=== PATIENT | male | born 1945 | race Caucasian/White ===

== ENCOUNTER 2021-08-26 19:20 | Emergency (ER) | payer SELFPAY ==
[2021-08-26 19:35] VITALS: BP 130/51; BP 142/68; PULSE 62; PULSE 80; RESP 18; O2SAT 98; BMI 22.6
--- NOTE | 2021-08-26 19:35 | ECG_ITS ---
Test Reason : AFIB Blood Pressure : / mmHG Vent. Rate : 123 BPM Atrial Rate : 123 BPM P-R Int : 094 ms QRS Dur : 124 ms QT Int : 382 ms P-R-T Axes : 082 -88 062 degrees QTc Int : 546 ms Sinus tachycardia with short CO with Fusion complexes Right bundle branch block Left anterior fascicular block Bifascicular block Cannot rule out Anterior infarct (cited on or before 02-JUL-2016) Abnormal ECG When compared with ECG of 02-JUL-2016 14:30, Fusion complexes are now Present Vent. rate has increased BY 48 BPM Right bundle branch block is now Present Questionable change in initial forces of Anterior leads Referred By: Chano Veronica Electronically Signed By:SUZANNE MERINO MD
[2021-08-26 20:07] VITALS: BP 124/51; PULSE 75; RESP 17; O2SAT 98
[2021-08-26 20:08] LABS: Basophils Absolute Auto 0.1 X10*3/uL (0.0-0.2); Basophils Percent Auto 0.3 % (0-2); Eosinophils Absolute Auto 0.3 X10*3/uL (0.0-0.4); Eosinophils Percent Auto 2.1 % (0-4); Hematocrit 34.3 % (42.0-52.0); Hemoglobin 11.6 g/dl (14.0-18.0); Imm Gran Abs Auto 0.48 X10*3/uL (0.00-0.03); Lymphocytes Absolute Auto 2.9 X10*3/uL (1.2-4.9); Lymphocytes Percent Auto 18.4 % (20-40); MANUAL DIFF FLAG SCAN; Mean Corpuscular HGB Conc 33.8 g/dl (31.0-36.0); Mean Corpuscular Hemoglobin 30.1 pg (27.0-33.0); Mean Corpuscular Volume 89.1 fL (80.0-98.0); Mean Platelet Volume 9.7 fL (9.4-12.4); Monocytes Percent Auto 12.6 % (2-11); Neutrophils Absolute Auto 10.1 x10*3/uL (2.0-8.3); Neutrophils Percent Auto 63.6 % (45-73); Platelet Count 461 X10*3/uL (160-400); Red Blood Count 3.85 X10*6/uL (4.60-5.80); Red Cell Distribution Width 12.6 % (11.0-16.0); SCAN SMEAR FLAG 1; White Blood Count 15.8 X10*3/uL (4.8-10.8)
--- NOTE | 2021-08-26 20:10 | PC.NURSE ---
pt a&o3, vss, cardiac applied - afib with long runs of PVCs, EKG completed, provider aware. 20G IV placed right forearm, labs drawn. epistaxis appears to have stopped.
[2021-08-26 20:15] LABS: INTERNATIONAL NORM RATIO 1.3 (0.9-1.1); Prothrombin Time 14.3 SEC (9.9-13.0)
[2021-08-26 20:25] LABS: SLIDE REVIEW VERIFIED
[2021-08-26] MEDS: Silver Nitrate Applicator STICK..EA. 1 APPL TOPICAL (20:25)
[2021-08-26 20:31] LABS: Alanine Aminotransferase 32 U/L (0-40); Albumin Level 3.7 g/dL (3.5-5.0); Alkaline Phosphatase 103 U/L (39-117); Anion Gap 16 (12-20); Aspartate Amino Transferase 25 U/L (5-37); Bilirubin Total 0.5 mg/dL (0.0-1.0); Blood Urea Nitrogen 34 mg/dL (9-16); Calcium 9.4 mg/dL (8.4-10.2); Carbon Dioxide 24 mmol/L (22-29); Chloride 101 mmol/L (96-108); Creatinine Clr Calc Pharmacy 64.4; Estimated Glomerular Filt Rate > 60; Glucose Random 195 mg/dL (60-115); Magnesium 2.1 mg/dL (1.6-2.6); Potassium 4.6 mmol/L (3.3-5.1); Sodium 136 mmol/L (135-145); Total Protein 6.3 g/dL (6.5-8.0)
--- NOTE | 2021-08-26 20:54 | ED.EPISTAXIS ---
History of Present Illness General Chief Complaint: Epistaxis Stated Complaint: nose bleed Time Seen by Provider: 08/26/21 19:29 Source: patient and RN notes reviewed Mode of arrival: EMS Limitations: no limitations History of Present Illness HPI Narrative: Patient came from long-term for bleeding from the right nostril since 07:00 off and on patient is on Plavix no history of epistaxis in the past no head injury no bleeding from any other place patient feels otherwise fine Related Data Allergies Allergy/AdvReac Type Severity Reaction Status Date / Time No Known Allergies Allergy Unverified 02/08/20 19:13 [No Known Allergies*] Review of Systems Review of Systems: Yes all other systems are reviewed and are negative [facility] Past Medical History Medical History CVA (cerebral vascular accident) Diabetes type 2, controlled Essential (primary) hypertension Hemiplegia and hemiparesis following cerebral infarction affecting right dominant side Hyperlipidemia Repeated falls Social History Social History Alcohol intake: never Patient Tobacco Use Status: Former Tobacco user Use of substances other than those prescribed or required for medical reasons: No Advance Directives: No Advance Directives Information Provided: No Physical Exam Vital Signs: Vital Signs: Last Vital Signs Pulse 75 08/26/21 20:07 Resp 17 08/26/21 20:07 BP 124/51 L 08/26/21 20:07 Pulse Ox 98 08/26/21 20:07 BMI result Body Mass Index 22.6 Appearance: Alert. Oriented X3. No acute distress. Eyes: No pallor/ icterus ENT: Pharynx normal. Oral Mucosa moist .active bleeding from right anterior septum Neck: Normal inspection. Neck supple. CVS: Sinus Tachycardia with PACs Pulses normal. Respiratory: No respiratory distress. Equal air entry bilateral, Abdomen: Soft and nontender. Bowel sounds are present, no mass palpable, Skin: Skin warm and dry. Normal skin color. Normal skin turgor. Extremities: No lower extremity edema. No calf tenderness Neuro: Oriented X 3. No motor deficit. MDM - Epistaxis MDM Narrative Medical decision making narrative: Bleeding stopped after cauterization right nostril vital stable patient had food in the ER, discharge patient back to long-term Lab Data Attestation: I reviewed the patient's lab results. Result diagrams: 08/26/21 20:03 08/26/21 20:03 Labs: Lab Results 08/26/21 08/26/21 08/26/21 Range/Units 20:03 20:03 20:03 WBC 15.8 H (4.8-10.8) X10*3/uL RBC 3.85 L (4.60-5.80) X10*6/uL Hgb 11.6 L (14.0-18.0) g/dl Hct 34.3 L (42.0-52.0) % MCV 89.1 (80.0-98.0) fL MCH 30.1 (27.0-33.0) pg MCHC 33.8 (31.0-36.0) g/dl RDW 12.6 (11.0-16.0) % Plt Count 461 H (160-400) X10*3/uL MPV 9.7 (9.4-12.4) fL Immature Gran % (Auto) 3.0 H (0.0-0.4) % Neut % (Auto) 63.6 (45-73) % Lymph % (Auto) 18.4 L (20-40) % [place] % (Auto) 12.6 H (2-11) % Eos % (Auto) 2.1 (0-4) % Baso % (Auto) 0.3 (0-2) % Lymph # (Auto) 2.9 (1.2-4.9) X10*3/uL [place] # (Auto) 2.0 H (0.1-1.2) X10*3/uL Eos # (Auto) 0.3 (0.0-0.4) X10*3/uL Baso # (Auto) 0.1 (0.0-0.2) X10*3/uL Abs Immat Gran (auto) 0.48 H (0.00-0.03) X10*3/uL Absolute Neuts (auto) 10.1 H (2.0-8.3) x10*3/uL Absolute Nucleated RBC 0.000 (0.0-0.012) X10*3/uL Nucleated RBC % (auto) 0.0 (0.0-0.2) /100WBC Smear Tech's Comments VERIFIED PT 14.3 H (9.9-13.0) SEC INR 1.3 H (0.9-1.1) Sodium 136 (135-145) mmol/L Potassium 4.6 (3.3-5.1) mmol/L Chloride 101 (96-108) mmol/L Carbon Dioxide 24 (22-29) mmol/L Anion Gap 16 (12-20) BUN 34 H (9-16) mg/dL Creatinine 1.11 (0.5-1.4) mg/dL Estim Creat Clear Calc 64.4 Estimated GFR > 60 Random Glucose 195 H (60-115) mg/dL Calcium 9.4 (8.4-10.2) mg/dL Magnesium 2.1 (1.6-2.6) mg/dL Total Bilirubin 0.5 (0.0-1.0) mg/dL AST 25 (5-37) U/L ALT 32 (0-40) U/L Alkaline Phosphatase 103 (39-117) U/L Total Protein 6.3 L (6.5-8.0) g/dL Albumin 3.7 (3.5-5.0) g/dL Procedures Epistaxis Control Time Out Performed: Yes Nostril: Yes right Direct inspection: Yes anterior source identified Direct inspection method: Yes otoscope Clots removed by: Yes blowing nose Epistaxis treatment: Yes silver nitrate cautery Results of treatment: Yes bleeding controlled Complications: Yes none Discharge Plan Discharge Clinical Impression: Epistaxis Patient Disposition: Xfer [facility] Instructions: Nosebleed (ED) Additional Instructions: Local care as advised Stop picking of the nose
--- NOTE | 2021-08-26 21:40 | PC.NURSE ---
rn-rn report called in to [facility], ambulance to pick pt up around 2300.
[2021-08-26 23:22] VITALS: BP 153/64; PULSE 76; RESP 18; O2SAT 95
== END 2021-08-26 23:28 | disposition skilled nursing facility (03) ==
PROVIDERS: Emergency Provider Internal Medicine
DX: R04.0 Epistaxis (principal); E11.9 Type 2 diabetes mellitus without complications; I10 Essential (primary) hypertension; E78.5 Hyperlipidemia, unspecified; Z86.73 Personal history of transient ischemic attack (TIA), and cerebral infarction without residual deficits; Z79.01 Long term (current) use of anticoagulants
CPT/HCPCS: 30901; 36415; 80053; 83735; 85025; 85610; 93005; 99283; 99285

== ENCOUNTER 2022-09-01 12:24 | Emergency (ER) | payer MEDICARE, SELFPAY ==
--- NOTE | 2022-09-01 12:30 | ED.FALL ---
HPI - Fall General Chief Complaint: Fall <LINO Fry - Last Filed: 09/05/22 12:52> Stated Complaint: Fall <LINO Fry - Last Filed: 09/05/22 12:52> Time Seen by Provider: 09/01/22 14:07 <LINO Fry - Last Filed: 09/05/22 12:52> Source: patient <Aditya Bourgeois MD - Last Filed: 09/01/22 16:19> Mode of arrival: ambulatory <Aditya Bourgeois MD - Last Filed: 09/01/22 16:19> Limitations: no limitations <Aditya Bourgeois MD - Last Filed: 09/01/22 16:19> History of Present Illness HPI Narrative: Patient fell at home and he is on eliquist for a prior stroke. Patient states he landed on his right side to me. Patients son say his foot drags from prior stroke and he lost his balance. <Aditya Bourgeois MD - Last Filed: 09/01/22 16:19> MD complaint: fall <Aditya Bourgeois MD - Last Filed: 09/01/22 16:19> Onset (ago): hour(s) <Aditya Bourgeois MD - Last Filed: 09/01/22 16:19> Fall from: standing <Aditya Bourgeois MD - Last Filed: 09/01/22 16:19> Fall witnessed: no <Aditya Bourgeois MD - Last Filed: 09/01/22 16:19> Place fall occurred: home <Aditya Bourgeois MD - Last Filed: 09/01/22 16:19> Loss of consciousness: none <Aditya Bourgeois MD - Last Filed: 09/01/22 16:19> Context: tripped/slipped <Aditya Bourgeois MD - Last Filed: 09/01/22 16:19> Related Data Allergies/Adverse Reactions: Allergies Allergy/AdvReac Type Severity Reaction Status Date / Time No Known Allergies Allergy Verified 09/01/22 12:37 [No Known Allergies*] <LINO Fry - Last Filed: 09/05/22 12:52> Review of Systems Review of Systems: Yes all other systems are reviewed and are negative <Aditya Bourgeois MD - Last Filed: 09/01/22 16:19> Neurologic: Denies Sensory deficit (Neuro) <Aditya Bourgeois MD - Last Filed: 09/01/22 16:19> [facility] Past Medical History Medical History: Medical History CVA (cerebral vascular accident) Diabetes type 2, controlled Essential (primary) hypertension Hemiplegia and hemiparesis following cerebral infarction affecting right dominant side Hyperlipidemia Repeated falls <LINO Fry - Last Filed: 09/05/22 12:52> Social History Social History: Social History Alcohol intake: never Patient Tobacco Use Status: Former Tobacco user Smoked in Last 30 Days: No Use of substances other than those prescribed or required for medical reasons: No Advance Directives: No Advance Directives Information Provided: Yes <LINO Fry - Last Filed: 09/05/22 12:52> Physical Exam Vital Signs: Vital Signs: Last Vital Signs Temp 97 F 09/01/22 12:31 Pulse 66 09/01/22 14:13 Resp 18 09/01/22 12:31 BP 161/65 H 09/01/22 14:13 Pulse Ox 99 09/01/22 14:13 BMI result Body Mass Index 20.0 <LINO Fry - Last Filed: 09/05/22 12:52> Vital Signs: Last Vital Signs Temp 97 F 09/01/22 12:31 Pulse 66 09/01/22 14:13 Resp 18 09/01/22 12:31 BP 161/65 H 09/01/22 14:13 Pulse Ox 99 09/01/22 14:13 BMI result Body Mass Index 20.0 <Aditya Bourgeois MD - Last Filed: 09/01/22 16:19> Const: Other: thin male, chronically ill <Aditya Bourgeois MD - Last Filed: 09/01/22 16:19> Orientation/consciousness: oriented to person and patient oriented x3 <Aditya Bourgeois MD - Last Filed: 09/01/22 16:19> Limitations: no limitations <Aditay Bourgeois MD - Last Filed: 09/01/22 16:19> HEENT: Head: Yes normal to inspection <Aditya Bourgeois MD - Last Filed: 09/01/22 16:19> Ears: external ears normal <Aditya Bourgeois MD - Last Filed: 09/01/22 16:19> General nose exam: Normal external nose present <Aditya Bourgeois MD - Last Filed: 09/01/22 16:19> Mouth: Normal oral and palatal mucosa present and oropharynx normal <Aditya Bourgeois MD - Last Filed: 09/01/22 16:19> Throat: Yes posterior oropharynx normal <Aditya Bourgeois MD - Last Filed: 09/01/22 16:19> Eyes: General: appearance normal, both eyes and all related structures <Aditya Bourgeois MD - Last Filed: 09/01/22 16:19> Neck: Other: supple <Aditya Bourgeois MD - Last Filed: 09/01/22 16:19> Neck: Yes normal visual inspection <Aditya Bourgeois MD - Last Filed: 09/01/22 16:19> Chest: Chest palpation & inspection: normal inspection of the chest <Aditya Bourgeois MD - Last Filed: 09/01/22 16:19> Resp: Auscultation: clear to auscultation bilaterally <Aditya Bourgeois MD - Last Filed: 09/01/22 16:19> Cardio: Jugular venous distension: no JVD <Aditya Bourgeois MD - Last Filed: 09/01/22 16:19> Rate: regular rate <Aditya Bourgeois MD - Last Filed: 09/01/22 16:19> Rhythm: regular rhythm <Aditya Bourgeois MD - Last Filed: 09/01/22 16:19> Heart sounds: S1 normal heart sound present and S2 normal heart sound present <Aditya Bourgeois MD - Last Filed: 09/01/22 16:19> GI: Inspection: Yes normal to inspection <Aditya Bourgeois MD - Last Filed: 09/01/22 16:19> Palpation (GI): Soft to palpation, nontender and No hepatosplenomegaly present <Aditya Bourgeois MD - Last Filed: 09/01/22 16:19> Auscultation: normal bowel sounds <Aditya Bourgeois MD - Last Filed: 09/01/22 16:19> : General: Yes no CVA tenderness <Aditya Bourgeois MD - Last Filed: 09/01/22 16:19> Back/Spine/Pelvis: Back: no CVA tenderness <Aditya Bourgeois MD - Last Filed: 09/01/22 16:19> Skin: General skin exam: no rashes or lesions noted <Aditya Bourgeois MD - Last Filed: 09/01/22 16:19> Neuro: Other: very mild right sided weakness from old cva <Aditya Bourgeois MD - Last Filed: 09/01/22 16:19> General: oriented to person and patient oriented x3 <Aditya Bourgeois MD - Last Filed: 09/01/22 16:19> Cranial nerves: Yes CN's II-XII intact bilaterally <Aditya Bourgeois MD - Last Filed: 09/01/22 16:19> Motor exam (neuro): 5/5 motor strength present throughout <Aditya Bourgeois MD - Last Filed: 09/01/22 16:19> Sensory Exam: No Sensory deficit (Neuro) <Aditya Bourgeois MD - Last Filed: 09/01/22 16:19> Extrem: General: Yes normal to inspection <Aditya Bourgeois MD - Last Filed: 09/01/22 16:19> Psych: Appearance: grossly normal <Aditya Bourgeois MD - Last Filed: 09/01/22 16:19> Course Course Course Narrative: RME--77-year-old male with past medical history of CVA, diabetes, hypertension, HLD, hemiplegia and hemiparesis, frequent falls, presenting to the ED c/o mechanical trip & fall onto left side this AM. Takes Eliquis. Patient denies complaints at present. Denies head trauma or LOC. Denies neck/back pain, CP, SOB, abd pain. Here with son requesting help at home. No evidence of trauma, no midline spinous tenderness, no focal deficits. Ambulating slow steady with cane. Diffuse palpation over patient's entire body without elicited pain Labs, UA, PT/CM ordered <LINO Fry - Last Filed: 09/05/22 12:52> Reevaluation(s) Reevaluation #1: no acute medical findings for admission, patient eloped with family <Aditya Bourgeois MD - Last Filed: 09/01/22 16:19> Time: 16:19 <Aditya Bourgeois MD - Last Filed: 09/01/22 16:19> Medical Decision Making Differential Diagnosis Differential Diagnoses: The differential diagnosis associated with the presentation includes (CVA, electrolyte abnormality, UTI, weakness, fall risk) <Aditya Bourgeois MD - Last Filed: 09/01/22 16:19> Admission/Observation Consideration of admission/observation: Escalation of care including admission/observation considered (in this 77 yo male with prior CVA and new weakness admission was considered) <Aditya Bourgeois MD - Last Filed: 09/01/22 16:19> Consult Healthcare Provider Management of the patient was discussed with: Therapy Director (Case management, physical therapy) <Aditya Bourgeois MD - Last Filed: 09/01/22 16:19> Lab Data MDM Lab Attestation statement: I reviewed the patient's lab results. <Aditya Bourgeois MD - Last Filed: 09/01/22 16:19> Result Diagrams: 09/01/22 12:44 09/01/22 12:44 <LINO Fry - Last Filed: 09/05/22 12:52> Labs: Lab Results 09/01/22 09/01/22 09/01/22 Range/Units 12:44 12:44 12:44 WBC 10.3 (4.8-10.8) X10*3/uL RBC 3.67 L (4.60-5.80) X10*6/uL Hgb 11.2 L (14.0-18.0) g/dl Hct 34.4 L (42.0-52.0) % MCV 93.7 (80.0-98.0) fL MCH 30.5 (27.0-33.0) pg MCHC 32.6 (31.0-36.0) g/dl RDW 14.4 (11.0-16.0) % Plt Count 382 (160-400) X10*3/uL MPV 10.6 (9.4-12.4) fL Immature Gran % (Auto) 1.7 H (0.0-0.4) % Neut % (Auto) 66.9 (45-73) % Lymph % (Auto) 18.0 L (20-40) % [place] % (Auto) 9.4 (2-11) % Eos % (Auto) 3.5 (0-4) % Baso % (Auto) 0.5 (0-2) % Lymph # (Auto) 1.9 (1.2-4.9) X10*3/uL [place] # (Auto) 1.0 (0.1-1.2) X10*3/uL Eos # (Auto) 0.4 (0.0-0.4) X10*3/uL Baso # (Auto) 0.1 (0.0-0.2) X10*3/uL Abs Immat Gran (auto) 0.18 H (0.00-0.03) X10*3/uL Absolute Neuts (auto) 6.9 (2.0-8.3) x10*3/uL Absolute Nucleated RBC 0.000 (0.0-0.012) X10*3/uL Nucleated RBC % (auto) 0.0 (0.0-0.2) /100WBC Sodium 141 (135-145) mmol/L Potassium 5.0 (3.3-5.1) mmol/L Chloride 106 (96-108) mmol/L Carbon Dioxide 25 (22-29) mmol/L Anion Gap 15 (12-20) BUN 20 H (9-16) mg/dL Creatinine 1.15 (0.5-1.4) mg/dL Estim Creat Clear Calc 54.1 Estimated GFR > 60 Random Glucose 201 H (60-115) mg/dL Calcium 9.6 (8.4-10.2) mg/dL Total Bilirubin 0.4 (0.0-1.0) mg/dL Direct Bilirubin 0.1 (0.0-0.5) mg/dL AST 15 (5-37) U/L ALT 16 (0-40) U/L Alkaline Phosphatase 99 (39-117) U/L Total Protein 6.4 L (6.5-8.0) g/dL Albumin 4.0 (3.5-5.0) g/dL COVID-19 ([facility]) Negative (Negative) COVID-19 Clin Com See Note <LINO Fry - Last Filed: 09/05/22 12:52> Lab Results 09/01/22 09/01/22 09/01/22 Range/Units 12:44 12:44 12:44 WBC 10.3 (4.8-10.8) X10*3/uL RBC 3.67 L (4.60-5.80) X10*6/uL Hgb 11.2 L (14.0-18.0) g/dl Hct 34.4 L (42.0-52.0) % MCV 93.7 (80.0-98.0) fL MCH 30.5 (27.0-33.0) pg MCHC 32.6 (31.0-36.0) g/dl RDW 14.4 (11.0-16.0) % Plt Count 382 (160-400) X10*3/uL MPV 10.6 (9.4-12.4) fL Immature Gran % (Auto) 1.7 H (0.0-0.4) % Neut % (Auto) 66.9 (45-73) % Lymph % (Auto) 18.0 L (20-40) % [place] % (Auto) 9.4 (2-11) % Eos % (Auto) 3.5 (0-4) % Baso % (Auto) 0.5 (0-2) % Lymph # (Auto) 1.9 (1.2-4.9) X10*3/uL [place] # (Auto) 1.0 (0.1-1.2) X10*3/uL Eos # (Auto) 0.4 (0.0-0.4) X10*3/uL Baso # (Auto) 0.1 (0.0-0.2) X10*3/uL Abs Immat Gran (auto) 0.18 H (0.00-0.03) X10*3/uL Absolute Neuts (auto) 6.9 (2.0-8.3) x10*3/uL Absolute Nucleated RBC 0.000 (0.0-0.012) X10*3/uL Nucleated RBC % (auto) 0.0 (0.0-0.2) /100WBC Sodium 141 (135-145) mmol/L Potassium 5.0 (3.3-5.1) mmol/L Chloride 106 (96-108) mmol/L Carbon Dioxide 25 (22-29) mmol/L Anion Gap 15 (12-20) BUN 20 H (9-16) mg/dL Creatinine 1.15 (0.5-1.4) mg/dL Estim Creat Clear Calc 54.1 Estimated GFR > 60 Random Glucose 201 H (60-115) mg/dL Calcium 9.6 (8.4-10.2) mg/dL Total Bilirubin 0.4 (0.0-1.0) mg/dL Direct Bilirubin 0.1 (0.0-0.5) mg/dL AST 15 (5-37) U/L ALT 16 (0-40) U/L Alkaline Phosphatase 99 (39-117) U/L Total Protein 6.4 L (6.5-8.0) g/dL Albumin 4.0 (3.5-5.0) g/dL COVID-19 ([facility]) Negative (Negative) COVID-19 Clin Com See Note <Aditya Bourgeois MD - Last Filed: 09/01/22 16:19> Tests considered The following testing was considered but not selected: Head Ct was considered but no new weakness <Aditya Bourgeois MD - Last Filed: 09/01/22 16:19> Discharge Plan Discharge Clinical Impression: Weakness <LINO Fry - Last Filed: 09/05/22 12:52> Patient Disposition: Elopement <LINO Fry - Last Filed: 09/05/22 12:52> Interventions: ED Discharge Assessment Last Done: 09/02/22 09:30 <LINO Fry - Last Filed: 09/05/22 12:52> Discharge Date/Time: 09/01/22 14:30 <LINO Fry - Last Filed: 09/05/22 12:52>
[2022-09-01 12:31] VITALS: BP 161/65; PULSE 66; RESP 18; TEMP 36.1; O2SAT 99
[2022-09-01 12:54] LABS: MANUAL DIFF FLAG NO
[2022-09-01 12:56] LABS: Basophils Absolute Auto 0.1 X10*3/uL (0.0-0.2); Basophils Percent Auto 0.5 % (0-2); Eosinophils Absolute Auto 0.4 X10*3/uL (0.0-0.4); Eosinophils Percent Auto 3.5 % (0-4); Hematocrit 34.4 % (42.0-52.0); Hemoglobin 11.2 g/dl (14.0-18.0); Imm Gran Abs Auto 0.18 X10*3/uL (0.00-0.03); Imm Gran Pct Auto 1.7 % (0.0-0.4); Lymphocytes Absolute Auto 1.9 X10*3/uL (1.2-4.9); Mean Corpuscular HGB Conc 32.6 g/dl (31.0-36.0); Mean Corpuscular Hemoglobin 30.5 pg (27.0-33.0); Mean Corpuscular Volume 93.7 fL (80.0-98.0); Mean Platelet Volume 10.6 fL (9.4-12.4); Monocytes Percent Auto 9.4 % (2-11); Neutrophils Absolute Auto 6.9 x10*3/uL (2.0-8.3); Neutrophils Percent Auto 66.9 % (45-73); Platelet Count 382 X10*3/uL (160-400); Red Blood Count 3.67 X10*6/uL (4.60-5.80); Red Cell Distribution Width 14.4 % (11.0-16.0); White Blood Count 10.3 X10*3/uL (4.8-10.8)
[2022-09-01 13:09] LABS: IDNOW Serial# BCCEAD1C
[2022-09-01 13:10] LABS: COVID-19 Test Negative (Negative)
[2022-09-01 13:17] LABS: Alanine Aminotransferase 16 U/L (0-40); Alkaline Phosphatase 99 U/L (39-117); Anion Gap 15 (12-20); Aspartate Amino Transferase 15 U/L (5-37); Bilirubin Direct 0.1 mg/dL (0.0-0.5); Bilirubin Total 0.4 mg/dL (0.0-1.0); Blood Urea Nitrogen 20 mg/dL (9-16); Calcium 9.6 mg/dL (8.4-10.2); Carbon Dioxide 25 mmol/L (22-29); Chloride 106 mmol/L (96-108); Creatinine Clr Calc Pharmacy 54.1; Estimated Glomerular Filt Rate > 60; Glucose Random 201 mg/dL (60-115); Sodium 141 mmol/L (135-145); Total Protein 6.4 g/dL (6.5-8.0)
[2022-09-01 14:13] VITALS: BP 161/65; PULSE 66; O2SAT 99
--- NOTE | 2022-09-01 14:55 | PC.NURSE ---
Patient noted to not be in room; spoke to provider who states that they have not discharged the patient yet. Called patient's son who was driving patient home at time of call. This nurse asked son to bring patient back to ED as the patient was not discharged.
--- NOTE | 2022-09-01 15:04 | MHC.CM.ED ---
Received case management consult from Stephanie HUYNH. Patient came to the ER due to a fall. Work up essentially negative. Physical therapy eval completed. Home therapy is recommended. Met with patient and son, Hussein in regards to discharge planning. Patient lives with his friend, Cherelle, ambulates with a cane and had no services prior to coming to the ER. Patient denies having a PCP. Patient states he has a HCP at home and will attempt to obtain a copy. Patient and Hussein made aware VNA will not be able to be arranged for home therapy because patient does not have a PCP. Both are upset but understand. Dr Bourgeois made aware. Dr Bourgeois feels patient must have a PCP because patient is on maintenance Eliquis. Patient's pharmacy is [facility] in [place]. T/W spoke with Jose Ramon Sargent. Patient hasn't picked up medication from them since 11/2021. T/W met with patient and son Hussein. Prescription was sent by a doctor in [facility]. Hussein picked up patient's RX on Wednesday. VNA will still not be able to be arranged. Khushboo, Hussein, and Dr Bourgeois. aware. Patient will be d/c'd home. Hussein will transport patient home.
== END 2022-09-01 14:30 | disposition left against medical advice (07) ==
PROVIDERS: Physician Assistant; Emergency Provider Emergency Medicine
DX: R53.1 Weakness (principal); R26.2 Difficulty in walking, not elsewhere classified; Z20.822 Contact with and (suspected) exposure to COVID-19; Z20.828 Contact with and (suspected) exposure to other viral communicable diseases; Z79.899 Other long term (current) drug therapy
CPT/HCPCS: 80048; 80076; 85025; 87635; 97162; 99284

== ENCOUNTER 2022-09-17 13:51 | Emergency (ER) | payer OTHER, MEDICARE, SELFPAY ==
--- NOTE | ~2022-09-17 | CT_ITS ---
EXAMINATION: CT HEAD WITHOUT CONTRAST CLINICAL INFORMATION: History of fall, right leg weakness. COMPARISON: Head CT from 07/02/2016 TECHNIQUE: Contiguous axial imaging was performed from the skull base to vertex without intravenous administration of contrast. This CT examination was performed using dose optimization techniques as appropriate, variously including the following: *Automated exposure control *Adjustment of mA and/or kV according to patient size (this includes techniques or standardized protocols for targeted exams where dose is matched to indication/reason for exam; i.e. extremities or head) *Use of iterative reconstruction technique DLP: 732 mGy-cm FINDINGS: No evidence of intracranial hemorrhage, acute extra-axial fluid collection, focal mass effect or midline shift. The forbes-white matter differentiation is maintained. No acute major vascular territory infarction. There is dense atherosclerotic calcification of cavernous carotid arteries. Also, there is atherosclerotic calcification of proximal intradural segments of vertebral arteries. Chronic patchy hypoattenuation is present in the supratentorial white matter. There are a few lacunar infarcts, including region of left corpus striatum, posterior limb of left internal capsule and right gangliocapsular region. There is chronic prominence of the cerebrospinal fluid space of the left middle cranial fossa consistent with arachnoid cyst, as noted on 07/02/2016. There is chronic mild prominence of the cisterna magna. No acute findings in the posterior fossa. Moderate parenchymal volume loss with commensurate prominence of ventricles and sulci; no hydrocephalus. No evidence of calvarial fracture. The mastoid air cells are well aerated. The orbits and temporomandibular joints are unremarkable. There are mucous retention cysts of maxillary sinuses. Calcium deposition (likely calcium pyrophosphate dihydrate crystal deposition) along the transverse ligament posterior to the dens. CT/CT head/brain wo IV con IMPRESSION: * No intracranial hemorrhage or other acute intracranial pathology. 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 * There is chronic prominence of the cerebrospinal fluid space of the left middle cranial fossa consistent with arachnoid cyst.
--- NOTE | 2022-09-17 13:53 | ED.GENADULT ---
HPI - General Adult General Chief complaint: Fall Stated complaint: falling? Related Data Home Medications ?Medication ?Instructions ?Recorded ?Confirmed apixaban 5 mg tablet (Eliquis) 5 mg PO BID 09/18/22 07/06/23 atorvastatin 80 mg tablet 80 mg PO BEDTIME 09/18/22 07/06/23 metformin 500 mg tablet 1,000 mg PO BID 09/18/22 07/06/23 tamsulosin 0.4 mg capsule 0.4 mg PO DAILY 09/18/22 07/06/23 acetaminophen 325 mg tablet 650 mg PO Q6H PRN Fever Or Pain 10/29/22 07/06/23 (Tylenol) bisacodyl 10 mg rectal suppository 10 mg CA DAILY PRN Constipation 10/29/22 07/06/23 magnesium hydroxide 400 mg/5 mL 30 ml PO DAILY PRN Constipation 10/29/22 07/06/23 oral suspension (Milk of Magnesia) sodium phosphates 19 gram-7 118 ml CA DAILY PRN Constipation 10/29/22 07/06/23 gram/118 mL enema (Fleet Enema) amlodipine 2.5 mg tablet 2.5 mg PO DAILY 12/21/22 07/06/23 ferrous sulfate 325 mg (65 mg 325 mg PO DAILY 07/06/23 07/06/23 iron) tablet insulin lispro 100 unit/mL 2 - 10 sliding scale dose subcut 07/06/23 07/06/23 subcutaneous solution (Humalog USEASDIRECTD U-100 Insulin) Previous Rx's ?Medication ?Instructions ?Recorded hydrochlorothiazide 25 mg tablet 25 mg PO DAILY #30 tabs 12/02/22 lisinopril 40 mg tablet 40 mg PO DAILY #30 tabs 12/02/22 Allergies Allergy/AdvReac Type Severity Reaction Status Date / Time No Known Allergies Allergy Verified 09/18/22 13:13 [No Known Allergies*] [facility] Past Medical History Medical History Paroxysmal atrial fibrillation Hemiplegia and hemiparesis following cerebral infarction affecting right dominant side Essential (primary) hypertension Hyperlipidemia Diabetes type 2, controlled Repeated falls CVA (cerebral vascular accident) Social History Social History Alcohol intake: never Patient Tobacco Use Status: Current everyday Tobacco user Tobacco use type: Cigarette Cigarette Packs Per Day: 0.3 Cigarettes Per Day: 6.0 Advance Directives Date on File: 09/18/22 service: Yes Current occupational status: retired Physical Exam ED Vital Signs: BMI result Body Mass Index 20.0 Course Course Course Narrative: This is an RME: Additional HPI, ROS, PE not included below will be deferred to primary provider. 77-year-old male history of diabetes, hypertension, hyperlipidemia, CVA on Eliquis, hemiplegia and hemiparesis following CVA presenting to the emergency department for frequent falls, falling mg 6 times a week, has not sustained any injuries. Here with son. Denies chest shortness of nausea, vomiting, headache, vision changes, dizziness and weakness. Physical exam global weakness, unsteady gait. Plan labs, imaging Medical Decision Making Lab Data 09/17/22 14:19 09/17/22 14:19 Labs: Lab Results 09/17/22 Range/Units 14:19 WBC 9.3 (4.8-10.8) X10*3/uL RBC 3.79 L (4.60-5.80) X10*6/uL Hgb 11.7 L (14.0-18.0) g/dl Hct 36.0 L (42.0-52.0) % MCV 95.0 (80.0-98.0) fL MCH 30.9 (27.0-33.0) pg MCHC 32.5 (31.0-36.0) g/dl RDW 14.3 (11.0-16.0) % Plt Count 385 (160-400) X10*3/uL MPV 10.8 (9.4-12.4) fL Immature Gran % (Auto) 1.6 H (0.0-0.4) % Neut % (Auto) 55.9 (45-73) % Lymph % (Auto) 28.3 (20-40) % [place] % (Auto) 10.4 (2-11) % Eos % (Auto) 3.2 (0-4) % Baso % (Auto) 0.6 (0-2) % Lymph # (Auto) 2.6 (1.2-4.9) X10*3/uL [place] # (Auto) 1.0 (0.1-1.2) X10*3/uL Eos # (Auto) 0.3 (0.0-0.4) X10*3/uL Baso # (Auto) 0.1 (0.0-0.2) X10*3/uL Abs Immat Gran (auto) 0.15 H (0.00-0.03) X10*3/uL Absolute Neuts (auto) 5.2 (2.0-8.3) x10*3/uL Absolute Nucleated RBC 0.000 (0.0-0.012) X10*3/uL Nucleated RBC % (auto) 0.0 (0.0-0.2) /100WBC Sodium 140 (135-145) mmol/L Potassium 5.3 H (3.3-5.1) mmol/L Chloride 109 H (96-108) mmol/L Carbon Dioxide 21 L (22-29) mmol/L Anion Gap 15 (12-20) BUN 26 H (9-16) mg/dL Creatinine 0.92 (0.5-1.4) mg/dL Estim Creat Clear Calc 67.6 Estimated GFR > 60 Random Glucose 119 H (60-115) mg/dL Calcium 9.6 (8.4-10.2) mg/dL Magnesium 2.1 (1.6-2.6) mg/dL Total Bilirubin 0.3 (0.0-1.0) mg/dL AST 15 (5-37) U/L ALT 14 (0-40) U/L Alkaline Phosphatase 100 (39-117) U/L Troponin I High Sens 12.1 (<3.5-35.0) ng/L Total Protein 6.7 (6.5-8.0) g/dL Albumin 4.1 (3.5-5.0) g/dL COVID-19 ([facility]) Negative (Negative) COVID-19 Clin Com See Note Discharge Plan Discharge Clinical Impression: Eloped from emergency department Patient Disposition: Elopement Prescriptions: No Action ferrous sulfate 325 mg (65 mg iron) Tablet 325 mg PO DAILY insulin lispro [Humalog U-100 Insulin] 100 unit/mL Solution 2 - 10 sliding scale dose SUBCUT USEASDIRECTD metformin 500 mg tablet 1,000 mg PO BID atorvastatin 80 mg tablet 80 mg PO BEDTIME tamsulosin 0.4 mg capsule 0.4 mg PO DAILY Eliquis 5 mg tablet 5 mg PO BID acetaminophen [Tylenol] 325 mg Tablet 650 mg PO Q6H PRN (Reason: Fever Or Pain) Rx Instructions: DO NOT EXCEED 3G / 24 HRS magnesium hydroxide [Milk of Magnesia] 400 mg/5 mL Suspension 30 ml PO DAILY PRN (Reason: Constipation) bisacodyl 10 mg Suppository 10 mg CA DAILY PRN (Reason: Constipation) Fleet Enema 19-7 gram/118 mL Enema 118 ml CA DAILY PRN (Reason: Constipation) lisinopril 40 mg Tablet 40 mg PO DAILY Qty: 30 0RF Protocol: Hold for SBP< HOLD for SBP < : 90 hydrochlorothiazide 25 mg Tablet 25 mg PO DAILY Qty: 30 0RF Protocol: Hold for SBP< HOLD for SBP < : 90 amlodipine 2.5 mg Tablet 2.5 mg PO DAILY Interventions: ED Discharge Assessment Last Done: 09/17/22 19:32 Discharge Date/Time: 09/17/22 19:33 Print Language: Azeri
--- NOTE | 2022-09-17 13:54 | ECG_ITS ---
Test Reason : weakness Blood Pressure : / mmHG Vent. Rate : 057 BPM Atrial Rate : 057 BPM P-R Int : 166 ms QRS Dur : 122 ms QT Int : 442 ms P-R-T Axes : 081 -83 051 degrees QTc Int : 430 ms Sinus bradycardia with sinus arrhythmia Right bundle branch block Left anterior fascicular block Bifascicular block Minimal voltage criteria for LVH, may be normal variant ( R in aVL ) Possible Anterior infarct (cited on or before 02-JUL-2016) Abnormal ECG When compared with ECG of 26-AUG-2021 19:36, No significant changes seen Referred By: Jannette Johnson Electronically Signed By:Rivas Nicolas
[2022-09-17 13:55] VITALS: BP 205/81; PULSE 55; RESP 19; TEMP 36.6; O2SAT 98
[2022-09-17 14:24] LABS: MANUAL DIFF FLAG NO
[2022-09-17 14:27] LABS: Basophils Absolute Auto 0.1 X10*3/uL (0.0-0.2); Basophils Percent Auto 0.6 % (0-2); Eosinophils Absolute Auto 0.3 X10*3/uL (0.0-0.4); Eosinophils Percent Auto 3.2 % (0-4); Hemoglobin 11.7 g/dl (14.0-18.0); Imm Gran Abs Auto 0.15 X10*3/uL (0.00-0.03); Imm Gran Pct Auto 1.6 % (0.0-0.4); Lymphocytes Absolute Auto 2.6 X10*3/uL (1.2-4.9); Lymphocytes Percent Auto 28.3 % (20-40); Mean Corpuscular HGB Conc 32.5 g/dl (31.0-36.0); Mean Corpuscular Hemoglobin 30.9 pg (27.0-33.0); Mean Platelet Volume 10.8 fL (9.4-12.4); Monocytes Percent Auto 10.4 % (2-11); Neutrophils Absolute Auto 5.2 x10*3/uL (2.0-8.3); Neutrophils Percent Auto 55.9 % (45-73); Platelet Count 385 X10*3/uL (160-400); Red Blood Count 3.79 X10*6/uL (4.60-5.80); Red Cell Distribution Width 14.3 % (11.0-16.0); White Blood Count 9.3 X10*3/uL (4.8-10.8)
[2022-09-17 14:39] LABS: COVID-19 Test Negative (Negative); IDNOW Serial# 9DB6401D
[2022-09-17 14:41] LABS: Alanine Aminotransferase 14 U/L (0-40); Albumin Level 4.1 g/dL (3.5-5.0); Alkaline Phosphatase 100 U/L (39-117); Anion Gap 15 (12-20); Aspartate Amino Transferase 15 U/L (5-37); Bilirubin Total 0.3 mg/dL (0.0-1.0); Blood Urea Nitrogen 26 mg/dL (9-16); Calcium 9.6 mg/dL (8.4-10.2); Carbon Dioxide 21 mmol/L (22-29); Chloride 109 mmol/L (96-108); Creatinine Clr Calc Pharmacy 67.6; Estimated Glomerular Filt Rate > 60; Glucose Random 119 mg/dL (60-115); Magnesium 2.1 mg/dL (1.6-2.6); Potassium 5.3 mmol/L (3.3-5.1); Sodium 140 mmol/L (135-145); Total Protein 6.7 g/dL (6.5-8.0)
[2022-09-17 14:48] LABS: Troponin-I High Sensitivity 12.1 ng/L (<3.5-35.0)
== END 2022-09-17 19:33 | disposition left against medical advice (07) ==
PROVIDERS: Physician Assistant; Emergency Provider Emergency Medicine
DX: R29.6 Repeated falls (principal); R26.89 Other abnormalities of gait and mobility; Z20.822 Contact with and (suspected) exposure to COVID-19; E11.9 Type 2 diabetes mellitus without complications; I10 Essential (primary) hypertension; E78.5 Hyperlipidemia, unspecified; I69.351 Hemiplegia and hemiparesis following cerebral infarction affecting right dominant side; Z87.891 Personal history of nicotine dependence; Z79.01 Long term (current) use of anticoagulants
CPT/HCPCS: 36415; 70450; 80053; 83735; 84484; 85025; 87635; 93005; 99283; 99284

== ENCOUNTER 2022-09-18 12:48 | Emergency (ER) | payer MEDICARE, SELFPAY ==
--- NOTE | ~2022-09-18 | XR_ITS ---
EXAMINATION: XR CHEST CLINICAL INFORMATION: Weakness. COMPARISON: Chest x-ray 07/02/2016 TECHNIQUE: Frontal view of the chest was obtained. FINDINGS: Both lungs are well-expanded and clear of acute pneumonic process. There is minimal atelectatic changes in the lingula. There are bilateral nipple shadows in the lower lungs. The heart size and pulmonary vascularity is normal. There is mild spondylosis dorsal spine no other bony abnormality seen. XR/XR chest 1V IMPRESSION: Minimal atelectatic changes in the lingula. Otherwise no acute process seen. Lingular atelectasis otherwise unremarkable chest chest x-ray.
[2022-09-18 13:08] VITALS: BP 151/52; PULSE 59; RESP 18; TEMP 36.3; O2SAT 99
--- NOTE | 2022-09-18 13:10 | ED_ITS ---
HPI - General Adult General Chief complaint: Weakness <LINO Fry - Last Filed: 09/18/22 13:14> Stated complaint: continuously falling, AMS <LINO Fry - Last Filed: 09/18/22 13:14> Time Seen by Provider: 09/18/22 17:06 <LINO Fry - Last Filed: 09/18/22 13:14> Source: patient, family (Patient's son, Rodney), RN notes reviewed and old records reviewed <Anastacio Larson - Last Filed: 09/18/22 22:17> Mode of arrival: ambulatory <Anastacio Larson - Last Filed: 09/18/22 22:17> Limitations: no limitations <Anastacio Larson - Last Filed: 09/18/22 22:17> History of Present Illness HPI narrative: 77-year-old male past medical history significant for CVA, diabetes, AFib, hypertension, hyperlipidemia, right-sided mirian plegia with frequent falls presents for evaluation of frequent falls. Patient lives at home with his son next he reports frequent falls over the last month which has actually been a chronic issue for him He denies any injuries from the falls PE Patient does take Eliquis for atrial fibrillation The patient presented to the ER yesterday but eloped before complete evaluation. The patient and the son are interested in short-term rehab/physical therapy. The patient states his last fall was yesterday. He had labs and a CT scan of the brain yesterday He did have a mild hyperkalemia of 5.3. The patient has no complaints currently He denies any headache, chest pain, shortness of breath, syncopal episodes <Anastacio Larson - Last Filed: 09/18/22 22:17> Related Data Home medications: Home Medications Medication Instructions Recorded Confirmed apixaban 5 mg tablet (Eliquis) 5 mg PO BID 09/18/22 09/18/22 atorvastatin 80 mg tablet 80 mg PO BEDTIME 09/18/22 09/18/22 lisinopril 2.5 mg tablet 2.5 mg PO DAILY 09/18/22 09/18/22 metformin 500 mg tablet 1,000 mg PO BID 09/18/22 09/18/22 metoprolol tartrate 50 mg tablet 25 mg PO QAM 09/18/22 09/18/22 tamsulosin 0.4 mg capsule 0.4 mg PO DAILY 09/18/22 09/18/22 <LINO Fry - Last Filed: 09/18/22 13:14> Allergies/adverse reactions: Allergies Allergy/AdvReac Type Severity Reaction Status Date / Time No Known Allergies Allergy Verified 09/18/22 13:13 [No Known Allergies*] <LINO Fry - Last Filed: 09/18/22 13:14> Review of Systems Constitutional: Constitutional: Reports as per HPI, Denies chills, Denies fatigue, Denies fever(s), Reports frequent falls, Denies headache(s) and Reports weakness <Anastacio Larson - Last Filed: 09/18/22 22:17> ENT: Denies headache(s) <Anastacio Larson - Last Filed: 09/18/22 22:17> Cardiovascular: Cardiovascular: Denies chest pain and Denies dyspnea <Anastacio Larson - Last Filed: 09/18/22 22:17> Respiratory: Respiratory: Denies cough and Denies dyspnea <Anastacio Larson - Last Filed: 09/18/22 22:17> Gastrointestinal: Gastrointestinal: Denies abdominal pain, Denies constipation and Denies vomiting <Anastacio Larson - Last Filed: 09/18/22 22:17> Genitourinary: Genitourinary: Denies difficulty urinating and Denies dysuria <Anastacio Larson - Last Filed: 09/18/22 22:17> Neurologic: Reports frequent falls, Denies headache(s) and Reports weakness <Anastacio Larson - Last Filed: 09/18/22 22:17> Endocrine: Endocrine: Denies fatigue <Anastacio Larson - Last Filed: 09/18/22 22:17> [facility] Past Medical History Medical History: Medical History CVA (cerebral vascular accident) Diabetes type 2, controlled Essential (primary) hypertension Hemiplegia and hemiparesis following cerebral infarction affecting right dominant side Hyperlipidemia Repeated falls <LINO Fry - Last Filed: 09/18/22 13:14> Social History Social History: Social History Alcohol intake: never Patient Tobacco Use Status: Former Tobacco user Smoked in Last 30 Days: Yes Use of substances other than those prescribed or required for medical reasons: No Advance Directives: Yes Advance Directives Information Provided: No Advance Directives on File: No <LINO Fry - Last Filed: 09/18/22 13:14> Physical Exam ED Vital Signs: Vital Signs - 24 hr 09/18/22 16:42 09/18/22 19:19 09/18/22 22:28 Temperature 97.7 F 98.4 F 98.1 F Pulse Rate 54 64 74 Respiratory Rate 20 16 16 Blood Pressure 172/63 H 196/76 H 178/67 H Pulse Oximetry 98 98 95 Oxygen Delivery Method Room Air Room Air Room Air 09/19/22 04:21 09/19/22 06:00 09/19/22 07:13 Temperature 98.0 F 98.3 F Pulse Rate 55 53 59 Respiratory Rate 18 16 12 Blood Pressure 194/102 H 179/69 H 175/67 H Pulse Oximetry 98 97 97 Oxygen Delivery Method Room Air Room Air Room Air 09/19/22 09:11 09/19/22 10:27 Temperature Pulse Rate 63 63 Respiratory Rate 14 Blood Pressure 165/77 H 165/77 H Pulse Oximetry 98 98 Oxygen Delivery Method BMI result Body Mass Index 20.0 <LINO Fry - Last Filed: 09/18/22 13:14> Vital Signs - 24 hr 09/18/22 16:42 09/18/22 19:19 09/18/22 22:28 Temperature 97.7 F 98.4 F 98.1 F Pulse Rate 54 64 74 Respiratory Rate 20 16 16 Blood Pressure 172/63 H 196/76 H 178/67 H Pulse Oximetry 98 98 95 Oxygen Delivery Method Room Air Room Air Room Air 09/19/22 04:21 09/19/22 06:00 09/19/22 07:13 Temperature 98.0 F 98.3 F Pulse Rate 55 53 59 Respiratory Rate 18 16 12 Blood Pressure 194/102 H 179/69 H 175/67 H Pulse Oximetry 98 97 97 Oxygen Delivery Method Room Air Room Air Room Air 09/19/22 09:11 09/19/22 10:27 Temperature Pulse Rate 63 63 Respiratory Rate 14 Blood Pressure 165/77 H 165/77 H Pulse Oximetry 98 98 Oxygen Delivery Method BMI result Body Mass Index 20.0 <Anastacio Larson - Last Filed: 09/18/22 22:17> Vital Signs - 24 hr 09/18/22 16:42 09/18/22 19:19 09/18/22 22:28 Temperature 97.7 F 98.4 F 98.1 F Pulse Rate 54 64 74 Respiratory Rate 20 16 16 Blood Pressure 172/63 H 196/76 H 178/67 H Pulse Oximetry 98 98 95 Oxygen Delivery Method Room Air Room Air Room Air 09/19/22 04:21 09/19/22 06:00 09/19/22 07:13 Temperature 98.0 F 98.3 F Pulse Rate 55 53 59 Respiratory Rate 18 16 12 Blood Pressure 194/102 H 179/69 H 175/67 H Pulse Oximetry 98 97 97 Oxygen Delivery Method Room Air Room Air Room Air 09/19/22 09:11 09/19/22 10:27 Temperature Pulse Rate 63 63 Respiratory Rate 14 Blood Pressure 165/77 H 165/77 H Pulse Oximetry 98 98 Oxygen Delivery Method BMI result Body Mass Index 20.0 <LINO Flannery - Last Filed: 09/19/22 14:12> Const General: healthy appearing, comfortable, no acute distress, alert and awake <Anastacio Larson - Last Filed: 09/18/22 22:17> Nutritional Appearance: well nourished <Anastacio Larson - Last Filed: 09/18/22 22:17> Orientation/consciousness: patient oriented x3 <Anastacio Larson - Last Filed: 09/18/22 22:17> HENMT Head: Yes normocephalic and Yes atraumatic <Anastacio Larson - Last Filed: 09/18/22 22:17> Throat: Yes posterior oropharynx normal <Anastacio Larson - Last Filed: 09/18/22 22:17> Eyes Eyelids: Yes eyelids normal <Anastacio Larson - Last Filed: 09/18/22 22:17> Conjunctivae: conjunctivae normal <Anastacio Larson - Last Filed: 09/18/22 22:17> Sclerae: sclerae normal <Anastacio O Last Filed: 09/18/22 22:17> Corneas: corneas normal <Anastacio Last Filed: 09/18/22 22:17> Pupils: Equal, round and reactive pupils present <Anastacio O Last Filed: 09/18/22 22:17> EOM: EOMs intact bilaterally <Anastacio O - Last Filed: 09/18/22 22:17> Neck Neck: Yes full ROM <Anastacio Last Filed: 09/18/22 22:17> Resp Effort & Inspection: normal respiratory effort, able to speak in complete sentences, no audible wheezes and not labored <Anastacio O Last Filed: 09/18/22 22:17> Auscultation: clear to auscultation bilaterally <Anastacio Last Filed: 09/18/22 22:17> Cardio Rate: regular rate <Anastacio O - Last Filed: 09/18/22 22:17> Rhythm: regular rhythm <Anastacio Last Filed: 09/18/22 22:17> GI Inspection: No distended <Anastacio O Last Filed: 09/18/22 22:17> Palpation (GI): Soft to palpation, not firm, nontender, no guarding and not rigid <Anastacio Last Filed: 09/18/22 22:17> Auscultation: normoactive bowel sounds <Anastacio O Last Filed: 09/18/22 22:17> Skin Other: Multiple contusions to the extremities without open wound or laceration <Anastacio O Last Filed: 09/18/22 22:17> General skin exam: no rashes or lesions noted and elasticity normal <Anastacio O Last Filed: 09/18/22 22:17> Neuro Other: Strength to major muscle groups of the right lower extremity 3/5 compared to 5/5 on left. <Anastacio O - Last Filed: 09/18/22 22:17> General: patient oriented x3 <Anastacio O - Last Filed: 09/18/22 22:17> Cranial nerves: Yes CN's II-XII intact bilaterally, Yes Equal, round and reactive pupils present and Yes Bilaterally intact EOM present <Anastacio Larson - Last Filed: 22:17> Cognition (Neuro): normal cognition <Anastacio Quiñonesy - Last Filed: 09/18/22 22:17> Motor exam (neuro): Abnormal motor strength present <Anastacioshawna Quiñonesy - Last Filed: 09/18/22 22:17> Extrem Other: Moving all extremities well without any obvious deformities <Anastacio Quiñonesy - Last Filed: 09/18/22 22:17> Course Course Course Narrative: RME: 77-year-old male with past medical history of CVA, diabetes, hypertension, HLD, hemiplegia and hemiparesis, frequent falls, presenting to the ED c/o frequent falls and increased R side weakness (more than baseline). takes Eliquis. No head trauma or LOC. patient has presented to the ED on 09/01 & yesterday for similar sx however eloped. Patient had labs and CT yesterday, notable for mild hyperkalemia to 5.3. Head CT without acute findings Repeat labs/UA, PT/ case management consult ordered Full HPI, ROS and PE to be performed by primary ED provider. <LINO Fry - Last Filed: 09/18/22 13:14> Reevaluation(s) Reevaluation #1: Patient seen by the care team and will begin a rehab bed search pending physical therapy evaluation. However, the patient had walked out of the ER earlier and was sitting on the curb and was unable to get himself up even with 1 person assist. Anticipate he will fail physical therapy evaluation and require inpatient rehab <Anastacio Larson - Last Filed: 09/18/22 22:17> Time: 22:16 <Anastacio Larson - Last Filed: 09/18/22 22:17> Reevaluation #2: 09/19/2022 0659 Patient awaiting case management and PT evaluation. Physician observation continues. <LINO Flannery - Last Filed: 09/19/22 14:12> Reevaluation #3: 09/19/2022 1412: Patient to be discharged to [facility]. <LINO Flannery - Last Filed: 09/19/22 14:12> Medications Administered Generic Name Dose Route Start Last Admin Trade Name Freq PRN Reason Stop Dose Admin Apixaban 5 mg 09/19/22 09:00 09/19/22 09:13 Apixaban 5 Mg Tablet PO 5 mg BID LEA Administration Lisinopril 2.5 mg 09/19/22 09:00 09/19/22 04:41 Lisinopril 2.5 Mg Tablet PO 2.5 mg DAILY LEA Administration Protocol Metformin HCl 1,000 mg 09/19/22 09:00 09/19/22 09:13 Metformin Hcl 1,000 Mg Tablet PO 1,000 mg BID LEA Administration Metoprolol Tartrate 25 mg 09/19/22 09:00 09/19/22 04:40 Metoprolol Tartrate 25 Mg Tablet PO 25 mg DAILY LEA Administration Protocol Tamsulosin HCl 0.4 mg 09/19/22 09:00 09/19/22 09:13 Tamsulosin Hcl 0.4 Mg Capsule PO 0.4 mg DAILY LEA Administration <LINO Fry - Last Filed: 09/18/22 13:14> Medications Administered Generic Name Dose Route Start Last Admin Trade Name Freq PRN Reason Stop Dose Admin Apixaban 5 mg 09/19/22 09:00 09/19/22 09:13 Apixaban 5 Mg Tablet PO 5 mg BID LEA Administration Lisinopril 2.5 mg 09/19/22 09:00 09/19/22 04:41 Lisinopril 2.5 Mg Tablet PO 2.5 mg DAILY LEA Administration Protocol Metformin HCl 1,000 mg 09/19/22 09:00 09/19/22 09:13 Metformin Hcl 1,000 Mg Tablet PO 1,000 mg BID LEA Administration Metoprolol Tartrate 25 mg 09/19/22 09:00 09/19/22 04:40 Metoprolol Tartrate 25 Mg Tablet PO 25 mg DAILY LEA Administration Protocol Tamsulosin HCl 0.4 mg 09/19/22 09:00 09/19/22 09:13 Tamsulosin Hcl 0.4 Mg Capsule PO 0.4 mg DAILY LEA Administration <Anastacio Larson - Last Filed: 09/18/22 22:17> Medications Administered Generic Name Dose Route Start Last Admin Trade Name Kaycee PRN Reason Stop Dose Admin Apixaban 5 mg 09/19/22 09:00 09/19/22 09:13 Apixaban 5 Mg Tablet PO 5 mg BID LEA Administration Lisinopril 2.5 mg 09/19/22 09:00 09/19/22 04:41 Lisinopril 2.5 Mg Tablet PO 2.5 mg DAILY LEA Administration Protocol Metformin HCl 1,000 mg 09/19/22 09:00 09/19/22 09:13 Metformin Hcl 1,000 Mg Tablet PO 1,000 mg BID LEA Administration Metoprolol Tartrate 25 mg 09/19/22 09:00 09/19/22 04:40 Metoprolol Tartrate 25 Mg Tablet PO 25 mg DAILY LEA Administration Protocol Tamsulosin HCl 0.4 mg 09/19/22 09:00 09/19/22 09:13 Tamsulosin Hcl 0.4 Mg Capsule PO 0.4 mg DAILY LEA Administration <LINO Flannery - Last Filed: 09/19/22 14:12> Medical Decision Making Medical Decision Making MDM Narrative: A 77-year-old male presents for evaluation of right-sided weakness and frequent falls. He has a history of previous CVA and right-sided hemiplegia. The patient is on Eliquis for AFib make him high risk for major injury if he continues to have subsequent falls. The patient and the son are interested in short-term rehab. I reviewed the patient's CT scan the brain from yesterday which did not show any acute traumatic injuries. His labs today are consistent with his labs from yesterday with a mild hyperkalemia of only 5.2 he does have a mild anemia that is consistent with his baseline. Electrolytes are within normal limits. The patient will be evaluated by Physical therapy and Field Test Engineer. The patient does have focal weakness on the right, but he has a history of this, no acute focal findings. No slurred speech to suggest acute CVA. <Anastacio Larson - Last Filed: 09/18/22 22:17> Differential Diagnosis Failure to thrive Frequent falls CVA Hemiplegia Contusion Intracranial hemorrhage Hyperkalemia <Anastacio Larson - Last Filed: 09/18/22 22:17> Lab Data Result Diagrams: 09/18/22 13:23 09/18/22 13:23 <LINO Fry - Last Filed: 09/18/22 13:14> Labs: Lab Results 09/18/22 09/18/22 09/18/22 Range/Units 13:23 13:23 13:23 WBC 10.0 (4.8-10.8) X10*3/uL RBC 3.87 L (4.60-5.80) X10*6/uL Hgb 11.6 L (14.0-18.0) g/dl Hct 36.6 L (42.0-52.0) % MCV 94.6 (80.0-98.0) fL MCH 30.0 (27.0-33.0) pg MCHC 31.7 (31.0-36.0) g/dl RDW 14.0 (11.0-16.0) % Plt Count 400 (160-400) X10*3/uL MPV 11.0 (9.4-12.4) fL Immature Gran % (Auto) 1.3 H (0.0-0.4) % Neut % (Auto) 57.3 (45-73) % Lymph % (Auto) 27.0 (20-40) % [place] % (Auto) 9.7 (2-11) % Eos % (Auto) 4.1 H (0-4) % Baso % (Auto) 0.6 (0-2) % Lymph # (Auto) 2.7 (1.2-4.9) X10*3/uL [place] # (Auto) 1.0 (0.1-1.2) X10*3/uL Eos # (Auto) 0.4 (0.0-0.4) X10*3/uL Baso # (Auto) 0.1 (0.0-0.2) X10*3/uL Abs Immat Gran (auto) 0.13 H (0.00-0.03) X10*3/uL Absolute Neuts (auto) 5.7 (2.0-8.3) x10*3/uL Absolute Nucleated RBC 0.000 (0.0-0.012) X10*3/uL Nucleated RBC % (auto) 0.0 (0.0-0.2) /100WBC PT 14.9 H (10.0-13.1) SEC INR 1.3 H (0.9-1.1) Sodium 140 (135-145) mmol/L Potassium 5.2 H (3.3-5.1) mmol/L Chloride 106 (96-108) mmol/L Carbon Dioxide 23 (22-29) mmol/L Anion Gap 16 (12-20) BUN 25 H (9-16) mg/dL Creatinine 1.01 (0.5-1.4) mg/dL Estim Creat Clear Calc 61.6 Estimated GFR > 60 Random Glucose 111 (60-115) mg/dL Calcium 9.7 (8.4-10.2) mg/dL Magnesium 1.9 (1.6-2.6) mg/dL Total Bilirubin 0.4 (0.0-1.0) mg/dL Direct Bilirubin 0.1 (0.0-0.5) mg/dL AST 17 (5-37) U/L ALT 14 (0-40) U/L Alkaline Phosphatase 88 (39-117) U/L Troponin I High Sens (<3.5-35.0) ng/L Total Protein 6.8 (6.5-8.0) g/dL Albumin 4.1 (3.5-5.0) g/dL Urine Color Urine Appearance Urine pH (5.0-9.0) Ur Specific [place] (1.005-1.025) Urine Protein (Neg-Trace) mg/dL Urine Glucose (UA) (Negative) mg/dL Urine Ketones (Negative) mg/dL Urine Blood (Negative) Urine Nitrite (Negative) Ur Leukocyte Esterase (Negative) Urine RBC (0-2) /HPF Urine WBC (0-5) /HPF Ur Squamous Epith Cells (0-2) /HPF Urine Bacteria (None Seen) Hyaline Casts (0-2) /LPF COVID-19 ([facility]) (Negative) COVID-19 Clin Com 09/18/22 09/18/22 09/19/22 Range/Units 13:23 13:23 07:51 WBC (4.8-10.8) X10*3/uL RBC (4.60-5.80) X10*6/uL Hgb (14.0-18.0) g/dl Hct (42.0-52.0) % MCV (80.0-98.0) fL MCH (27.0-33.0) pg MCHC (31.0-36.0) g/dl RDW (11.0-16.0) % Plt Count (160-400) X10*3/uL MPV (9.4-12.4) fL Immature Gran % (Auto) (0.0-0.4) % Neut % (Auto) (45-73) % Lymph % (Auto) (20-40) % [place] % (Auto) (2-11) % Eos % (Auto) (0-4) % Baso % (Auto) (0-2) % Lymph # (Auto) (1.2-4.9) X10*3/uL [place] # (Auto) (0.1-1.2) X10*3/uL Eos # (Auto) (0.0-0.4) X10*3/uL Baso # (Auto) (0.0-0.2) X10*3/uL Abs Immat Gran (auto) (0.00-0.03) X10*3/uL Absolute Neuts (auto) (2.0-8.3) x10*3/uL Absolute Nucleated RBC (0.0-0.012) X10*3/uL Nucleated RBC % (auto) (0.0-0.2) /100WBC PT (10.0-13.1) SEC INR (0.9-1.1) Sodium (135-145) mmol/L Potassium (3.3-5.1) mmol/L Chloride (96-108) mmol/L Carbon Dioxide (22-29) mmol/L Anion Gap (12-20) BUN (9-16) mg/dL Creatinine (0.5-1.4) mg/dL Estim Creat Clear Calc Estimated GFR Random Glucose (60-115) mg/dL Calcium (8.4-10.2) mg/dL Magnesium (1.6-2.6) mg/dL Total Bilirubin (0.0-1.0) mg/dL Direct Bilirubin (0.0-0.5) mg/dL AST (5-37) U/L ALT (0-40) U/L Alkaline Phosphatase (39-117) U/L Troponin I High Sens 18.8 D (<3.5-35.0) ng/L Total Protein (6.5-8.0) g/dL Albumin (3.5-5.0) g/dL Urine Color Yellow Urine Appearance Clear Urine pH 5.5 (5.0-9.0) Ur Specific [place] 1.015 (1.005-1.025) Urine Protein Trace (Neg-Trace) mg/dL Urine Glucose (UA) 100 H (Negative) mg/dL Urine Ketones Negative (Negative) mg/dL Urine Blood Small (1+) H (Negative) Urine Nitrite Negative (Negative) Ur Leukocyte Esterase Negative (Negative) Urine RBC 6-10 H (0-2) /HPF Urine WBC 0-5 (0-5) /HPF Ur Squamous Epith Cells 3-5 (0-2) /HPF Urine Bacteria None Seen (None Seen) Hyaline Casts 0-2 (0-2) /LPF COVID-19 ([facility]) Negative (Negative) COVID-19 Clin Com See Note <LINO Fry - Last Filed: 09/18/22 13:14> Lab Results 09/18/22 09/18/22 09/18/22 Range/Units 13:23 13:23 13:23 WBC 10.0 (4.8-10.8) X10*3/uL RBC 3.87 L (4.60-5.80) X10*6/uL Hgb 11.6 L (14.0-18.0) g/dl Hct 36.6 L (42.0-52.0) % MCV 94.6 (80.0-98.0) fL MCH 30.0 (27.0-33.0) pg MCHC 31.7 (31.0-36.0) g/dl RDW 14.0 (11.0-16.0) % Plt Count 400 (160-400) X10*3/uL MPV 11.0 (9.4-12.4) fL Immature Gran % (Auto) 1.3 H (0.0-0.4) % Neut % (Auto) 57.3 (45-73) % Lymph % (Auto) 27.0 (20-40) % [place] % (Auto) 9.7 (2-11) % Eos % (Auto) 4.1 H (0-4) % Baso % (Auto) 0.6 (0-2) % Lymph # (Auto) 2.7 (1.2-4.9) X10*3/uL [place] # (Auto) 1.0 (0.1-1.2) X10*3/uL Eos # (Auto) 0.4 (0.0-0.4) X10*3/uL Baso # (Auto) 0.1 (0.0-0.2) X10*3/uL Abs Immat Gran (auto) 0.13 H (0.00-0.03) X10*3/uL Absolute Neuts (auto) 5.7 (2.0-8.3) x10*3/uL Absolute Nucleated RBC 0.000 (0.0-0.012) X10*3/uL Nucleated RBC % (auto) 0.0 (0.0-0.2) /100WBC PT 14.9 H (10.0-13.1) SEC INR 1.3 H (0.9-1.1) Sodium 140 (135-145) mmol/L Potassium 5.2 H (3.3-5.1) mmol/L Chloride 106 (96-108) mmol/L Carbon Dioxide 23 (22-29) mmol/L Anion Gap 16 (12-20) BUN 25 H (9-16) mg/dL Creatinine 1.01 (0.5-1.4) mg/dL Estim Creat Clear Calc 61.6 Estimated GFR > 60 Random Glucose 111 (60-115) mg/dL Calcium 9.7 (8.4-10.2) mg/dL Magnesium 1.9 (1.6-2.6) mg/dL Total Bilirubin 0.4 (0.0-1.0) mg/dL Direct Bilirubin 0.1 (0.0-0.5) mg/dL AST 17 (5-37) U/L ALT 14 (0-40) U/L Alkaline Phosphatase 88 (39-117) U/L Troponin I High Sens (<3.5-35.0) ng/L Total Protein 6.8 (6.5-8.0) g/dL Albumin 4.1 (3.5-5.0) g/dL Urine Color Urine Appearance Urine pH (5.0-9.0) Ur Specific [place] (1.005-1.025) Urine Protein (Neg-Trace) mg/dL Urine Glucose (UA) (Negative) mg/dL Urine Ketones (Negative) mg/dL Urine Blood (Negative) Urine Nitrite (Negative) Ur Leukocyte Esterase (Negative) Urine RBC (0-2) /HPF Urine WBC (0-5) /HPF Ur Squamous Epith Cells (0-2) /HPF Urine Bacteria (None Seen) Hyaline Casts (0-2) /LPF COVID-19 ([facility]) (Negative) COVID-19 Clin Com 09/18/22 09/18/22 09/19/22 Range/Units 13:23 13:23 07:51 WBC (4.8-10.8) X10*3/uL RBC (4.60-5.80) X10*6/uL Hgb (14.0-18.0) g/dl Hct (42.0-52.0) % MCV (80.0-98.0) fL MCH (27.0-33.0) pg MCHC (31.0-36.0) g/dl RDW (11.0-16.0) % Plt Count (160-400) X10*3/uL MPV (9.4-12.4) fL Immature Gran % (Auto) (0.0-0.4) % Neut % (Auto) (45-73) % Lymph % (Auto) (20-40) % [place] % (Auto) (2-11) % Eos % (Auto) (0-4) % Baso % (Auto) (0-2) % Lymph # (Auto) (1.2-4.9) X10*3/uL [place] # (Auto) (0.1-1.2) X10*3/uL Eos # (Auto) (0.0-0.4) X10*3/uL Baso # (Auto) (0.0-0.2) X10*3/uL Abs Immat Gran (auto) (0.00-0.03) X10*3/uL Absolute Neuts (auto) (2.0-8.3) x10*3/uL Absolute Nucleated RBC (0.0-0.012) X10*3/uL Nucleated RBC % (auto) (0.0-0.2) /100WBC PT (10.0-13.1) SEC INR (0.9-1.1) Sodium (135-145) mmol/L Potassium (3.3-5.1) mmol/L Chloride (96-108) mmol/L Carbon Dioxide (22-29) mmol/L Anion Gap (12-20) BUN (9-16) mg/dL Creatinine (0.5-1.4) mg/dL Estim Creat Clear Calc Estimated GFR Random Glucose (60-115) mg/dL Calcium (8.4-10.2) mg/dL Magnesium (1.6-2.6) mg/dL Total Bilirubin (0.0-1.0) mg/dL Direct Bilirubin (0.0-0.5) mg/dL AST (5-37) U/L ALT (0-40) U/L Alkaline Phosphatase (39-117) U/L Troponin I High Sens 18.8 D (<3.5-35.0) ng/L Total Protein (6.5-8.0) g/dL Albumin (3.5-5.0) g/dL Urine Color Yellow Urine Appearance Clear Urine pH 5.5 (5.0-9.0) Ur Specific [place] 1.015 (1.005-1.025) Urine Protein Trace (Neg-Trace) mg/dL Urine Glucose (UA) 100 H (Negative) mg/dL Urine Ketones Negative (Negative) mg/dL Urine Blood Small (1+) H (Negative) Urine Nitrite Negative (Negative) Ur Leukocyte Esterase Negative (Negative) Urine RBC 6-10 H (0-2) /HPF Urine WBC 0-5 (0-5) /HPF Ur Squamous Epith Cells 3-5 (0-2) /HPF Urine Bacteria None Seen (None Seen) Hyaline Casts 0-2 (0-2) /LPF COVID-19 ([facility]) Negative (Negative) COVID-19 Clin Com See Note <Anastacio Larson - Last Filed: 09/18/22 22:17> Lab Results 09/18/22 09/18/22 09/18/22 Range/Units 13:23 13:23 13:23 WBC 10.0 (4.8-10.8) X10*3/uL RBC 3.87 L (4.60-5.80) X10*6/uL Hgb 11.6 L (14.0-18.0) g/dl Hct 36.6 L (42.0-52.0) % MCV 94.6 (80.0-98.0) fL MCH 30.0 (27.0-33.0) pg MCHC 31.7 (31.0-36.0) g/dl RDW 14.0 (11.0-16.0) % Plt Count 400 (160-400) X10*3/uL MPV 11.0 (9.4-12.4) fL Immature Gran % (Auto) 1.3 H (0.0-0.4) % Neut % (Auto) 57.3 (45-73) % Lymph % (Auto) 27.0 (20-40) % [place] % (Auto) 9.7 (2-11) % Eos % (Auto) 4.1 H (0-4) % Baso % (Auto) 0.6 (0-2) % Lymph # (Auto) 2.7 (1.2-4.9) X10*3/uL [place] # (Auto) 1.0 (0.1-1.2) X10*3/uL Eos # (Auto) 0.4 (0.0-0.4) X10*3/uL Baso # (Auto) 0.1 (0.0-0.2) X10*3/uL Abs Immat Gran (auto) 0.13 H (0.00-0.03) X10*3/uL Absolute Neuts (auto) 5.7 (2.0-8.3) x10*3/uL Absolute Nucleated RBC 0.000 (0.0-0.012) X10*3/uL Nucleated RBC % (auto) 0.0 (0.0-0.2) /100WBC PT 14.9 H (10.0-13.1) SEC INR 1.3 H (0.9-1.1) Sodium 140 (135-145) mmol/L Potassium 5.2 H (3.3-5.1) mmol/L Chloride 106 (96-108) mmol/L Carbon Dioxide 23 (22-29) mmol/L Anion Gap 16 (12-20) BUN 25 H (9-16) mg/dL Creatinine 1.01 (0.5-1.4) mg/dL Estim Creat Clear Calc 61.6 Estimated GFR > 60 Random Glucose 111 (60-115) mg/dL Calcium 9.7 (8.4-10.2) mg/dL Magnesium 1.9 (1.6-2.6) mg/dL Total Bilirubin 0.4 (0.0-1.0) mg/dL Direct Bilirubin 0.1 (0.0-0.5) mg/dL AST 17 (5-37) U/L ALT 14 (0-40) U/L Alkaline Phosphatase 88 (39-117) U/L Troponin I High Sens (<3.5-35.0) ng/L Total Protein 6.8 (6.5-8.0) g/dL Albumin 4.1 (3.5-5.0) g/dL Urine Color Urine Appearance Urine pH (5.0-9.0) Ur Specific [place] (1.005-1.025) Urine Protein (Neg-Trace) mg/dL Urine Glucose (UA) (Negative) mg/dL Urine Ketones (Negative) mg/dL Urine Blood (Negative) Urine Nitrite (Negative) Ur Leukocyte Esterase (Negative) Urine RBC (0-2) /HPF Urine WBC (0-5) /HPF Ur Squamous Epith Cells (0-2) /HPF Urine Bacteria (None Seen) Hyaline Casts (0-2) /LPF COVID-19 ([facility]) (Negative) COVID-19 Clin Com 09/18/22 09/18/22 09/19/22 Range/Units 13:23 13:23 07:51 WBC (4.8-10.8) X10*3/uL RBC (4.60-5.80) X10*6/uL Hgb (14.0-18.0) g/dl Hct (42.0-52.0) % MCV (80.0-98.0) fL MCH (27.0-33.0) pg MCHC (31.0-36.0) g/dl RDW (11.0-16.0) % Plt Count (160-400) X10*3/uL MPV (9.4-12.4) fL Immature Gran % (Auto) (0.0-0.4) % Neut % (Auto) (45-73) % Lymph % (Auto) (20-40) % [place] % (Auto) (2-11) % Eos % (Auto) (0-4) % Baso % (Auto) (0-2) % Lymph # (Auto) (1.2-4.9) X10*3/uL [place] # (Auto) (0.1-1.2) X10*3/uL Eos # (Auto) (0.0-0.4) X10*3/uL Baso # (Auto) (0.0-0.2) X10*3/uL Abs Immat Gran (auto) (0.00-0.03) X10*3/uL Absolute Neuts (auto) (2.0-8.3) x10*3/uL Absolute Nucleated RBC (0.0-0.012) X10*3/uL Nucleated RBC % (auto) (0.0-0.2) /100WBC PT (10.0-13.1) SEC INR (0.9-1.1) Sodium (135-145) mmol/L Potassium (3.3-5.1) mmol/L Chloride (96-108) mmol/L Carbon Dioxide (22-29) mmol/L Anion Gap (12-20) BUN (9-16) mg/dL Creatinine (0.5-1.4) mg/dL Estim Creat Clear Calc Estimated GFR Random Glucose (60-115) mg/dL Calcium (8.4-10.2) mg/dL Magnesium (1.6-2.6) mg/dL Total Bilirubin (0.0-1.0) mg/dL Direct Bilirubin (0.0-0.5) mg/dL AST (5-37) U/L ALT (0-40) U/L Alkaline Phosphatase (39-117) U/L Troponin I High Sens 18.8 D (<3.5-35.0) ng/L Total Protein (6.5-8.0) g/dL Albumin (3.5-5.0) g/dL Urine Color Yellow Urine Appearance Clear Urine pH 5.5 (5.0-9.0) Ur Specific Surrency 1.015 (1.005-1.025) Urine Protein Trace (Neg-Trace) mg/dL Urine Glucose (UA) 100 H (Negative) mg/dL Urine Ketones Negative (Negative) mg/dL Urine Blood Small (1+) H (Negative) Urine Nitrite Negative (Negative) Ur Leukocyte Esterase Negative (Negative) Urine RBC 6-10 H (0-2) /HPF Urine WBC 0-5 (0-5) /HPF Ur Squamous Epith Cells 3-5 (0-2) /HPF Urine Bacteria None Seen (None Seen) Hyaline Casts 0-2 (0-2) /LPF COVID-19 ([facility]) Negative (Negative) COVID-19 Clin Com See Note <LINO Flannery - Last Filed: 09/19/22 14:12> Discharge Plan Discharge Clinical Impression: Frequent falls <LINO Fry - Last Filed: 09/18/22 13:14> Patient Disposition: [facility] <LINO Fry - Last Filed: 09/18/22 13:14> [facility] <LINO Fry - Last Filed: 09/18/22 13:14> [facility] <Anastacio Larson - Last Filed: 09/18/22 22:17> [facility] <LINO Flannery - Last Filed: 09/19/22 14:12> Prescriptions: No Action metformin 500 mg tablet 1,000 mg PO BID atorvastatin 80 mg tablet 80 mg PO BEDTIME tamsulosin 0.4 mg capsule 0.4 mg PO DAILY metoprolol tartrate 50 mg tablet 25 mg PO QAM lisinopril 2.5 mg tablet 2.5 mg PO DAILY Eliquis 5 mg tablet 5 mg PO BID <LINO Fry - Last Filed: 09/18/22 13:14>
--- NOTE | 2022-09-18 13:13 | ECG_ITS ---
Test Reason : weakness Blood Pressure : / mmHG Vent. Rate : 062 BPM Atrial Rate : 062 BPM P-R Int : 168 ms QRS Dur : 126 ms QT Int : 442 ms P-R-T Axes : 079 -83 063 degrees QTc Int : 448 ms Sinus rhythm with marked sinus arrhythmia Right bundle branch block Left anterior fascicular block Bifascicular block Minimal voltage criteria for LVH, may be normal variant ( R in aVL ) Anterior infarct (cited on or before 02-JUL-2016) Abnormal ECG When compared with ECG of 17-SEP-2022 14:14, No significant change was found Referred By: Stephanie Timmons Electronically Signed By:Rivas Nicolas
[2022-09-18 13:32] LABS: MANUAL DIFF FLAG NO
[2022-09-18 13:36] LABS: Basophils Absolute Auto 0.1 X10*3/uL (0.0-0.2); Basophils Percent Auto 0.6 % (0-2); Eosinophils Absolute Auto 0.4 X10*3/uL (0.0-0.4); Eosinophils Percent Auto 4.1 % (0-4); Hematocrit 36.6 % (42.0-52.0); Hemoglobin 11.6 g/dl (14.0-18.0); Imm Gran Abs Auto 0.13 X10*3/uL (0.00-0.03); Imm Gran Pct Auto 1.3 % (0.0-0.4); Lymphocytes Absolute Auto 2.7 X10*3/uL (1.2-4.9); Mean Corpuscular HGB Conc 31.7 g/dl (31.0-36.0); Mean Corpuscular Volume 94.6 fL (80.0-98.0); Monocytes Percent Auto 9.7 % (2-11); Neutrophils Absolute Auto 5.7 x10*3/uL (2.0-8.3); Neutrophils Percent Auto 57.3 % (45-73); Platelet Count 400 X10*3/uL (160-400); Red Blood Count 3.87 X10*6/uL (4.60-5.80)
[2022-09-18 13:38] LABS: INTERNATIONAL NORM RATIO 1.3 (0.9-1.1); Prothrombin Time 14.9 SEC (10.0-13.1)
[2022-09-18 13:53] LABS: COVID-19 Test Negative (Negative); IDNOW Serial# BCCEAD1C
[2022-09-18 13:59] LABS: Alanine Aminotransferase 14 U/L (0-40); Albumin Level 4.1 g/dL (3.5-5.0); Alkaline Phosphatase 88 U/L (39-117); Anion Gap 16 (12-20); Aspartate Amino Transferase 17 U/L (5-37); Bilirubin Direct 0.1 mg/dL (0.0-0.5); Bilirubin Total 0.4 mg/dL (0.0-1.0); Blood Urea Nitrogen 25 mg/dL (9-16); Calcium 9.7 mg/dL (8.4-10.2); Carbon Dioxide 23 mmol/L (22-29); Chloride 106 mmol/L (96-108); Creatinine Clr Calc Pharmacy 61.6; Estimated Glomerular Filt Rate > 60; Glucose Random 111 mg/dL (60-115); Magnesium 1.9 mg/dL (1.6-2.6); Potassium 5.2 mmol/L (3.3-5.1); Sodium 140 mmol/L (135-145); Total Protein 6.8 g/dL (6.5-8.0)
[2022-09-18 14:06] LABS: Troponin-I High Sensitivity 18.8 ng/L (<3.5-35.0)
[2022-09-18 16:42] VITALS: BP 172/63; PULSE 54; RESP 20; TEMP 36.5; O2SAT 98
--- NOTE | 2022-09-18 16:45 | PC.NURSE ---
Pt son reporting increased weakness/new incontinence issues, family feels he is unsafe to stay at home alone at this time. Denies sob/cp/n/v/d, denies other neuro changes. Pt has had a past stroke 1year ago.
--- NOTE | 2022-09-18 18:15 | PC.NURSE ---
Pt and pt son walked out of the room, no discharge placed, no orders for him to leave. CM went into room to do a HCP and pt and son were gone. Provider aware, Charge nurse aware.
--- NOTE | 2022-09-18 18:26 | PC.NURSE ---
Pt brought back to room by security in street cloths, presumed pt went out to smoke a cigarette, even though 3 staff members had previously said no
--- NOTE | 2022-09-18 18:54 | MHC.CM.ED ---
CM met with patient and son at request of Yosvany HUYNH. Pt is A&Ox4. Uses cane. No services. Was living in [place] with other son, attended a wedding and had ?MO. Was hospitalized in [place] and lived there for 1 year. Recently moved back to [facility] in July. Has been staying with a friend and recently with his son, Hussein. Pt believes he had a HCP in [place]. Requests to complete one now. HCP reviewed, completed and signed. Copies given. Uploaded into [employer]. HCP #1/son Hussein Bennett ([phone]) and HCP#2/son Rancho Bennett ([phone]). Pt does not have a PCP. Given [facility] listing of providers and [facility] contact information. Stressed importance of pt getting PCP appointment. Pt is agreeable to [facility]. Local referrals placed. [facility] first choice. Pt has Affairs listed as insurance. Received correspondence from [employer]. Pt is not active with them. Pt son tells CM that patient does not currently have insurance through [facility]. Pt has active Medicare. CM will follow for discharge planning.
[2022-09-18 19:19] VITALS: BP 196/76; PULSE 64; RESP 16; TEMP 36.9; O2SAT 98
--- NOTE | 2022-09-18 20:58 | PC.NURSE ---
This commercial underwriter assumed care of this Pt at 1900. Pt A&O to self, and year. States he had fall at home that brought him in. Denies any pain. Pt ambulated to BR with steady gait. BP noted to be high, provider Shreyas Larson notified.
--- NOTE | 2022-09-18 21:22 | PHA.MEDREC ---
Pharmacy Consult ? Medication Reconciliation Pharmacy has completed the medication reconciliation.
[2022-09-18 22:28] VITALS: BP 178/67; PULSE 74; RESP 16; TEMP 36.7; O2SAT 95
[2022-09-19 04:21] VITALS: BP 194/102; PULSE 55; RESP 18; TEMP 36.7; O2SAT 98
[2022-09-19] MEDS: Metoprolol Tartrate 25 MG TABLET PO (04:40)
[2022-09-19] MEDS: lisinopriL 2.5 MG TABLET PO (04:41)
--- NOTE | 2022-09-19 04:42 | PC.NURSE ---
BP noted to be 194/102, provider Dr. Sorenson notified and verbalized to give scheduled AM med now. Will CTM.
[2022-09-19 06:00] VITALS: BP 179/69; PULSE 53; RESP 16; O2SAT 97
[2022-09-19 07:13] VITALS: BP 175/67; PULSE 59; RESP 12; TEMP 36.8; O2SAT 97
--- NOTE | 2022-09-19 07:46 | MHC.EDTECH ---
Patient assisted to the bathroom. Pt urinated into urinal for urine sample then had BM. Pt cleaned up and clean hospital pants put on due to them becoming soiled. Walked with Pt back to room, and set him up to eat breakfast. Reminded him to use call henderson before getting out of bed and Pt agreed.
--- NOTE | 2022-09-19 07:57 | PC.NURSE ---
pt received in bed, A/O x 3. States has hx of stroke, right side is weak, and he has been falling more often. To BR with assistance, urine sample obtained, results pending. Eating breakfast; linens changed, pt made comfortable. PT eval pending.
[2022-09-19 08:02] LABS: Appearance Urine Clear; Color Urine Yellow; Glucose Urine UA 100 mg/dL (Negative); Leukocyte Esterase Urine Negative (Negative); Nitrite Urine Negative (Negative); PH 5.5 (5.0-9.0); Specific Gravity - Urine 1.015 (1.005-1.025); UMIC TRIGGER UACC YES; Urine Blood Small (1+) (Negative); Urine Ketones Negative (Negative); Urine Protein Trace mg/dL (Neg-Trace)
[2022-09-19 08:07] LABS: Bacteria Urine None Seen (None Seen); Hyaline Casts Urine 0-2 /LPF (0-2); WBC Urine 0-5 /HPF (0-5)
[2022-09-19 09:11] VITALS: BP 165/77; PULSE 63; RESP 14; O2SAT 98
[2022-09-19] MEDS: metFORMIN HCl 1,000 MG TABLET 1000 MG PO (09:13)
[2022-09-19] MEDS: Tamsulosin HCL 0.4 MG CAPSULE PO (09:13)
[2022-09-19] MEDS: Apixaban 5 MG TABLET PO (09:13)
--- NOTE | 2022-09-19 10:08 | PC.NURSE ---
PT at bedside for evaluation
[2022-09-19 10:27] VITALS: BP 165/77; PULSE 63; O2SAT 98
--- NOTE | 2022-09-19 12:28 | PC.NURSE ---
Patient is resting comfortably, watching TV at this time. Camera remains in room. Pt is able to make needs known, and denies any needs at this time. Calm/cooperative. Voided urine in urinal, medium-dark yellow in color & without sediment.
--- NOTE | 2022-09-19 13:57 | PC.NURSE ---
Plan for transfer to [facility] at 2:30pm via ambulance. Ride booked for transfer. Pt sitting upright in chair, no acute distress noted.
--- NOTE | 2022-09-19 13:57 | MHC.CM.PN ---
Addendum entered by Jodie Burdick 09/19/22 14:01: PT'S SON BAYLEE RETURNED CALL AND IS ALSO IN AGREEMENT WITH PLAN. Original Note: DP: PT HAS BEEN ACCEPTED AT [facility] FOR [facility]. MESSAGE LEFT FOR SON BAYLEE AND PT IS IN AGREEMENT WITH THE PLAN. RN AWARE. BLS TRANSPORT SET UP FOR 2:30 PM [facility]IA [facility].
== END 2022-09-19 14:52 | disposition skilled nursing facility (03) ==
PROVIDERS: Physician Assistant; Emergency Provider Emergency Medicine
DX: R29.6 Repeated falls (principal); R53.1 Weakness; E87.5 Hyperkalemia; Z20.822 Contact with and (suspected) exposure to COVID-19; E11.9 Type 2 diabetes mellitus without complications; I48.91 Unspecified atrial fibrillation; I10 Essential (primary) hypertension; I69.351 Hemiplegia and hemiparesis following cerebral infarction affecting right dominant side; Z91.81 History of falling; Z87.891 Personal history of nicotine dependence; Z79.01 Long term (current) use of anticoagulants; Z79.02 Long term (current) use of antithrombotics/antiplatelets; Z79.899 Other long term (current) drug therapy
CPT/HCPCS: 71045; 80048; 80076; 81001; 81003; 83735; 84484; 85025; 85610; 87635; 93005; 97162; 99285

== ENCOUNTER 2022-10-29 12:59 | Inpatient (IN) | payer MEDICARE, SELFPAY ==
--- NOTE | ~2022-10-29 | XR_ITS ---
EXAMINATION: XR CHEST CLINICAL INFORMATION: Syncope COMPARISON: None available. TECHNIQUE: 2 views of the chest were obtained. FINDINGS: No failure is seen here. Some reticular nodular change in the right midlung zone adjacent to the nipple shadow. The mediastinal contour is within normal limits. Probable nipple markings on the frontal image. On the lateral image there is a suggestion of a nodular density in the midlung zone anterior. Measures approximately 1.1 cm. There is no effusion. The mediastinal regions do not appear to be pathologically enlarged. XR/XR chest 2V IMPRESSION: Some increased density reticular nodular in the region of the right mid to lower lung zone adjacent the patient's nipple shadow could represent an area of infiltrate. Attention to follow-up In addition a nodular lung lesion suggested on the lateral film. CT would be recommended to fully evaluate. This may be done on an outpatient basis
--- NOTE | ~2022-10-29 | CT_ITS ---
EXAMINATION: CT CHEST WITHOUT CONTRAST CLINICAL INFORMATION: Abnormal chest x-ray. Question lung nodule and pneumonia COMPARISON: Previous chest x-ray most recent October 2022 TECHNIQUE: Multidetector volumetric CT imaging of the chest was done. Axial MIP volume rendering provided. Sagittal and coronal reformatted images were obtained. This CT examination was performed using dose optimization techniques as appropriate, variously including the following: *Automated exposure control *Adjustment of mA and/or kV according to patient size (this includes techniques or standardized protocols for targeted exams where dose is matched to indication/reason for exam; i.e. extremities or head) *Use of iterative reconstruction technique DLP: 149 mGy-cm FINDINGS: LUNGS: There is evidence of emphysema. There is mild biapical pleural and parenchymal scarring. There is a 2 mm peripheral or subpleural nodule in the superior segment of the left lower lobe near the fissure axial image 245 series 5. There is a heterogeneous area in the anterior basal left lower lobe abutting the pleural fissure. Groundglass component measures 3 x 4 cm axial image 389 series 5. There is a solid peripheral or subpleural component abutting the pleural fissure that measures 6 x 8 mm. There is slight retraction of the fissure in this region. There is a 6 x 7 mm right lower lobe nodule axial image 421 series 5. There is a 3 x 6 mm peripheral or subpleural lingular nodule axial image 489 series 5. MEDIASTINUM: Small subcentimeter right thyroid nodule. Severe atherosclerotic disease. Normal heart size. Small pericardial effusion. Aortic valve calcification. Upper normal-size thoracic aorta. Small mediastinal lymph nodes. No enlarged hilar or mediastinal lymph nodes. CORONARY ARTERY CALCIFICATION: Severe PLEURA: There is no pleural effusion. No pleural mass or thickening. AXILLA: No lymphadenopathy. UPPER ABDOMEN: The common bile duct appears dilated. This measures 1.7 x 2 cm in the head of the pancreas. There is a 7 mm low-attenuation lesion in the posterior segment of the right lobe of the liver. Fullness of both adrenal glands. No discrete adrenal nodule. Small left renal stone. OSSEOUS STRUCTURES: Degenerative changes of the spine. CT/CT chest wo IV con IMPRESSION: Emphysema. 3 x 4 cm heterogeneous groundglass attenuation area in the left lower lobe with 6 x 8 mm solid component. Short-term follow-up chest CT in 2-3 months recommended to see if this is a persistent finding. Additional smaller pulmonary nodules. Severe atherosclerotic disease with coronary artery and aortic valve calcification. Dilated common bile duct. Follow-up dedicated abdominal imaging recommended. Fleischner guidelines were followed.
--- NOTE | ~2022-10-29 | CT_ITS ---
EXAMINATION: CT HEAD WITHOUT CONTRAST CLINICAL INFORMATION: Question seizure COMPARISON: 09/17/2022 TECHNIQUE: Contiguous axial imaging was performed from the skull base to vertex without intravenous administration of contrast. This CT examination was performed using dose optimization techniques as appropriate, variously including the following: *Automated exposure control *Adjustment of mA and/or kV according to patient size (this includes techniques or standardized protocols for targeted exams where dose is matched to indication/reason for exam; i.e. extremities or head) *Use of iterative reconstruction technique DLP: 741 mGy-cm FINDINGS: There is no midline shift. There is no mass effect. There is no hemorrhage. The basal cisterns appear patent. The posterior fossa is grossly within normal limits. There is no extra-axial collection. Once again atrophy and areas of decreased attenuation consistent with white matter ischemic changes in areas of focal infarct. Review of the bone windows demonstrates sinus disease in the maxillary sinuses. CT/CT head/brain wo IV con IMPRESSION: Negative acute noncontrast CT of the brain. Note is made of atrophy and scattered areas of infarct and white matter ischemic changes
--- NOTE | ~2022-10-29 | US_ITS ---
EXAMINATION: US ABDOMEN LIMITED CLINICAL INFORMATION: Common bile duct dilatation. COMPARISON: None available. TECHNIQUE: Real-time imaging of the right upper quadrant abdominal viscera. Exam is limited. FINDINGS: PANCREAS: Not seen due to bowel gas LIVER: Liver echotexture is normal. There is a small cyst in the left lobe of the liver measuring 4 x 5 mm. No other focal liver lesion. Normal caliber intrahepatic bile duct. GALLBLADDER: Thickened gallbladder wall with ring down artifact suggestive of adenomyomatosis of the gallbladder wall. No gallstones. The gallbladder is normal in size. No pericholecystic fluid. COMMON BILE DUCT: Variable size of the common bile duct. Common bile duct measures 1.2 cm proximally. The common bile duct tapers smoothly distally measuring 1.7 cm in the midportion and 0.4 cm in the head of the pancreas. RIGHT KIDNEY: Normal. No hydronephrosis. No renal calculi or focal parenchymal lesions. The kidney measures 10 cm in maximum dimension. FREE FLUID: None. US/US abdomen limited IMPRESSION: Variable size of the common bile duct. Common bile duct measures 1.2 cm proximally and tapers smoothly distally measuring 0.7 cm in the midportion and 0.4 cm distally the head of the pancreas. Thickened gallbladder wall with ring down artifact suggestive of adenomyomatosis of the gallbladder wall. No gallstone seen. Small liver cyst. Nonvisualization of the pancreas.
[2022-10-29 13:06] VITALS: PULSE 61; O2SAT 99
[2022-10-29 13:07] VITALS: BP 144/94; PULSE 61; RESP 12; TEMP 36.4; O2SAT 94; BMI 20.4
--- NOTE | 2022-10-29 13:56 | ECG_ITS ---
Test Reason : syncope Blood Pressure : / mmHG Vent. Rate : 068 BPM Atrial Rate : 068 BPM P-R Int : 192 ms QRS Dur : 132 ms QT Int : 444 ms P-R-T Axes : 079 -82 -45 degrees QTc Int : 472 ms Sinus rhythm with Premature atrial complexes Right bundle branch block Left anterior fascicular block Left ventricular hypertrophy with QRS widening ( R in aVL , Cy product , Romhilt-Dumont ) Cannot rule out Anteroseptal infarct (cited on or before 02-JUL-2016) Abnormal ECG When compared with ECG of 18-SEP-2022 13:16, Premature atrial complexes are now Present Referred By: Jean-Paul Odell Electronically Signed By:Rivas Nicolas
--- NOTE | 2022-10-29 13:58 | ED_ITS ---
HPI - Syncope General Chief Complaint: Syncope Stated Complaint: syncopal episode@, abn ekg snf per ems Time Seen by Provider: 10/29/22 13:55 Source: patient Mode of arrival: EMS Limitations: no limitations History of Present Illness HPI narrative: 77-year-old male history of right-sided weakness frequent falls due to CVA in the past with right-sided hemiplegia patient was last seen here in August patient is on Eliquis for AFib. [facility] when he had a witnessed syncopal episode. Patient arrives here without any complaints he was in AFib on the monitor his EKG showed a normal sinus rhythm. MD complaint: loss of consciousness Related Data Home Medications Medication Instructions Recorded Confirmed apixaban 5 mg tablet (Eliquis) 5 mg PO BID 09/18/22 10/29/22 atorvastatin 80 mg tablet 80 mg PO BEDTIME 09/18/22 10/29/22 lisinopril 2.5 mg tablet 2.5 mg PO DAILY 09/18/22 10/29/22 metformin 500 mg tablet 1,000 mg PO BID 09/18/22 10/29/22 metoprolol tartrate 50 mg tablet 25 mg PO DAILY 09/18/22 10/29/22 tamsulosin 0.4 mg capsule 0.4 mg PO DAILY 09/18/22 10/29/22 acetaminophen 325 mg tablet 650 mg PO Q6H PRN Fever Or Pain 10/29/22 10/29/22 (Tylenol) bisacodyl 10 mg rectal suppository 10 mg SD DAILY PRN Constipation 10/29/22 10/29/22 magnesium hydroxide 400 mg/5 mL 30 ml PO DAILY PRN Constipation 10/29/22 10/29/22 oral suspension (Milk of Magnesia) sodium phosphates 19 gram-7 118 ml SD DAILY PRN Constipation 10/29/22 10/29/22 gram/118 mL enema (Fleet Enema) Allergies Allergy/AdvReac Type Severity Reaction Status Date / Time No Known Allergies Allergy Verified 09/18/22 13:13 [No Known Allergies*] Review of Systems Review of Systems: Review of systems: General: Patient denies any fever chills recent illness or falls Musculoskeletal: Denies back pain or body aches or other injuries HEENT: denies headache, runny nose, ear pain Respiratory: denies shortness of breath, cough Cardiovascular: no chest pain or palpitations : denies dysuria, frequency Abdomen: no nausea vomiting denies abdominal pain Extremities: no swelling, no pain Skin: no diaphoresis Yes all other systems are reviewed and are negative PMFSH Past Medical History Medical History CVA (cerebral vascular accident) Diabetes type 2, controlled Essential (primary) hypertension Hemiplegia and hemiparesis following cerebral infarction affecting right dominant side Hyperlipidemia Repeated falls Social History Social History Alcohol intake: never Patient Tobacco Use Status: Former Tobacco user Advance Directives: Yes Advance Directives on File: Yes Advance Directives Date on File: 09/18/22 Physical Exam Vital Signs: Vital Signs: Last Vital Signs Temp 97.6 F 10/29/22 13:07 Pulse 69 10/29/22 15:58 Resp 16 10/29/22 15:58 BP 163/88 H 10/29/22 15:58 Pulse Ox 100 10/29/22 15:58 O2 Del Method Room Air 10/29/22 15:58 BMI result Body Mass Index 20.4 Neurological exam: CN II- XII tested. Patient is alert and oriented to person place and time. Patient has no dysphagia or dysarthia, denies good vision in all four vision crisostomo no nystagmus on exam, good strength to upper and lower extremities with normal reflexes to brachioradialis, wrist, patella and achilles. Negative romberg, good finger to nose and heel to rushing. General: Well-appearing well-nourished in no signs of distress HEENT: Normocephalic atraumatic Neck: No signs of JVD, no masses no tenderness or lymphadenopathy Cardiovascular: Regular rate and rhythm Respiratory: Clear to auscultation bilaterally Abdomen: Soft nontender no masses Extremities: Normal pedal pulses no signs of edema Skin: Dry warm no rashes Back: No tenderness full ROM Course Course Course Narrative: Patient looks well I will consult hospitalist about admission thinks patient benefits remission is he is 77 years old with a syncopal episode also pneumonia Medications Administered Discontinued Medications Generic Name Dose Route Start Last Admin Trade Name Freq PRN Reason Stop Dose Admin Sodium Chloride 1,000 mls @ 999 mls/hr 10/29/22 14:00 10/29/22 14:53 Ns IV 10/29/22 15:00 999 mls/hr .Q1H1M LEA Administration Medical Decision Making Medical Decision Making [facility] Narrative: 77-year-old witnessed syncopal episode I will check labs patient is here with atrial fibrillation no chest pain has no complaints at this time. Differential Diagnosis Concern for arrhythmia patient of trauma Admission/Observation Consideration of admission/observation: Escalation of care including admission/observation considered Patient will require admission as he has signs of pneumonia also syncope Consult Healthcare Provider Management of the patient was discussed with: Hospitalist Dr. Wen agrees with the admission. Lab Data [facility] Lab Attestation statement: I reviewed the patient's lab results. Abuts count is elevated compared to previous potassium is always been slightly elevated is borderline high this time. Patient to get some fluids. 10/29/22 14:48 10/29/22 14:48 Labs: Lab Results 10/29/22 10/29/22 10/29/22 Range/Units 14:48 14:48 14:48 WBC 16.9 H (4.8-10.8) X10*3/uL RBC 4.28 L (4.60-5.80) X10*6/uL Hgb 13.1 L (14.0-18.0) g/dl Hct 40.5 L (42.0-52.0) % MCV 94.6 (80.0-98.0) fL MCH 30.6 (27.0-33.0) pg MCHC 32.3 (31.0-36.0) g/dl RDW 13.9 (11.0-16.0) % Plt Count 394 (160-400) X10*3/uL MPV 11.0 (9.4-12.4) fL Immature Gran % (Auto) 1.8 H (0.0-0.4) % Neut % (Auto) 79.0 H (45-73) % Lymph % (Auto) 10.9 L (20-40) % Henderson % (Auto) 6.4 (2-11) % Eos % (Auto) 1.5 (0-4) % Baso % (Auto) 0.4 (0-2) % Lymph # (Auto) 1.8 (1.2-4.9) X10*3/uL Henderson # (Auto) 1.1 (0.1-1.2) X10*3/uL Eos # (Auto) 0.3 (0.0-0.4) X10*3/uL Baso # (Auto) 0.1 (0.0-0.2) X10*3/uL Abs Immat Gran (auto) 0.30 H (0.00-0.03) X10*3/uL Absolute Neuts (auto) 13.4 H (2.0-8.3) x10*3/uL Absolute Nucleated RBC 0.000 (0.0-0.012) X10*3/uL Nucleated RBC % (auto) 0.0 (0.0-0.2) /100WBC Sodium 143 (135-145) mmol/L Potassium 5.2 H (3.3-5.1) mmol/L Chloride 106 (96-108) mmol/L Carbon Dioxide 24 (22-29) mmol/L Anion Gap 18 (12-20) BUN 15 (9-16) mg/dL Creatinine 0.94 (0.5-1.4) mg/dL Estim Creat Clear Calc 67.3 Estimated GFR > 60 Random Glucose 117 H (60-115) mg/dL Calcium 10.0 (8.4-10.2) mg/dL Total Bilirubin 0.4 (0.0-1.0) mg/dL Direct Bilirubin 0.1 (0.0-0.5) mg/dL AST 17 (5-37) U/L ALT 15 (0-40) U/L Alkaline Phosphatase 100 (39-117) U/L Troponin I High Sens (<3.5-35.0) ng/L Total Protein 6.9 (6.5-8.0) g/dL Albumin 4.1 (3.5-5.0) g/dL Lipase 16 (8-78) U/L COVID-19 ([facility]) Negative (Negative) COVID-19 Clin Com See Note 10/29/22 Range/Units 14:48 WBC (4.8-10.8) X10*3/uL RBC (4.60-5.80) X10*6/uL Hgb (14.0-18.0) g/dl Hct (42.0-52.0) % MCV (80.0-98.0) fL MCH (27.0-33.0) pg MCHC (31.0-36.0) g/dl RDW (11.0-16.0) % Plt Count (160-400) X10*3/uL MPV (9.4-12.4) fL Immature Gran % (Auto) (0.0-0.4) % Neut % (Auto) (45-73) % Lymph % (Auto) (20-40) % Henderson % (Auto) (2-11) % Eos % (Auto) (0-4) % Baso % (Auto) (0-2) % Lymph # (Auto) (1.2-4.9) X10*3/uL Henderson # (Auto) (0.1-1.2) X10*3/uL Eos # (Auto) (0.0-0.4) X10*3/uL Baso # (Auto) (0.0-0.2) X10*3/uL Abs Immat Gran (auto) (0.00-0.03) X10*3/uL Absolute Neuts (auto) (2.0-8.3) x10*3/uL Absolute Nucleated RBC (0.0-0.012) X10*3/uL Nucleated RBC % (auto) (0.0-0.2) /100WBC Sodium (135-145) mmol/L Potassium (3.3-5.1) mmol/L Chloride (96-108) mmol/L Carbon Dioxide (22-29) mmol/L Anion Gap (12-20) BUN (9-16) mg/dL Creatinine (0.5-1.4) mg/dL Estim Creat Clear Calc Estimated GFR Random Glucose (60-115) mg/dL Calcium (8.4-10.2) mg/dL Total Bilirubin (0.0-1.0) mg/dL Direct Bilirubin (0.0-0.5) mg/dL AST (5-37) U/L ALT (0-40) U/L Alkaline Phosphatase (39-117) U/L Troponin I High Sens 20.3 (<3.5-35.0) ng/L Total Protein (6.5-8.0) g/dL Albumin (3.5-5.0) g/dL Lipase (8-78) U/L COVID-19 ([facility]) (Negative) COVID-19 Clin Com Independent Interpretation I performed an independent interpretation of an: EKG Interpretation: Rate 68 normal sinus rhythm normal intervals no signs of ischemia interpreted by me Radiology Impression Discussion of test interpretation with radiology: I have reviewed the radiologist's reading. External Record Review External record reviewed: Inpatient record and Office record Discharge Plan Discharge Clinical Impression: Dehydration, Syncope, Pneumonia Patient Disposition: Admitted As Inpatient
[2022-10-29 14:53] LABS: MANUAL DIFF FLAG NO
[2022-10-29] MEDS: 0.9 % Sodium Chloride 1,000 ML 999 ML IV ×2 (14:53→16:40)
[2022-10-29 14:58] LABS: Basophils Absolute Auto 0.1 X10*3/uL (0.0-0.2); Basophils Percent Auto 0.4 % (0-2); Eosinophils Absolute Auto 0.3 X10*3/uL (0.0-0.4); Eosinophils Percent Auto 1.5 % (0-4); Hematocrit 40.5 % (42.0-52.0); Hemoglobin 13.1 g/dl (14.0-18.0); Imm Gran Pct Auto 1.8 % (0.0-0.4); Lymphocytes Absolute Auto 1.8 X10*3/uL (1.2-4.9); Lymphocytes Percent Auto 10.9 % (20-40); Mean Corpuscular HGB Conc 32.3 g/dl (31.0-36.0); Mean Corpuscular Hemoglobin 30.6 pg (27.0-33.0); Mean Corpuscular Volume 94.6 fL (80.0-98.0); Monocytes Absolute Auto 1.1 X10*3/uL (0.1-1.2); Monocytes Percent Auto 6.4 % (2-11); Neutrophils Absolute Auto 13.4 x10*3/uL (2.0-8.3); Platelet Count 394 X10*3/uL (160-400); Red Blood Count 4.28 X10*6/uL (4.60-5.80); Red Cell Distribution Width 13.9 % (11.0-16.0); White Blood Count 16.9 X10*3/uL (4.8-10.8)
[2022-10-29 15:11] LABS: Alanine Aminotransferase 15 U/L (0-40); Albumin Level 4.1 g/dL (3.5-5.0); Alkaline Phosphatase 100 U/L (39-117); Anion Gap 18 (12-20); Aspartate Amino Transferase 17 U/L (5-37); Bilirubin Direct 0.1 mg/dL (0.0-0.5); Bilirubin Total 0.4 mg/dL (0.0-1.0); Blood Urea Nitrogen 15 mg/dL (9-16); Carbon Dioxide 24 mmol/L (22-29); Chloride 106 mmol/L (96-108); Creatinine Clr Calc Pharmacy 67.3; Estimated Glomerular Filt Rate > 60; Glucose Random 117 mg/dL (60-115); Lipase 16 U/L (8-78); Potassium 5.2 mmol/L (3.3-5.1); Sodium 143 mmol/L (135-145); Total Protein 6.9 g/dL (6.5-8.0)
[2022-10-29 15:14] LABS: COVID-19 Test Negative (Negative); IDNOW Serial# 9DB6401D
[2022-10-29 15:19] LABS: Troponin-I High Sensitivity 20.3 ng/L (<3.5-35.0)
--- NOTE | 2022-10-29 15:23 | PHA.MEDREC ---
Pharmacy Consult ? Medication Reconciliation Pharmacy has completed the medication reconciliation. Patient had a med list from [facility] with them.
[2022-10-29 15:58] VITALS: BP 163/88; PULSE 69; RESP 16; O2SAT 100
--- NOTE | 2022-10-29 16:23 | P.HPHOSP_ITS ---
History of Present Illness Date of Service: 10/29/22 Attending physician on admission: Yahir Coleman Chief Complaint: Syncopal episode Pt is a 77-year-old male with a PMH significant for?hx of CVA, lzh-ojwqhen-bndlmhxar diabetes, paroxysmal AFib on Eliquis, HTN, HLD, and hx of frequent falls who presents to the ED for evaluation after a witnessed syncopal episode. Pt resides at a rehab rehab facilty and is wheelchair bound at baseline. Pt was wheeling himself back into the facility after smoking his normal two cigarettes after lunch when other residents witnesses him becoming unresponsive for a few seconds . Pt denies fall. He himself was unaware of passing out and has no sense of any time lapse or memory loss. No prodromal symptoms: no lightheadedness, dizziness. Denies any postictal phase or focal deficits: No one-sided weakness, dysarthria, confusion, problems word-finding. Currently patient has no acute complaints. Denies chest pain/pressure, palpitations. No shortness of breath, cough. Denies fever, chills, nausea, vomiting, diarrhea. In the ED patient was afebrile but hypertensive at 163/88. Labs were significant for leukocytosis of 16.9, stable H&H of 13.1/40.5, potassium of 5.2, lactic acid 3.9. Renal function baseline. Hepatic function baseline. UA pending. CXR showed possible area infiltrate in the right mid to lower lung zone. CT?of head negative for acute findings. EKG demonstrated sinus rhythm with PACs. Pt was treated with IVF, ceftriaxone, and doxy. Pt will be admitted to the hospital under observation on telemetry for evaluation and further workup for syncopal episode. Review of Systems Review of Systems: Syncopal episode Patient denies lightheadedness or dizziness No chest pain/pressure, palpitations Denies shortness of breath, cough Yes all other systems are reviewed and are negative [facility] Medical History CVA (cerebral vascular accident) Diabetes type 2, controlled Essential (primary) hypertension Hemiplegia and hemiparesis following cerebral infarction affecting right dominant side Hyperlipidemia Repeated falls Social History Alcohol intake: never Patient Tobacco Use Status: Former Tobacco user Advance Directives: Yes Advance Directives on File: Yes Advance Directives Date on File: 09/18/22 Meds Allergies Allergy/AdvReac Type Severity Reaction Status Date / Time No Known Allergies Allergy Verified 09/18/22 13:13 [No Known Allergies*] Active Medications: Current Medications Sodium Chloride (Ns) 1,000 mls @ 999 mls/hr IV .Q1H1M LEA Stop: 10/29/22 16:45 Pharmacy Consult (Consult Rx Perform Med Rec) 1 each MISCELLANE ONCE PRN PRN Reason: Consult order Home Medications Medication Instructions Recorded Confirmed Last Taken Type apixaban 5 mg tablet (Eliquis) 5 mg PO BID 09/18/22 10/29/22 10/29/22 09:00 History atorvastatin 80 mg tablet 80 mg PO BEDTIME 09/18/22 10/29/22 10/28/22 History lisinopril 2.5 mg tablet 2.5 mg PO DAILY 09/18/22 10/29/22 10/29/22 09:00 History metformin 500 mg tablet 1,000 mg PO BID 09/18/22 10/29/22 10/29/22 09:00 History metoprolol tartrate 50 mg tablet 25 mg PO DAILY 09/18/22 10/29/22 10/29/22 09:00 History tamsulosin 0.4 mg capsule 0.4 mg PO DAILY 09/18/22 10/29/22 10/29/22 09:00 H istory acetaminophen 325 mg tablet 650 mg PO Q6H PRN Fever Or Pain 10/29/22 10/29/22 Unknown History (Tylenol) bisacodyl 10 mg rectal suppository 10 mg NH DAILY PRN Constipation 10/29/2201/13 Unknown History magnesium hydroxide 400 mg/5 mL 30 ml PO DAILY PRN Constipation 10/29/2201/13 Unknown History oral suspension (Milk of Magnesia) sodium phosphates 19 gram-7 118 ml NH DAILY PRN Constipation 10/29/22 10/29/22 Unknown History gram/118 mL enema (Fleet Enema) Physical Exam Vital Signs and Narrative: Vital Signs: Last Vital Signs Temp 97.6 F 10/29/22 13:07 Pulse 69 10/29/22 15:58 Resp 16 10/29/22 15:58 BP 163/88 H 10/29/22 15:58 Pulse Ox 100 10/29/22 15:58 O2 Del Method Room Air 10/29/22 15:58 BMI result Body Mass Index 20.4 Constitutional: Alert, in no acute distress. Mental Status: Oriented to person, place and time. Eyes: Pupils are equal, round, and reactive to light. Ear, Nose, and Throat: Oropharynx clear, mucous membranes moist. Ears and nose without deformities. Trachea midline. Respiratory: Clear to auscultation bilaterally. Diminished lung sounds throughout. No wheezing, rales, or rhonchi. Cardiovascular: S1, S2 regular. No murmurs, rubs, or gallops. Gastrointestinal: Abdomen soft, non-tender, non-distended. Normal bowel sounds. Neurologic: Cranial nerves II-XII are grossly intact bilaterally. No focal neurological deficits. Moves all extremities spontaneously. Sensation to light touch intact bilaterally to face, and upper and lower extremities Skin: No rashes or lesions noted. Musculoskeletal: No cyanosis or clubbing. Extremities: No edema. Psychiatric: Normal mood and affect. Results Labs 10/29/22 14:48 10/29/22 14:48 Labs: Laboratory Results - last 24 hr 10/29/22 10/29/22 10/29/22 14:48 14:48 14:48 MCV 94.6 MCH 30.6 MCHC 32.3 RDW 13.9 Plt Count 394 MPV 11.0 Immature Gran % (Auto) 1.8 H Neut % (Auto) 79.0 H Lymph % (Auto) 10.9 L [place] % (Auto) 6.4 Eos % (Auto) 1.5 Baso % (Auto) 0.4 Lymph # (Auto) 1.8 [place] # (Auto) 1.1 Eos # (Auto) 0.3 Baso # (Auto) 0.1 Abs Immat Gran (auto) 0.30 H Absolute Neuts (auto) 13.4 H Absolute Nucleated RBC 0.000 Nucleated RBC % (auto) 0.0 Anion Gap 18 Estim Creat Clear Calc 67.3 Estimated GFR > 60 Random Glucose 117 H Calcium 10.0 Total Bilirubin 0.4 Direct Bilirubin 0.1 AST 17 ALT 15 Alkaline Phosphatase 100 Troponin I High Sens Total Protein 6.9 Albumin 4.1 Lipase 16 COVID-19 ([facility]) Negative COVID-19 Clin Com See Note 10/29/22 14:48 MCV MCH MCHC RDW Plt Count MPV Immature Gran % (Auto) Neut % (Auto) Lymph % (Auto) [place] % (Auto) Eos % (Auto) Baso % (Auto) Lymph # (Auto) [place] # (Auto) Eos # (Auto) Baso # (Auto) Abs Immat Gran (auto) Absolute Neuts (auto) Absolute Nucleated RBC Nucleated RBC % (auto) Anion Gap Estim Creat Clear Calc Estimated GFR Random Glucose Calcium Total Bilirubin Direct Bilirubin AST ALT Alkaline Phosphatase Troponin I High Sens 20.3 Total Protein Albumin Lipase COVID-19 ([facility]) COVID-19 Clin Com Imaging Radiologist's Impressions: Impressions Chest X-Ray 10/29/22 14:40 IMPRESSION: Some increased density reticular nodular in the region of the right mid to lower lung zone adjacent the patient's nipple shadow could represent an area of infiltrate. Attention to follow-up In addition a nodular lung lesion suggested on the lateral film. CT would be recommended to fully evaluate. This may be done on an outpatient basis Assessment and Plan (1) Syncope: Status: Acute Plan Patient admitted to the hospital under observation on telemetry for evaluation and further workup for syncopal episode. Syncopal episode Patient was in wheelchair at the time, postprandial Pt denies postictal phase Most likely vasovagal, less likely orthostatic or seizure Pt's BP elevated at 163/88 Will monitor on telemetry Question of pneumonia CXR showed possible infiltrate of right mid to lower lung, elevated WBC Patient asymptomatic: Denies shortness of breath, cough, dyspnea, fatigue Patient received IV antibiotics in ED Procalcitonin negative at <0.02 Hold off on additional antibiotics for now Lactic acidosis Patient's lactic acid 3.39 at presentation Secondary to metformin use, not sepsis Paroxysmal AFib Continue Eliquis, metoprolol Abnormal CXR Chest x-ray found a nodular lung lesion suggested on the lateral film Follow-up outpatient with CT of chest Hx of CVA Continue statin BPH Continue tamsulosin Full Code Attending:?Dr. Coleman DVT Prophylaxis: On Eliquis Patient admitted to the hospital under observation on telemetry for evaluation and further workup for syncopal episode. Time Spent With Patient Time: Total time managing care of this patient today ____ minutes. Quality Stroke Does the patient have a stroke diagnosis?: No VTE Prior VTE?: No VTE Risk Level:: Medical - moderate - high VTE Device Contraindication: Treatment Not Indicated VTE Drug Contraindication: N/A - Med Ordered
[2022-10-29] MEDS: cefTRIAXone sodium 1 GM in 0.9 % Sodium Chloride 50 ML IV (16:24)
[2022-10-29] MEDS: Doxycycline Monohydrate 100 MG CAPSULE PO (16:24)
[2022-10-29 16:26] LABS: Lactic Acid 3.9 mmol/L (0.5-2.0)
[2022-10-29] MEDS: Metoprolol Tartrate 7.5 MG in 0.9 % Sodium Chloride 50 ML 230 MG IV (17:08)
[2022-10-29 17:54] LABS: Procalcitonin < 0.02 ng/mL
[2022-10-29 18:04] LABS: Reflex Lactate? Lactic Acid Added
[2022-10-29 18:08] VITALS: BP 169/60
[2022-10-29 19:36] VITALS: PULSE 82; RESP 18; TEMP 37; O2SAT 97
[2022-10-29] MEDS: 0.9 % Sodium Chloride Flush 3 ML SYRINGE IVFLUSH (20:28)
[2022-10-29] MEDS: Apixaban 5 MG TABLET PO (20:28)
[2022-10-29] MEDS: Atorvastatin Calcium 80 MG TABLET PO (20:28)
[2022-10-29 20:49] LABS: Glucose, Whole Blood 179 mg/dL (60-115)
[2022-10-29] MEDS: Insulin Lispro 100 UNIT/ML 3 ML VIAL SUBCUT (20:57)
[2022-10-29 23:04] VITALS: BP 220/84; PULSE 70; RESP 18; TEMP 36.6; O2SAT 98
--- NOTE | 2022-10-29 23:29 | PC.NURSE ---
Pt alert and oriented x 4 , VMT staff notified jingle writer that pt was vaping in his room. Pt gave jingle writer the vape, security call and took vape. Pt educated on hospital policy regarding vaping, verbalized understanding. Exotic Dancer and aware .
[2022-10-29] MEDS: hydrALAZINE HCl 20 MG/ML VIAL IVPUSH (23:49)
[2022-10-30] VITALS (7 sets, daily range): BP systolic 140–200; BP diastolic 62–88; PULSE 57–83; RESP 12–18; TEMP 36.2–37; O2SAT 96–99
[2022-10-30 06:56] LABS: Hematocrit 33.8 % (42.0-52.0); Hemoglobin 11.3 g/dl (14.0-18.0); Mean Corpuscular HGB Conc 33.4 g/dl (31.0-36.0); Mean Corpuscular Hemoglobin 30.6 pg (27.0-33.0); Mean Corpuscular Volume 91.6 fL (80.0-98.0); Platelet Count 339 X10*3/uL (160-400); Red Blood Count 3.69 X10*6/uL (4.60-5.80); White Blood Count 11.2 X10*3/uL (4.8-10.8)
--- NOTE | 2022-10-30 06:58 | PC.NURSE ---
Patient's BP @1999- 210/80, pt asymptomatic notified, no new order. BP @ 2300- 220/84, new order received to admin Hydralazine 20 mg. Pt potassium level 5.2 , notified.
[2022-10-30 07:16] LABS: Anion Gap 10 (12-20); Blood Urea Nitrogen 14 mg/dL (9-16); Calcium 9.3 mg/dL (8.4-10.2); Carbon Dioxide 27 mmol/L (22-29); Chloride 108 mmol/L (96-108); Creatinine Clr Calc Pharmacy 76.2; Estimated Glomerular Filt Rate > 60; Glucose Random 112 mg/dL (60-115); Potassium 4.3 mmol/L (3.3-5.1); Sodium 141 mmol/L (135-145)
[2022-10-30 07:18] LABS: Glucose, Whole Blood 111 mg/dL (60-115)
--- NOTE | 2022-10-30 08:29 | MHC.CM.PN ---
CM met with Patient at bedside and addressed LA with him, providing Patient with the original and placing a copy on the chart. Patient reports that he typically lives in a house with his Son/HCP, his Son's Girlfriend and his Son's 2 Sons, but he comes to [facility] from STR at [facility]. Patient's goal is to return to [facility] to complete STR, prior to returning home and CM has initiated and will follow for dc planning. Patient is w/c bound at baseline. CM has initiated and will follow for dc planning. Patient has received Covid vax x3 and he has no PCP.
[2022-10-30] MEDS: Tamsulosin HCL 0.4 MG CAPSULE PO (08:40)
[2022-10-30] MEDS: 0.9 % Sodium Chloride Flush 3 ML SYRINGE IVFLUSH ×3 (08:41→20:39)
[2022-10-30] MEDS: Apixaban 5 MG TABLET PO ×2 (08:41→20:37)
[2022-10-30] MEDS: lisinopriL 2.5 MG TABLET PO (08:41)
[2022-10-30] MEDS: Metoprolol Tartrate 25 MG TABLET PO (08:41)
--- NOTE | 2022-10-30 11:07 | MHC.CM.PN ---
Per Patt from [facility], [facility] is unable to accept Patient back.Apparently Patient has been at [facility] without a payer because Patient is w/c bound at baseline and did not have a skill. Even if Patient had a skill, Patt thought he had already used his Med A days. Patient also has no secondary payer and per Patt, Patient's Son has not cooperated with a [employer] [facility] kellen, a private pay arrangement nor a bed hold. BRADY spoke with , who is ordering a PT eval to determine if Patient can return home/self care (no PCP). BRADY has made CM Director aware of this situation. CM will meet with Patient so he is aware of this situation and make a referral to [facility] to assist with the [employer] [facility] kellen.
[2022-10-30 11:08] LABS: Glucose, Whole Blood 252 mg/dL (60-115)
--- NOTE | 2022-10-30 11:30 | MHC.CM.PN ---
CM met with Patient to discuss his inability to return to [facility]. Patient is willing to meet with [facility] to discuss a [employer] [facility] kellen and to be evaluated by PT to determine if he is safe to return home to his Son's (BAYLEE) home, self care (he would not qualify for VNA because Patient last saw his PCP from [place] over a year ago). BRADY has asked CM Associate Software Application Engineer to assist in locating a PCP for Patient. CM will follow.
[2022-10-30] MEDS: Insulin Lispro 100 UNIT/ML 3 ML VIAL SUBCUT ×2 (12:08→20:37)
--- NOTE | 2022-10-30 13:58 | MHC.CM.PN ---
PT is recommending STR. Financial has confirmed receipt of the referral to them for possible [facility] for Patient. CM will follow.
--- NOTE | 2022-10-30 14:00 | HO.PM.IMPN ---
Subjective Subjective Date of Service: 10/30/22 Interval History: No acute issues overnight Review of Systems Denies chest pain Denies shortness of breath Denies nausea vomiting diarrhea Denies fever chills Physical Exam Vital Signs: Vital Signs: Last Vital Signs Temp 97.3 F 10/30/22 11:31 Pulse 60 10/30/22 13:16 Resp 16 10/30/22 11:31 BP 140/62 H 10/30/22 13:16 Pulse Ox 98 10/30/22 13:16 O2 Del Method Room Air 10/30/22 11:31 BMI result Body Mass Index 20.4 Const: Other: Awake alert no acute distress Resp: Other: Clear to auscultation diminished at bases Cardio: Other: No S4; positive S1-S2; no S3 murmurs rubs or gallops GI: Other: Soft nontender nondistended normoactive bowel sounds Neuro: Other: Cranial nerves 2-12 grossly intact as tested. Motor is 5/5 all extremities. Sensation is intact. Extrem: Other: No edema bilaterally Objective Data Active Medications Acetaminophen (Acetaminophen 325 Mg Tablet) 650 mg PO Q6H PRN PRN Reason: Pain, Mild (Pain Scale 1-3) Apixaban (Apixaban 5 Mg Tablet) 5 mg PO BID FOR[facility]LY [facility], [facility] Last Admin: 10/30/22 08:41 Dose: 5 mg Documented By: ELIZABETH Atorvastatin Calcium (Atorvastatin Calcium 80 Mg Tablet) 80 mg PO BEDTIME FOR[facility]LY [facility], [facility] Last Admin: 10/29/22 20:28 Dose: 80 mg Documented By: MIKE Docusate Sodium (Docusate Sodium 100 Mg Capsule) 100 mg PO DAILY PRN PRN Reason: Constipation Glucose (Glucose Gel 15 Gm Gel..Gram.) 15 gm PO Q15M PRN; Protocol PRN Reason: per Hypoglycemia Standing Ord. Dextrose (D10) 250 mls @ 750 mls/hr IV Q15M PRN; Protocol PRN Reason: per Hypoglycemia Standing Ord. Insulin Human Lispro (Insulin Lispro 100 Unit/Ml 3 Ml Vial) 0 unit SUBCUT QIDACHS FOR[facility]LY [facility], [facility]–1983; Protocol Last Admin: 10/30/22 12:08 Dose: 6 unit Documented By: ELIZABETH Lisinopril (Lisinopril 2.5 Mg Tablet) 2.5 mg PO DAILY [facility]LY [facility], [facility]; Protocol Last Admin: 06/09/23 08:41 Dose: 2.5 mg Documented By: ELIZABETH Metoprolol Tartrate (Metoprolol Tartrate 25 Mg Tablet) 25 mg PO DAILY [facility], [facility]; Protocol Last Admin: 10/30/22 08:41 Dose: 25 mg Documented By: ELIZABETH Ondansetron HCl (Ondansetron Hcl 4 Mg/2 Ml Vial) 4 mg IVPUSH Q8H PRN PRN Reason: Nausea and Vomiting Pharmacy Consult (Consult Rx Perform Med Rec) 1 each MISCELLANE ONCE PRN PRN Reason: Consult order Sodium Chloride (0.9 % Sodium Chloride Flush 3 Ml Syringe) 3 ml IVFLUSH QSHIFT [facility] Last Admin: 10/30/22 08:41 Dose: 3 ml Documented By: ELIZABETH Tamsulosin HCl (Tamsulosin Hcl 0.4 Mg Capsule) 0.4 mg PO DAILY [facility]LY [facility], [facility] Last Admin: 10/30/22 08:40 Dose: 0.4 mg Documented By: ELIZABETH Labs 10/30/22 06:41 10/30/22 06:41 Labs: Laboratory Results - last 24 hr 10/29/22 10/29/22 10/29/22 14:48 14:48 14:48 MCV 94.6 MCH 30.6 MCHC 32.3 RDW 13.9 Plt Count 394 MPV 11.0 Immature Gran % (Auto) 1.8 H Neut % (Auto) 79.0 H Lymph % (Auto) 10.9 L [place] % (Auto) 6.4 Eos % (Auto) 1.5 Baso % (Auto) 0.4 Lymph # (Auto) 1.8 [place] # (Auto) 1.1 Eos # (Auto) 0.3 Baso # (Auto) 0.1 Abs Immat Gran (auto) 0.30 H Absolute Neuts (auto) 13.4 H Absolute Nucleated RBC 0.000 Nucleated RBC % (auto) 0.0 Anion Gap 18 Estim Creat Clear Calc 67.3 Estimated GFR > 60 POC Glucose Random Glucose 117 H Lactic Acid Calcium 10.0 Total Bilirubin 0.4 Direct Bilirubin 0.1 AST 17 ALT 15 Alkaline Phosphatase 100 Troponin I High Sens Total Protein 6.9 Albumin 4.1 Lipase 16 Procalcitonin < 0.02 COVID-19 ([facility]) Negative COVID-19 Clin Com See Note 10/29/22 10/29/22 10/29/22 14:48 15:56 20:44 MCV MCH MCHC RDW Plt Count MPV Immature Gran % (Auto) Neut % (Auto) Lymph % (Auto) [place] % (Auto) Eos % (Auto) Baso % (Auto) Lymph # (Auto) [place] # (Auto) Eos # (Auto) Baso # (Auto) Abs Immat Gran (auto) Absolute Neuts (auto) Absolute Nucleated RBC Nucleated RBC % (auto) Anion Gap Estim Creat Clear Calc Estimated GFR POC Glucose 179 H Random Glucose Lactic Acid 3.9 H* Calcium Total Bilirubin Direct Bilirubin AST ALT Alkaline Phosphatase Troponin I High Sens 20.3 Total Protein Albumin Lipase Procalcitonin COVID-19 ([facility]) COVID-19 Clin Com 10/30/22 10/30/22 10/30/22 06:41 06:41 07:14 MCV 91.6 MCH 30.6 MCHC 33.4 RDW 14.0 Plt Count 339 MPV 11.0 Immature Gran % (Auto) Neut % (Auto) Lymph % (Auto) [place] % (Auto) Eos % (Auto) Baso % (Auto) Lymph # (Auto) [place] # (Auto) Eos # (Auto) Baso # (Auto) Abs Immat Gran (auto) Absolute Neuts (auto) Absolute Nucleated RBC 0.000 Nucleated RBC % (auto) 0.0 Anion Gap 10 L Estim Creat Clear Calc 76.2 Estimated GFR > 60 POC Glucose 111 Random Glucose 112 Lactic Acid Calcium 9.3 D Total Bilirubin Direct Bilirubin AST ALT Alkaline Phosphatase Troponin I High Sens Total Protein Albumin Lipase Procalcitonin COVID-19 ([facility]) COVID-19 Clin Com 10/30/22 11:04 MCV MCH MCHC RDW Plt Count MPV Immature Gran % (Auto) Neut % (Auto) Lymph % (Auto) [place] % (Auto) Eos % (Auto) Baso % (Auto) Lymph # (Auto) [place] # (Auto) Eos # (Auto) Baso # (Auto) Abs Immat Gran (auto) Absolute Neuts (auto) Absolute Nucleated RBC Nucleated RBC % (auto) Anion Gap Estim Creat Clear Calc Estimated GFR POC Glucose 252 H Random Glucose Lactic Acid Calcium Total Bilirubin Direct Bilirubin AST ALT Alkaline Phosphatase Troponin I High Sens Total Protein Albumin Lipase Procalcitonin COVID-19 ([facility]) COVID-19 Clin Com Assessment and Plan (1) Syncope: Status: Acute (2) Dehydration: Status: Acute Plan Patient admitted to the hospital under observation on telemetry for evaluation and further workup for syncopal episode. No further syncope since admission 1.Syncopal episode (query vasovagal) -workup essentially unremarkable -follow-up clinically 2.Lactic acidosis -resolved 3.Paroxysmal AFib -acceptable rate control -adjust therapies as indicated -Eliquis, metoprolol Full Code Kaileequis Patient requires ongoing hospitalization pending safe placement Time Spent With Patient Time: Total time managing care of this patient today ____ minutes. Quality Stroke Does the patient have a stroke diagnosis?: No VTE Prior VTE?: No VTE Risk Level:: Medical - moderate - high VTE Device Contraindication: Treatment Not Indicated VTE Drug Contraindication: N/A - Med Ordered
[2022-10-30 16:08] LABS: Glucose, Whole Blood 103 mg/dL (60-115)
[2022-10-30 20:23] LABS: Glucose, Whole Blood 153 mg/dL (60-115)
[2022-10-30] MEDS: Atorvastatin Calcium 80 MG TABLET PO (20:37)
[2022-10-31] VITALS: BP 170/80
[2022-10-31 04:00] VITALS: BP 184/87; PULSE 60; RESP 20; TEMP 36.7; O2SAT 95
[2022-10-31 07:16] VITALS: BP 180/70; PULSE 69; RESP 20; TEMP 36.7; O2SAT 96
[2022-10-31 07:53] LABS: Glucose, Whole Blood 123 mg/dL (60-115)
[2022-10-31] MEDS: 0.9 % Sodium Chloride Flush 3 ML SYRINGE IVFLUSH ×2 (09:23→16:48)
[2022-10-31] MEDS: lisinopriL 2.5 MG TABLET PO (09:23)
[2022-10-31] MEDS: Tamsulosin HCL 0.4 MG CAPSULE PO (09:23)
[2022-10-31] MEDS: Apixaban 5 MG TABLET PO ×2 (09:23→19:58)
[2022-10-31] MEDS: Metoprolol Tartrate 25 MG TABLET PO (09:23)
[2022-10-31 11:06] VITALS: BP 162/66; PULSE 75; RESP 20; TEMP 36.4; O2SAT 97
[2022-10-31 11:46] LABS: Glucose, Whole Blood 178 mg/dL (60-115)
--- NOTE | 2022-10-31 12:16 | P.PNIM_ITS ---
Subjective Subjective Date of Service: 10/31/22 Interval History: No acute issues overnight. Appears back to baseline Review of Systems Denies chest pain Denies shortness of breath Denies nausea vomiting diarrhea Denies fever chills Physical Exam Vital Signs: Vital Signs: Last Vital Signs Temp 97.6 F 10/31/22 11:06 Pulse 75 10/31/22 11:06 Resp 20 10/31/22 11:06 BP 162/66 H 10/31/22 11:06 Pulse Ox 97 10/31/22 11:06 O2 Del Method Room Air 10/31/22 11:06 BMI result Body Mass Index 20.4 Const: Other: Awake alert no acute distress Resp: Other: Clear to auscultation diminished at bases Cardio: Other: No S4; positive S1-S2; no S3 murmurs rubs or gallops GI: Other: Soft nontender nondistended normoactive bowel sounds Neuro: Other: Cranial nerves 2-12 grossly intact as tested. Motor is 5/5 all extremities. Sensation is intact. Extrem: Other: No edema bilaterally Objective Data Active Medications Acetaminophen (Acetaminophen 325 Mg Tablet) 650 mg PO Q6H PRN PRN Reason: Pain, Mild (Pain Scale 1-3) Apixaban (Apixaban 5 Mg Tablet) 5 mg PO BID [facility] Last Admin: 10/31/22 09:23 Dose: 5 mg Documented By: KEREN Atorvastatin Calcium (Atorvastatin Calcium 80 Mg Tablet) 80 mg PO BEDTIME [facility] Last Admin: 10/30/22 20:37 Dose: 80 mg Documented By: SUZI Docusate Sodium (Docusate Sodium 100 Mg Capsule) 100 mg PO DAILY PRN PRN Reason: Constipation Glucose (Glucose Gel 15 Gm Gel..Gram.) 15 gm PO Q15M PRN; Protocol PRN Reason: per Hypoglycemia Standing Ord. Dextrose (D10) 250 mls @ 750 mls/hr IV Q15M PRN; Protocol PRN Reason: per Hypoglycemia Standing Ord. Insulin Human Lispro (Insulin Lispro 100 Unit/Ml 3 Ml Vial) 0 unit SUBCUT QIDACHS [facility]; Protocol Last Admin: 10/31/22 08:01 Dose: Not Given Documented By: KEREN Non-Admin Reason: No Insulin Coverage Lisinopril (Lisinopril 2.5 Mg Tablet) 2.5 mg PO DAILY [facility]; Protocol Last Admin: 10/31/22 09:23 Dose: 2.5 mg Documented By: KEREN Metoprolol Tartrate (Metoprolol Tartrate 25 Mg Tablet) 25 mg PO DAILY [facility]; Protocol Last Admin: 10/31/22 09:23 Dose: 25 mg Documented By: KEREN Ondansetron HCl (Ondansetron Hcl 4 Mg/2 Ml Vial) 4 mg IVPUSH Q8H PRN PRN Reason: Nausea and Vomiting Pharmacy Consult (Consult Rx Perform Med Rec) 1 each MISCELLANE ONCE PRN PRN Reason: Consult order Sodium Chloride (0.9 % Sodium Chloride Flush 3 Ml Syringe) 3 ml IVFLUSH QSHIFT [facility] Last Admin: 10/31/22 09:23 Dose: 3 ml Documented By: KEREN Tamsulosin HCl (Tamsulosin Hcl 0.4 Mg Capsule) 0.4 mg PO DAILY [facility] Last Admin: 10/31/22 09:23 Dose: 0.4 mg Documented By: KEREN Labs 10/30/22 06:41 10/30/22 06:41 Labs: Laboratory Results - last 24 hr 10/30/22 10/30/22 10/31/22 16:02 20:17 07:48 POC Glucose 103 153 H 123 H 10/31/22 11:41 POC Glucose 178 H Microbiology Microbiology Results: Microbiology 10/29/22 15:56 Blood Culture - Preliminary Blood - Venous No growth after 24 hours. 10/29/22 15:56 Blood Culture - Preliminary Blood - Venous No growth after 24 hours. Assessment and Plan (1) Syncope: Status: Acute Plan Patient admitted to the hospital under observation on telemetry for evaluation and further workup for syncopal episode. No further syncope since admission 1.Syncopal episode (query vasovagal) -workup essentially unremarkable -follow-up clinically -PT states short-term rehab awaiting placement 2.Lactic acidosis -resolved 3.Paroxysmal AFib -acceptable rate control -adjust therapies as indicated -Eliquis, metoprolol Full Code Eliquis Patient requires ongoing hospitalization pending safe placement Time Spent With Patient Time: Total time managing care of this patient today ____ minutes. Quality Stroke Does the patient have a stroke diagnosis?: No VTE Prior VTE?: No VTE Risk Level:: Medical - moderate - high VTE Device Contraindication: Treatment Not Indicated VTE Drug Contraindication: N/A - Med Ordered
[2022-10-31] MEDS: Insulin Lispro 100 UNIT/ML 3 ML VIAL SUBCUT ×3 (13:01→19:57)
[2022-10-31 16:00] VITALS: BP 185/88; PULSE 86; RESP 18; TEMP 36.5; O2SAT 99
[2022-10-31 16:29] LABS: Glucose, Whole Blood 175 mg/dL (60-115)
[2022-10-31 19:25] LABS: Glucose, Whole Blood 186 mg/dL (60-115)
[2022-10-31 19:31] VITALS: BP 171/51; PULSE 61; RESP 17; TEMP 36.6; O2SAT 100
[2022-10-31] MEDS: Atorvastatin Calcium 80 MG TABLET PO (19:57)
[2022-11-01] VITALS (7 sets, daily range): BP systolic 134–176; BP diastolic 60–82; PULSE 57–71; RESP 16–20; TEMP 36.2–37.2; O2SAT 96–98
[2022-11-01] MEDS: 0.9 % Sodium Chloride Flush 3 ML SYRINGE IVFLUSH ×3 (00:10→20:37)
--- NOTE | 2022-11-01 01:31 | ECG_ITS ---
Test Reason : rhythm change Blood Pressure : / mmHG Vent. Rate : 074 BPM Atrial Rate : 000 BPM P-R Int : 000 ms QRS Dur : 126 ms QT Int : 422 ms P-R-T Axes : 000 -84 080 degrees QTc Int : 468 ms Normal sinus rhythm with PACs Right bundle branch block Left anterior fascicular block Bifascicular block Cannot rule out Anterior infarct (cited on or before 02-JUL-2016) Abnormal ECG When compared with ECG of 29-OCT-2022 13:41, nonspecific T wave changes in inferior leads have improved. Referred By: Baron Nunn Electronically Signed By:Rivas Nicolas
--- NOTE | 2022-11-01 01:38 | PC.NURSE ---
Addendum entered by Rosa M Mitchell RN 11/01/22 01:38: asymptomatic Original Note: Patient with periods of ST elevation, MD notified, EKG as ordered.
[2022-11-01 08:09] LABS: Glucose, Whole Blood 146 mg/dL (60-115)
[2022-11-01] MEDS: Metoprolol Tartrate 25 MG TABLET PO (09:36)
[2022-11-01] MEDS: Tamsulosin HCL 0.4 MG CAPSULE PO (09:36)
[2022-11-01] MEDS: lisinopriL 2.5 MG TABLET PO (09:36)
[2022-11-01] MEDS: Apixaban 5 MG TABLET PO ×2 (09:36→20:37)
[2022-11-01] MEDS: Insulin Lispro 100 UNIT/ML 3 ML VIAL SUBCUT ×2 (11:13→16:42)
[2022-11-01 11:32] LABS: Glucose, Whole Blood 186 mg/dL (60-115)
--- NOTE | 2022-11-01 13:03 | P.PNIM_ITS ---
Subjective Subjective Date of Service: 11/01/22 Interval History: No acute issues overnight. Remains comfortable Review of Systems Denies chest pain Denies shortness of breath Denies nausea vomiting diarrhea Denies fever chills Physical Exam Vital Signs: Vital Signs: Last Vital Signs Temp 97.2 F 11/01/22 11:01 Pulse 69 11/01/22 11:01 Resp 20 11/01/22 11:01 BP 140/78 H 11/01/22 11:01 Pulse Ox 96 11/01/22 11:01 O2 Del Method Room Air 11/01/22 11:01 BMI result Body Mass Index 20.4 Const: Other: Awake alert no acute distress Resp: Other: Clear to auscultation diminished at bases Cardio: Other: No S4; positive S1-S2; no S3 murmurs rubs or gallops GI: Other: Soft nontender nondistended normoactive bowel sounds Neuro: Other: Cranial nerves 2-12 grossly intact as tested. Motor is 5/5 all extremities. Sensation is intact. Extrem: Other: No edema bilaterally Objective Data Active Medications Acetaminophen (Acetaminophen 325 Mg Tablet) 650 mg PO Q6H PRN PRN Reason: Pain, Mild (Pain Scale 1-3) Apixaban (Apixaban 5 Mg Tablet) 5 mg PO BID [facility] Last Admin: 11/01/22 09:36 Dose: 5 mg Documented By: KEREN Atorvastatin Calcium (Atorvastatin Calcium 80 Mg Tablet) 80 mg PO BEDTIME [facility] Last Admin: 10/31/22 19:57 Dose: 80 mg Documented By: SOLANGE Docusate Sodium (Docusate Sodium 100 Mg Capsule) 100 mg PO DAILY PRN PRN Reason: Constipation Glucose (Glucose Gel 15 Gm Gel..Gram.) 15 gm PO Q15M PRN; Protocol PRN Reason: per Hypoglycemia Standing Ord. Dextrose (D10) 250 mls @ 750 mls/hr IV Q15M PRN; Protocol PRN Reason: per Hypoglycemia Standing Ord. Insulin Human Lispro (Insulin Lispro 100 Unit/Ml 3 Ml Vial) 0 unit SUBCUT QIDACHS [facility]; Protocol Last Admin: 11/01/22 11:13 Dose: 2 unit Documented By: KEREN Lisinopril (Lisinopril 2.5 Mg Tablet) 2.5 mg PO DAILY [facility]; Protocol Last Admin: 11/01/22 09:36 Dose: 2.5 mg Documented By: KEREN Metoprolol Tartrate (Metoprolol Tartrate 25 Mg Tablet) 25 mg PO DAILY [facility]; Protocol Last Admin: 11/01/22 09:36 Dose: 25 mg Documented By: KEREN Ondansetron HCl (Ondansetron Hcl 4 Mg/2 Ml Vial) 4 mg IVPUSH Q8H PRN PRN Reason: Nausea and Vomiting Pharmacy Consult (Consult Rx Perform Med Rec) 1 each MISCELLANE ONCE PRN PRN Reason: Consult order Sodium Chloride (0.9 % Sodium Chloride Flush 3 Ml Syringe) 3 ml IVFLUSH QSHIFT [facility] Last Admin: 11/01/22 09:37 Dose: 3 ml Documented By: KEREN Tamsulosin HCl (Tamsulosin Hcl 0.4 Mg Capsule) 0.4 mg PO DAILY [facility] Last Admin: 11/01/22 09:36 Dose: 0.4 mg Documented By: KEREN Labs 10/30/22 06:41 10/30/22 06:41 Labs: Laboratory Results - last 24 hr 10/31/22 10/31/22 11/01/22 16:26 19:05 08:05 POC Glucose 175 H 186 H 146 H 11/01/22 11:09 POC Glucose 186 H Microbiology Microbiology Results: Microbiology 10/29/22 15:56 Blood Culture - Preliminary Blood - Venous No growth after 48 hours. 10/29/22 15:56 Blood Culture - Preliminary Blood - Venous No growth after 48 hours. Assessment and Plan (1) Syncope: Status: Acute (2) Diabetes type 2, controlled: Status: Acute Plan Patient admitted to the hospital under observation on telemetry for evaluation and further workup for syncopal episode. No further syncope since admission. PT recommends STR 1.Syncopal episode (query vasovagal) -workup essentially unremarkable -follow-up clinically -PT states short-term rehab awaiting placement 2.Lactic acidosis -resolved 3.Paroxysmal AFib -acceptable rate control -adjust therapies as indicated -Eliquis, metoprolol Full Code Eliquis Patient requires ongoing hospitalization pending safe placement Time Spent With Patient Time: Total time managing care of this patient today ____ minutes. Quality Stroke Does the patient have a stroke diagnosis?: No VTE Prior VTE?: No VTE Risk Level:: Medical - moderate - high VTE Device Contraindication: Treatment Not Indicated VTE Drug Contraindication: N/A - Med Ordered
[2022-11-01 15:43] LABS: Glucose, Whole Blood 280 mg/dL (60-115)
[2022-11-01 20:34] LABS: Glucose, Whole Blood 95 mg/dL (60-115)
[2022-11-01] MEDS: Atorvastatin Calcium 80 MG TABLET PO (20:37)
[2022-11-02] VITALS (7 sets, daily range): BP systolic 129–210; BP diastolic 64–90; PULSE 58–76; RESP 18–20; TEMP 36.1–37.1; O2SAT 96–99
[2022-11-02 07:33] LABS: Glucose, Whole Blood 131 mg/dL (60-115)
[2022-11-02] MEDS: 0.9 % Sodium Chloride Flush 3 ML SYRINGE IVFLUSH ×2 (08:26→16:43)
[2022-11-02] MEDS: lisinopriL 5 MG TABLET PO (08:27)
[2022-11-02] MEDS: Metoprolol Tartrate 25 MG TABLET PO ×2 (08:27→19:55)
[2022-11-02] MEDS: Tamsulosin HCL 0.4 MG CAPSULE PO (08:27)
[2022-11-02] MEDS: Apixaban 5 MG TABLET PO ×2 (08:27→19:55)
[2022-11-02 08:33] LABS: Hematocrit 38.7 % (42.0-52.0); Hemoglobin 12.7 g/dl (14.0-18.0); Mean Corpuscular HGB Conc 32.8 g/dl (31.0-36.0); Mean Corpuscular Hemoglobin 30.6 pg (27.0-33.0); Mean Corpuscular Volume 93.3 fL (80.0-98.0); Mean Platelet Volume 10.8 fL (9.4-12.4); Platelet Count 359 X10*3/uL (160-400); Red Blood Count 4.15 X10*6/uL (4.60-5.80); White Blood Count 10.8 X10*3/uL (4.8-10.8)
[2022-11-02 08:56] LABS: Anion Gap 18 (12-20); Blood Urea Nitrogen 17 mg/dL (9-16); Calcium 9.6 mg/dL (8.4-10.2); Carbon Dioxide 22 mmol/L (22-29); Chloride 106 mmol/L (96-108); Estimated Glomerular Filt Rate > 60; Glucose Random 154 mg/dL (60-115); Potassium 4.5 mmol/L (3.3-5.1); Sodium 141 mmol/L (135-145)
--- NOTE | 2022-11-02 08:58 | MHC.CM.PN ---
BRADY RECEIVED A CALL FROM PTS SON, BAYLEE, WEDNESDAY AFTERNOON. HE REPORTS THE PT WAS AT [facility] BUT THEY TRIED TO EXTORT MONEY FROM HIM. AFTER FURTHER DISCUSSION, IT APPEARS [facility] WAS UNABLE TO SKILL THE PT INTO STR THEREFORE WANTED PT TO PRIVATE PAY CM INFORMED BAYLEE THE PT WOULD NEED TO SPEND DOWN HIS MONEY ANYWAY SO THAT [place] WOULD COME ONBOARD HE REPORTS HE KNOWS THAT AND PLANS TO USE HIS FATHERS MONEY TO REDO HIS [BAYLEE'] HOME BRADY INFORMED HIM [place] WOULD BE DOING A 5 YEAR LOOK BACK AND ALL OF THE PTS MONEY WILL NEED TO BE ACCOUNTED FOR, AND HIS HOME [employer] WOULD LIKELY NOT BE AN APPROVED EXPENSE. BAYLEE EXPLAINS HE IS RE-DOING THE HOME SO THAT HIS FATHER CAN STAY WITH HIM. BRADY INFORMED HIM HIS FATHER MAY NOT QUALIFY FOR [place] FOR A SHORT TERM SNF STAY WHILE HE COMPLETES [employer]ATIONS BAYLEE SAYS HE NEEDS TO HAVE WORK DONE SO THAT HIS FATHER CAN FIT HIS W/C. HE LATER TELLS BRADY, HIS FATHER USES A WALKER, HE IS UNSURE WHY PREVIOUS NOTES STATE HE IS W/C BOUND. HE SAYS THE PT USES A W/C WHEN HE GOES OUT, BUT HE IS ABLE TO AMBULATE WITH A WALKER. BRADY INFORMED HIM THE PTS INSURANCE WOULD NEED TO BE RUN BY A SNF TO DETERMINE IF HE HAS ANY MEDICARE DAYS LEFT. IF HE DOES NOT, HE WILL EITHER NEED TO PRIVATE PAY, OR DC HOME. PT CANNOT RETURN TO [facility], ALTERNATE REFERRALS WERE MADE. THERE ARE NO BED OFFERS AT THIS POINT AND ONE SNF HAS INDICATED HE HAS INSUFFICIENT FUNDING, SO LIKELY HAS NO MEDICARE DAYS LEFT.
[2022-11-02 09:12] LABS: Procalcitonin 0.02 ng/mL
[2022-11-02 11:30] LABS: Glucose, Whole Blood 286 mg/dL (60-115)
[2022-11-02] MEDS: Insulin Lispro 100 UNIT/ML 3 ML VIAL SUBCUT ×3 (11:49→19:55)
--- NOTE | 2022-11-02 14:12 | HO.PM.IMPN ---
Subjective Subjective Date of Service: 11/02/22 Interval History: coughing BP very high this AM, to 210/90 no headache no chest pain Review of Systems Review of Systems: Yes all other systems are reviewed and are negative Physical Exam Vital Signs: Vital Signs: Last Vital Signs Temp 97.0 F 11/02/22 11:45 Pulse 70 11/02/22 11:45 Resp 20 11/02/22 11:45 BP 166/83 H 11/02/22 11:45 Pulse Ox 99 11/02/22 11:45 O2 Del Method Room Air 11/02/22 11:45 BMI result Body Mass Index 20.4 Gen: in no acute distress HEENT: sclera anicteric, moist mucus membranes Neck: supple Lungs: clear to auscultation bilaterally Heart: regular rate and rhythm, no murmurs Abd: soft, non-tender, non-distended Ext: no edema Skin: warm/well-perfused Neuro: alert and oriented x3, no focal findings Psych: appropriate affect Objective Data Active Medications Acetaminophen (Acetaminophen 325 Mg Tablet) 650 mg PO Q6H PRN PRN Reason: Pain, Mild (Pain Scale 1-3) Apixaban (Apixaban 5 Mg Tablet) 5 mg PO BID [facility] Last Admin: 11/02/22 08:27 Dose: 5 mg Documented By: MARTHA Atorvastatin Calcium (Atorvastatin Calcium 80 Mg Tablet) 80 mg PO BEDTIME [facility] Last Admin: 11/01/22 20:37 Dose: 80 mg Documented By: JANEE Docusate Sodium (Docusate Sodium 100 Mg Capsule) 100 mg PO DAILY PRN PRN Reason: Constipation Glucose (Glucose Gel 15 Gm Gel..Gram.) 15 gm PO Q15M PRN; Protocol PRN Reason: per Hypoglycemia Standing Ord. Dextrose (D10) 250 mls @ 750 mls/hr IV Q15M PRN; Protocol PRN Reason: per Hypoglycemia Standing Ord. Insulin Human Lispro (Insulin Lispro 100 Unit/Ml 3 Ml Vial) 0 unit SUBCUT QIDACHS [facility]; Protocol Last Admin: 11/02/22 11:49 Dose: 6 unit Documented By: MARTHA Lisinopril (Lisinopril 5 Mg Tablet) 5 mg PO DAILY [facility]; Protocol Last Admin: 11/02/22 08:27 Dose: 5 mg Documented By: MARTHA Metoprolol Tartrate (Metoprolol Tartrate 25 Mg Tablet) 25 mg PO BID [facility]; Protocol Last Admin: 11/02/22 08:27 Dose: 25 mg Documented By: MARTHA Ondansetron HCl (Ondansetron Hcl 4 Mg/2 Ml Vial) 4 mg IVPUSH Q8H PRN PRN Reason: Nausea and Vomiting Pharmacy Consult (Consult Rx Perform Med Rec) 1 each MISCELLANE ONCE PRN PRN Reason: Consult order Sodium Chloride (0.9 % Sodium Chloride Flush 3 Ml Syringe) 3 ml IVFLUSH QSHIFT [facility] Last Admin: 11/02/22 08:26 Dose: 3 ml Documented By: MARTHA Tamsulosin HCl (Tamsulosin Hcl 0.4 Mg Capsule) 0.4 mg PO DAILY [facility] Last Admin: 11/02/22 08:27 Dose: 0.4 mg Documented By: MARTHA Labs 11/02/22 08:24 11/02/22 08:24 Labs: Laboratory Results - last 24 hr 11/01/22 11/01/22 11/02/22 15:33 20:30 07:27 MCV MCH MCHC RDW Plt Count MPV Absolute Nucleated RBC Nucleated RBC % (auto) Anion Gap Estim Creat Clear Calc Estimated GFR POC Glucose 280 H 95 131 H Random Glucose Calcium Procalcitonin 11/02/22 11/02/22 11/02/22 08:24 08:24 11:21 MCV 93.3 MCH 30.6 MCHC 32.8 RDW 14.0 Plt Count 359 MPV 10.8 Absolute Nucleated RBC 0.000 Nucleated RBC % (auto) 0.0 Anion Gap 18 Estim Creat Clear Calc 68.0 Estimated GFR > 60 POC Glucose 286 H Random Glucose 154 H Calcium 9.6 Procalcitonin 0.02 Assessment and Plan (1) Syncope: Status: Acute (2) Diabetes type 2, controlled: Status: Acute Plan d#5 77yo M with hx CVA, DM2, paroxysmal AF on apixaban, HTN, HLD, frequent falls admitted after witnessed syncope at [facility], where he was residing for [facility] but did not have a payor source # HTN urgency - increase metoprolol to 25 mg BID, lisinopril to 5 mg daily # syncope - has not recurred- vasovagal? no other cause identified # question of pneumonia - got 1 dose ABX in ED. still coughing but not septic. will obtain PCT and check CT chest. BCx negative. # lactic acidosis - resolved after IV fluids # paroxysmal AF - continue metoprolol for rate control, apixaban for anticoagulation # hx CVA - statin, antihypertensives. not on ASA but on apixaban # HLD - statin # DM2 - correction-dose lispro, DM diet # VTE ppx: apixaban # dispo: no payor source for SNF; cannot return to [facility]. no PCP for VNA services. CM working on this. In my clinical judgment, the patient requires continued inpatient hospitalization for the following reasons: syncope + pneumonia workup, placementa Time Spent With Patient Time: Total time managing care of this patient today __35__ minutes. Quality Stroke Does the patient have a stroke diagnosis?: No VTE Prior VTE?: No VTE Risk Level:: Medical - moderate - high VTE Device Contraindication: Treatment Not Indicated VTE Drug Contraindication: N/A - Med Ordered
--- NOTE | 2022-11-02 15:51 | MHC.CM.PN ---
IMM given 11/02/22. Pt working with finance to get MH. Discussion took place with pts son Hussein today in regard to PT rec for STR, son reiterated that the decision is his fathers to make. This CM met with pt and he understands that at this time he does not have a payor for STR and is agreeable to pay privately with the hopes of spending down and eventually qualifying for MH. Pts son Hussein did think that his dad had 1-2 months of funds to private pay for STR. SNF referral updated. Pt does have a new PCP appointment on January 12 with [facility].
[2022-11-02 16:36] LABS: Glucose, Whole Blood 278 mg/dL (60-115)
[2022-11-02 19:52] LABS: Glucose, Whole Blood 183 mg/dL (60-115)
[2022-11-02] MEDS: Atorvastatin Calcium 80 MG TABLET PO (19:55)
[2022-11-03] VITALS (7 sets, daily range): BP systolic 136–190; BP diastolic 39–92; PULSE 50–76; RESP 17–20; TEMP 36.3–37; O2SAT 96–98
[2022-11-03] MEDS: 0.9 % Sodium Chloride Flush 3 ML SYRINGE IVFLUSH ×3 (00:39→21:19)
[2022-11-03 07:25] LABS: Glucose, Whole Blood 134 mg/dL (60-115)
[2022-11-03] MEDS: lisinopriL 5 MG TABLET PO (08:34)
[2022-11-03] MEDS: Apixaban 5 MG TABLET PO ×2 (08:34→21:18)
[2022-11-03] MEDS: Tamsulosin HCL 0.4 MG CAPSULE PO (08:34)
[2022-11-03] MEDS: Metoprolol Tartrate 25 MG TABLET PO ×2 (08:34→21:18)
--- NOTE | 2022-11-03 10:52 | MHC.CM.PN ---
STR bed search expanded in [facility] today, pt will need STR with transition to LTC.
--- NOTE | 2022-11-03 11:25 | P.PNIM_ITS ---
Subjective Subjective Date of Service: 11/03/22 Interval History: no further cough no abd pain/N/V eager to go to [facility] Review of Systems Review of Systems: Yes all other systems are reviewed and are negative Physical Exam Vital Signs: Vital Signs: Last Vital Signs Temp 97.3 F 11/03/22 11:14 Pulse 65 11/03/22 11:14 Resp 20 11/03/22 11:14 BP 136/62 11/03/22 11:14 Pulse Ox 97 11/03/22 11:14 O2 Del Method Room Air 11/03/22 11:14 BMI result Body Mass Index 20.4 Gen: in no acute distress HEENT: sclera anicteric, moist mucus membranes Neck: supple Lungs: clear to auscultation bilaterally Heart: regular rate and rhythm, no murmurs Abd: soft, non-tender, non-distended Ext: no edema Skin: warm/well-perfused Neuro: alert and oriented x3, no focal findings Psych: appropriate affect Objective Data Active Medications Acetaminophen (Acetaminophen 325 Mg Tablet) 650 mg PO Q6H PRN PRN Reason: Pain, Mild (Pain Scale 1-3) Apixaban (Apixaban 5 Mg Tablet) 5 mg PO BID [facility] Last Admin: 11/03/22 08:34 Dose: 5 mg Documented By: MARTHA Atorvastatin Calcium (Atorvastatin Calcium 80 Mg Tablet) 80 mg PO BEDTIME [facility] Last Admin: 11/02/22 19:55 Dose: 80 mg Documented By: TODD Docusate Sodium (Docusate Sodium 100 Mg Capsule) 100 mg PO DAILY PRN PRN Reason: Constipation Glucose (Glucose Gel 15 Gm Gel..Gram.) 15 gm PO Q15M PRN; Protocol PRN Reason: per Hypoglycemia Standing Ord. Dextrose (D10) 250 mls @ 750 mls/hr IV Q15M PRN; Protocol PRN Reason: per Hypoglycemia Standing Ord. Insulin Human Lispro (Insulin Lispro 100 Unit/Ml 3 Ml Vial) 0 unit SUBCUT QIDACHS [facility]; Protocol Last Admin: 11/03/22 08:04 Dose: Not Given Documented By: MARTHA Non-Admin Reason: No Insulin Coverage Lisinopril (Lisinopril 5 Mg Tablet) 5 mg PO DAILY [facility]; Protocol Last Admin: 11/03/22 08:34 Dose: 5 mg Documented By: MARTHA Metoprolol Tartrate (Metoprolol Tartrate 25 Mg Tablet) 25 mg PO BID [facility]; Protocol Last Admin: 11/03/22 08:34 Dose: 25 mg Documented By: MARTHA Ondansetron HCl (Ondansetron Hcl 4 Mg/2 Ml Vial) 4 mg IVPUSH Q8H PRN PRN Reason: Nausea and Vomiting Pharmacy Consult (Consult Rx Perform Med Rec) 1 each MISCELLANE ONCE PRN PRN Reason: Consult order Sodium Chloride (0.9 % Sodium Chloride Flush 3 Ml Syringe) 3 ml IVFLUSH QSHIFT [facility] Last Admin: 11/03/22 08:34 Dose: 3 ml Documented By: MARTHA Tamsulosin HCl (Tamsulosin Hcl 0.4 Mg Capsule) 0.4 mg PO DAILY [facility] Last Admin: 11/03/22 08:34 Dose: 0.4 mg Documented By: MARTHA Labs 11/02/22 08:24 11/02/22 08:24 Labs: Laboratory Results - last 24 hr 11/02/22 11/02/22 11/02/22 11:21 15:34 19:49 POC Glucose 286 H 278 H 183 H 11/03/22 07:04 POC Glucose 134 H Assessment and Plan (1) Syncope: Status: Acute (2) Diabetes type 2, controlled: Status: Acute Plan d#6 77yo M with hx CVA, DM2, paroxysmal AF on apixaban, HTN, HLD, frequent falls admitted after witnessed syncope at [facility], where he was residing for [facility] but did not have a payor source # incidental CBD dilation - no symptoms. check abd US + LFTs # pulmonary nodule - on CT: Emphysema. 3 x 4 cm heterogeneous groundglass attenuation area in the left lower lobe with 6 x 8 mm solid component. Short-term follow-up chest CT in 2-3 months recommended to see if this is a persistent finding # question of pneumonia - got 1 dose ABX in ED. PCT low x2. Cough resolved. # HTN urgency - increased metoprolol to 25 mg BID, lisinopril to 5 mg daily # syncope - has not recurred- vasovagal? no other cause identified # lactic acidosis - resolved after IV fluids # paroxysmal AF - continue metoprolol for rate control, apixaban for anticoagulation # hx CVA - statin, antihypertensives. not on ASA but on apixaban # HLD - statin # DM2 - correction-dose lispro, DM diet # VTE ppx: apixaban # dispo: plan SNF for STR, private pay/spend-down; cannot return to [facility], though; CM working on placement In my clinical judgment, the patient requires continued inpatient hospitalization for the following reasons: placement, CBD dilation workup Time Spent With Patient Time: Total time managing care of this patient today ___35_ minutes. Quality Stroke Does the patient have a stroke diagnosis?: No VTE Prior VTE?: No VTE Risk Level:: Medical - moderate - high VTE Device Contraindication: Treatment Not Indicated VTE Drug Contraindication: N/A - Med Ordered
[2022-11-03 11:33] LABS: Glucose, Whole Blood 223 mg/dL (60-115)
[2022-11-03 12:27] LABS: Alanine Aminotransferase 16 U/L (0-40); Albumin Level 3.4 g/dL (3.5-5.0); Alkaline Phosphatase 88 U/L (39-117); Aspartate Amino Transferase 16 U/L (5-37); Bilirubin Direct 0.1 mg/dL (0.0-0.5); Bilirubin Total 0.3 mg/dL (0.0-1.0); Total Protein 6.2 g/dL (6.5-8.0)
--- NOTE | 2022-11-03 14:13 | MHC.CM.PN ---
CM CONTACTED PT'S PRIMARY CONTACT/ALTERNATE HCP MEJIA [phone] CM WAS PREVIOUSLY TOLD PT'S BROTHER MEJIA WAS THE POA, MEJIA REPORT PT'S SISTER HEIDI IS CURRENTLY THE POA HOWEVER THEY WERE DISCUSSING CHANGING IT TO PT'S BROTHER GONZALO WHO LIVES IN [facility]. CM DID ATTEMPT TO CONTACT POA MEGHAN PARTIDA [phone] ([place]) HOWEVER NO ANSWER, MESSAGE LEFT W/CM CONTACT NUMBER AND REQUEST FOR A CALL BACK. MEJIA DID REPORT THAT HE DOES NOT FEEL HIS BROTHER HAD THE ABILITY TO MEET PT'S NEEDS AND WHEN ASKED IF PT COULD RETURN TO [place] TO LIVE W/HIM MEJIA REPORTED HE MAY FLY TO [place] TO ASSIST IN DISPO. MEJIA ALSO WAS ABLE TO PROVIDE A LOT OF FINANCIAL INFO PT WAS LIVING WITH HIM IN [place]. 1) PT HAS ACTIVE ACCOUNT AT [employer] IN [place] 2) PT RECIEVES SOCIAL SECURITY AND HAS A SMALL PENSION 3) PT IS ALSO ON HIS SON KRYSTA 'S (WHO HAS [employer]) [employer] ACCOUNTS MEJIA ALSO REPORTED THAT PT WAS GRANTED VA BENEFITS FROM THE PACT ACT PT IS A [place], MEJIA BELIEVES HE SHOULD HAVE VA BENEFIT AND ONLY NEED TO PAY 80% OF STR, MEJIA REPORTS ALL OF THE CORRESPONDENCE FROM VA AND PT BELONGINGS WERE SENT TO PT'S BROTHER BAYLEE ADDRESS WHO PT HAD BEEN STAYING W/PRIOR TO BEING AT [facility]. CM DID ATTEMPT TO CLARIFY THIS W/ROLAND AT THE [facility] AND [facility] REPORTS UNLESS THOSE BENFITS ARE STILL PROCESSING PT IS ONLY ELIGIBLE FOR HOME/OUTPT SERVICES AND WILL NEED A VA PCP, CURRENTLY PT DOES NOT HAVE A PCP AND HAS A NEW PT APPT W/SHERLY SHAH 01/12/23. CM WILL REATTEMPT TO CONTACT PT'S POA MEGHAN PARTIDA IN AM AND CONT TO FOLLOW D/C NEEDS.
[2022-11-03 15:34] LABS: Glucose, Whole Blood 213 mg/dL (60-115)
[2022-11-03 19:24] LABS: Glucose, Whole Blood 152 mg/dL (60-115)
[2022-11-03] MEDS: Insulin Lispro 100 UNIT/ML 3 ML VIAL SUBCUT (21:18)
[2022-11-03] MEDS: Atorvastatin Calcium 80 MG TABLET PO (21:18)
[2022-11-04] VITALS (7 sets, daily range): BP systolic 127–170; BP diastolic 59–92; PULSE 58–74; RESP 14–20; TEMP 35.9–36.8; O2SAT 94–100
[2022-11-04 07:37] LABS: Glucose, Whole Blood 123 mg/dL (60-115)
[2022-11-04] MEDS: Metoprolol Tartrate 25 MG TABLET PO ×2 (08:03→20:08)
[2022-11-04] MEDS: lisinopriL 5 MG TABLET PO (08:03)
[2022-11-04] MEDS: Apixaban 5 MG TABLET PO ×2 (08:03→20:08)
[2022-11-04] MEDS: Tamsulosin HCL 0.4 MG CAPSULE PO (08:03)
[2022-11-04] MEDS: 0.9 % Sodium Chloride Flush 3 ML SYRINGE IVFLUSH ×2 (08:03→16:02)
--- NOTE | 2022-11-04 09:31 | MHC.CM.PN ---
Patient's Sister/POA/Brandyn # are [phone], [phone].
--- NOTE | 2022-11-04 10:28 | MHC.CM.PN ---
Per [facility] [employer](after speaking with Patient's Sister/POA/Brandyn), Patient appears to be over assets for [facility] for STR and would need to spend down approximately $30,000(Patient apparently owes [employer] $9,000). CM will continue to follow.
[2022-11-04 10:56] LABS: Glucose, Whole Blood 263 mg/dL (60-115)
[2022-11-04] MEDS: Insulin Lispro 100 UNIT/ML 3 ML VIAL SUBCUT ×3 (11:40→20:09)
--- NOTE | 2022-11-04 13:31 | HO.PM.IMPN ---
Subjective Subjective Date of Service: 11/04/22 Interval History: being followed for syncopal episode and dilated common bile duct, patient is sitting comfortably offers no acute complaints of abdominal pain, no nausea, no vomiting tolerating diet, no shortness of breath, no fevers, no chills no other acute issues overnight. Review of Systems All other system reviewed and negative Physical Exam Vital Signs: Vital Signs: Last Vital Signs Temp 98.1 F 11/04/22 10:56 Pulse 62 11/04/22 10:56 Resp 20 11/04/22 10:56 BP 127/59 L 11/04/22 10:56 Pulse Ox 100 11/04/22 10:56 O2 Del Method Room Air 11/04/22 10:56 BMI result Body Mass Index 20.4 Const: Other: Gen: awake alert,in no acute distress HEENT: sclera anicteric, moist mucus membranes Neck: supple Lungs: clear to auscultation bilaterally Heart: regular rate and rhythm, no murmurs Abd: soft, non-tender, non-distended, bowel sounds audible Ext: no edema Skin: warm/well-perfused Neuro: alert and oriented x3, no focal findings Psych: appropriate affect Objective Data Active Medications Acetaminophen (Acetaminophen 325 Mg Tablet) 650 mg PO Q6H PRN PRN Reason: Pain, Mild (Pain Scale 1-3) Apixaban (Apixaban 5 Mg Tablet) 5 mg PO BID COUNTS INCLUDE 234 BEDS AT THE [facility] Last Admin: 11/04/22 08:03 Dose: 5 mg Documented By: ROHINI Atorvastatin Calcium (Atorvastatin Calcium 80 Mg Tablet) 80 mg PO BEDTIME COUNTS INCLUDE 234 BEDS AT THE [facility] Last Admin: 11/03/22 21:18 Dose: 80 mg Documented By: BALTAZAR Docusate Sodium (Docusate Sodium 100 Mg Capsule) 100 mg PO DAILY PRN PRN Reason: Constipation Glucose (Glucose Gel 15 Gm Gel..Gram.) 15 gm PO Q15M PRN; Protocol PRN Reason: per Hypoglycemia Standing Ord. Dextrose (D10) 250 mls @ 750 mls/hr IV Q15M PRN; Protocol PRN Reason: per Hypoglycemia Standing Ord. Insulin Human Lispro (Insulin Lispro 100 Unit/Ml 3 Ml Vial) 0 unit SUBCUT QIDACHS COUNTS INCLUDE 234 BEDS AT THE [facility]; Protocol Last Admin: 11/04/22 11:40 Dose: 6 unit Documented By: ROHINI Lisinopril (Lisinopril 5 Mg Tablet) 5 mg PO DAILY COUNTS INCLUDE 234 BEDS AT THE [facility]; Protocol Last Admin: 11/04/22 08:03 Dose: 5 mg Documented By: ROHINI Metoprolol Tartrate (Metoprolol Tartrate 25 Mg Tablet) 25 mg PO BID COUNTS INCLUDE 234 BEDS AT THE [facility]; Protocol Last Admin: 11/04/22 08:03 Dose: 25 mg Documented By: ROHINI Ondansetron HCl (Ondansetron Hcl 4 Mg/2 Ml Vial) 4 mg IVPUSH Q8H PRN PRN Reason: Nausea and Vomiting Pharmacy Consult (Consult Rx Perform Med Rec) 1 each MISCELLANE ONCE PRN PRN Reason: Consult order Sodium Chloride (0.9 % Sodium Chloride Flush 3 Ml Syringe) 3 ml IVFLUSH QSHIFT COUNTS INCLUDE 234 BEDS AT THE [facility] Last Admin: 11/04/22 08:03 Dose: 3 ml Documented By: ROHINI Tamsulosin HCl (Tamsulosin Hcl 0.4 Mg Capsule) 0.4 mg PO DAILY COUNTS INCLUDE 234 BEDS AT THE [facility] Last Admin: 11/04/22 08:03 Dose: 0.4 mg Documented By: ROHINI Labs 11/02/22 08:24 11/02/22 08:24 Labs: Laboratory Results - last 24 hr 11/03/22 11/03/22 11/04/22 15:31 19:21 07:31 POC Glucose 213 H 152 H 123 H 11/04/22 10:50 POC Glucose 263 H Microbiology Microbiology Results: Microbiology 10/29/22 15:56 Blood Culture - Final Blood - Venous No growth after 5 days. 10/29/22 15:56 Blood Culture - Final Blood - Venous No growth after 5 days. Assessment and Plan (1) Syncope: Status: Acute (2) Diabetes type 2, controlled: Status: Acute Plan 77yo M with hx CVA, DM2, paroxysmal AF on apixaban, HTN, HLD, frequent falls admitted after witnessed syncope at [facility], where he was residing for [facility] but did not have a payor source # incidental CBD dilation - patient denies abdominal pain tolerating diet no nausea no vomiting, normal LFTs, abdominal ultrasound showed Variable size of the common bile duct, no gallstones, . # pulmonary nodule - on CT: Emphysema. 3 x 4 cm heterogeneous groundglass attenuation area in the left lower lobe with 6 x 8 mm solid component. Short-term follow-up chest CT in 2-3 months recommended to see if this is a persistent finding # question of pneumonia - PCT low x2. Cough resolved common no antibiotics required. # HTN urgency - blood pressure improved with increased dose of metoprolol to 25 mg BID, lisinopril to 5 mg daily # syncope - has not recurred- vasovagal? no other cause identified. # lactic acidosis - resolved after IV fluids # paroxysmal AF - continue metoprolol for rate control, apixaban for anticoagulation # hx CVA - statin, antihypertensives, not on ASA but on apixaban # HLD continue statin # DM2 - correction-dose lispro, DM diet # VTE ppx: apixaban # dispo: plan SNF for [facility], private pay, cannot return to [facility], [facility]; BRADY working on placement In my clinical judgment, the patient requires continued inpatient hospitalization for the following reasons: placement Time Spent With Patient Time: Total time managing care of this patient today ____ minutes. Quality Stroke Does the patient have a stroke diagnosis?: No VTE Prior VTE?: No VTE Risk Level:: Medical - moderate - high VTE Device Contraindication: Treatment Not Indicated VTE Drug Contraindication: N/A - Med Ordered
[2022-11-04 15:52] LABS: Glucose, Whole Blood 233 mg/dL (60-115)
[2022-11-04 19:32] LABS: Glucose, Whole Blood 151 mg/dL (60-115)
[2022-11-04] MEDS: Atorvastatin Calcium 80 MG TABLET PO (20:08)
[2022-11-05] VITALS (8 sets, daily range): BP systolic 140–202; BP diastolic 74–86; PULSE 51–66; RESP 14–20; TEMP 36.1–36.8; O2SAT 97–99
[2022-11-05] MEDS: 0.9 % Sodium Chloride Flush 3 ML SYRINGE IVFLUSH ×4 (00:08→20:36)
[2022-11-05] MEDS: hydrALAZINE HCl 20 MG/ML VIAL 5 MG IVPUSH (06:34)
[2022-11-05 07:22] LABS: Glucose, Whole Blood 141 mg/dL (60-115)
--- NOTE | 2022-11-05 08:51 | P.CDIM_ITS ---
PROVIDER RESPONSE TEXT: To clarify, the appropriate diagnosis supported by the clinical indicators: No complications of DM QUERY TEXT: PHYSICIAN'S DOCUMENTATION REQUEST Date of Query: 11/05/2022 07:09 AM EDT Patient Name: Everardo Bennett Admit Date: 11/02/2022 Dear Dayana Sanderson, A review of the medical record indicates additional documentation may be needed. Please review below and update the documentation accordingly. Clinical Indicators: Blood sugar: 11/03/22: 213 11/04/22: 263 Per Hospitalist Progress Note 11/04/22: DM2 - correction-dose Lispro, DM diet Please clarify the following regarding the Complications of Diabetes Mellitus (DM): Please describe any known complications (Such as [facility], Coma, CKD including stage, Retinopathy, Neuropathy, Peripheral angiopathy, Arthropath y, Foot ulcer, Hypoglycemia, Hyperglycemia, Gastroparesis, and/or Cellulitis) No complications of DM Other (explain)Clinically unable to determine (explain)Thank you, Zulma Cuba RN Use of terms such as suspected, likely, concern for, or probable (associated with a specific diagnosi s that is being evaluated, monitored, or treated as if it exists) are acceptable and can be coded in the inpatient se tting, when documented at the time of discharge. Please use your independent medical judgment in providing your response. THIS QUERY IS PART OF THE PERMANENT MEDICAL RECORD
[2022-11-05] MEDS: lisinopriL 5 MG TABLET PO ×2 (09:08→11:07)
[2022-11-05] MEDS: Tamsulosin HCL 0.4 MG CAPSULE PO (09:08)
[2022-11-05] MEDS: Apixaban 5 MG TABLET PO ×2 (09:08→20:36)
[2022-11-05] MEDS: Metoprolol Tartrate 25 MG TABLET PO ×2 (11:06→20:36)
[2022-11-05 11:50] LABS: Glucose, Whole Blood 188 mg/dL (60-115)
[2022-11-05] MEDS: Insulin Lispro 100 UNIT/ML 3 ML VIAL SUBCUT ×3 (12:02→20:51)
--- NOTE | 2022-11-05 12:30 | MHC.CM.PN ---
CM spoke with Son/Rancho at listed #. Rancho indicated that he does not have a trip planned to [place] and that Patient is VA eligible but Patient has not yet done what is necessary to become enrolled. CM will follow.
--- NOTE | 2022-11-05 14:13 | MHC.CM.PN ---
CM awaits a SNF bed offer.Per [facility] SNF,they only billed for 20 days and Patient has now been INPATIENT since 11/02/2022.Patient does appear to have the financial means to pay privately for STR @ SNF(the 20% from Medicare day 21through up to day 100). CM will continue to follow.
--- NOTE | 2022-11-05 14:58 | P.PNIM_ITS ---
Subjective Subjective Date of Service: 11/05/22 Interval History: offers no acute complaints noted to have low heart rate in 40s at nighttime patient remains asymptomatic on metoprolol for paroxysmal atrial fibrillation for rate control, denies chest pain, no lightheadedness, no dizziness. Review of Systems all other system reviewed and negative. Physical Exam Vital Signs: Vital Signs: Last Vital Signs Temp 97.2 F 11/05/22 11:51 Pulse 63 11/05/22 11:51 Resp 18 11/05/22 11:51 BP 140/83 H 11/05/22 11:51 Pulse Ox 99 11/05/22 11:51 O2 Del Method Room Air 11/05/22 11:51 BMI result Body Mass Index 20.4 Const: Other: Gen:? awake alert,in no acute distress HEENT: sclera anicteric, moist mucus membranes Neck: supple Lungs: clear to auscultation bilaterally Heart: regular rate and rhythm, no murmurs Abd: soft, non-tender, non-distended, bowel sounds audible Ext: no edema Skin: warm/well-perfused Neuro: alert and oriented x3, no focal findings Psych: appropriate affect Objective Data Active Medications Acetaminophen (Acetaminophen 325 Mg Tablet) 650 mg PO Q6H PRN PRN Reason: Pain, Mild (Pain Scale 1-3) Apixaban (Apixaban 5 Mg Tablet) 5 mg PO BID [facility] Last Admin: 11/05/22 09:08 Dose: 5 mg Documented By: MARTHA Atorvastatin Calcium (Atorvastatin Calcium 80 Mg Tablet) 80 mg PO BEDTIME [facility] Last Admin: 11/04/22 20:08 Dose: 80 mg Documented By: AYSHA Docusate Sodium (Docusate Sodium 100 Mg Capsule) 100 mg PO DAILY PRN PRN Reason: Constipation Glucose (Glucose Gel 15 Gm Gel..Gram.) 15 gm PO Q15M PRN; Protocol PRN Reason: per Hypoglycemia Standing Ord. Dextrose (D10) 250 mls @ 750 mls/hr IV Q15M PRN; Protocol PRN Reason: per Hypoglycemia Standing Ord. Insulin Human Lispro (Insulin Lispro 100 Unit/Ml 3 Ml Vial) 0 unit SUBCUT QIDACHS [facility]; Protocol Last Admin: 11/05/22 12:02 Dose: 2 unit Documented By: MARTHA Lisinopril (Lisinopril 10 Mg Tablet) 10 mg PO DAILY [facility]; Protocol Metoprolol Tartrate (Metoprolol Tartrate 25 Mg Tablet) 25 mg PO BID [facility]; Protocol Last Admin: 11/05/22 11:06 Dose: 25 mg Documented By: MARTHA Ondansetron HCl (Ondansetron Hcl 4 Mg/2 Ml Vial) 4 mg IVPUSH Q8H PRN PRN Reason: Nausea and Vomiting Pharmacy Consult (Consult Rx Perform Med Rec) 1 each MISCELLANE ONCE PRN PRN Reason: Consult order Sodium Chloride (0.9 % Sodium Chloride Flush 3 Ml Syringe) 3 ml IVFLUSH QSHIFT [facility] Last Admin: 11/05/22 09:08 Dose: 3 ml Documented By: MARTHA Tamsulosin HCl (Tamsulosin Hcl 0.4 Mg Capsule) 0.4 mg PO DAILY [facility] Last Admin: 11/05/22 09:08 Dose: 0.4 mg Documented By: MARTHA Labs 11/02/22 08:24 11/02/22 08:24 Labs: Laboratory Results - last 24 hr 11/04/22 11/04/22 11/05/22 15:45 19:24 07:15 POC Glucose 233 H 151 H 141 H 11/05/22 11:36 POC Glucose 188 H Assessment and Plan (1) Syncope: Status: Acute (2) Diabetes type 2, controlled: Status: Acute Plan 77yo M with hx CVA, DM2, paroxysmal AF on apixaban, HTN, HLD, frequent falls admitted after witnessed syncope at [facility], where he was residing for [facility] but did not have a payor source # incidental CBD dilation - patient denies abdominal pain tolerating diet ,no nausea no vomiting, normal LFTs, abdominal ultrasound showed Variable size of the common bile duct, no gallstones, no further workup warranted. . # pulmonary nodule - on CT: Emphysema. 3 x 4 cm heterogeneous groundglass attenuation area in the left lower lobe with 6 x 8 mm solid component. Short-term follow-up chest CT in 2-3 months recommended to see if this is a persistent finding # question of pneumonia - PCT low x2. Cough resolved common no antibiotics required. # HTN urgency - Noted to have few high blood pressure readings will continue metoprolol 25 mg b.i.d. and increase dose of lisinopril to 10 mg daily and follow BP closely # syncope - has not recurred- vasovagal? no other cause identified. bradycardia at night otherwise stable ventricular rate during daytime patient asymptomatic. # lactic acidosis - resolved after IV fluids # paroxysmal AF - continue metoprolol for rate control, apixaban for anticoagulation # hx CVA - statin, antihypertensives, not on ASA but on apixaban # HLD continue statin # DM2 - correction-dose lispro, DM diet # VTE ppx: apixaban # dispo: CM working on Safe discharge. In my clinical judgment, the patient requires continued inpatient hospitalization for the following reasons: placement Time Spent With Patient Time: Total time managing care of this patient today ____ minutes. Quality Stroke Does the patient have a stroke diagnosis?: No VTE Prior VTE?: No VTE Risk Level:: Medical - moderate - high VTE Device Contraindication: Treatment Not Indicated VTE Drug Contraindication: N/A - Med Ordered
--- NOTE | 2022-11-05 14:59 | MHC.CM.PN ---
This CM spoke with Joanna Ramos from [facility], she states they are interested in accepting him to their facility. Joanna states she spoke with pts son Hussein to request a copy of the MH application which he stated was submitted a few weeks ago. Joanna will continue to review pts file and follow pt pending MH kellen. Joanna is also going to call pts sister/POA shortly.
[2022-11-05 15:07] LABS: Glucose, Whole Blood 177 mg/dL (60-115)
[2022-11-05] MEDS: ondansetron HCL 4 MG/2 ML VIAL IVPUSH (19:26)
[2022-11-05] MEDS: Atorvastatin Calcium 80 MG TABLET PO (20:36)
[2022-11-05 20:50] LABS: Glucose, Whole Blood 163 mg/dL (60-115)
[2022-11-06] VITALS (7 sets, daily range): BP systolic 122–173; BP diastolic 50–74; PULSE 53–60; RESP 16–19; TEMP 35.7–37; O2SAT 95–98
[2022-11-06 07:45] LABS: Glucose, Whole Blood 163 mg/dL (60-115)
[2022-11-06] MEDS: Insulin Lispro 100 UNIT/ML 3 ML VIAL SUBCUT ×3 (08:19→21:19)
[2022-11-06] MEDS: Apixaban 5 MG TABLET PO ×2 (08:20→21:19)
[2022-11-06] MEDS: lisinopriL 10 MG TABLET PO (08:21)
[2022-11-06] MEDS: Metoprolol Tartrate 25 MG TABLET PO (08:21)
[2022-11-06] MEDS: Tamsulosin HCL 0.4 MG CAPSULE PO (08:21)
[2022-11-06] MEDS: 0.9 % Sodium Chloride Flush 3 ML SYRINGE IVFLUSH ×2 (08:22→21:20)
[2022-11-06 11:21] LABS: Glucose, Whole Blood 252 mg/dL (60-115)
--- NOTE | 2022-11-06 14:00 | MHC.CM.PN ---
CM RECIEVED MESSAGE FROM [facility] REPORTING THEY WILL WORK W/POA HEIDI TODAY TO RESOLVE FINANCIALS AND ANTIC THEY WILL BE ABLE TO ADMIT OVER W/E VS EARLY NEXT WEEK, PT AND HCP BAYLEE AWARE AND CM WILL CONT TO FOLLOW D/C NEEDS.
--- NOTE | 2022-11-06 15:04 | P.PNIM_ITS ---
Subjective Subjective Date of Service: 11/06/22 Interval History: patient being followed for syncopal episode, noted to have no recurrent episodes of syncope, heart rate dropped to 34 while eating breakfast but rebounded back to 60s patient remained asymptomatic is on metoprolol 25 mg b. i.d. denies lightheadedness dizziness, no chest pain, no palpitation, patient is waiting for safe discharge plan. Review of Systems all other symptoms reviewed and negative. Physical Exam Vital Signs: Vital Signs: Last Vital Signs Temp 96.3 F L 11/06/22 11:54 Pulse 57 11/06/22 11:54 Resp 18 11/06/22 11:54 BP 152/66 H 11/06/22 11:54 Pulse Ox 98 11/06/22 11:54 O2 Del Method Room Air 11/06/22 11:54 BMI result Body Mass Index 20.4 Const: Other: Gen:? awake alert,in no acute distress HEENT: sclera anicteric, moist mucus membranes Neck: supple Lungs: clear to auscultation bilaterally Heart: regular rate and rhythm, no murmurs Abd: soft, non-tender, non-distended, bowel sounds audible Ext: no edema Skin: warm/well-perfused Neuro: alert and oriented x3, no focal findings Psych: appropriate affect S Objective Data Active Medications Acetaminophen (Acetaminophen 325 Mg Tablet) 650 mg PO Q6H PRN PRN Reason: Pain, Mild (Pain Scale 1-3) Apixaban (Apixaban 5 Mg Tablet) 5 mg PO BID [facility] Last Admin: 11/06/22 08:20 Dose: 5 mg Documented By: ROSE MARIE Atorvastatin Calcium (Atorvastatin Calcium 80 Mg Tablet) 80 mg PO BEDTIME [facility] Last Admin: 11/05/22 20:36 Dose: 80 mg Documented By: ANTOIC Docusate Sodium (Docusate Sodium 100 Mg Capsule) 100 mg PO DAILY PRN PRN Reason: Constipation Glucose (Glucose Gel 15 Gm Gel..Gram.) 15 gm PO Q15M PRN; Protocol PRN Reason: per Hypoglycemia Standing Ord. Dextrose (D10) 250 mls @ 750 mls/hr IV Q15M PRN; Protocol PRN Reason: per Hypoglycemia Standing Ord. Insulin Human Lispro (Insulin Lispro 100 Unit/Ml 3 Ml Vial) 0 unit SUBCUT QIDACHS [facility]; Protocol Last Admin: 11/06/22 12:27 Dose: 6 unit Documented By: ROSE MARIE Lisinopril (Lisinopril 10 Mg Tablet) 10 mg PO DAILY [facility]; Protocol Last Admin: 11/06/22 08:21 Dose: 10 mg Documented By: ROSE MARIE Metoprolol Tartrate (Metoprolol Tartrate 25 Mg Tablet) 25 mg PO BID [facility]; Protocol Last Admin: 11/06/22 08:21 Dose: 25 mg Documented By: ROSE MARIE Ondansetron HCl (Ondansetron Hcl 4 Mg/2 Ml Vial) 4 mg IVPUSH Q8H PRN PRN Reason: Nausea and Vomiting Last Admin: 11/05/22 19:26 Dose: 4 mg Documented By: Smith Pharmacy Consult (Consult Rx Perform Med Rec) 1 each MISCELLANE ONCE PRN PRN Reason: Consult order Sodium Chloride (0.9 % Sodium Chloride Flush 3 Ml Syringe) 3 ml IVFLUSH QSHIFT [facility] Last Admin: 11/06/22 08:22 Dose: 3 ml Documented By: ROSE MARIE Tamsulosin HCl (Tamsulosin Hcl 0.4 Mg Capsule) 0.4 mg PO DAILY [facility] Last Admin: 11/06/22 08:21 Dose: 0.4 mg Documented By: ROSE MARIE Labs 11/02/22 08:24 11/02/22 08:24 Labs: Laboratory Results - last 24 hr 11/05/22 11/05/22 11/06/22 15:01 20:47 07:30 POC Glucose 177 H 163 H 163 H 11/06/22 11:11 POC Glucose 252 H Assessment and Plan (1) Syncope: Status: Acute (2) Diabetes type 2, controlled: Status: Acute Plan 77yo M with hx CVA, DM2, paroxysmal AF on apixaban, HTN, HLD, frequent falls admitted after witnessed syncope at [facility], where he was residing for [facility] but did not have a payor source # incidental CBD dilation - patient denies abdominal pain tolerating diet ,no nausea no vomiting, normal LFTs, abdominal ultrasound showed Variable size of the common bile duct, no gallstones, no further workup warranted. . # pulmonary nodule - on CT: Emphysema. 3 x 4 cm heterogeneous groundglass attenuation area in the left lower lobe with 6 x 8 mm solid component. Short-term follow-up chest CT in 2-3 months recommended to see if this is a persistent finding # question of pneumonia - PCT low x2. Cough resolved common no antibiotics required. # HTN urgency - Noted to have few high blood pressure readings will continue metoprolol 25 mg b.i.d. and increased dose of lisinopril to 10 mg daily , BP better controlled today, continue to follow BP closely # syncope - has not recurred- vasovagal? no other cause identified. bradycardia at night otherwise stable ventricular rate during daytime patient asymptomatic. # lactic acidosis - resolved after IV fluids # paroxysmal AF - continue metoprolol for rate control, apixaban for anticoagulation, noted to have low heart rates in 30s patient remained asymptomatic on metoprolol 25 mg b.i.d. # hx CVA - statin, antihypertensives, on apixaban # HLD continue statin # DM2 - elevated blood sugars will resume home dose of metformin 1000 mg b.i.d. and continue correction-dose lispro, DM diet # VTE ppx: apixaban # dispo: CM working on Safe discharge. In my clinical judgment, the patient requires continued inpatient hospitalization for the following reasons: placement Time Spent With Patient Time: Total time managing care of this patient today ____ minutes. Quality Stroke Does the patient have a stroke diagnosis?: No VTE Prior VTE?: No VTE Risk Level:: Medical - moderate - high VTE Device Contraindication: Treatment Not Indicated VTE Drug Contraindication: N/A - Med Ordered
[2022-11-06 16:05] LABS: Glucose, Whole Blood 84 mg/dL (60-115)
[2022-11-06 20:04] LABS: Glucose, Whole Blood 217 mg/dL (60-115)
[2022-11-06] MEDS: Atorvastatin Calcium 80 MG TABLET PO (21:19)
[2022-11-06] MEDS: metFORMIN HCl 1,000 MG TABLET 1000 MG PO (21:19)
[2022-11-07 03:52] VITALS: BP 143/65; PULSE 59; RESP 18; TEMP 36.9; O2SAT 95
[2022-11-07 07:22] VITALS: BP 159/77; PULSE 65; RESP 20; TEMP 37.2; O2SAT 95
[2022-11-07 07:41] LABS: Glucose, Whole Blood 121 mg/dL (60-115)
[2022-11-07] MEDS: Tamsulosin HCL 0.4 MG CAPSULE PO (09:59)
[2022-11-07] MEDS: Apixaban 5 MG TABLET PO ×2 (09:59→20:28)
[2022-11-07] MEDS: lisinopriL 10 MG TABLET PO ×2 (09:59→20:29)
[2022-11-07] MEDS: metFORMIN HCl 1,000 MG TABLET 1000 MG PO ×2 (09:59→20:29)
[2022-11-07] MEDS: 0.9 % Sodium Chloride Flush 3 ML SYRINGE IVFLUSH ×2 (09:59→16:21)
[2022-11-07 11:17] LABS: Glucose, Whole Blood 177 mg/dL (60-115)
[2022-11-07 11:21] VITALS: BP 156/66; PULSE 67; RESP 18; TEMP 36.1; O2SAT 97
--- NOTE | 2022-11-07 13:18 | HO.PM.IMPN ---
Subjective Subjective Date of Service: 11/07/22 Interval History: sitting comfortably offers no acute complaints tolerating diet, no nausea, no vomiting, no abdominal pain, no urinary symptom, no chest pain, no palpitations, no lightheadedness, no dizziness, continue to have low heart rate, dropping to mid 30s with junctional rhythm, no episodes of atrial fibrillation . Review of Systems all other system reviewed and negative. Physical Exam Vital Signs: Vital Signs: Last Vital Signs Temp 97.0 F 11/07/22 11:21 Pulse 67 11/07/22 11:21 Resp 18 11/07/22 11:21 BP 156/66 H 11/07/22 11:21 Pulse Ox 97 11/07/22 11:21 O2 Del Method Room Air 11/07/22 11:21 BMI result Body Mass Index 20.4 Const: Other: Gen:? awake alert, in no acute distre ss HEENT: sclera a nicteric, moist mu cus membranes Neck : supple Lungs: cl ear to auscultatio n bilaterally Hear t: regular rate an d rhythm, no murmu rs Abd: soft, non- tender, non-disten ded, bowel sounds audible Ext: no ed roxanna Skin: warm/wel l-perfused Neuro: alert and oriented x3, no focal find ings Psych: approp riate affect Objective Data Active Medications Acetaminophen (Acetaminophen 325 Mg Tablet) 650 mg PO Q6H PRN PRN Reason: Pain, Mild (Pain Scale 1-3) Apixaban (Apixaban 5 Mg Tablet) 5 mg PO BID [facility] Last Admin: 11/07/22 09:59 Dose: 5 mg Documented By: HOLDEN Atorvastatin Calcium (Atorvastatin Calcium 80 Mg Tablet) 80 mg PO BEDTIME [facility] Last Admin: 11/06/22 21:19 Dose: 80 mg Documented By: MARIANA Docusate Sodium (Docusate Sodium 100 Mg Capsule) 100 mg PO DAILY PRN PRN Reason: Constipation Glucose (Glucose Gel 15 Gm Gel..Gram.) 15 gm PO Q15M PRN; Protocol PRN Reason: per Hypoglycemia Standing Ord. Dextrose (D10) 250 mls @ 750 mls/hr IV Q15M PRN; Protocol PRN Reason: per Hypoglycemia Standing Ord. Insulin Human Lispro (Insulin Lispro 100 Unit/Ml 3 Ml Vial) 0 unit SUBCUT QIDACHS [facility]; Protocol Last Admin: 11/07/22 09:59 Dose: Not Given Documented By: HOLDEN Non-Admin Reason: No Insulin Coverage Lisinopril (Lisinopril 10 Mg Tablet) 10 mg PO BID [facility]; Protocol Last Admin: 11/07/22 09:59 Dose: 10 mg Documented By: HOLDEN Metformin HCl (Metformin Hcl 1,000 Mg Tablet) 1,000 mg PO BID [facility] Last Admin: 11/07/22 09:59 Dose: 1,000 mg Documented By: HOLDEN Metoprolol Tartrate (Metoprolol Tartrate 12.5 Mg Halftab) 12.5 mg PO BID [facility]; Protocol Last Admin: 11/07/22 10:00 Dose: Not Given Documented By: HOLDEN Non-Admin Reason: Physician Approved Ondansetron HCl (Ondansetron Hcl 4 Mg/2 Ml Vial) 4 mg IVPUSH Q8H PRN PRN Reason: Nausea and Vomiting Last Admin: 11/05/22 19:26 Dose: 4 mg Documented By: MARTHA Pharmacy Consult (Consult Rx Perform Med Rec) 1 each MISCELLANE ONCE PRN PRN Reason: Consult order Sodium Chloride (0.9 % Sodium Chloride Flush 3 Ml Syringe) 3 ml IVFLUSH QSHIFT [facility] Last Admin: 11/07/22 09:59 Dose: 3 ml Documented By: HOLDEN Tamsulosin HCl (Tamsulosin Hcl 0.4 Mg Capsule) 0.4 mg PO DAILY [facility] Last Admin: 11/07/22 09:59 Dose: 0.4 mg Documented By: HOLDEN Labs 11/02/22 08:24 11/02/22 08:24 Labs: Laboratory Results - last 24 hr 11/06/22 11/06/22 11/07/22 15:53 19:56 07:33 POC Glucose 84 217 H 121 H 11/07/22 11:12 POC Glucose 177 H Assessment and Plan (1) Syncope: Status: Acute (2) Diabetes type 2, controlled: Status: Acute Plan 77yo M with hx CVA, DM2, paroxysmal AF on apixaban, HTN, HLD, frequent falls admitted after witnessed syncope at [facility], where he was residing for [facility] but did not have a payor source # incidental CBD dilation. - patient denies abdominal pain tolerating diet ,no nausea, no vomiting, normal LFTs, abdominal ultrasound showed Variable size of the common bile duct, no gallstones, no further workup warranted. . # pulmonary nodule - on CT: Emphysema. 3 x 4 cm heterogeneous groundglass attenuation area in the left lower lobe with 6 x 8 mm solid component. Short-term follow-up chest CT in 2-3 months recommended to see if this is a persistent finding # question of pneumonia - PCT low x2. Cough resolved common no antibiotics required. # HTN urgency - Noted to have few high blood pressure readings will increase dose of lisinopril to 10 mg bid , dose of metoprolol or to 12.5 mg b.i.d. due to bradycardia # syncope - has not recurred- vasovagal? no other cause identified noted to have intermittent bradycardia patient asymptomatic will consult Cardiology. # lactic acidosis - resolved after IV fluids # paroxysmal AF - on metoprolol for rate control, apixaban for anticoagulation, noted to have low heart rates in 30s patient remained asymptomatic will lower dose of metoprolol to 12.5 mg b.i.d. # hx CVA - statin, antihypertensives, on apixaban # HLD continue statin # DM2 - elevated blood sugars will resume home dose of metformin 1000 mg b.i.d. and continue correction-dose lispro, DM diet # VTE ppx: apixaban # dispo: CM working on Safe discharge. In my clinical judgment, the patient requires continued inpatient hospitalization for the following reasons: placement Time Spent With Patient Time: Total time managing care of this patient today ____ minutes. Quality Stroke Does the patient have a stroke diagnosis?: No VTE Prior VTE?: No VTE Risk Level:: Medical - moderate - high VTE Device Contraindication: Treatment Not Indicated VTE Drug Contraindication: N/A - Med Ordered
[2022-11-07 14:20] LABS: Anion Gap 17 (12-20); Blood Urea Nitrogen 29 mg/dL (9-16); Calcium 9.9 mg/dL (8.4-10.2); Carbon Dioxide 21 mmol/L (22-29); Chloride 104 mmol/L (96-108); Creatinine Clr Calc Pharmacy 60.2; Estimated Glomerular Filt Rate > 60; Glucose Random 161 mg/dL (60-115); Magnesium 2.2 mg/dL (1.6-2.6); Sodium 137 mmol/L (135-145)
[2022-11-07] MEDS: Insulin Lispro 100 UNIT/ML 3 ML VIAL SUBCUT ×3 (14:25→20:34)
[2022-11-07 14:41] LABS: Thyroid Stimulating Hormone 1.06 uIU/mL (0.32-4.0)
[2022-11-07 15:18] VITALS: BP 150/75; PULSE 82; RESP 18; TEMP 37; O2SAT 93
[2022-11-07 16:09] LABS: Glucose, Whole Blood 151 mg/dL (60-115)
[2022-11-07 19:56] VITALS: BP 130/60; PULSE 89; RESP 18; TEMP 36.6; O2SAT 98
[2022-11-07] MEDS: Metoprolol Tartrate 12.5 MG HALFTAB PO (20:28)
[2022-11-07] MEDS: Atorvastatin Calcium 80 MG TABLET PO (20:29)
[2022-11-07 20:32] LABS: Glucose, Whole Blood 245 mg/dL (60-115)
[2022-11-07 23:19] VITALS: BP 130/68; PULSE 72; RESP 18; TEMP 36.1; O2SAT 99
[2022-11-08] VITALS (7 sets, daily range): BP systolic 121–192; BP diastolic 58–86; PULSE 63–89; RESP 18–20; TEMP 35.9–37.1; O2SAT 96–99
[2022-11-08] MEDS: 0.9 % Sodium Chloride Flush 3 ML SYRINGE IVFLUSH ×2 (03:21→23:10)
[2022-11-08 07:29] LABS: Glucose, Whole Blood 128 mg/dL (60-115)
[2022-11-08] MEDS: lisinopriL 10 MG TABLET PO ×2 (08:49→23:06)
[2022-11-08] MEDS: Metoprolol Tartrate 12.5 MG HALFTAB PO ×2 (08:49→23:06)
[2022-11-08] MEDS: Tamsulosin HCL 0.4 MG CAPSULE PO (08:49)
[2022-11-08] MEDS: Apixaban 5 MG TABLET PO ×2 (08:49→23:07)
[2022-11-08] MEDS: metFORMIN HCl 1,000 MG TABLET 1000 MG PO ×2 (08:50→23:07)
--- NOTE | 2022-11-08 09:36 | P.PNIM_ITS ---
Subjective Subjective Date of Service: 11/08/22 Interval History: being followed for junctional rhythm/bradycardia, denies chest pain, no lightheadedness no dizziness no palpitations, no nausea no vomiting, tolerating diet, no diarrhea waiting for safe discharge, no acute overnight events tele monitor showed stable heart rate no further episodes of junctional bradycardia. Review of Systems All other system reviewed and negative. Physical Exam Vital Signs: Vital Signs: Last Vital Signs Temp 96.7 F L 11/08/22 03:18 Pulse 65 11/08/22 07:24 Resp 20 11/08/22 07:24 BP 186/70 H 11/08/22 07:24 Pulse Ox 98 11/08/22 07:24 O2 Del Method Room Air 11/08/22 07:24 BMI result Body Mass Index 20.4 Const: Other: Gen:? awake alert,in no acute distress HEENT: sclera anicteric, moist mucus membranes Neck: supple Lungs: clear to auscultation bilaterally Heart: regular rate and rhythm, no murmurs Abd: soft, non-tender, non-distended, bowel sounds audible Ext: no edema Skin: warm/well-perfused Neuro: alert and oriented x3, no focal findings Psych: appropriate affect S Objective Data Active Medications Acetaminophen (Acetaminophen 325 Mg Tablet) 650 mg PO Q6H PRN PRN Reason: Pain, Mild (Pain Scale 1-3) Apixaban (Apixaban 5 Mg Tablet) 5 mg PO BID [facility] Last Admin: 11/08/22 08:49 Dose: 5 mg Documented By: JYOTI Atorvastatin Calcium (Atorvastatin Calcium 80 Mg Tablet) 80 mg PO BEDTIME [facility] Last Admin: 11/07/22 20:29 Dose: 80 mg Documented By: AYSHA Docusate Sodium (Docusate Sodium 100 Mg Capsule) 100 mg PO DAILY PRN PRN Reason: Constipation Glucose (Glucose Gel 15 Gm Gel..Gram.) 15 gm PO Q15M PRN; Protocol PRN Reason: per Hypoglycemia Standing Ord. Dextrose (D10) 250 mls @ 750 mls/hr IV Q15M PRN; Protocol PRN Reason: per Hypoglycemia Standing Ord. Insulin Human Lispro (Insulin Lispro 100 Unit/Ml 3 Ml Vial) 0 unit SUBCUT QIDACHS [facility]; Protocol Last Admin: 11/08/22 07:34 Dose: Not Given Documented By: JYOTI Non-Admin Reason: See Note Lisinopril (Lisinopril 10 Mg Tablet) 10 mg PO BID [facility]; Protocol Last Admin: 11/08/22 08:49 Dose: 10 mg Documented By: JYOTI Metformin HCl (Metformin Hcl 1,000 Mg Tablet) 1,000 mg PO BID [facility] Last Admin: 11/08/22 08:50 Dose: 1,000 mg Documented By: JYOTI Metoprolol Tartrate (Metoprolol Tartrate 12.5 Mg Halftab) 12.5 mg PO BID [facility]; Protocol Last Admin: 11/08/22 08:49 Dose: 12.5 mg Documented By: JYOTI Ondansetron HCl (Ondansetron Hcl 4 Mg/2 Ml Vial) 4 mg IVPUSH Q8H PRN PRN Reason: Nausea and Vomiting Last Admin: 11/05/22 19:26 Dose: 4 mg Documented By: MARTHA Pharmacy Consult (Consult Rx Perform Med Rec) 1 each MISCELLANE ONCE PRN PRN Reason: Consult order Sodium Chloride (0.9 % Sodium Chloride Flush 3 Ml Syringe) 3 ml IVFLUSH QSHIFT [facility] Last Admin: 11/08/22 07:27 Dose: Not Given Documented By: JYOTI Non-Admin Reason: See Note Tamsulosin HCl (Tamsulosin Hcl 0.4 Mg Capsule) 0.4 mg PO DAILY [facility] Last Admin: 11/08/22 08:49 Dose: 0.4 mg Documented By: JYOTI Labs 11/02/22 08:24 11/07/22 13:50 Labs: Laboratory Results - last 24 hr 11/07/22 11/07/22 11/07/22 11:12 13:50 16:00 Anion Gap 17 Estim Creat Clear Calc 60.2 Estimated GFR > 60 POC Glucose 177 H 151 H Random Glucose 161 H Calcium 9.9 Magnesium 2.2 TSH 1.06 11/07/22 11/08/22 20:21 07:23 Anion Gap Estim Creat Clear Calc Estimated GFR POC Glucose 245 H 128 H Random Glucose Calcium Magnesium TSH Assessment and Plan (1) Syncope: Status: Acute (2) Diabetes type 2, controlled: Status: Acute Plan 77yo M with hx CVA, DM2, paroxysmal AF on apixaban, HTN, HLD, frequent falls admitted after witnessed syncope at [facility], where he was residing for [facility] but did not have a payor source # incidental CBD dilation. - patient denies abdominal pain tolerating diet ,no nausea, no vomiting, normal LFTs, abdominal ultrasound showed Variable size of the common bile duct, no gallstones, no further workup warranted. . # pulmonary nodule - on CT: Emphysema. 3 x 4 cm heterogeneous groundglass attenuation area in the left lower lobe with 6 x 8 mm solid component. Short-term follow-up chest CT in 2-3 months recommended to see if this is a persistent finding # question of pneumonia - PCT low x2. Cough resolved common no antibiotics required. # HTN urgency - Noted to have few high blood pressure readings dose of lisinopril uptitrated to 10 mg bid , on metoprolol 12.5 mg b.i.d. blood pressure improving continue to follow BP # syncope - has not recurred- vasovagal? no other cause identified noted to have intermittent bradycardia,dose of bb lowered ,no bradycardia overnight , patient asymptomatic await Cardiology input. # lactic acidosis - resolved after IV fluids # paroxysmal AF - on metoprolol for rate control, apixaban for anticoagulation, heart rates improved on low-dose metoprolol to 12.5 mg b.i.d. # hx CVA - statin, antihypertensives, on apixaban # HLD continue statin # DM2 - elevated blood sugars will resume home dose of metformin 1000 mg b.i.d. and continue correction-dose lispro, DM diet # VTE ppx: apixaban # dispo: CM working on Safe discharge. In my clinical judgment, the patient requires continued inpatient hospitalization for the following reasons: heart rate monitoring and placement Time Spent With Patient Time: Total time managing care of this patient today ____ minutes. Quality Stroke Does the patient have a stroke diagnosis?: No VTE Prior VTE?: No VTE Risk Level:: Medical - moderate - high VTE Device Contraindication: Treatment Not Indicated VTE Drug Contraindication: N/A - Med Ordered
[2022-11-08 11:01] LABS: Glucose, Whole Blood 184 mg/dL (60-115)
[2022-11-08] MEDS: Insulin Lispro 100 UNIT/ML 3 ML VIAL SUBCUT ×2 (11:21→23:09)
--- NOTE | 2022-11-08 12:59 | PM.CNCAR ---
History of Present Illness History of Present Illness Date of Service: 11/08/22 Requesting physician: Dayana Sanderson Consult reason: other (Syncope) Chief complaint: syncopal episode Narrative: I was consulted to see Everardo in cardiology consultation today as he was noted on cardiac telemetry to have junctional escape beats and bradycardia. Patient was admitted from the day age with episode of syncope. Patient provides history said during this episode he was sitting down and then was passed out. He said he regained consciousness and was about for a month and then he was brought into the hospital. He said he drove himself to the hospital. This is unclear. While in hospital was noted to be dehydrated with lactic acidosis which resolved after IV fluids. He was also noted to have hypertensive urgency which has improved with medications. He has prior history of CVA and paroxysmal atrial fibrillation. On metoprolol and apixaban. In the hospital was noted to gradually have slow heart rate and his metoprolol was tapered. Currently on 12.5 mg b.i.d. of metoprolol and overnight has had no significant other pauses. Cardiology consult was sought for further management plan of this bradycardia. Review of Systems Constitutional: Constitutional: Reports no additional constitutional complaints ENT: Reports system reviewed and no additional complaints, except as documented Cardiovascular: Cardiovascular: Denies chest pain, Reports Loss of Consciousness, Denies palpitations and Denies dyspnea Respiratory: Respiratory: Denies dyspnea Gastrointestinal: Gastrointestinal: Reports no additional gastrointestinal complaints Genitourinary: Genitourinary: Reports no additional male genitourinary complaints Musculoskeletal: Musculoskeletal: Reports no additional musculoskeletal complaints Neurologic: Reports system reviewed and no additional complaints, except as documented Endocrine: Endocrine: Denies palpitations [facility] Past Medical History Medical History CVA (cerebral vascular accident) Diabetes type 2, controlled Essential (primary) hypertension Hemiplegia and hemiparesis following cerebral infarction affecting right dominant side Hyperlipidemia Repeated falls Social History Social History Alcohol intake: never Patient Tobacco Use Status: Current everyday Tobacco user Tobacco use type: Cigarette Cigarette Packs Per Day: 0.3 Cigarettes Per Day: 6.0 Smoked in Last 30 Days: Yes Patient Interested in Nicotine Replacement: No Patient Given Instructions on How to Stop Smoking: No Currently Displaying Signs/Symptoms of Drug Intoxication Withdrawal: No Advance Directives: Yes Advance Directives on File: Yes Advance Directives Date on File: 09/18/22 service: Yes Current occupational status: retired Meds Allergies Allergy/AdvReac Type Severity Reaction Status Date / Time No Known Allergies Allergy Verified 09/18/22 13:13 [No Known Allergies*] Active Medications: Current Medications Acetaminophen (Acetaminophen 325 Mg Tablet) 650 mg PO Q6H PRN PRN Reason: Pain, Mild (Pain Scale 1-3) Apixaban (Apixaban 5 Mg Tablet) 5 mg PO BID [facility] Last Admin: 11/08/22 08:49 Dose: 5 mg Atorvastatin Calcium (Atorvastatin Calcium 80 Mg Tablet) 80 mg PO BEDTIME [facility] Last Admin: 11/07/22 20:29 Dose: 80 mg Docusate Sodium (Docusate Sodium 100 Mg Capsule) 100 mg PO DAILY PRN PRN Reason: Constipation Glucose (Glucose Gel 15 Gm Gel..Gram.) 15 gm PO Q15M PRN; Protocol PRN Reason: per Hypoglycemia Standing Ord. Dextrose (D10) 250 mls @ 750 mls/hr IV Q15M PRN; Protocol PRN Reason: per Hypoglycemia Standing Ord. Insulin Human Lispro (Insulin Lispro 100 Unit/Ml 3 Ml Vial) 0 unit SUBCUT QIDACHS [facility]; Protocol Last Admin: 11/08/22 11:21 Dose: 2 unit Lisinopril (Lisinopril 10 Mg Tablet) 10 mg PO BID [facility]; Protocol Last Admin: 11/08/22 08:49 Dose: 10 mg Metformin HCl (Metformin Hcl 1,000 Mg Tablet) 1,000 mg PO BID [facility] Last Admin: 11/08/22 08:50 Dose: 1,000 mg Metoprolol Tartrate (Metoprolol Tartrate 12.5 Mg Halftab) 12.5 mg PO BID [facility]; Protocol Last Admin: 11/08/22 08:49 Dose: 12.5 mg Ondansetron HCl (Ondansetron Hcl 4 Mg/2 Ml Vial) 4 mg IVPUSH Q8H PRN PRN Reason: Nausea and Vomiting Last Admin: 11/05/22 19:26 Dose: 4 mg Pharmacy Consult (Consult Rx Perform Med Rec) 1 each MISCELLANE ONCE PRN PRN Reason: Consult order Sodium Chloride (0.9 % Sodium Chloride Flush 3 Ml Syringe) 3 ml IVFLUSH QSHIFT [facility] Last Admin: 11/08/22 07:27 Dose: Not Given Tamsulosin HCl (Tamsulosin Hcl 0.4 Mg Capsule) 0.4 mg PO DAILY [facility] Last Admin: 11/08/22 08:49 Dose: 0.4 mg Home Medications Medication Instructions Recorded Confirmed Last Taken Type apixaban 5 mg tablet (Eliquis) 5 mg PO BID 09/18/22 10/29/22 10/29/22 09:00 History atorvastatin 80 mg tablet 80 mg PO BEDTIME 09/18/22 10/29/22 10/28/22 History lisinopril 2.5 mg tablet 2.5 mg PO DAILY 09/18/22 10/29/22 10/29/22 09:00 History metformin 500 mg tablet 1,000 mg PO BID 09/18/22 10/29/22 10/29/22 09:00 History metoprolol tartrate 50 mg tablet 25 mg PO DAILY 09/18/22 10/29/22 10/29/22 09:00 History tamsulosin 0.4 mg capsule 0.4 mg PO DAILY 09/18/22 10/29/22 10/29/22 09:00 History acetaminophen 325 mg tablet 650 mg PO Q6H PRN Fever Or Pain 10/29/22 10/29/22 Unknown History (Tylenol) bisacodyl 10 mg rectal suppository 10 mg [place] DAILY PRN Constipation 10/29/22 10/29/22 Unknown History magnesium hydroxide 400 mg/5 mL 30 ml PO DAILY PRN Constipation 10/29/22 10/29/22 Unknown History oral suspension (Milk of Magnesia) sodium phosphates 19 gram-7 118 ml VA DAILY PRN Constipation 10/29/22 10/29/22 Unknown History gram/118 mL enema (Fleet Enema) Physical Exam Vital Signs: Vital Signs: Last Vital Signs Temp 97.6 F 11/08/22 11:20 Pulse 63 11/08/22 11:20 Resp 20 11/08/22 11:20 BP 121/59 L 11/08/22 11:20 Pulse Ox 99 11/08/22 11:20 O2 Del Method Room Air 11/08/22 11:20 BMI result Body Mass Index 20.4 Const: General: cooperative, comfortable, no acute distress, alert and awake Nutritional Appearance: underweight Orientation/consciousness: patient oriented x3 Limitations: no limitations HEENT: Head: Yes normocephalic and Yes atraumatic Neck: Neck: Yes trachea midline, Yes supple and Yes no JVD Resp: Effort & Inspection: normal respiratory effort Auscultation: clear to auscultation bilaterally Cardio: Jugular venous distension: no JVD Palpation: normal PMI Rate: regular rate Rhythm: regular rhythm Heart sounds: S1 normal heart sound present, S2 normal heart sound present, no click, no gallops, no murmurs and no rubs GI: Auscultation: normal bowel sounds Neuro: General: patient oriented x3 and no focal motor deficits Extrem: General: Yes no clubbing, cyanosis or edema Objective Labs and Meds 11/02/22 08:24 11/07/22 13:50 Lab results: Laboratory Results - last 24 hr 11/07/22 11/07/22 11/07/22 13:50 16:00 20:21 Sodium 137 Potassium 5.0 Chloride 104 Carbon Dioxide 21 L Anion Gap 17 BUN 29 H Creatinine 1.05 Estim Creat Clear Calc 60.2 Estimated GFR > 60 POC Glucose 151 H 245 H Random Glucose 161 H Calcium 9.9 Magnesium 2.2 TSH 1.06 11/08/22 11/08/22 07:23 10:53 Sodium Potassium Chloride Carbon Dioxide Anion Gap BUN Creatinine Estim Creat Clear Calc Estimated GFR POC Glucose 128 H 184 H Random Glucose Calcium Magnesium TSH Assessment and Plan (1) Syncope: Status: Acute Patient present with episode of syncope which appears to be related to intravascular volume depletion and orthostatic hypertension. However he is noted to have sinus bradycardia and junctional beats. There is possibility of sick sinus syndrome with tachy-ash syndrome. This is not entirely ruled out. At this point time I would discontinue metoprolol therapy and watching for additional day. Obtain echocardiogram to evaluate LV systolic and diastolic function. Will require a 30 day monitor as outpatient on discharge. If he remains persistently bradycardic with either sinus pauses or junctional escape and/or develops tachycardia that required as metoprolol therapy may need pacing therapy. This was discussed with him. He understands. (2) Sinus bradycardia: Status: Acute Sinus bradycardia, noted as above. Discontinue metoprolol therapy. Full disclosure cardiac monitoring. Outpatient event monitor. Avoid rate lowering medications in the future (3) Paroxysmal atrial fibrillation: Status: Acute Prior history of paroxysmal atrial fibrillation. Has remained suppressed. Short runs of PACs. Will need to monitor him and with event monitor P developed significant tachycardia and symptomatic cough metoprolol therapy may require pacing therapy with resumption of metoprolol therapy. This was discussed with him. Given his prior stroke would continue oral anticoagulation therapy with Eliquis. Will continue to follow with you Time Spent With Patient Time: Total time managing care of this patient today ____ minutes. Procedures Date of Service Date of Service: 11/08/22
[2022-11-08 16:20] LABS: Glucose, Whole Blood 74 mg/dL (60-115)
[2022-11-08 21:19] LABS: Glucose, Whole Blood 212 mg/dL (60-115)
[2022-11-08] MEDS: Atorvastatin Calcium 80 MG TABLET PO (23:06)
[2022-11-09] VITALS (7 sets, daily range): BP systolic 123–196; BP diastolic 60–85; PULSE 52–75; RESP 17–20; TEMP 36.1–36.6; O2SAT 96–99
--- NOTE | 2022-11-09 07:00 | CA_ITS ---
Transthoracic Echocardiogram Patient (Last, First, Middle): Everardo Bennett, Gender: Male Date of : 1945 Age: 77 Procedure Date: 11/09/2022 Procedure Type: Transthoracic Echocardiogram [place] [facility] [place] Height: 185.42 cm Weight: 69.85 kg BSA: 1.93 m2 Heart Rate: 68 bpm BP: 174 / 64 mmHg Coppersmith Helper: Referring MD: Mark Crawley MD Symptoms: Syncope Study Quality: Adequate ECG Rhythm: Sinus Conclusions: - The left ventricular systolic function is normal. The calculated ejection fraction is 63% by biplane method. - There is severely increased left ventricular wall thickness. - There is evidence of regional wall motion abnormalities. - There is moderate calcification of the aortic valve. - There is moderate posterior mitral annular calcification. Findings Left Ventricle Normal left ventricular cavity size. There is severely increased left ventricular wall thickness. The left ventricular systolic function is normal. The calculated ejection fraction is 63% by biplane method. There is evidence of regional wall motion abnormalities. E/E prime ratio is between 8 and 15 consistent with indeterminate filling pressures. Evidence suggests grade I (mild) diastolic dysfunction. Wall Motion Rest Echo Findings The basal inferolateral segment is hypokinetic. The basal inferior segment is akinetic. Right Ventricle Normal right ventricular cavity size and systolic function. Atria Both atria are normal in size. Aortic Valve There is moderate calcification of the aortic valve. There is no aortic valve regurgitation. No significant aortic stenosis. Mitral Valve There is moderate posterior mitral annular calcification. There is mild mitral valve regurgitation. There is no mitral valve stenosis. Pulmonic Valve The pulmonic valve is likely normal. Tricuspid Valve Normal tricuspid valve structure. There is mild tricuspid valve regurgitation. There is no evidence of pulmonary hypertension. Great Vessels The asc aorta is normal in size. Venous The inferior vena cava is normal in size and collapses greater than 50% with inspiration. Pericardium/Pleural There is no evidence of pericardial effusion. Prior Study Comparison No prior study available for comparison. Measurements 2D Linear Measurements IVSd: 1.69 0.6-0.9/0.6-1.0 cm LVIDd: 4.31 3.9-5.3/4.2-5.9 cm LVIDd Index: 2.23 2.4-3.2/2.2-3.1 cm/m2 LVIDs: 3.17 2.0-3.6 cm LVPWd: 1.54 0.7-1.1 cm LA Diam: 4.20 2.7-3.8/3.0-4.0 cm LAIDs Index: 2.18 1.5-2.3 cm/m2 LV Mass: 362.54 67-162/88-224 g LV Mass Index: 187.85 43-95/49-115 g/m2 LVOT Diam: 2.10 3.0+(-)1.3 cm 2D Systolic Function EF 4C: 60.90 >55% EF 2C: 69.10 >55% EF BiP: 63.40 >55% Mitral Valve MV Pk E: 0.45 MV PK A: 0.99 MV Decel Time: 159.00 E/A: 0.50 E'Lateral: 4.03 E'Medial: 3.37 E/E' Med: 13.40 E/E' Lat: 11.20 PHT: 47.00 MVA PHT: 4.68 Decel [place]: 2.82 Aortic Valve AoV Pk Malick: 1.67 AoV Mn Malick: 1.04 AoV VTI: 0.37 AoV Pk Grad: 11.00 Aov Mn Grad: 6.00 DORINDA Cont.VTI: 1.98 LVOT LVOT Pk Malick: 0.95 LVOT Mn Malick: 0.59 LVOT VTI: 0.21 LVOT Pk Grad: 4.00 LVOT Mn Grad: 2.00 LVOT Diam: 2.10 LVOT Area: 3.46 Diastolic Function MV Pk E: 0.45 MV Pk A: 0.99 E/A: 0.50 E'Medial: 3.37 E/E' Med: 13.40 E' Laterial: 4.03 E/E' Lat: 11.20 Right Ventricle TAPSE (mm): 24.00 Tricuspid Valve TR Pk Malick: 2.13 TR Pk Grad: 18.00 RA Press: 3.00 RVSP: 21.00 Great Vessels Aorta Sinus of Valsalva: 3.80 2.0-3.5 cm Ao Asc: 3.50 2.1-3.4 cm Pulmonary Valve PV Pk Malick: 1.13 Peak PV Grad: 5.00 Updated in Other Vendor System with Status of Final Darell Bazan MD electronically signed on 11/09/2022 3:20:49 PM with status of Final
[2022-11-09] MEDS: metFORMIN HCl 1,000 MG TABLET 1000 MG PO ×2 (07:47→21:13)
[2022-11-09] MEDS: Tamsulosin HCL 0.4 MG CAPSULE PO (07:47)
[2022-11-09] MEDS: lisinopriL 10 MG TABLET PO (07:47)
[2022-11-09] MEDS: Apixaban 5 MG TABLET PO ×2 (07:47→21:13)
[2022-11-09] MEDS: 0.9 % Sodium Chloride Flush 3 ML SYRINGE IVFLUSH ×3 (07:48→21:13)
[2022-11-09 07:49] LABS: Glucose, Whole Blood 98 mg/dL (60-115)
--- NOTE | 2022-11-09 08:31 | MHC.CM.PN ---
EMR REVIEWED, CM AWAITING [facility] TO RESOLVE FINANCIALS W/POA HEIDI, PT TO TRANSFER ONCE PAYMENT IS MADE, CM WILL CONT TO FOLLOW.
--- NOTE | 2022-11-09 10:44 | HO.PM.IMPN ---
Subjective Subjective Date of Service: 11/09/22 Interval History: being followed for bradycardia/junctional rhythm, patient sitting comfortably eating breakfast offers no complaints of nausea, no vomiting, no abdominal pain, no chest pain, no palpitations, no lightheadedness, no dizziness, No headache, no near-syncope tele monitor showed stable ventricular rate noted to have intermittent high blood pressure with systolic up to 190s. Review of Systems all other systems are reviewed and negative. Physical Exam Vital Signs: Vital Signs: Last Vital Signs Temp 97.4 F 11/09/22 07:16 Pulse 67 11/09/22 07:16 Resp 20 11/09/22 07:16 BP 190/70 H 11/09/22 07:16 Pulse Ox 96 11/09/22 07:16 O2 Del Method Room Air 11/09/22 07:16 BMI result Body Mass Index 20.4 Const: Other: Gen:? awake alert,in no acute distress HEENT: sclera anicteric, moist mucus membranes Neck: supple Lungs: clear to auscultation bilaterally Heart: regular rate and rhythm, no murmurs Abd: soft, non-tender, non-distended, bowel sounds audible. Ext: no edema Skin: warm/well-perfused Neuro: alert and oriented x3, no focal findings Psych: appropriate affect Objective Data Active Medications Acetaminophen (Acetaminophen 325 Mg Tablet) 650 mg PO Q6H PRN PRN Reason: Pain, Mild (Pain Scale 1-3) Apixaban (Apixaban 5 Mg Tablet) 5 mg PO BID [facility] Last Admin: 11/09/22 07:47 Dose: 5 mg Documented By: FRANK Atorvastatin Calcium (Atorvastatin Calcium 80 Mg Tablet) 80 mg PO BEDTIME [facility] Last Admin: 11/08/22 23:06 Dose: 80 mg Documented By: BRANDIE Docusate Sodium (Docusate Sodium 100 Mg Capsule) 100 mg PO DAILY PRN PRN Reason: Constipation Glucose (Glucose Gel 15 Gm Gel..Gram.) 15 gm PO Q15M PRN; Protocol PRN Reason: per Hypoglycemia Standing Ord. Dextrose (D10) 250 mls @ 750 mls/hr IV Q15M PRN; Protocol PRN Reason: per Hypoglycemia Standing Ord. Insulin Human Lispro (Insulin Lispro 100 Unit/Ml 3 Ml Vial) 0 unit SUBCUT QIDACHS [facility]; Protocol Last Admin: 11/09/22 07:48 Dose: Not Given Documented By: FRANK Non-Admin Reason: No Insulin Coverage Lisinopril (Lisinopril 10 Mg Tablet) 30 mg PO DAILY [facility]; Protocol Metformin HCl (Metformin Hcl 1,000 Mg Tablet) 1,000 mg PO BID [facility] Last Admin: 11/09/22 07:47 Dose: 1,000 mg Documented By: FRANK Ondansetron HCl (Ondansetron Hcl 4 Mg/2 Ml Vial) 4 mg IVPUSH Q8H PRN PRN Reason: Nausea and Vomiting Last Admin: 11/05/22 19:26 Dose: 4 mg Documented By: MARTHA Pharmacy Consult (Consult Rx Perform Med Rec) 1 each MISCELLANE ONCE PRN PRN Reason: Consult order Sodium Chloride (0.9 % Sodium Chloride Flush 3 Ml Syringe) 3 ml IVFLUSH QSHIFT [facility] Last Admin: 11/09/22 07:48 Dose: 3 ml Documented By: FRANK Tamsulosin HCl (Tamsulosin Hcl 0.4 Mg Capsule) 0.4 mg PO DAILY [facility] Last Admin: 11/09/22 07:47 Dose: 0.4 mg Documented By: FRANK Labs 11/02/22 08:24 11/07/22 13:50 Labs: Laboratory Results - last 24 hr 11/08/22 11/08/22 11/08/22 10:53 16:07 20:46 POC Glucose 184 H 74 212 H 11/09/22 07:38 POC Glucose 98 Assessment and Plan (1) Syncope: Status: Acute (2) Diabetes type 2, controlled: Status: Acute Plan 77yo M with hx CVA, DM2, paroxysmal AF on apixaban, HTN, HLD, frequent falls admitted after witnessed syncope at [facility], where he was residing for [facility] but did not have a payor source # paroxysmal AF noted to have bradycardia and junctional rhythm therefore metoprolol discontinued heart rate improved and remained stable, seen by Cardiology they will arrange for 30 day event monitor, at present patient is in sinus rhythm with no episodes of tachycardia, normal magnesium potassium and TSH Cardio recommend tele monitor to rule out tachycardia and in that case patient will need beta-blockers and pacing therapy follow echo, continue apixaban # incidental CBD dilation. - patient denies abdominal pain tolerating diet ,no nausea, no vomiting, normal LFTs, abdominal ultrasound showed Variable size of the common bile duct, no gallstones, no further workup warranted. . # pulmonary nodule - on CT: Emphysema. 3 x 4 cm heterogeneous groundglass attenuation area in the left lower lobe with 6 x 8 mm solid component. Short-term follow-up chest CT in 2-3 months recommended to see if this is a persistent finding # question of pneumonia - PCT low x2. Cough resolved common no antibiotics required. # HTN urgency - Noted to have few high blood pressure readings dose of lisinopril uptitrated to 30 mg by mouth daily follow BP closely # syncope - has not recurred- vasovagal? no other cause identified noted to have intermittent bradycardia, metoprolol discontinued, ventricular rate improved and stable. # lactic acidosis - resolved after IV fluids # hx CVA - statin, antihypertensives, on apixaban # HLD continue statin # DM2 - elevated blood sugars will resume home dose of metformin 1000 mg b.i.d. and continue correction-dose lispro, DM diet # VTE ppx: apixaban # dispo: CM working on Safe discharge. In my clinical judgment, the patient requires continued inpatient hospitalization for the following reasons: heart rate monitoring and placement. Time Spent With Patient Time: Total time managing care of this patient today ____ minutes. Quality Stroke Does the patient have a stroke diagnosis?: No VTE Prior VTE?: No VTE Risk Level:: Medical - moderate - high VTE Device Contraindication: Treatment Not Indicated VTE Drug Contraindication: N/A - Med Ordered
--- NOTE | 2022-11-09 11:21 | P.PNCA_ITS ---
Subjective Subjective Date of Service: 11/09/22 Interval history: He states that he is feeling okay. No new complaints. Review of Systems Review of Systems Yes all other systems are reviewed and are negative Constitutional: Reports as per HPI and Reports no additional constitutional complaints Eyes: Reports as per HPI and Denies no additional eye complaints Denies system reviewed and no additional complaints, except as documented and Reports as per HPI Cardiovascular: Reports as per HPI, Reports no additional cardiovascular complaints, Denies acrocyanosis, Denies cool extremities, Denies chest pain, Denies leg edema, Denies lightheadedness, Denies palpitations and Denies dyspnea Respiratory: Reports as per HPI, Denies no additional respiratory complaints and Denies dyspnea Gastrointestinal: Reports as per HPI and Denies no additional gastrointestinal complaints Genitourinary: Reports no additional male genitourinary complaints and Reports as per HPI Musculoskeletal: Reports no additional musculoskeletal complaints and Reports as per HPI Skin/Breast: Reports system reviewed and no additional complaints, except as doc u Reports system reviewed and no additional complaints, except as documented and Reports as per HPI Psychiatric: Reports no additional psychiatric complaints and Reports as per HPI Endocrine: Reports no additional endocrine complaints, Reports as per HPI and Denies palpitations Hematologic/Lymphatic: Reports no additional hematologic/lymphatic complaints and Reports as per HPI Allergic/Immunologic: Reports no additional allergic/immunologic complaints and Reports as per HPI Physical Exam Vital Signs: Last Vital Signs Temp 97.4 F 11/09/22 07:16 Pulse 67 11/09/22 07:16 Resp 20 11/09/22 07:16 BP 190/70 H 11/09/22 07:16 Pulse Ox 96 11/09/22 07:16 O2 Del Method Room Air 11/09/22 07:16 BMI result Body Mass Index 20.4 Const General: comfortable and no acute distress Orientation/consciousness: patient oriented x3 HEENT Other: Unremarkable Head: Yes normal to inspection Neck Neck: Yes normal visual inspection Chest Chest palpation & inspection: normal inspection of the chest Resp Auscultation: clear to auscultation bilaterally Cardio Palpation: normal PMI Heart sounds: S1 normal heart sound present, S2 normal heart sound present, no gallops, no murmurs and no rubs GI Palpation (GI): Soft to palpation Back/Spine/Pelvis Other: unremarkable Skin General skin exam: no rashes or lesions noted Neuro General: patient oriented x3 Extrem General: Yes normal to inspection Psych Mental Status: mental status grossly normal Objective Labs and Meds 11/02/22 08:24 11/07/22 13:50 Lab results: Laboratory Results - last 24 hr 11/08/22 11/08/22 11/09/22 16:07 20:46 07:38 POC Glucose 74 212 H 98 Progress Note: A&P Assessment and plan (1) Syncope: Status: Acute (2) Sinus bradycardia: Status: Acute (3) Paroxysmal atrial fibrillation: Status: Acute (4) Essential (primary) hypertension: Status: Acute Plan On review of telemetry, no episodes of significant bradycardia or heart blocks. He does have some PACs. Per sign-out, off beta-blockers. Echocardiogram is being completed today and will be reviewed. Otherwise, blood pressure medications can be optimized as the blood pressure is going up. Can increase lisinopril and this was discussed with hospitalist. Possibly discharge after cardiac data reviewed. Will arrange outpatient monitoring. Time Spent With Patient Time: Total time managing care of this patient today 45 minutes. This includes time spent in review of chart, laboratory data, imaging studies, review of telemetry, counseling patient, discussion with hospitalist, RN, documentation, coordination of care. Progress Note: Quality Stroke Does the patient have a stroke diagnosis?: No Procedures Date of Service Date of Service: 11/09/22
[2022-11-09 11:44] LABS: Glucose, Whole Blood 112 mg/dL (60-115)
[2022-11-09] MEDS: lisinopriL 20 MG TABLET PO (11:51)
[2022-11-09 16:23] LABS: Glucose, Whole Blood 157 mg/dL (60-115)
[2022-11-09] MEDS: Insulin Lispro 100 UNIT/ML 3 ML VIAL SUBCUT (16:47)
[2022-11-09 20:16] LABS: Glucose, Whole Blood 132 mg/dL (60-115)
[2022-11-09] MEDS: Atorvastatin Calcium 80 MG TABLET PO (21:13)
[2022-11-10] VITALS (8 sets, daily range): BP systolic 121–178; BP diastolic 61–90; PULSE 67–78; RESP 14–18; TEMP 36.2–37.1; O2SAT 96–98
[2022-11-10 07:52] LABS: Glucose, Whole Blood 107 mg/dL (60-115)
[2022-11-10] MEDS: Tamsulosin HCL 0.4 MG CAPSULE PO (07:58)
[2022-11-10] MEDS: Apixaban 5 MG TABLET PO ×2 (07:58→20:04)
[2022-11-10] MEDS: metFORMIN HCl 1,000 MG TABLET 1000 MG PO ×2 (07:59→20:04)
[2022-11-10] MEDS: lisinopriL 10 MG TABLET 30 MG PO (07:59)
[2022-11-10] MEDS: 0.9 % Sodium Chloride Flush 3 ML SYRINGE IVFLUSH ×2 (08:00→20:05)
[2022-11-10 11:39] LABS: Glucose, Whole Blood 138 mg/dL (60-115)
--- NOTE | 2022-11-10 12:58 | HO.PM.IMPN ---
Subjective Subjective Date of Service: 11/10/22 Interval History: No acute issues overnight. Bradycardia down to the 30s without symptoms Review of Systems Denies chest pain Denies shortness of breath Denies nausea vomiting diarrhea Denies fever chills Physical Exam Vital Signs: Vital Signs: Last Vital Signs Temp 97.2 F 11/10/22 11:30 Pulse 73 11/10/22 11:30 Resp 17 11/10/22 11:30 BP 123/61 11/10/22 11:30 Pulse Ox 98 11/10/22 11:30 O2 Del Method Room Air 11/10/22 11:30 BMI result Body Mass Index 20.4 Const: Other: Awake alert no acute distress Resp: Other: Clear to auscultation diminished at bases Cardio: Other: No S4; positive S1-S2; no S3 murmurs rubs or gallops GI: Other: Soft nontender nondistended normoactive bowel sounds Neuro: Other: Cranial nerves 2-12 grossly intact as tested. Motor is 5/5 all extremities. Sensation is intact. Extrem: Other: No edema bilaterally Objective Data Active Medications Acetaminophen (Acetaminophen 325 Mg Tablet) 650 mg PO Q6H PRN PRN Reason: Pain, Mild (Pain Scale 1-3) Apixaban (Apixaban 5 Mg Tablet) 5 mg PO BID [facility] Last Admin: 11/10/22 07:58 Dose: 5 mg Documented By: ROSE MARIE Atorvastatin Calcium (Atorvastatin Calcium 80 Mg Tablet) 80 mg PO BEDTIME [facility] Last Admin: 11/09/22 21:13 Dose: 80 mg Documented By: DELANO Docusate Sodium (Docusate Sodium 100 Mg Capsule) 100 mg PO DAILY PRN PRN Reason: Constipation Glucose (Glucose Gel 15 Gm Gel..Gram.) 15 gm PO Q15M PRN; Protocol PRN Reason: per Hypoglycemia Standing Ord. Dextrose (D10) 250 mls @ 750 mls/hr IV Q15M PRN; Protocol PRN Reason: per Hypoglycemia Standing Ord. Insulin Human Lispro (Insulin Lispro 100 Unit/Ml 3 Ml Vial) 0 unit SUBCUT QIDACHS [facility]; Protocol Last Admin: 11/10/22 11:43 Dose: Not Given Documented By: ROSE MARIE Non-Admin Reason: No Insulin Coverage Lisinopril (Lisinopril 10 Mg Tablet) 30 mg PO DAILY [facility]; Protocol Last Admin: 11/10/22 07:59 Dose: 30 mg Documented By: ROSE MARIE Metformin HCl (Metformin Hcl 1,000 Mg Tablet) 1,000 mg PO BID [facility] Last Admin: 11/10/22 07:59 Dose: 1,000 mg Documented By: ROSE MARIE Ondansetron HCl (Ondansetron Hcl 4 Mg/2 Ml Vial) 4 mg IVPUSH Q8H PRN PRN Reason: Nausea and Vomiting Last Admin: 11/05/22 19:26 Dose: 4 mg Documented By: MARTHA Pharmacy Consult (Consult Rx Perform Med Rec) 1 each MISCELLANE ONCE PRN PRN Reason: Consult order Sodium Chloride (0.9 % Sodium Chloride Flush 3 Ml Syringe) 3 ml IVFLUSH QSHIFT [facility] Last Admin: 11/10/22 08:00 Dose: 3 ml Documented By: ROSE MARIE Tamsulosin HCl (Tamsulosin Hcl 0.4 Mg Capsule) 0.4 mg PO DAILY [facility] Last Admin: 11/10/22 07:58 Dose: 0.4 mg Documented By: ROSE MARIE Labs 11/02/22 08:24 11/07/22 13:50 Labs: Laboratory Results - last 24 hr 11/09/22 11/09/22 11/10/22 16:21 20:12 07:43 POC Glucose 157 H 132 H 107 11/10/22 11:32 POC Glucose 138 H Assessment and Plan (1) Paroxysmal atrial fibrillation: Status: Acute (2) Essential (primary) hypertension: Status: Acute (3) Diabetes type 2, controlled: Status: Acute Plan Patient admitted to the hospital under observation on telemetry for evaluation and further workup for syncopal episode. No further syncope since admission. PT recommends STR 1.Paroxysmal AFib -bradycardic with junctional rhythm interpose. -continue to hold beta blockade -cardiology following 2.HTN -acceptable control on current therapies -adjust as indicated 3.DMII -acceptable control on current therapies -lispro correctional scale -adjust as indicated Full Code Kaileelashawndigna Patient requires ongoing hospitalization pending safe placement Time Spent With Patient Time: Total time managing care of this patient today ____ minutes. Quality Stroke Does the patient have a stroke diagnosis?: No VTE Prior VTE?: No VTE Risk Level:: Medical - moderate - high VTE Device Contraindication: Treatment Not Indicated VTE Drug Contraindication: N/A - Med Ordered
[2022-11-10 15:55] LABS: Glucose, Whole Blood 156 mg/dL (60-115)
[2022-11-10] MEDS: Insulin Lispro 100 UNIT/ML 3 ML VIAL SUBCUT (16:41)
--- NOTE | 2022-11-10 17:46 | PC.NURSE ---
Approximately 1345 after returning to chair from bathroom patients son notified staff of patient vomiting. Patient vomited small amount. Vitals stable. Assessment unchanged from previous pt uncertain of what caused event. Dr Coleman notified no new orders. Son left room said goodbye to patient and then returned told patient I am taking your card we talked about it earlier Patient agreed to allow son to take wallet at which time he removed his wallet from the bag on the bedside table and he asked this RN Do you know where the venecia is in here?. After the son left the room case management was notified of this and spoke with the patient. Will continue to monitor and report changes
[2022-11-10 19:57] LABS: Glucose, Whole Blood 145 mg/dL (60-115)
[2022-11-10] MEDS: Atorvastatin Calcium 80 MG TABLET PO (20:04)
[2022-11-11] VITALS (7 sets, daily range): BP systolic 162–210; BP diastolic 60–90; PULSE 53–69; RESP 18–20; TEMP 36.1–36.9; O2SAT 97–100
[2022-11-11 07:40] LABS: Glucose, Whole Blood 90 mg/dL (60-115)
[2022-11-11] MEDS: lisinopriL 10 MG TABLET 30 MG PO (08:03)
[2022-11-11] MEDS: Tamsulosin HCL 0.4 MG CAPSULE PO (08:04)
[2022-11-11] MEDS: Apixaban 5 MG TABLET PO ×2 (08:04→20:37)
[2022-11-11] MEDS: metFORMIN HCl 1,000 MG TABLET 1000 MG PO ×2 (08:04→20:37)
[2022-11-11] MEDS: 0.9 % Sodium Chloride Flush 3 ML SYRINGE IVFLUSH ×2 (08:08→20:40)
[2022-11-11 11:16] LABS: Glucose, Whole Blood 115 mg/dL (60-115)
--- NOTE | 2022-11-11 13:59 | HO.PM.IMPN ---
Subjective Subjective Date of Service: 11/11/22 Interval History: No acute issues overnight. Review of Systems Denies chest pain Denies shortness of breath Denies nausea vomiting diarrhea Denies fever chills Physical Exam Vital Signs: Vital Signs: Last Vital Signs Temp 97.2 F 11/11/22 10:58 Pulse 69 11/11/22 10:58 Resp 20 11/11/22 10:58 BP 186/85 H 11/11/22 10:58 Pulse Ox 100 11/11/22 10:58 O2 Del Method Room Air 11/11/22 10:58 BMI result Body Mass Index 20.4 Const: Other: Awake alert no acute distress Resp: Other: Clear to auscultation diminished at bases Cardio: Other: No S4; positive S1-S2; no S3 murmurs rubs or gallops GI: Other: Soft nontender nondistended normoactive bowel sounds Neuro: Other: Cranial nerves 2-12 grossly intact as tested. Motor is 5/5 all extremities. Sensation is intact. Extrem: Other: No edema bilaterally Objective Data Active Medications Acetaminophen (Acetaminophen 325 Mg Tablet) 650 mg PO Q6H PRN PRN Reason: Pain, Mild (Pain Scale 1-3) Apixaban (Apixaban 5 Mg Tablet) 5 mg PO BID [facility] Last Admin: 11/11/22 08:04 Dose: 5 mg Documented By: ROSE MARIE Atorvastatin Calcium (Atorvastatin Calcium 80 Mg Tablet) 80 mg PO BEDTIME [facility] Last Admin: 11/10/22 20:04 Dose: 80 mg Documented By: JANEE Docusate Sodium (Docusate Sodium 100 Mg Capsule) 100 mg PO DAILY PRN PRN Reason: Constipation Glucose (Glucose Gel 15 Gm Gel..Gram.) 15 gm PO Q15M PRN; Protocol PRN Reason: per Hypoglycemia Standing Ord. Dextrose (D10) 250 mls @ 750 mls/hr IV Q15M PRN; Protocol PRN Reason: per Hypoglycemia Standing Ord. Insulin Human Lispro (Insulin Lispro 100 Unit/Ml 3 Ml Vial) 0 unit SUBCUT QIDACHS [facility]; Protocol Last Admin: 11/11/22 12:43 Dose: Not Given Documented By: ROSE MARIE Non-Admin Reason: No Insulin Coverage Lisinopril (Lisinopril 10 Mg Tablet) 30 mg PO DAILY [facility]; Protocol Last Admin: 11/11/22 08:03 Dose: 30 mg Documented By: ROSE MARIE Metformin HCl (Metformin Hcl 1,000 Mg Tablet) 1,000 mg PO BID [facility] Last Admin: 11/11/22 08:04 Dose: 1,000 mg Documented By: ROSE MARIE Ondansetron HCl (Ondansetron Hcl 4 Mg/2 Ml Vial) 4 mg IVPUSH Q8H PRN PRN Reason: Nausea and Vomiting Last Admin: 11/05/22 19:26 Dose: 4 mg Documented By: MARTHA Pharmacy Consult (Consult Rx Perform Med Rec) 1 each MISCELLANE ONCE PRN PRN Reason: Consult order Sodium Chloride (0.9 % Sodium Chloride Flush 3 Ml Syringe) 3 ml IVFLUSH QSHIFT [facility] Last Admin: 11/11/22 08:08 Dose: 3 ml Documented By: ROSE MARIE Tamsulosin HCl (Tamsulosin Hcl 0.4 Mg Capsule) 0.4 mg PO DAILY [facility] Last Admin: 11/11/22 08:04 Dose: 0.4 mg Documented By: ROSE MARIE Labs 11/02/22 08:24 11/07/22 13:50 Labs: Laboratory Results - last 24 hr 11/10/22 11/10/22 11/11/22 15:51 19:50 07:07 POC Glucose 156 H 145 H 90 11/11/22 10:57 POC Glucose 115 Assessment and Plan (1) Paroxysmal atrial fibrillation: Status: Acute (2) Essential (primary) hypertension: Status: Acute (3) Diabetes type 2, controlled: Status: Acute Plan Patient admitted to the hospital under observation on telemetry for evaluation and further workup for syncopal episode. No further syncope since admission. PT recommends STR 1.Paroxysmal AFib -bradycardic with junctional rhythm interpose. -continue to hold beta blockade -cardiology following 2.HTN -acceptable control on current therapies -adjust as indicated 3.DMII -acceptable control on current therapies -lispro correctional scale -adjust as indicated Full Code Eliquis Patient requires ongoing hospitalization pending safe placement; will ask psych for competency exam for patient to facilitate is own choices for discharge Time Spent With Patient Time: Total time managing care of this patient today ____ minutes. Quality Stroke Does the patient have a stroke diagnosis?: No VTE Prior VTE?: No VTE Risk Level:: Medical - moderate - high VTE Device Contraindication: Treatment Not Indicated VTE Drug Contraindication: N/A - Med Ordered
--- NOTE | 2022-11-11 15:48 | MHC.CM.PN ---
EMR REVIEWED AND PT WILL HAVE COMPETENCY EVAL. DONE. [facility] STILL AWAITING [facility] NEEDED TO ADMIT. CM WILL CONTINUE TO FOLLOW FOR PLAN/ DC NEEDS.
[2022-11-11 16:29] LABS: Glucose, Whole Blood 111 mg/dL (60-115)
[2022-11-11 20:18] LABS: Glucose, Whole Blood 172 mg/dL (60-115)
[2022-11-11] MEDS: Atorvastatin Calcium 80 MG TABLET PO (20:37)
[2022-11-11] MEDS: Insulin Lispro 100 UNIT/ML 3 ML VIAL SUBCUT (20:38)
[2022-11-12] VITALS (7 sets, daily range): BP systolic 125–192; BP diastolic 54–84; PULSE 57–94; RESP 16–18; TEMP 36.1–37.1; O2SAT 94–99
[2022-11-12 07:26] LABS: Glucose, Whole Blood 86 mg/dL (60-115)
[2022-11-12] MEDS: metFORMIN HCl 1,000 MG TABLET 1000 MG PO ×2 (08:19→20:03)
[2022-11-12] MEDS: Apixaban 5 MG TABLET PO ×2 (08:19→20:03)
[2022-11-12] MEDS: Tamsulosin HCL 0.4 MG CAPSULE PO (08:19)
[2022-11-12] MEDS: lisinopriL 10 MG TABLET 30 MG PO (08:19)
[2022-11-12] MEDS: 0.9 % Sodium Chloride Flush 3 ML SYRINGE IVFLUSH ×3 (08:20→20:04)
[2022-11-12 11:08] LABS: Glucose, Whole Blood 222 mg/dL (60-115)
[2022-11-12] MEDS: Insulin Lispro 100 UNIT/ML 3 ML VIAL SUBCUT (11:30)
--- NOTE | 2022-11-12 15:12 | P.PNIM_ITS ---
Subjective Subjective Date of Service: 11/12/22 Interval History: No acute issues overnight Review of Systems Denies chest pain Denies shortness of breath Denies nausea vomiting diarrhea Denies fever chills Physical Exam Vital Signs: Vital Signs: Last Vital Signs Temp 96.9 F 11/12/22 11:23 Pulse 94 11/12/22 11:23 Resp 16 11/12/22 11:23 BP 147/67 H 11/12/22 11:23 Pulse Ox 99 11/12/22 11:23 O2 Del Method Room Air 11/12/22 11:23 BMI result Body Mass Index 20.4 Const: Other: Awake alert no acute distress Resp: Other: Clear to auscultation diminished at bases Cardio: Other: No S4; positive S1-S2; no S3 murmurs rubs or gallops GI: Other: Soft nontender nondistended normoactive bowel sounds Neuro: Other: Cranial nerves 2-12 grossly intact as tested. Motor is 5/5 all extremities. Sensation is intact. Extrem: Other: No edema bilaterally Objective Data Active Medications Acetaminophen (Acetaminophen 325 Mg Tablet) 650 mg PO Q6H PRN PRN Reason: Pain, Mild (Pain Scale 1-3) Apixaban (Apixaban 5 Mg Tablet) 5 mg PO BID [facility] Last Admin: 11/12/22 08:19 Dose: 5 mg Documented By: EDSON Atorvastatin Calcium (Atorvastatin Calcium 80 Mg Tablet) 80 mg PO BEDTIME [facility] Last Admin: 11/11/22 20:37 Dose: 80 mg Documented By: MIKE Docusate Sodium (Docusate Sodium 100 Mg Capsule) 100 mg PO DAILY PRN PRN Reason: Constipation Glucose (Glucose Gel 15 Gm Gel..Gram.) 15 gm PO Q15M PRN; Protocol PRN Reason: per Hypoglycemia Standing Ord. Dextrose (D10) 250 mls @ 750 mls/hr IV Q15M PRN; Protocol PRN Reason: per Hypoglycemia Standing Ord. Insulin Human Lispro (Insulin Lispro 100 Unit/Ml 3 Ml Vial) 0 unit SUBCUT QIDA [facility]; Protocol Last Admin: 11/12/22 11:30 Dose: 4 unit Documented By: EDSON Lisinopril (Lisinopril 10 Mg Tablet) 30 mg PO DAILY [facility]; Protocol Last Admin: 11/12/22 08:19 Dose: 30 mg Documented By: EDSON Metformin HCl (Metformin Hcl 1,000 Mg Tablet) 1,000 mg PO BID [facility] Last Admin: 11/12/22 08:19 Dose: 1,000 mg Documented By: EDSON Ondansetron HCl (Ondansetron Hcl 4 Mg/2 Ml Vial) 4 mg IVPUSH Q8H PRN PRN Reason: Nausea and Vomiting Last Admin: 11/05/22 19:26 Dose: 4 mg Documented By: MARTHA Pharmacy Consult (Consult Rx Perform Med Rec) 1 each MISCELLANE ONCE PRN PRN Reason: Consult order Sodium Chloride (0.9 % Sodium Chloride Flush 3 Ml Syringe) 3 ml IVFLUSH QSHIFT [facility] Last Admin: 11/12/22 08:20 Dose: 3 ml Documented By: EDSON Tamsulosin HCl (Tamsulosin Hcl 0.4 Mg Capsule) 0.4 mg PO DAILY [facility] Last Admin: 11/12/22 08:19 Dose: 0.4 mg Documented By: EDSON Labs 11/02/22 08:24 11/07/22 13:50 Labs: Laboratory Results - last 24 hr 11/11/22 11/11/22 11/12/22 16:18 20:10 07:23 POC Glucose 111 172 H 86 11/12/22 11:04 POC Glucose 222 H Assessment and Plan (1) Paroxysmal atrial fibrillation: Status: Acute (2) Essential (primary) hypertension: Status: Acute (3) Diabetes type 2, controlled: Status: Acute Plan Patient admitted to the hospital under observation on telemetry for evaluation and further workup for syncopal episode. No further syncope since admission. PT recommends STR 1.Paroxysmal AFib -no further bradycardia.... Continue to observe on telemetry -continue to hold beta blockade -cardiology following 2.HTN -acceptable control on current therapies -adjust as indicated 3.DMII -acceptable control on current therapies -lispro correctional scale -adjust as indicated Full Code Kaileequis Patient requires ongoing hospitalization pending safe placement; will ask psych for competency exam for patient to facilitate is own choices for discharge Time Spent With Patient Time: Total time managing care of this patient today ____ minutes. Quality Stroke Does the patient have a stroke diagnosis?: No VTE Prior VTE?: No VTE Risk Level:: Medical - moderate - high VTE Device Contraindication: Treatment Not Indicated VTE Drug Contraindication: N/A - Med Ordered
[2022-11-12 16:19] LABS: Glucose, Whole Blood 87 mg/dL (60-115)
[2022-11-12] MEDS: Atorvastatin Calcium 80 MG TABLET PO (20:03)
[2022-11-12 20:11] LABS: Glucose, Whole Blood 124 mg/dL (60-115)
--- NOTE | 2022-11-12 20:22 | PC.NURSE ---
Vape found on pt, pt education provided , verbalized understanding. Banking Teacher took vape from pt, vape given to security.
--- NOTE | 2022-11-12 20:28 | PC.NURSE ---
Patient's son Hussein reported that he brought the vape in to his dad, son educated that vaping isn't allowed in the hospital, son verbalized understanding. Steam Press Tender notified.
[2022-11-13] VITALS (7 sets, daily range): BP systolic 145–164; BP diastolic 61–81; PULSE 53–80; RESP 17–20; TEMP 36.4–37.1; O2SAT 95–99
[2022-11-13 07:40] LABS: Glucose, Whole Blood 111 mg/dL (60-115)
[2022-11-13] MEDS: Tamsulosin HCL 0.4 MG CAPSULE PO (08:40)
[2022-11-13] MEDS: lisinopriL 10 MG TABLET 30 MG PO (08:40)
[2022-11-13] MEDS: Apixaban 5 MG TABLET PO ×2 (08:40→20:08)
[2022-11-13] MEDS: metFORMIN HCl 1,000 MG TABLET 1000 MG PO ×2 (08:40→20:08)
[2022-11-13 11:59] LABS: Glucose, Whole Blood 105 mg/dL (60-115)
--- NOTE | 2022-11-13 15:24 | MHC.CM.PN ---
EMR reviewed and per MD rounds, pt is medically cleared for D/C however has barriers to his discharge due to placement issues/finances, which the team continues to work on resolving. CM will continue to follow.
--- NOTE | 2022-11-13 15:29 | HO.PM.IMPN ---
Subjective Subjective Date of Service: 11/13/22 Interval History: No acute issues overnight. Review of Systems Denies chest pain Denies shortness of breath Denies nausea vomiting diarrhea Denies fever chills Physical Exam Vital Signs: Vital Signs: Last Vital Signs Temp 98.6 F 11/13/22 15:21 Pulse 60 11/13/22 15:21 Resp 17 11/13/22 15:21 BP 146/63 H 11/13/22 15:21 Pulse Ox 99 11/13/22 15:21 O2 Del Method Room Air 11/13/22 15:21 BMI result Body Mass Index 20.4 Const: Other: Awake alert no acute distress Resp: Other: Clear to auscultation diminished at bases Cardio: Other: No S4; positive S1-S2; no S3 murmurs rubs or gallops GI: Other: Soft nontender nondistended normoactive bowel sounds Neuro: Other: Cranial nerves 2-12 grossly intact as tested. Motor is 5/5 all extremities. Sensation is intact. Extrem: Other: No edema bilaterally Objective Data Active Medications Acetaminophen (Acetaminophen 325 Mg Tablet) 650 mg PO Q6H PRN PRN Reason: Pain, Mild (Pain Scale 1-3) Apixaban (Apixaban 5 Mg Tablet) 5 mg PO BID [facility] Last Admin: 11/13/22 08:40 Dose: 5 mg Documented By: JYOTI Atorvastatin Calcium (Atorvastatin Calcium 80 Mg Tablet) 80 mg PO BEDTIME [facility] Last Admin: 11/12/22 20:03 Dose: 80 mg Documented By: MIKE Docusate Sodium (Docusate Sodium 100 Mg Capsule) 100 mg PO DAILY PRN PRN Reason: Constipation Glucose (Glucose Gel 15 Gm Gel..Gram.) 15 gm PO Q15M PRN; Protocol PRN Reason: per Hypoglycemia Standing Ord. Dextrose (D10) 250 mls @ 750 mls/hr IV Q15M PRN; Protocol PRN Reason: per Hypoglycemia Standing Ord. Insulin Human Lispro (Insulin Lispro 100 Unit/Ml 3 Ml Vial) 0 unit SUBCUT QIDACHS [facility]; Protocol Last Admin: 11/13/22 12:00 Dose: Not Given Documented By: GLENN Non-Admin Reason: No Insulin Coverage Lisinopril (Lisinopril 10 Mg Tablet) 30 mg PO DAILY [facility]; Protocol Last Admin: 11/13/22 08:40 Dose: 30 mg Documented By: JYOTI Metformin HCl (Metformin Hcl 1,000 Mg Tablet) 1,000 mg PO BID [facility] Last Admin: 11/13/22 08:40 Dose: 1,000 mg Documented By: JYOTI Ondansetron HCl (Ondansetron Hcl 4 Mg/2 Ml Vial) 4 mg IVPUSH Q8H PRN PRN Reason: Nausea and Vomiting Last Admin: 11/05/22 19:26 Dose: 4 mg Documented By: Smith Pharmacy Consult (Consult Rx Perform Med Rec) 1 each MISCELLANE ONCE PRN PRN Reason: Consult order Sodium Chloride (0.9 % Sodium Chloride Flush 3 Ml Syringe) 3 ml IVFLUSH QSHIFT [facility] Last Admin: 11/13/22 07:33 Dose: Not Given Documented By: JYOTI Non-Admin Reason: See Note Tamsulosin HCl (Tamsulosin Hcl 0.4 Mg Capsule) 0.4 mg PO DAILY [facility] Last Admin: 11/13/22 08:40 Dose: 0.4 mg Documented By: JYOTI Labs 11/02/22 08:24 11/07/22 13:50 Labs: Laboratory Results - last 24 hr 11/12/22 11/12/22 11/13/22 16:06 20:02 07:32 POC Glucose 87 124 H 111 11/13/22 11:56 POC Glucose 105 Assessment and Plan (1) Paroxysmal atrial fibrillation: Status: Acute (2) Essential (primary) hypertension: Status: Acute Plan Patient admitted to the hospital under observation on telemetry for evaluation and further workup for syncopal episode. No further syncope since admission. PT recommends STR 1.Paroxysmal AFib -no further bradycardia.... Continue to observe on telemetry -continue to hold beta blockade -cardiology following 2.HTN -acceptable control on current therapies -adjust as indicated 3.DMII -acceptable control on current therapies -lispro correctional scale -adjust as indicated Full Code Gayathri Patient requires ongoing hospitalization pending safe placement; Time Spent With Patient Time: Total time managing care of this patient today ____ minutes. Quality Stroke Does the patient have a stroke diagnosis?: No VTE Prior VTE?: No VTE Risk Level:: Medical - moderate - high VTE Device Contraindication: Treatment Not Indicated VTE Drug Contraindication: N/A - Med Ordered
--- NOTE | 2022-11-13 15:33 | PM.PSYCN ---
History of Present Illness Date of Service: 11/12/2022 <Chrissy Duran NP - Last Filed: 11/13/22 15:58> Chief Complaint: syncopal episode <Chrissy Duran NP - Last Filed: 11/13/22 15:58> Reason for Consult: Competency exam for patient to facilitate his own choices for discharge. <Chrissy Duran NP - Last Filed: 11/13/22 15:58> Requesting physician: Yahir Coleman <Chrissy Duran NP - Last Filed: 11/13/22 15:58> Discussed with referring provider: Yes <Chrissy Duran NP - Last Filed: 11/13/22 15:58> Sources of Information: patient interviewed and chart reviewed <Chrissy Duran NP - Last Filed: 11/13/22 15:58> HPI Narrative: Pt is a 77-year-old male with a PMH significant for hx of CVA, yel-jbjbugg-ocizysogn diabetes, paroxysmal AFib on Eliquis, HTN, HLD, and hx of frequent falls who presents to the ED for evaluation after a witnessed syncopal episode. <Chrissy Duran NP - Last Filed: 11/13/22 15:58> Pt is a 77-year-old male with a PMH significant for hx of CVA, oag-hvxdumo-zwzvgbkbs diabetes, paroxysmal AFib on Eliquis, HTN, HLD, and hx of frequent falls who presents to the ED for evaluation after a witnessed syncopal episode. We were asked by Dr. Coleman and by case management to see if there were any concerns regarding patient being able to manage his own affairs. The patient had been living with his son in [place] and moved in and was living with a woman friend that he knows not his partner. He is aware he had a syncopal episode he was in a rehab setting prior to admission and apparently there are some financial concerns and he is not able to go back to that setting. He does have a child to has ptmih-vd-aspbfitl and has a healthcare proxy non activated <Mazin Romero MD - Last Filed: 11/15/22 16:21> Past Psychiatric History: none <Mazin Romero MD - Last Filed: 11/15/22 16:21> Personal & Social History: The patient is retired has 3 sons was in the has a pension and also social security . He was living with a son in [place] and is hoping eventually to live with a no other son living in this area. He intentionally moved back to [facility] <Mazin Romero MD - Last Filed: 11/15/22 16:21> Review of Systems Constitutional: Reports as per HPI <Chrissy Khabir, FORECL[employer]URE PARALEGAL - Last Filed: 11/13/22 15:58> Eyes: Reports as per HPI <Chrissy Khabir, [employer] - Last Filed: 11/13/22 15:58> Reports as per HPI <Chrissy Khabir, [employer]ECL[employer]ALEGAL - Last Filed: 11/13/22 15:58> Cardiovascular: Reports as per HPI <Chrissy Khabir, [employer]ECL[employer]GAL - Last Filed: 11/13/22 15:58> Respiratory: Reports as per HPI <Chrissy Khabir, [employer]GAL - Last Filed: 11/13/22 15:58> Gastrointestinal: Reports as per HPI <Chrissy Khabir, [employer]GAL - Last Filed: 11/13/22 15:58> Genitourinary: Reports as per HPI <Chrissy Khabir, [employer]URE [employer]GAL - Last Filed: 11/13/22 15:58> Musculoskeletal: Reports as per HPI <Chrissy Khabir, [employer] - Last Filed: 11/13/22 15:58> Skin/Breast: Reports as per HPI <Chrissy Khabir, [employer] - Last Filed: 11/13/22 15:58> Reports as per HPI <Chrissy Khabir, [employer]ECL[employer]URE [employer]ALEGAL - Last Filed: 11/13/22 15:58> Psychiatric: Reports as per HPI <Chrissy Khabir, FORECL[employer]URE [employer]ALEGAL - Last Filed: 11/13/22 15:58> Endocrine: Reports as per HPI <Chrissy Khabir, [employer]ECL[employer]URE [employer]GAL - Last Filed: 11/13/22 15:58> Hematologic/Lymphatic: Reports as per HPI <Chrissy Khabir, [employer]GAL - Last Filed: 11/13/22 15:58> Allergic/Immunologic: Reports as per HPI <Chrissy Khabir, FORECL[employer]URE [employer]ALEGAL - Last Filed: 11/13/22 15:58> [facility] Medical History: Medical History (Updated 11/15/22 @ 16:18 by Mazin Romero MD) CVA (cerebral vascular accident) Diabetes type 2, controlled Essential (primary) hypertension Hemiplegia and hemiparesis following cerebral infarction affecting right dominant side Hyperlipidemia Repeated falls <Chrissy Duran NP - Last Filed: 11/13/22 15:58> Substance History: unknown <Chrissy Duran NP - Last Filed: 11/13/22 15:58> Trauma History: unknown <Chrissy Duran NP - Last Filed: 11/13/22 15:58> Diagnostics Vital Signs (24Hr): Vital Signs - 24 hr 11/12/22 15:44 11/12/22 20:00 11/12/22 23:22 Temperature 98.0 F 98.0 F 98.7 F Pulse Rate 73 76 76 Respiratory Rate 18 17 18 Blood Pressure 125/60 165/60 H 157/54 H Pulse Oximetry 94 98 96 Oxygen Delivery Method Room Air Room Air Room Air 11/13/22 04:00 11/13/22 07:22 11/13/22 09:44 Temperature 98.4 F 97.5 F Pulse Rate 53 73 73 Respiratory Rate 20 20 Blood Pressure 153/61 H 156/68 H 156/68 H Pulse Oximetry 95 96 96 Oxygen Delivery Method Room Air Room Air 11/13/22 11:02 11/13/22 15:21 Temperature 97.9 F 98.6 F Pulse Rate 77 60 Respiratory Rate 18 17 Blood Pressure 158/65 H 146/63 H Pulse Oximetry 99 99 Oxygen Delivery Method Room Air Room Air BMI result Body Mass Index 20.4 <Chrissy Duran NP - Last Filed: 11/13/22 15:58> Labs Results: 11/02/22 08:24 11/07/22 13:50 <Chrissy Duran NP - Last Filed: 11/13/22 15:58> Labs: Laboratory Results - last 48 hr 11/11/22 11/11/22 11/12/22 16:18 20:10 07:23 POC Glucose 111 172 H 86 11/12/22 11/12/22 11/12/22 11:04 16:06 20:02 POC Glucose 222 H 87 124 H 11/13/22 11/13/22 07:32 11:56 POC Glucose 111 105 <Chrissy Duran NP - Last Filed: 11/13/22 15:58> Imaging Radiology Impressions: ITS Impressions Chest X-Ray 10/29/22 14:40 IMPRESSION: Some increased density reticular nodular in the region of the right mid to lower lung zone adjacent the patient's nipple shadow could represent an area of infiltrate. Attention to follow-up In addition a nodular lung lesion suggested on the lateral film. CT would be recommended to fully evaluate. This may be done on an outpatient basis Head CT 10/29/22 18:01 IMPRESSION: Negative acute noncontrast CT of the brain. Note is made of atrophy and scattered areas of infarct and white matter ischemic changes Chest CT 11/02/22 14:10 IMPRESSION: Emphysema. 3 x 4 cm heterogeneous groundglass attenuation area in the left lower lobe with 6 x 8 mm solid component. Short-term follow-up chest CT in 2-3 months recommended to see if this is a persistent finding. Additional smaller pulmonary nodules. Severe atherosclerotic disease with coronary artery and aortic valve calcification. Dilated common bile duct. Follow-up dedicated abdominal imaging recommended. Fleischner guidelines were followed. Abdomen Ultrasound 11/03/22 19:40 IMPRESSION: Variable size of the common bile duct. Common bile duct measures 1.2 cm proximally and tapers smoothly distally measuring 0.7 cm in the midportion and 0.4 cm distally the head of the pancreas. Thickened gallbladder wall with ring down artifact suggestive of adenomyomatosis of the gallbladder wall. No gallstone seen. Small liver cyst. Nonvisualization of the pancreas. <Chrissy Duran NP - Last Filed: 11/13/22 15:58> Mental Status Exam Mental Status Exam Narrative: Pt is alert and oriented; behavior is cooperative, friendly and calm; patient is not in distress; dressed in hospital attire; mood is described as okay ; eye contact appropriate; Speech is delayed,with normal volume and prosody and not pressured; no psychomotor agitation/retardation present; thought process is organized; Thought content is on tx; otherwise pertinent to relevant topics and without any delusional content, paranoid ideations or grandiosity; denies any SI/HI. There is no evidence of perceptual disturbance. Patients insight and judgment are fair. <Chrissy Duran NP - Last Filed: 11/13/22 15:58> Pt is alert and oriented; behavior is cooperative, friendly and calm; patient is not in di generally intact P stress; dressed in hospital attire; mood is described as okay ; eye contact appropriate; Speech is delayed,with normal volume and prosody and not pressured; no psychomotor agitation/retardation present; thought process is organized; Thought content is on tx; otherwise pertinent to relevant topics and without any delusional content, paranoid ideations or grandiosity; denies any SI/HI. There is no evidence of perceptual disturbance. Patients insight and judgment are generally intact. Patient knew he was at [facility] was able to state to he wanted as healthcare proxy who had power of associate attorney and where he wanted to live. He knew he needed home-based services. Patient knew the season president place reason for admission. He understood that he had had a CVA last year The patient understood that he could not live on his own he understood that he needed help managing his medications and although he agreed to placement in a rehab setting he did not want to be placed in a long-term care facility and was hoping to live with a son who lives in [facility]. He was quite clear about not wanting to be in a long-term care facility ? usp He did know the exact amounts of his cell security and pension monthly <Mazin Romero MD - Last Filed: 11/15/22 16:21> Medications Medications Current Medications Acetaminophen (Acetaminophen 325 Mg Tablet) 650 mg PO Q6H PRN PRN Reason: Pain, Mild (Pain Scale 1-3) Apixaban (Apixaban 5 Mg Tablet) 5 mg PO BID [facility] Last Admin: 11/13/22 08:40 Dose: 5 mg Atorvastatin Calcium (Atorvastatin Calcium 80 Mg Tablet) 80 mg PO BEDTIME [facility] Last Admin: 11/12/22 20:03 Dose: 80 mg Docusate Sodium (Docusate Sodium 100 Mg Capsule) 100 mg PO DAILY PRN PRN Reason: Constipation Glucose (Glucose Gel 15 Gm Gel..Gram.) 15 gm PO Q15M PRN; Protocol PRN Reason: per Hypoglycemia Standing Ord. Dextrose (D10) 250 mls @ 750 mls/hr IV Q15M PRN; Protocol PRN Reason: per Hypoglycemia Standing Ord. Insulin Human Lispro (Insulin Lispro 100 Unit/Ml 3 Ml Vial) 0 unit SUBCUT QIDACHS [facility]; Protocol Last Admin: 11/13/22 12:00 Dose: Not Given Lisinopril (Lisinopril 10 Mg Tablet) 30 mg PO DAILY [facility]; Protocol Last Admin: 11/13/22 08:40 Dose: 30 mg Metformin HCl (Metformin Hcl 1,000 Mg Tablet) 1,000 mg PO BID [facility] Last Admin: 11/13/22 08:40 Dose: 1,000 mg Ondansetron HCl (Ondansetron Hcl 4 Mg/2 Ml Vial) 4 mg IVPUSH Q8H PRN PRN Reason: Nausea and Vomiting Last Admin: 11/05/22 19:26 Dose: 4 mg Pharmacy Consult (Consult Rx Perform Med Rec) 1 each MISCELLANE ONCE PRN PRN Reason: Consult order Sodium Chloride (0.9 % Sodium Chloride Flush 3 Ml Syringe) 3 ml IVFLUSH QSHIFT [facility] Last Admin: 11/13/22 07:33 Dose: Not Given Tamsulosin HCl (Tamsulosin Hcl 0.4 Mg Capsule) 0.4 mg PO DAILY [facility] Last Admin: 11/13/22 08:40 Dose: 0.4 mg <Chrissy Duran NP - Last Filed: 11/13/22 15:58> Allergies Allergies Allergy/AdvReac Type Severity Reaction Status Date / Time No Known Allergies Allergy Verified 09/18/22 13:13 [No Known Allergies*] <Chrisys Duran NP - Last Filed: 11/13/22 15:58> Assessment & Plan Assessment & Plan (1) Paroxysmal atrial fibrillation: Status: Acute <Chrissy Duran NP - Last Filed: 11/13/22 15:58> Code(s): I48.0 - Paroxysmal atrial fibrillation <Chrissy Duran NP - Last Filed: 11/13/22 15:58> (2) Diabetes type 2, controlled: Status: Acute <Chrissy Duran NP - Last Filed: 11/13/22 15:58> Code(s): E11.9 - Type 2 diabetes mellitus without complications <Chrissy Duran NP - Last Filed: 11/13/22 15:58> Assessment and Plan: Prior to evaluation I explained to patient prior to meeting with him that there had been some questions regarding his decision capacity. The patient was quite clear regarding his wishes he was generally alert oriented understood why he had been in the hospital and understood why he had need to go to a rehab setting. He was also able to relate about his past CVA last year and difficulty since then. Patient was aware that there was a power of associate attorney whom he trusted and had a local healthcare proxy 1 of his sons that he stated absolutely wanted him to be decision maker. He had no concerns regarding his son's FX and ability to do this. Healthcare proxy has not been invoked and this time patient appears to be his own decision maker. If there are any concerns regarding exploitation of any kind that should be reported to the appropriate agency. Would check B12 folate TSH patient might benefit from [facility] services if available patient was seen with the nurse practitioner Suma Duran NP Case was reviewed extensively with case management and with hospitalist Dr. Coleman <Mazin Romero MD - Last Filed: 11/15/22 16:21> Total time managing care of this patient today ____ minutes. <Chrissy Duran NP - Last Filed: 11/13/22 15:58> Total time managing care of this patient today _55___ minutes. <Mazin Romero MD - Last Filed: 11/15/22 16:21> Patient educated on: therapeutic strategies and medical condition <Mazin Romero MD - Last Filed: 11/15/22 16:21> Informed Consent: understands <Mazin Romero MD - Last Filed: 11/15/22 16:21>
[2022-11-13 16:21] LABS: Glucose, Whole Blood 124 mg/dL (60-115)
[2022-11-13] MEDS: 0.9 % Sodium Chloride Flush 3 ML SYRINGE IVFLUSH ×2 (17:10→20:08)
[2022-11-13] MEDS: Atorvastatin Calcium 80 MG TABLET PO (20:08)
[2022-11-13 20:27] LABS: Glucose, Whole Blood 182 mg/dL (60-115)
[2022-11-13] MEDS: Insulin Lispro 100 UNIT/ML 3 ML VIAL SUBCUT (20:50)
--- NOTE | 2022-11-14 02:00 | PC.NURSE ---
pt had elevated t waves page Lubin notified.
[2022-11-14 03:04] VITALS: PULSE 57; RESP 18; TEMP 37.1; O2SAT 97
[2022-11-14 03:06] VITALS: BP 167/80; PULSE 59; RESP 18; TEMP 37; O2SAT 97
[2022-11-14 07:42] VITALS: BP 152/66; PULSE 60; RESP 16; TEMP 36.5; O2SAT 96
[2022-11-14 07:50] LABS: Glucose, Whole Blood 96 mg/dL (60-115)
[2022-11-14] MEDS: 0.9 % Sodium Chloride Flush 3 ML SYRINGE IVFLUSH ×2 (07:59→20:36)
[2022-11-14] MEDS: Apixaban 5 MG TABLET PO ×2 (08:03→20:35)
[2022-11-14] MEDS: lisinopriL 10 MG TABLET 30 MG PO (08:03)
[2022-11-14] MEDS: metFORMIN HCl 1,000 MG TABLET 1000 MG PO ×2 (08:03→20:35)
[2022-11-14] MEDS: Tamsulosin HCL 0.4 MG CAPSULE PO (08:03)
--- NOTE | 2022-11-14 11:03 | HO.PM.IMPN ---
Subjective Subjective Date of Service: 11/14/22 Interval History: No acute issues overnight Review of Systems Denies chest pain Denies shortness of breath Denies nausea vomiting diarrhea Denies fever chills Physical Exam Vital Signs: Vital Signs: Last Vital Signs Temp 97.7 F 11/14/22 07:42 Pulse 60 11/14/22 07:42 Resp 16 11/14/22 07:42 BP 152/66 H 11/14/22 07:42 Pulse Ox 96 11/14/22 07:42 O2 Del Method Room Air 11/14/22 07:42 BMI result Body Mass Index 20.4 Const: Other: Awake alert no acute distress Resp: Other: Clear to auscultation diminished at bases Cardio: Other: No S4; positive S1-S2; no S3 murmurs rubs or gallops GI: Other: Soft nontender nondistended normoactive bowel sounds Neuro: Other: Cranial nerves 2-12 grossly intact as tested. Motor is 5/5 all extremities. Sensation is intact. Extrem: Other: No edema bilaterally Objective Data Active Medications Acetaminophen (Acetaminophen 325 Mg Tablet) 650 mg PO Q6H PRN PRN Reason: Pain, Mild (Pain Scale 1-3) Apixaban (Apixaban 5 Mg Tablet) 5 mg PO BID [facility] Last Admin: 11/14/22 08:03 Dose: 5 mg Documented By: ROSE MARIE Atorvastatin Calcium (Atorvastatin Calcium 80 Mg Tablet) 80 mg PO BEDTIME [facility] Last Admin: 11/13/22 20:08 Dose: 80 mg Documented By: SUNSHINE Docusate Sodium (Docusate Sodium 100 Mg Capsule) 100 mg PO DAILY PRN PRN Reason: Constipation Glucose (Glucose Gel 15 Gm Gel..Gram.) 15 gm PO Q15M PRN; Protocol PRN Reason: per Hypoglycemia Standing Ord. Dextrose (D10) 250 mls @ 750 mls/hr IV Q15M PRN; Protocol PRN Reason: per Hypoglycemia Standing Ord. Insulin Human Lispro (Insulin Lispro 100 Unit/Ml 3 Ml Vial) 0 unit SUBCUT QIDACHS [facility]; Protocol Last Admin: 11/14/22 07:56 Dose: Not Given Documented By: ROSE MARIE Non-Admin Reason: No Insulin Coverage Lisinopril (Lisinopril 10 Mg Tablet) 30 mg PO DAILY [facility]; Protocol Last Admin: 11/14/22 08:03 Dose: 30 mg Documented By: ROSE MARIE Metformin HCl (Metformin Hcl 1,000 Mg Tablet) 1,000 mg PO BID [facility] Last Admin: 11/14/22 08:03 Dose: 1,000 mg Documented By: ROSE MARIE Ondansetron HCl (Ondansetron Hcl 4 Mg/2 Ml Vial) 4 mg IVPUSH Q8H PRN PRN Reason: Nausea and Vomiting Last Admin: 11/05/22 19:26 Dose: 4 mg Documented By: Smith Pharmacy Consult (Consult Rx Perform Med Rec) 1 each MISCELLANE ONCE PRN PRN Reason: Consult order Sodium Chloride (0.9 % Sodium Chloride Flush 3 Ml Syringe) 3 ml IVFLUSH QSHIFT [facility] Last Admin: 11/14/22 07:59 Dose: 3 ml Documented By: ROSE MARIE Tamsulosin HCl (Tamsulosin Hcl 0.4 Mg Capsule) 0.4 mg PO DAILY [facility] Last Admin: 11/14/22 08:03 Dose: 0.4 mg Documented By: ROSE MARIE Labs 11/02/22 08:24 11/07/22 13:50 Labs: Laboratory Results - last 24 hr 11/13/22 11/13/22 11/13/22 11:56 16:06 20:18 POC Glucose 105 124 H 182 H 11/14/22 07:44 POC Glucose 96 Assessment and Plan (1) Paroxysmal atrial fibrillation: Status: Acute (2) Essential (primary) hypertension: Status: Acute (3) Diabetes type 2, controlled: Status: Acute Plan Patient admitted to the hospital under observation on telemetry for evaluation and further workup for syncopal episode. No further syncope since admission. PT recommends STR 1.Paroxysmal AFib -no further bradycardia.... Continue to observe on telemetry -continue to hold beta blockade -cardiology following 2.HTN -acceptable control on current therapies -adjust as indicated 3.DMII -acceptable control on current therapies -lispro correctional scale -adjust as indicated Full Code Gayathri Patient requires ongoing hospitalization pending safe placement; Time Spent With Patient Time: Total time managing care of this patient today ____ minutes. Quality Stroke Does the patient have a stroke diagnosis?: No VTE Prior VTE?: No VTE Risk Level:: Medical - moderate - high VTE Device Contraindication: Treatment Not Indicated VTE Drug Contraindication: N/A - Med Ordered
[2022-11-14 11:18] LABS: Glucose, Whole Blood 102 mg/dL (60-115)
[2022-11-14 13:10] VITALS: BP 148/66; PULSE 85; RESP 20; TEMP 36.3; O2SAT 99
[2022-11-14 16:00] LABS: Glucose, Whole Blood 124 mg/dL (60-115)
[2022-11-14 16:38] VITALS: BP 125/50; PULSE 86; RESP 20; TEMP 36.6; O2SAT 99
[2022-11-14 20:26] LABS: Glucose, Whole Blood 155 mg/dL (60-115)
[2022-11-14] MEDS: Atorvastatin Calcium 80 MG TABLET PO (20:35)
[2022-11-14] MEDS: Insulin Lispro 100 UNIT/ML 3 ML VIAL SUBCUT (20:36)
[2022-11-14 23:31] VITALS: BP 166/77; PULSE 63; RESP 17; TEMP 35.9; O2SAT 98
[2022-11-15 03:39] VITALS: BP 138/68; PULSE 65; RESP 18; TEMP 35.6; O2SAT 98
[2022-11-15 07:31] VITALS: BP 173/73; PULSE 50; RESP 18; TEMP 36.2; O2SAT 98
[2022-11-15 08:01] LABS: Glucose, Whole Blood 85 mg/dL (60-115)
[2022-11-15] MEDS: lisinopriL 10 MG TABLET 30 MG PO (08:32)
[2022-11-15] MEDS: Apixaban 5 MG TABLET PO ×2 (08:35→20:42)
[2022-11-15] MEDS: Tamsulosin HCL 0.4 MG CAPSULE PO (08:35)
[2022-11-15] MEDS: 0.9 % Sodium Chloride Flush 3 ML SYRINGE IVFLUSH ×2 (08:36→20:43)
[2022-11-15] MEDS: metFORMIN HCl 1,000 MG TABLET 1000 MG PO ×2 (08:36→20:42)
[2022-11-15 08:53] LABS: Creatinine Clr Calc Pharmacy 80.1; Estimated Glomerular Filt Rate > 60
[2022-11-15 11:18] VITALS: BP 183/73; PULSE 53; RESP 19; TEMP 36.3; O2SAT 99
--- NOTE | 2022-11-15 11:34 | HO.PM.IMPN ---
Subjective Subjective Date of Service: 11/15/22 Interval History: No acute issues overall Review of Systems Denies chest pain Denies shortness of breath Denies nausea vomiting diarrhea Denies fever chills Physical Exam Vital Signs: Vital Signs: Last Vital Signs Temp 97.4 F 11/15/22 11:18 Pulse 53 11/15/22 11:18 Resp 19 11/15/22 11:18 BP 183/73 H 11/15/22 11:18 Pulse Ox 99 11/15/22 11:18 O2 Del Method Room Air 11/15/22 11:18 BMI result Body Mass Index 20.4 Const: Other: Awake alert no acute distress Resp: Other: Clear to auscultation diminished at bases Cardio: Other: No S4; positive S1-S2; no S3 murmurs rubs or gallops GI: Other: Soft nontender nondistended normoactive bowel sounds Neuro: Other: Cranial nerves 2-12 grossly intact as tested. Motor is 5/5 all extremities. Sensation is intact. Extrem: Other: No edema bilaterally Objective Data Active Medications Acetaminophen (Acetaminophen 325 Mg Tablet) 650 mg PO Q6H PRN PRN Reason: Pain, Mild (Pain Scale 1-3) Apixaban (Apixaban 5 Mg Tablet) 5 mg PO BID [facility] Last Admin: 11/15/22 08:35 Dose: 5 mg Documented By: ROSE MARIE Atorvastatin Calcium (Atorvastatin Calcium 80 Mg Tablet) 80 mg PO BEDTIME [facility] Last Admin: 11/14/22 20:35 Dose: 80 mg Documented By: JESSICA Docusate Sodium (Docusate Sodium 100 Mg Capsule) 100 mg PO DAILY PRN PRN Reason: Constipation Glucose (Glucose Gel 15 Gm Gel..Gram.) 15 gm PO Q15M PRN; Protocol PRN Reason: per Hypoglycemia Standing Ord. Dextrose (D10) 250 mls @ 750 mls/hr IV Q15M PRN; Protocol PRN Reason: per Hypoglycemia Standing Ord. Insulin Human Lispro (Insulin Lispro 100 Unit/Ml 3 Ml Vial) 0 unit SUBCUT QIDACHS [facility]; Protocol Last Admin: 11/15/22 08:35 Dose: Not Given Documented By: ROSE MARIE Non-Admin Reason: No Insulin Coverage Lisinopril (Lisinopril 10 Mg Tablet) 30 mg PO DAILY [facility]; Protocol Last Admin: 11/15/22 08:32 Dose: 30 mg Documented By: ROSE MARIE Metformin HCl (Metformin Hcl 1,000 Mg Tablet) 1,000 mg PO BID [facility] Last Admin: 11/15/22 08:36 Dose: 1,000 mg Documented By: ROSE MARIE Ondansetron HCl (Ondansetron Hcl 4 Mg/2 Ml Vial) 4 mg IVPUSH Q8H PRN PRN Reason: Nausea and Vomiting Last Admin: 11/05/22 19:26 Dose: 4 mg Documented By: MARTHA Pharmacy Consult (Consult Rx Perform Med Rec) 1 each MISCELLANE ONCE PRN PRN Reason: Consult order Sodium Chloride (0.9 % Sodium Chloride Flush 3 Ml Syringe) 3 ml IVFLUSH QSHIFT [facility] Last Admin: 11/15/22 08:36 Dose: 3 ml Documented By: ROSE MARIE Tamsulosin HCl (Tamsulosin Hcl 0.4 Mg Capsule) 0.4 mg PO DAILY [facility] Last Admin: 11/15/22 08:35 Dose: 0.4 mg Documented By: ROSE MARIE Labs 11/02/22 08:24 11/15/22 07:55 Labs: Laboratory Results - last 24 hr 11/14/22 11/14/22 11/15/22 15:49 20:24 07:34 Estim Creat Clear Calc Estimated GFR POC Glucose 124 H 155 H 85 11/15/22 07:55 Estim Creat Clear Calc 80.1 Estimated GFR > 60 POC Glucose Assessment and Plan (1) Paroxysmal atrial fibrillation: Status: Acute (2) Essential (primary) hypertension: Status: Acute Plan Patient admitted to the hospital under observation on telemetry for evaluation and further workup for syncopal episode. No further syncope since admission. PT recommends STR 1.Paroxysmal AFib -no further bradycardia.... Continue to observe on telemetry -continue to hold beta blockade -DC telemetry 2.HTN -acceptable control on current therapies -adjust as indicated 3.DMII -acceptable control on current therapies -lispro correctional scale -adjust as indicated Full Code Gayathri Patient requires ongoing hospitalization pending safe placement; Time Spent With Patient Time: Total time managing care of this patient today ____ minutes. Quality Stroke Does the patient have a stroke diagnosis?: No VTE Prior VTE?: No VTE Risk Level:: Medical - moderate - high VTE Device Contraindication: Treatment Not Indicated VTE Drug Contraindication: N/A - Med Ordered
[2022-11-15 11:48] LABS: Glucose, Whole Blood 173 mg/dL (60-115)
[2022-11-15] MEDS: Insulin Lispro 100 UNIT/ML 3 ML VIAL SUBCUT ×2 (12:09→20:41)
[2022-11-15 15:31] LABS: Glucose, Whole Blood 141 mg/dL (60-115)
[2022-11-15 15:35] VITALS: BP 140/60; PULSE 68; RESP 18; TEMP 36.6
[2022-11-15] MEDS: amLODIPine Besylate 5 MG TABLET PO (15:37)
--- NOTE | 2022-11-15 19:00 | PC.NURSE ---
Pt hypertensive in afternoon into 180's Dr Coleman notified added oral meds given per order SBP at 1530 140/60 prior to giving new med Dr Coleman notified via [facility]. Will continue to monitor and report changes
[2022-11-15 19:17] VITALS: BP 133/66; PULSE 75; RESP 18; TEMP 37.1; O2SAT 98
[2022-11-15 20:09] LABS: Glucose, Whole Blood 218 mg/dL (60-115)
[2022-11-15] MEDS: Atorvastatin Calcium 80 MG TABLET PO (20:42)
[2022-11-15 23:07] VITALS: BP 154/68; PULSE 70; RESP 18; TEMP 37.1; O2SAT 98
[2022-11-16] VITALS (7 sets, daily range): BP systolic 143–210; BP diastolic 64–84; PULSE 51–76; RESP 18–21; TEMP 36.1–36.9; O2SAT 90–99
--- NOTE | 2022-11-16 04:08 | PC.NURSE ---
Paged to advise manual BP 210/84 and lisinopril was increased 11/15 and added amlodipine.
[2022-11-16 08:09] LABS: Glucose, Whole Blood 94 mg/dL (60-115)
[2022-11-16] MEDS: Apixaban 5 MG TABLET PO ×2 (09:08→19:56)
[2022-11-16] MEDS: metFORMIN HCl 1,000 MG TABLET 1000 MG PO ×2 (09:08→19:56)
[2022-11-16] MEDS: Tamsulosin HCL 0.4 MG CAPSULE PO (09:08)
[2022-11-16] MEDS: amLODIPine Besylate 10 MG TABLET PO (09:10)
[2022-11-16] MEDS: lisinopriL 40 MG TABLET PO (09:13)
--- NOTE | 2022-11-16 10:33 | MHC.CM.PN ---
CM has reached out to [facility], requesting a status update regarding this facility's readiness to admit Patient. CM will follow.
[2022-11-16] MEDS: Nicotine 7 MG PATCH.TD24 TRANSDERMA (10:57)
--- NOTE | 2022-11-16 11:14 | HO.PM.IMPN ---
Subjective Subjective Date of Service: 11/16/22 Interval History: BP high no chest pain endorses nicotine craving Review of Systems Review of Systems: Yes all other systems are reviewed and are negative Physical Exam Vital Signs: Vital Signs: Last Vital Signs Temp 97.0 F 11/16/22 07:24 Pulse 51 11/16/22 07:24 Resp 20 11/16/22 07:24 BP 194/82 H 11/16/22 07:24 Pulse Ox 97 11/16/22 07:24 O2 Del Method Room Air 11/16/22 07:24 BMI result Body Mass Index 20.4 Gen: in no acute distress HEENT: sclera anicteric, moist mucus membranes Neck: supple Lungs: clear to auscultation bilaterally Heart: regular rate and rhythm, no murmurs Abd: soft, non-tender, non-distended Ext: no edema Skin: warm/well-perfused Neuro: alert and oriented x3, no focal findings Psych: appropriate affect Objective Data Active Medications Acetaminophen (Acetaminophen 325 Mg Tablet) 650 mg PO Q6H PRN PRN Reason: Pain, Mild (Pain Scale 1-3) Amlodipine Besylate (Amlodipine Besylate 10 Mg Tablet) 10 mg PO DAILY [facility]; Protocol Last Admin: 11/16/22 09:10 Dose: 10 mg Documented By: MARTHA Apixaban (Apixaban 5 Mg Tablet) 5 mg PO BID [facility] Last Admin: 11/16/22 09:08 Dose: 5 mg Documented By: MARTHA Atorvastatin Calcium (Atorvastatin Calcium 80 Mg Tablet) 80 mg PO BEDTIME [facility] Last Admin: 11/15/22 20:42 Dose: 80 mg Documented By: SCOT Docusate Sodium (Docusate Sodium 100 Mg Capsule) 100 mg PO DAILY PRN PRN Reason: Constipation Glucose (Glucose Gel 15 Gm Gel..Gram.) 15 gm PO Q15M PRN; Protocol PRN Reason: per Hypoglycemia Standing Ord. Dextrose (D10) 250 mls @ 750 mls/hr IV Q15M PRN; Protocol PRN Reason: per Hypoglycemia Standing Ord. Insulin Human Lispro (Insulin Lispro 100 Unit/Ml 3 Ml Vial) 0 unit SUBCUT QIDACHS [facility]; Protocol Last Admin: 11/16/22 09:07 Dose: Not Given Documented By: MARTHA Non-Admin Reason: No Insulin Coverage Lisinopril (Lisinopril 40 Mg Tablet) 40 mg PO DAILY [facility]; Protocol Last Admin: 11/16/22 09:13 Dose: 40 mg Documented By: MARTHA Metformin HCl (Metformin Hcl 1,000 Mg Tablet) 1,000 mg PO BID [facility] Last Admin: 11/16/22 09:08 Dose: 1,000 mg Documented By: MARTHA Nicotine (Nicotine 7 Mg Patch.Td24) 7 mg TRANSDERMA DAILY [facility] Last Admin: 11/16/22 10:57 Dose: 7 mg Documented By: MARTHA Nicotine Polacrilex (Nicotine Polacrilex 2 Mg Gum) 2 mg BUCCAL Q2H PRN PRN Reason: tobcrav Ondansetron HCl (Ondansetron Hcl 4 Mg/2 Ml Vial) 4 mg IVPUSH Q8H PRN PRN Reason: Nausea and Vomiting Last Admin: 11/05/22 19:26 Dose: 4 mg Documented By: MARTHA Pharmacy Consult (Consult Rx Perform Med Rec) 1 each MISCELLANE ONCE PRN PRN Reason: Consult order Sodium Chloride (0.9 % Sodium Chloride Flush 3 Ml Syringe) 3 ml IVFLUSH QSHIFT [facility] Last Admin: 11/16/22 09:07 Dose: Not Given Documented By: MARTHA Non-Admin Reason: No Access Tamsulosin HCl (Tamsulosin Hcl 0.4 Mg Capsule) 0.4 mg PO DAILY [facility] Last Admin: 11/16/22 09:08 Dose: 0.4 mg Documented By: MARTHA Labs 11/02/22 08:24 11/15/22 07:55 Labs: Laboratory Results - last 24 hr 11/15/22 11/15/22 11/15/22 11:20 15:16 20:02 POC Glucose 173 H 141 H 218 H 11/16/22 07:31 POC Glucose 94 Assessment and Plan (1) Paroxysmal atrial fibrillation: Status: Acute (2) Essential (primary) hypertension: Status: Acute Plan d#15 77yo M with hx CVA, DM2, paroxysmal AF on apixaban, HTN, HLD, frequent falls admitted after witnessed syncope at [facility], where he was residing for [facility] but did not have a payor source # HTN urgency - Increase amlodipine + lisinopril + monitor BP - Recheck BMP week of 7/3 # paroxysmal AF - Noted to have bradycardia and junctional rhythm, therefore?metoprolol discontinued. Heart rate improved and remained stable. Seen by Cardiology and they will arrange for 30 day event monitor along with outpatient f/u. - TTE 11/09/22: - The left ventricular systolic function is normal.? The ? calculated ejection fraction is 63% by biplane method. ? - There is severely increased left ventricular wall thickness. ? - There is evidence of regional wall motion abnormalities. ? ? ? - There is moderate calcification of the aortic valve. ? - There is moderate posterior mitral annular calcification. - Continue apixaban # incidental CBD dilation -? Patient denies abdominal pain; tolerating diet without N/V; LFTs normal; US showed variable size of CBD with no gallstones. No further w/u indicated # pulmonary nodule - On CT: Emphysema.? 3 x 4 cm heterogeneous groundglass attenuation area in the left lower lobe with 6 x 8 mm solid component. Short-term follow-up chest CT in 2-3 months recommended to see if this is a persistent finding # syncope - Perhaps related to intermittent bradycardia for which metoprolol discontinued. Ventricular rate? improved and syncope has not recurred. ? # lactic acidosis - Resolved after IV fluids # hx CVA - Continue statin + antihypertensives + apixaban # DM2 - Continue metformin, maira-dose lispro # VTE ppx: apixaban # dispo: CM working financial barriers to SNF placement Time Spent With Patient Time: Total time managing care of this patient today ___35_ minutes. Quality Stroke Does the patient have a stroke diagnosis?: No VTE Prior VTE?: No VTE Risk Level:: Medical - moderate - high VTE Device Contraindication: Treatment Not Indicated VTE Drug Contraindication: N/A - Med Ordered
[2022-11-16 11:50] LABS: Glucose, Whole Blood 169 mg/dL (60-115)
[2022-11-16] MEDS: Insulin Lispro 100 UNIT/ML 3 ML VIAL SUBCUT (12:16)
--- NOTE | 2022-11-16 14:34 | P.CDIM_ITS ---
PROVIDER RESPONSE TEXT: To clarify, the appropriate diagnosis supported by the clinical indicators: Acute QUERY TEXT: PHYSICIAN'S DOCUMENTATION REQUEST Date of Query: 11/03/2022 12:40 PM EDT Patient Name: Everardo Bennett Admit Date: 11/02/2022 Dear Kapil Becerra, A review of the medical record indicates additional documentation may be needed. Please review below and update the documentation accordingly. Clinical Indicators: Lactic acid on 10/29/22: 3.9 Per Hospitalist Progress Note 11/03/22: lactic acidosis - resolved after IV fluids Clarify which of the following accurately represents the acuity of the Lactic acidosis. Possible options might include: Acute Acute on chronic Compensated Chronic stable condition Other (explain)Clinically unable to determine (explain)Thank you, Zulma Cuba RN Use of terms such as suspected, likely, concern for, or probable (associated with a specific diagnosi s that is being evaluated, monitored, or treated as if it exists) are acceptable and can be coded in the inpatient se tting, when documented at the time of discharge. Please use your independent medical judgment in providing your response. THIS QUERY IS PART OF THE PERMANENT MEDICAL RECORD
[2022-11-16 15:40] LABS: Glucose, Whole Blood 100 mg/dL (60-115)
[2022-11-16 19:50] LABS: Glucose, Whole Blood 136 mg/dL (60-115)
[2022-11-16] MEDS: Atorvastatin Calcium 80 MG TABLET PO (19:56)
[2022-11-17] VITALS (8 sets, daily range): BP systolic 136–184; BP diastolic 60–80; PULSE 69–96; RESP 14–20; TEMP 36.1–36.8; O2SAT 95–100
[2022-11-17] MEDS: hydrALAZINE HCl 20 MG/ML VIAL 5 MG IVPUSH (01:14)
[2022-11-17 07:27] LABS: Glucose, Whole Blood 111 mg/dL (60-115)
[2022-11-17] MEDS: metFORMIN HCl 1,000 MG TABLET 1000 MG PO ×2 (08:21→20:00)
[2022-11-17] MEDS: Nicotine 7 MG PATCH.TD24 TRANSDERMA (08:21)
[2022-11-17] MEDS: lisinopriL 40 MG TABLET PO (08:21)
[2022-11-17] MEDS: 0.9 % Sodium Chloride Flush 3 ML SYRINGE IVFLUSH ×2 (08:21→23:25)
[2022-11-17] MEDS: Apixaban 5 MG TABLET PO ×2 (08:21→20:00)
[2022-11-17] MEDS: amLODIPine Besylate 10 MG TABLET PO (08:22)
[2022-11-17] MEDS: Tamsulosin HCL 0.4 MG CAPSULE PO (08:22)
--- NOTE | 2022-11-17 10:13 | P.PNIM_ITS ---
Subjective Subjective Date of Service: 11/17/22 Interval History: BP better this AM no chest pain Review of Systems Review of Systems: Yes all other systems are reviewed and are negative Physical Exam Vital Signs: Vital Signs: Last Vital Signs Temp 98.1 F 11/17/22 07:03 Pulse 96 11/17/22 09:55 Resp 18 11/17/22 07:03 BP 141/60 H 11/17/22 09:55 Pulse Ox 97 11/17/22 09:55 O2 Del Method Room Air 11/17/22 07:03 BMI result Body Mass Index 20.4 Gen: in no acute distress HEENT: sclera anicteric, moist mucus membranes Neck: supple Lungs: clear to auscultation bilaterally Heart: regular rate and rhythm, no murmurs Abd: soft, non-tender, non-distended Ext: no edema Skin: warm/well-perfused Neuro: alert and oriented x3, no focal findings Psych: appropriate affect Objective Data Active Medications Acetaminophen (Acetaminophen 325 Mg Tablet) 650 mg PO Q6H PRN PRN Reason: Pain, Mild (Pain Scale 1-3) Amlodipine Besylate (Amlodipine Besylate 10 Mg Tablet) 10 mg PO DAILY [facility]; Protocol Last Admin: 11/17/22 08:22 Dose: 10 mg Documented By: MARTHA Apixaban (Apixaban 5 Mg Tablet) 5 mg PO BID [facility] Last Admin: 11/17/22 08:21 Dose: 5 mg Documented By: MARTHA Atorvastatin Calcium (Atorvastatin Calcium 80 Mg Tablet) 80 mg PO BEDTIME [facility] Last Admin: 11/16/22 19:56 Dose: 80 mg Documented By: MARTHA Docusate Sodium (Docusate Sodium 100 Mg Capsule) 100 mg PO DAILY PRN PRN Reason: Constipation Glucose (Glucose Gel 15 Gm Gel..Gram.) 15 gm PO Q15M PRN; Protocol PRN Reason: per Hypoglycemia Standing Ord. Dextrose (D10) 250 mls @ 750 mls/hr IV Q15M PRN; Protocol PRN Reason: per Hypoglycemia Standing Ord. Insulin Human Lispro (Insulin Lispro 100 Unit/Ml 3 Ml Vial) 0 unit SUBCUT Q IDACHS [facility]; Protocol Last Admin: 11/17/22 07:29 Dose: Not Given Documented By: MARTHA Non-Admin Reason: No Insulin Coverage Lisinopril (Lisinopril 40 Mg Tablet) 40 mg PO DAILY [facility]; Protocol Last Admin: 11/17/22 08:21 Dose: 40 mg Documented By: MARTHA Metformin HCl (Metformin Hcl 1,000 Mg Tablet) 1,000 mg PO BID [facility] Last Admin: 11/17/22 08:21 Dose: 1,000 mg Documented By: MARTHA Nicotine (Nicotine 7 Mg Patch.Td24) 7 mg TRANSDERMA DAILY [facility] Last Admin: 11/17/22 08:21 Dose: 7 mg Documented By: MARTHA Nicotine Polacrilex (Nicotine Polacrilex 2 Mg Gum) 2 mg BUCCAL Q2H PRN PRN Reason: tobcrav Ondansetron HCl (Ondansetron Hcl 4 Mg/2 Ml Vial) 4 mg IVPUSH Q8H PRN PRN Reason: Nausea and Vomiting Last Admin: 11/05/22 19:26 Dose: 4 mg Documented By: MARTHA Pharmacy Consult (Consult Rx Perform Med Rec) 1 each MISCELLANE ONCE PRN PRN Reason: Consult order Sodium Chloride (0.9 % Sodium Chloride Flush 3 Ml Syringe) 3 ml IVFLUSH QSHIFT [facility] Last Admin: 11/17/22 08:21 Dose: 3 ml Documented By: MARTHA Tamsulosin HCl (Tamsulosin Hcl 0.4 Mg Capsule) 0.4 mg PO DAILY [facility] Last Admin: 11/17/22 08:22 Dose: 0.4 mg Documented By: MARTHA Labs 11/02/22 08:24 11/15/22 07:55 Labs: Laboratory Results - last 24 hr 11/16/22 11/16/22 11/16/22 11:41 15:36 19:42 POC Glucose 169 H 100 136 H 11/17/22 07:07 POC Glucose 111 Assessment and Plan (1) Paroxysmal atrial fibrillation: Status: Acute (2) Essential (primary) hypertension: Status: Acute Plan d#16 77yo M with hx CVA, DM2, paroxysmal AF on apixaban, HTN, HLD, frequent falls admitted after witnessed syncope at [facility], where he was residing for [facility] but did not have a payor source # HTN urgency - Increased amlodipine + lisinopril 11/16/22, continue to monitor BP - Recheck BMP week of 11/23 # paroxysmal AF - Noted to have bradycardia and junctional rhythm, therefore?metoprolol discontinued. Heart rate improved and remained stable. Seen by Cardiology and they will arrange for 30 day event monitor along with outpatient f/u. - TTE 11/09/22: - The left ventricular systolic function is normal.? The ? calculated ejection fraction is 63% by biplane method. ? - There is severely increased left ventricular wall thickness. ? - There is evidence of regional wall motion abnormalities. ? ? ? - There is moderate calcification of the aortic valve. ? - There is moderate posterior mitral annular calcification. - Continue apixaban # incidental CBD dilation -? Patient denies abdominal pain; tolerating diet without N/V; LFTs normal; US showed variable size of CBD with no gallstones. No further w/u indicated # pulmonary nodule - On CT: Emphysema.? 3 x 4 cm heterogeneous groundglass attenuation area in the left lower lobe with 6 x 8 mm solid component. Short-term follow-up chest CT in 2-3 months recommended to see if this is a persistent finding # syncope - Perhaps related to intermittent bradycardia for which metoprolol discontinued. Ventricular rate? improved and syncope has not recurred. ? # lactic acidosis - Resolved after IV fluids # hx CVA - Continue statin + antihypertensives + apixaban # DM2 - Continue metformin, maira-dose lispro # VTE ppx: apixaban # dispo: CM working financial barriers to SNF placement Time Spent With Patient Time: Total time managing care of this patient today _25__ minutes. Quality Stroke Does the patient have a stroke diagnosis?: No VTE Prior VTE?: No VTE Risk Level:: Medical - moderate - high VTE Device Contraindication: Treatment Not Indicated VTE Drug Contraindication: N/A - Med Ordered
[2022-11-17 11:41] LABS: Glucose, Whole Blood 139 mg/dL (60-115)
[2022-11-17 16:18] LABS: Glucose, Whole Blood 180 mg/dL (60-115)
[2022-11-17] MEDS: Insulin Lispro 100 UNIT/ML 3 ML VIAL SUBCUT ×2 (16:52→20:03)
[2022-11-17] MEDS: Atorvastatin Calcium 80 MG TABLET PO (20:00)
[2022-11-17 20:04] LABS: Glucose, Whole Blood 155 mg/dL (60-115)
[2022-11-18] VITALS (7 sets, daily range): BP systolic 134–170; BP diastolic 62–71; PULSE 71–82; RESP 16–20; TEMP 36.3–37.1; O2SAT 95–99
[2022-11-18] MEDS: Nicotine Polacrilex 2 MG GUM BUCCAL (08:48)
[2022-11-18] MEDS: Tamsulosin HCL 0.4 MG CAPSULE PO (08:48)
[2022-11-18] MEDS: Apixaban 5 MG TABLET PO ×2 (08:48→20:39)
[2022-11-18] MEDS: lisinopriL 40 MG TABLET PO (08:48)
[2022-11-18] MEDS: metFORMIN HCl 1,000 MG TABLET 1000 MG PO ×2 (08:48→20:39)
[2022-11-18] MEDS: amLODIPine Besylate 10 MG TABLET PO (08:48)
[2022-11-18] MEDS: Nicotine 7 MG PATCH.TD24 TRANSDERMA (08:48)
[2022-11-18] MEDS: 0.9 % Sodium Chloride Flush 3 ML SYRINGE IVFLUSH ×3 (08:50→20:39)
--- NOTE | 2022-11-18 10:31 | MHC.CM.PN ---
PT is recommending STR and PV SNF continues to address financial concerns/issues. CM will follow.
--- NOTE | 2022-11-18 11:06 | P.PNIM_ITS ---
Subjective Subjective Date of Service: 11/18/22 Interval History: no new complaints Review of Systems Review of Systems: Yes all other systems are reviewed and are negative Physical Exam Vital Signs: Vital Signs: Last Vital Signs Temp 98.0 F 11/18/22 07:04 Pulse 74 11/18/22 07:04 Resp 18 11/18/22 07:04 BP 170/71 H 11/18/22 07:04 Pulse Ox 98 11/18/22 07:04 O2 Del Method Room Air 11/18/22 07:04 BMI result Body Mass Index 20.4 Gen: in no acute distress HEENT: sclera anicteric, moist mucus membranes Neck: supple Lungs: clear to auscultation bilaterally Heart: regular rate and rhythm, no murmurs Abd: soft, non-tender, non-distended Ext: no edema Skin: warm/well-perfused Neuro: alert and oriented x3, no focal findings Psych: appropriate affect Objective Data Active Medications Acetaminophen (Acetaminophen 325 Mg Tablet) 650 mg PO Q6H PRN PRN Reason: Pain, Mild (Pain Scale 1-3) Amlodipine Besylate (Amlodipine Besylate 10 Mg Tablet) 10 mg PO DAILY [facility]; Protocol Last Admin: 11/18/22 08:48 Dose: 10 mg Documented By: BINH Apixaban (Apixaban 5 Mg Tablet) 5 mg PO BID [facility] Last Admin: 11/18/22 08:48 Dose: 5 mg Documented By: BINH Atorvastatin Calcium (Atorvastatin Calcium 80 Mg Tablet) 80 mg PO BEDTIME [facility] Last Admin: 11/17/22 20:00 Dose: 80 mg Documented By: AYSHA Docusate Sodium (Docusate Sodium 100 Mg Capsule) 100 mg PO DAILY PRN PRN Reason: Constipation Glucose (Glucose Gel 15 Gm Gel..Gram.) 15 gm PO Q15M PRN; Protocol PRN Reason: per Hypoglycemia Standing Ord. Dextrose (D10) 250 mls @ 750 mls/hr IV Q15M PRN; Protocol PRN Reason: per Hypoglycemia Standing Ord. Insulin Human Lispro (Insulin Lispro 100 Unit/Ml 3 Ml Vial) 0 unit SUBCUT QIDACHS [facility]; Protocol Last Admin: 11/18/22 07:19 Dose: Not Given Documented By: BINH Non-Admin Reason: No Insulin Coverage Comments: [id number] Lisinopril (Lisinopril 40 Mg Tablet) 40 mg PO DAILY [facility]; Protocol Last Admin: 11/18/22 08:48 Dose: 40 mg Documented By: BINH Metformin HCl (Metformin Hcl 1,000 Mg Tablet) 1,000 mg PO BID [facility] Last Admin: 11/18/22 08:48 Dose: 1,000 mg Documented By: BINH Nicotine (Nicotine 7 Mg Patch.Td24) 7 mg TRANSDERMA DAILY [facility] Last Admin: 11/18/22 08:48 Dose: 7 mg Documented By: BINH Nicotine Polacrilex (Nicotine Polacrilex 2 Mg Gum) 2 mg BUCCAL Q2H PRN PRN Reason: tobcrav Last Admin: 11/18/22 08:48 Dose: 2 mg Documented By: BINH Ondansetron HCl (Ondansetron Hcl 4 Mg/2 Ml Vial) 4 mg IVPUSH Q8H PRN PRN Reason: Nausea and Vomiting Last Admin: 11/05/22 19:26 Dose: 4 mg Documented By: MARTHA Pharmacy Consult (Consult Rx Perform Med Rec) 1 each MISCELLANE ONCE PRN PRN Reason: Consult order Sodium Chloride (0.9 % Sodium Chloride Flush 3 Ml Syringe) 3 ml IVFLUSH QSHIFT [facility] Last Admin: 11/18/22 08:50 Dose: 3 ml Documented By: BINH Tamsulosin HCl (Tamsulosin Hcl 0.4 Mg Capsule) 0.4 mg PO DAILY [facility] Last Admin: 11/18/22 08:48 Dose: 0.4 mg Documented By: BINH Labs 11/02/22 08:24 11/15/22 07:55 Labs: Laboratory Results - last 24 hr 11/17/22 11/17/22 11/17/22 11:18 16:13 20:00 POC Glucose 139 H 180 H 155 H Assessment and Plan (1) Paroxysmal atrial fibrillation: Status: Acute (2) Essential (primary) hypertension: Status: Acute Plan d#17 77yo M with hx CVA, DM2, paroxysmal AF on apixaban, HTN, HLD, frequent falls admitted after witnessed syncope at [facility], where he was residing for [facility] but did not have a payor source # HTN urgency - Increased amlodipine + lisinopril 11/16/22, continue to monitor BP - Recheck BMP week of 11/23 # paroxysmal AF - Noted to have bradycardia and junctional rhythm, therefore?metoprolol discontinued. Heart rate improved and remained stable. Seen by Cardiology and they will arrange for 30 day event monitor along with outpatient f/u. - TTE 11/09/22: - The left ventricular systolic function is normal.? The ? calculated ejection fraction is 63% by biplane method. ? - There is severely increased left ventricular wall thickness. ? - There is evidence of regional wall motion abnormalities. ? ? ? - There is moderate calcification of the aortic valve. ? - There is moderate posterior mitral annular calcification. - Continue apixaban # incidental CBD dilation -? Patient denies abdominal pain; tolerating diet without N/V; LFTs normal; US showed variable size of CBD with no gallstones. No further w/u indicated # pulmonary nodule - On CT: Emphysema.? 3 x 4 cm heterogeneous groundglass attenuation area in the left lower lobe with 6 x 8 mm solid component. Short-term follow-up chest CT in 2-3 months recommended to see if this is a persistent finding # syncope - Perhaps related to intermittent bradycardia for which metoprolol discontinued. Ventricular rate? improved and syncope has not recurred. ? # lactic acidosis - Resolved after IV fluids # hx CVA - Continue statin + antihypertensives + apixaban # DM2 - Continue metformin, maira-dose lispro # VTE ppx: apixaban # dispo: CM working financial barriers to SNF placement Time Spent With Patient Time: Total time managing care of this patient today __25__ minutes. Quality Stroke Does the patient have a stroke diagnosis?: No VTE Prior VTE?: No VTE Risk Level:: Medical - moderate - high VTE Device Contraindication: Treatment Not Indicated VTE Drug Contraindication: N/A - Med Ordered
[2022-11-18 11:19] LABS: Glucose, Whole Blood 185 mg/dL (60-115)
[2022-11-18] MEDS: Insulin Lispro 100 UNIT/ML 3 ML VIAL SUBCUT ×2 (11:26→20:38)
[2022-11-18 16:43] LABS: Glucose, Whole Blood 142 mg/dL (60-115)
[2022-11-18 20:23] LABS: Glucose, Whole Blood 169 mg/dL (60-115)
[2022-11-18] MEDS: Atorvastatin Calcium 80 MG TABLET PO (20:39)
[2022-11-19] VITALS (7 sets, daily range): BP systolic 135–180; BP diastolic 62–80; PULSE 64–80; RESP 16–20; TEMP 36.1–36.9; O2SAT 96–98
[2022-11-19 07:50] LABS: Glucose, Whole Blood 96 mg/dL (60-115)
[2022-11-19] MEDS: Apixaban 5 MG TABLET PO ×2 (08:04→21:43)
[2022-11-19] MEDS: Tamsulosin HCL 0.4 MG CAPSULE PO (08:04)
[2022-11-19] MEDS: 0.9 % Sodium Chloride Flush 3 ML SYRINGE IVFLUSH (08:04)
[2022-11-19] MEDS: amLODIPine Besylate 10 MG TABLET PO (08:04)
[2022-11-19] MEDS: metFORMIN HCl 1,000 MG TABLET 1000 MG PO ×2 (08:04→21:44)
[2022-11-19] MEDS: Nicotine 7 MG PATCH.TD24 TRANSDERMA (08:05)
[2022-11-19] MEDS: lisinopriL 40 MG TABLET PO (08:05)
--- NOTE | 2022-11-19 09:41 | MHC.CM.PN ---
CM has requested an update from [facility] on readiness to accept Patient. CM will follow.
--- NOTE | 2022-11-19 10:51 | HO.PM.IMPN ---
Subjective Subjective Date of Service: 11/19/22 Interval History: no complaints excepts wants to smoke Review of Systems Review of Systems: Yes all other systems are reviewed and are negative Physical Exam Vital Signs: Vital Signs: Last Vital Signs Temp 97.4 F 11/19/22 07:53 Pulse 64 11/19/22 07:53 Resp 20 11/19/22 07:53 BP 180/75 H 11/19/22 07:53 Pulse Ox 96 11/19/22 07:53 O2 Del Method Room Air 11/19/22 07:53 BMI result Body Mass Index 20.4 Gen: in no acute distress HEENT: sclera anicteric, moist mucus membranes Neck: supple Lungs: clear to auscultation bilaterally Heart: regular rate and rhythm, no murmurs Abd: soft, non-tender, non-distended Ext: no edema Skin: warm/well-perfused Neuro: alert and oriented x3, no focal findings Psych: appropriate affect Objective Data Active Medications Acetaminophen (Acetaminophen 325 Mg Tablet) 650 mg PO Q6H PRN PRN Reason: Pain, Mild (Pain Scale 1-3) Amlodipine Besylate (Amlodipine Besylate 10 Mg Tablet) 10 mg PO DAILY [facility]; Protocol Last Admin: 11/19/22 08:04 Dose: 10 mg Documented By: ROSE MARIE Apixaban (Apixaban 5 Mg Tablet) 5 mg PO BID [facility] Last Admin: 11/19/22 08:04 Dose: 5 mg Documented By: ROSE MARIE Atorvastatin Calcium (Atorvastatin Calcium 80 Mg Tablet) 80 mg PO BEDTIME [facility] Last Admin: 11/18/22 20:39 Dose: 80 mg Documented By: CINDY Docusate Sodium (Docusate Sodium 100 Mg Capsule) 100 mg PO DAILY PRN PRN Reason: Constipation Glucose (Glucose Gel 15 Gm Gel..Gram.) 15 gm PO Q15M PRN; Protocol PRN Reason: per Hypoglycemia Standing Ord. Dextrose (D10) 250 mls @ 750 mls/hr IV Q15M PRN; Protocol PRN Reason: per Hypoglycemia Standing Ord. Insulin Human Lispro (Insulin Lispro 100 Unit/Ml 3 Ml Vial) 0 unit SUBCUT QIDACHS [facility]; Protocol Last Admin: 11/19/22 08:03 Dose: Not Given Documented By: ROSE MARIE Non-Admin Reason: No Insulin Coverage Lisinopril (Lisinopril 40 Mg Tablet) 40 mg PO DAILY [facility]; Protocol Last Admin: 11/19/22 08:05 Dose: 40 mg Documented By: ROSE MARIE Metformin HCl (Metformin Hcl 1,000 Mg Tablet) 1,000 mg PO BID [facility] Last Admin: 11/19/22 08:04 Dose: 1,000 mg Documented By: ROSE MARIE Nicotine (Nicotine 7 Mg Patch.Td24) 7 mg TRANSDERMA DAILY [facility] Last Admin: 11/19/22 08:05 Dose: 7 mg Documented By: ROSE MARIE Nicotine Polacrilex (Nicotine Polacrilex 2 Mg Gum) 2 mg BUCCAL Q2H PRN PRN Reason: tobcrav Last Admin: 11/18/22 08:48 Dose: 2 mg Documented By: HEENA-BARBARA Ondansetron HCl (Ondansetron Hcl 4 Mg/2 Ml Vial) 4 mg IVPUSH Q8H PRN PRN Reason: Nausea and Vomiting Last Admin: 11/05/22 19:26 Dose: 4 mg Documented By: MARTHA Pharmacy Consult (Consult Rx Perform Med Rec) 1 each MISCELLANE ONCE PRN PRN Reason: Consult order Sodium Chloride (0.9 % Sodium Chloride Flush 3 Ml Syringe) 3 ml IVFLUSH QSHIFT [facility] Last Admin: 11/19/22 08:04 Dose: 3 ml Documented By: ROSE MARIE Tamsulosin HCl (Tamsulosin Hcl 0.4 Mg Capsule) 0.4 mg PO DAILY [facility] Last Admin: 11/19/22 08:04 Dose: 0.4 mg Documented By: ROSE MARIE Labs 11/02/22 08:24 11/15/22 07:55 Labs: Laboratory Results - last 24 hr 11/18/22 11/18/22 11/18/22 11:13 16:39 20:19 POC Glucose 185 H 142 H 169 H 11/19/22 07:42 POC Glucose 96 Assessment and Plan (1) Paroxysmal atrial fibrillation: Status: Acute (2) Essential (primary) hypertension: Status: Acute Plan d#18 77yo M with hx CVA, DM2, paroxysmal AF on apixaban, HTN, HLD, frequent falls admitted after witnessed syncope at [facility], where he was residing for [facility] but did not have a payor source # HTN urgency - Increased amlodipine + lisinopril 11/16/22, continue to monitor BP - Recheck BMP week of 11/23 # paroxysmal AF - Noted to have bradycardia and junctional rhythm, therefore?metoprolol discontinued. Heart rate improved and remained stable. Seen by Cardiology and they will arrange for 30 day event monitor along with outpatient f/u. - TTE 11/09/22: - The left ventricular systolic function is normal.? The ? calculated ejection fraction is 63% by biplane method. ? - There is severely increased left ventricular wall thickness. ? - There is evidence of regional wall motion abnormalities. ? ? ? - There is moderate calcification of the aortic valve. ? - There is moderate posterior mitral annular calcification. - Continue apixaban # incidental CBD dilation -? Patient denies abdominal pain; tolerating diet without N/V; LFTs normal; US showed variable size of CBD with no gallstones. No further w/u indicated # pulmonary nodule - On CT: Emphysema.? 3 x 4 cm heterogeneous groundglass attenuation area in the left lower lobe with 6 x 8 mm solid component. Short-term follow-up chest CT in 2-3 months recommended to see if this is a persistent finding # syncope - Perhaps related to intermittent bradycardia for which metoprolol discontinued. Ventricular rate? improved and syncope has not recurred. ? # lactic acidosis - Resolved after IV fluids # hx CVA - Continue statin + antihypertensives + apixaban # DM2 - Continue metformin, maira-dose lispro # VTE ppx: apixaban # dispo: CM working financial barriers to SNF placement- pt owes a balance and has to pay it Time Spent With Patient Time: Total time managing care of this patient today __25__ minutes. Quality Stroke Does the patient have a stroke diagnosis?: No VTE Prior VTE?: No VTE Risk Level:: Medical - moderate - high VTE Device Contraindication: Treatment Not Indicated VTE Drug Contraindication: N/A - Med Ordered
[2022-11-19 11:07] LABS: Glucose, Whole Blood 122 mg/dL (60-115)
[2022-11-19 14:22] LABS: Glucose, Whole Blood 109 mg/dL (60-115)
[2022-11-19 15:59] LABS: Glucose, Whole Blood 135 mg/dL (60-115)
[2022-11-19 20:40] LABS: Glucose, Whole Blood 146 mg/dL (60-115)
[2022-11-19] MEDS: Atorvastatin Calcium 80 MG TABLET PO (21:43)
[2022-11-20 03:43] VITALS: BP 136/65; PULSE 80; RESP 18; TEMP 36.3; O2SAT 97
[2022-11-20 07:35] VITALS: BP 157/71; PULSE 73; RESP 20; TEMP 36.3; O2SAT 95
[2022-11-20 07:57] LABS: Glucose, Whole Blood 89 mg/dL (60-115)
[2022-11-20] MEDS: Apixaban 5 MG TABLET PO ×2 (08:06→20:04)
[2022-11-20] MEDS: metFORMIN HCl 1,000 MG TABLET 1000 MG PO ×2 (08:06→20:04)
[2022-11-20] MEDS: Tamsulosin HCL 0.4 MG CAPSULE PO (08:06)
[2022-11-20] MEDS: amLODIPine Besylate 10 MG TABLET PO (08:06)
[2022-11-20] MEDS: lisinopriL 40 MG TABLET PO (08:06)
[2022-11-20] MEDS: 0.9 % Sodium Chloride Flush 3 ML SYRINGE IVFLUSH ×2 (08:07→20:04)
--- NOTE | 2022-11-20 09:08 | MHC.CM.PN ---
EMR REVIEWED, CM CONTACTED [facility] WHO REPORTS PT STILL DOES NOT HAVE STR/LTC BENEFIT, PT DOES QUALIFY FOR PRIMARY CARE AND HOME SERVICES HOWEVER PT DOES NOT HAVE A VA PCP AT THIS TIME AND WILL NEED TO HAVE FIRST APPT BEFORE RECEIVING ANY HOME CARE SERVICES. CM WILL CONTACT PT'S [facility] LIAISON IN [place] TO DETERMINE IF PT'S SON BAYLEE DID IN FACT COMPLETE PT'S VA INTAKE FOR PROGRAM AT NOON AND REATTEMPT TO CONTACT PT'S [facility]
--- NOTE | 2022-11-20 09:54 | MHC.CM.PN ---
CM CONTACTED PT'S SON BAYLEE AT 8:45AM AT NUMBER ON FILE TO DISCUSS PLAN, BAYLEE REPORTS HE HAS NOT YET FINISHED VA INTAKE FOR PT HOWEVER HE WILL COME IN AND DO IT WITH PT TODAY, BAYLEE WAS PROVIDED W/VA #[phone] THAT WAS PROVIDED BY [facility]. BAYLEE REPORTS HE [facility] AND SHE WAS SUPPOSED TO CALL HIM BACK WITH THE AMOUNT THAT HE WOULD NEED TO PAY UPFRONT AND HE IS STILL WAITING FOR CALL BACK, BAYLEE ALSO REPORTS HE WAS NOT TOLD HE NEEDED TO PAY THE BALANCE OWED TO [employer]. BAYLEE REPORTS HE WILL COME IN TODAY TO CALL [facility] W[facility]PT AND [facility]. IF [employer] IS PAID OFF AND PAYMENT ARRANGEMENT MADE W/[facility] PT COULD D/C EARLY NEXT WEEK. CM WILL CONT TO FOLLOW.
[2022-11-20] MEDS: Nicotine 7 MG PATCH.TD24 TRANSDERMA (10:21)
[2022-11-20] MEDS: hydroCHLOROthiazide 12.5 MG TABLET PO (10:21)
--- NOTE | 2022-11-20 11:12 | HO.PM.IMPN ---
Subjective Subjective Date of Service: 11/20/22 Interval History: Seen and evaluated this morning Feels well overall no more syncopy no other overnight events Review of Systems Review of Systems: Yes all other systems are reviewed and are negative Physical Exam Vital Signs: Vital Signs: Last Vital Signs Temp 97.3 F 11/20/22 07:35 Pulse 73 11/20/22 07:35 Resp 20 11/20/22 07:35 BP 157/71 H 11/20/22 07:35 Pulse Ox 95 11/20/22 07:35 O2 Del Method Room Air 11/20/22 07:35 BMI result Body Mass Index 20.4 Const: Other: Constitutional : Awake, interactive, not in distress Neck : Normal inspection, Supple Cardiovascular : RRR, no JVP, no lower extremity edema Respiratory : good bilateral air entry, no crackles, wheezes or rhonchi Gastrointestinal: soft, lax, Normal bowel sounds, Non tender Skin : Warm, Dry Neurological : Alert & oriented x3, right sided weakness Objective Data Active Medications Acetaminophen (Acetaminophen 325 Mg Tablet) 650 mg PO Q6H PRN PRN Reason: Pain, Mild (Pain Scale 1-3) Amlodipine Besylate (Amlodipine Besylate 10 Mg Tablet) 10 mg PO DAILY [facility]; Protocol Last Admin: 11/20/22 08:06 Dose: 10 mg Documented By: ROSE MARIE Apixaban (Apixaban 5 Mg Tablet) 5 mg PO BID [facility] Last Admin: 11/20/22 08:06 Dose: 5 mg Documented By: ROSE MARIE Atorvastatin Calcium (Atorvastatin Calcium 80 Mg Tablet) 80 mg PO BEDTIME [facility] Last Admin: 11/19/22 21:43 Dose: 80 mg Documented By: CINDY Docusate Sodium (Docusate Sodium 100 Mg Capsule) 100 mg PO DAILY PRN PRN Reason: Constipation Glucose (Glucose Gel 15 Gm Gel..Gram.) 15 gm PO Q15M PRN; Protocol PRN Reason: per Hypoglycemia Standing Ord. Hydrochlorothiazide (Hydrochlorothiazide 12.5 Mg Tablet) 12.5 mg PO DAILY [facility]; Protocol Last Admin: 11/20/22 10:21 Dose: 12.5 mg Documented By: ROSE MARIE Dextrose (D10) 250 mls @ 750 mls/hr IV Q15M PRN; Protocol PRN Reason: per Hypoglycemia Standing Ord. Insulin Human Lispro (Insulin Lispro 100 Unit/Ml 3 Ml Vial) 0 unit SUBCUT QIDACHS [facility]; Protocol Last Admin: 11/20/22 08:08 Dose: Not Given Documented By: ROSE MARIE Non-Admin Reason: No Insulin Coverage Lisinopril (Lisinopril 40 Mg Tablet) 40 mg PO DAILY [facility]; Protocol Last Admin: 11/20/22 08:06 Dose: 40 mg Documented By: ROSE MARIE Metformin HCl (Metformin Hcl 1,000 Mg Tablet) 1,000 mg PO BID [facility] Last Admin: 11/20/22 08:06 Dose: 1,000 mg Documented By: ROSE MARIE Nicotine (Nicotine 7 Mg Patch.Td24) 7 mg TRANSDERMA DAILY [facility] Last Admin: 11/20/22 10:21 Dose: 7 mg Documented By: ROSE MARIE Nicotine Polacrilex (Nicotine Polacrilex 2 Mg Gum) 2 mg BUCCAL Q2H PRN PRN Reason: tobcrav Last Admin: 11/18/22 08:48 Dose: 2 mg Documented By: BINH Ondansetron HCl (Ondansetron Hcl 4 Mg/2 Ml Vial) 4 mg IVPUSH Q8H PRN PRN Reason: Nausea and Vomiting Last Admin: 11/05/22 19:26 Dose: 4 mg Documented By: Smith Pharmacy Consult (Consult Rx Perform Med Rec) 1 each MISCELLANE ONCE PRN PRN Reason: Consult order Sodium Chloride (0.9 % Sodium Chloride Flush 3 Ml Syringe) 3 ml IVFLUSH QSHIFT [facility] Last Admin: 11/20/22 08:07 Dose: 3 ml Documented By: ROSE MARIE Tamsulosin HCl (Tamsulosin Hcl 0.4 Mg Capsule) 0.4 mg PO DAILY [facility] Last Admin: 11/20/22 08:06 Dose: 0.4 mg Documented By: ROSE MARIE Labs 11/02/22 08:24 11/15/22 07:55 Labs: Laboratory Results - last 24 hr 11/18/22 11/19/22 11/19/22 07:18 15:47 20:20 POC Glucose 109 135 H 146 H 11/20/22 07:34 POC Glucose 89 Assessment and Plan (1) Hemiplegia and hemiparesis following cerebral infarction affecting right dominant side: Status: Acute (2) Diabetes type 2, controlled: Status: Acute (3) Hypertensive urgency: Status: Acute Plan d#18 77yo M with hx CVA, DM2, paroxysmal AF on apixaban, HTN, HLD, frequent falls admitted after witnessed syncope at [facility], where he was residing for [facility] but did not have a payor source # HTN urgency Increased amlodipine + lisinopril 11/16/22, start low dose HCT continue to monitor BP Recheck BMP week of 11/23 # paroxysmal AF Noted to have bradycardia and junctional rhythm, therefore?metoprolol discontinued. Heart rate improved and remained stable. Seen by Cardiology and they will arrange for 30 day event monitor along with outpatient f/u. TTE 11/09/22: calculated ejection fraction is 63% w severely increased left ventricular wall thickness and regional wall motion abnormalities w moderate calcification of the aortic valve. ? ? Continue apixaban # incidental CBD dilation Patient denies abdominal pain; tolerating diet without N/V; LFTs normal; US showed variable size of CBD with no gallstones. No further w/u indicated # pulmonary nodule On CT: Emphysema.? 3 x 4 cm heterogeneous groundglass attenuation area in the left lower lobe with 6 x 8 mm solid component. Short-term follow-up chest CT in 2-3 months recommended to see if this is a persistent finding # syncope Perhaps related to intermittent bradycardia for which metoprolol discontinued. Ventricular rate? improved and syncope has not recurred. ? # lactic acidosis Resolved after IV fluids # hx CVA Continue statin + antihypertensives + apixaban # DM2 Continue metformin, maira-dose lispro # VTE ppx: apixaban # dispo: CM working financial barriers to SNF placement- pt owes a balance and has to pay it Time Spent With Patient Time: Total time managing care of this patient today ____ minutes. Quality Stroke Does the patient have a stroke diagnosis?: No VTE Prior VTE?: No VTE Risk Level:: Medical - moderate - high VTE Device Contraindication: Treatment Not Indicated VTE Drug Contraindication: N/A - Med Ordered
[2022-11-20 11:20] VITALS: BP 125/62; PULSE 70; RESP 20; TEMP 36.4; O2SAT 99
[2022-11-20 11:44] LABS: Glucose, Whole Blood 84 mg/dL (60-115)
[2022-11-20 15:11] VITALS: BP 124/59; PULSE 80; RESP 20; TEMP 36.4; O2SAT 98
[2022-11-20 16:01] LABS: Glucose, Whole Blood 129 mg/dL (60-115)
[2022-11-20 19:03] VITALS: BP 169/75; PULSE 81; RESP 20; TEMP 36.2; O2SAT 98
[2022-11-20 19:45] LABS: Glucose, Whole Blood 168 mg/dL (60-115)
[2022-11-20] MEDS: Insulin Lispro 100 UNIT/ML 3 ML VIAL SUBCUT (20:03)
[2022-11-20] MEDS: Atorvastatin Calcium 80 MG TABLET PO (20:04)
[2022-11-20 23:11] VITALS: BP 160/70; PULSE 73; RESP 18; TEMP 36; O2SAT 98
[2022-11-21] VITALS (7 sets, daily range): BP systolic 115–174; BP diastolic 62–80; PULSE 68–80; RESP 16–20; TEMP 36–37.1; O2SAT 95–99
[2022-11-21 08:06] LABS: Anion Gap 13 (12-20); Blood Urea Nitrogen 32 mg/dL (9-16); Calcium 9.6 mg/dL (8.4-10.2); Carbon Dioxide 26 mmol/L (22-29); Chloride 104 mmol/L (96-108); Creatinine Clr Calc Pharmacy 60.8; Estimated Glomerular Filt Rate > 60; Glucose Random 75 mg/dL (60-115); Potassium 4.6 mmol/L (3.3-5.1); Sodium 138 mmol/L (135-145)
[2022-11-21] MEDS: Nicotine 7 MG PATCH.TD24 TRANSDERMA (08:34)
[2022-11-21] MEDS: amLODIPine Besylate 10 MG TABLET PO (08:34)
[2022-11-21] MEDS: Apixaban 5 MG TABLET PO ×2 (08:34→21:10)
[2022-11-21] MEDS: metFORMIN HCl 1,000 MG TABLET 1000 MG PO ×2 (08:34→21:10)
[2022-11-21] MEDS: lisinopriL 40 MG TABLET PO (08:34)
[2022-11-21] MEDS: Tamsulosin HCL 0.4 MG CAPSULE PO (08:35)
[2022-11-21] MEDS: hydroCHLOROthiazide 12.5 MG TABLET PO (08:35)
[2022-11-21] MEDS: 0.9 % Sodium Chloride Flush 3 ML SYRINGE IVFLUSH (08:37)
--- NOTE | 2022-11-21 11:51 | HO.PM.IMPN ---
Subjective Subjective Date of Service: 11/21/22 Interval History: Seen and evaluated this morning Feels well overall no more syncopy, BP good - elevated no other overnight events Review of Systems Review of Systems: Yes all other systems are reviewed and are negative Physical Exam Vital Signs: Vital Signs: Last Vital Signs Temp 97.6 F 11/21/22 11:12 Pulse 80 11/21/22 11:12 Resp 18 11/21/22 11:12 BP 133/62 11/21/22 11:12 Pulse Ox 99 11/21/22 11:12 O2 Del Method Room Air 11/21/22 11:12 BMI result Body Mass Index 20.4 Const: Other: Constitutional : Awake, interactive, not in distress Neck : Normal inspection, Supple Cardiovascular : RRR, no JVP, no lower extremity edema Respiratory : good bilateral air entry, no crackles, wheezes or rhonchi Gastrointestinal: soft, lax, Normal bowel sounds, Non tender Skin : Warm, Dry Neurological : Alert & oriented x3, right sided weakness Objective Data Active Medications Acetaminophen (Acetaminophen 325 Mg Tablet) 650 mg PO Q6H PRN PRN Reason: Pain, Mild (Pain Scale 1-3) Amlodipine Besylate (Amlodipine Besylate 10 Mg Tablet) 10 mg PO DAILY [facility]; Protocol Last Admin: 11/21/22 08:34 Dose: 10 mg Documented By: ELIZABETH Apixaban (Apixaban 5 Mg Tablet) 5 mg PO BID [facility] Last Admin: 11/21/22 08:34 Dose: 5 mg Documented By: ELIZABETH Atorvastatin Calcium (Atorvastatin Calcium 80 Mg Tablet) 80 mg PO BEDTIME [facility] Last Admin: 11/20/22 20:04 Dose: 80 mg Documented By: SCOT Docusate Sodium (Docusate Sodium 100 Mg Capsule) 100 mg PO DAILY PRN PRN Reason: Constipation Glucose (Glucose Gel 15 Gm Gel..Gram.) 15 gm PO Q15M PRN; Protocol PRN Reason: per Hypoglycemia Standing Ord. Hydrochlorothiazide (Hydrochlorothiazide 12.5 Mg Tablet) 12.5 mg PO DAILY [facility]; Protocol Last Admin: 11/21/22 08:35 Dose: 12.5 mg Documented By: ELIZABETH Dextrose (D10) 250 mls @ 750 mls/hr IV Q15M PRN; Protocol PRN Reason: per Hypoglycemia Standing Ord. Insulin Human Lispro (Insulin Lispro 100 Unit/Ml 3 Ml Vial) 0 unit SUBCUT QIDACHS [facility]; Protocol Last Admin: 11/21/22 11:04 Dose: Not Given Documented By: ELIZABETH Non-Admin Reason: No Insulin Coverage Lisinopril (Lisinopril 40 Mg Tablet) 40 mg PO DAILY [facility]; Protocol Last Admin: 11/21/22 08:34 Dose: 40 mg Documented By: ELIZABETH Metformin HCl (Metformin Hcl 1,000 Mg Tablet) 1,000 mg PO BID [facility] Last Admin: 11/21/22 08:34 Dose: 1,000 mg Documented By: ELIZABETH Nicotine (Nicotine 7 Mg Patch.Td24) 7 mg TRANSDERMA DAILY [facility] Last Admin: 11/21/22 08:34 Dose: 7 mg Documented By: ELIZABETH Nicotine Polacrilex (Nicotine Polacrilex 2 Mg Gum) 2 mg BUCCAL Q2H PRN PRN Reason: tobcrav Last Admin: 11/18/22 08:48 Dose: 2 mg Documented By: BINH Ondansetron HCl (Ondansetron Hcl 4 Mg/2 Ml Vial) 4 mg IVPUSH Q8H PRN PRN Reason: Nausea and Vomiting Last Admin: 11/05/22 19:26 Dose: 4 mg Documented By: MARTHA Pharmacy Consult (Consult Rx Perform Med Rec) 1 each MISCELLANE ONCE PRN PRN Reason: Consult order Sodium Chloride (0.9 % Sodium Chloride Flush 3 Ml Syringe) 3 ml IVFLUSH QSHIFT [facility] Last Admin: 11/21/22 08:37 Dose: 3 ml Documented By: ELIZABETH Tamsulosin HCl (Tamsulosin Hcl 0.4 Mg Capsule) 0.4 mg PO DAILY [facility] Last Admin: 11/21/22 08:35 Dose: 0.4 mg Documented By: ELIZABETH Labs 11/02/22 08:24 11/21/22 06:10 Labs: Laboratory Results - last 24 hr 11/20/22 11/20/22 11/21/22 15:56 19:37 06:10 Anion Gap 13 Estim Creat Clear Calc 60.8 Estimated GFR > 60 POC Glucose 129 H 168 H Random Glucose 75 Calcium 9.6 11/21/22 11/21/22 07:30 11:03 Anion Gap Estim Creat Clear Calc Estimated GFR POC Glucose 80 138 H Random Glucose Calcium Assessment and Plan (1) Hypertensive urgency: Status: Acute (2) Syncope: Status: Acute Plan d#18 77yo M with hx CVA, DM2, paroxysmal AF on apixaban, HTN, HLD, frequent falls admitted after witnessed syncope at [facility], where he was residing for [facility] but did not have a payor source # HTN urgency Increased amlodipine + lisinopril 11/16/22, Continue low dose HCT continue to monitor BP Recheck BMP week of 11/23 # paroxysmal AF Noted to have bradycardia and junctional rhythm, therefore?metoprolol discontinued. Heart rate improved and remained stable. Seen by Cardiology and they will arrange for 30 day event monitor along with outpatient f/u. TTE 11/09/22: calculated ejection fraction is 63% w severely increased left ventricular wall thickness and regional wall motion abnormalities w moderate calcification of the aortic valve. ? ? Continue apixaban # incidental CBD dilation Patient denies abdominal pain; tolerating diet without N/V; LFTs normal; US showed variable size of CBD with no gallstones. No further w/u indicated # pulmonary nodule On CT: Emphysema.? 3 x 4 cm heterogeneous groundglass attenuation area in the left lower lobe with 6 x 8 mm solid component. Short-term follow-up chest CT in 2-3 months recommended to see if this is a persistent finding # syncope Perhaps related to intermittent bradycardia for which metoprolol discontinued. Ventricular rate? improved and syncope has not recurred. ? # lactic acidosis Resolved after IV fluids # hx CVA Continue statin + antihypertensives + apixaban # DM2 Continue metformin, maira-dose lispro # VTE ppx: apixaban # dispo: CM working financial barriers to SNF placement- pt owes a balance and has to pay it Time Spent With Patient Time: Total time managing care of this patient today ____ minutes. Quality Stroke Does the patient have a stroke diagnosis?: No VTE Prior VTE?: No VTE Risk Level:: Medical - moderate - high VTE Device Contraindication: Treatment Not Indicated VTE Drug Contraindication: N/A - Med Ordered
[2022-11-21] MEDS: Atorvastatin Calcium 80 MG TABLET PO (21:10)
[2022-11-22] MEDS: 0.9 % Sodium Chloride Flush 3 ML SYRINGE IVFLUSH ×4 (00:40→23:48)
[2022-11-22 04:00] VITALS: BP 144/68; PULSE 65; RESP 16; TEMP 37; O2SAT 96
[2022-11-22 07:42] VITALS: BP 158/82; PULSE 62; RESP 16; TEMP 36; O2SAT 98
[2022-11-22] MEDS: metFORMIN HCl 1,000 MG TABLET 1000 MG PO ×2 (09:11→21:06)
[2022-11-22] MEDS: Nicotine 7 MG PATCH.TD24 TRANSDERMA (09:11)
[2022-11-22] MEDS: Apixaban 5 MG TABLET PO ×2 (09:11→21:06)
[2022-11-22] MEDS: hydroCHLOROthiazide 12.5 MG TABLET PO (09:11)
[2022-11-22] MEDS: amLODIPine Besylate 10 MG TABLET PO (09:11)
[2022-11-22] MEDS: Tamsulosin HCL 0.4 MG CAPSULE PO (09:11)
[2022-11-22] MEDS: lisinopriL 40 MG TABLET PO (09:12)
--- NOTE | 2022-11-22 09:55 | HO.PM.IMPN ---
Subjective Subjective Date of Service: 11/22/22 Interval History: Seen and evaluated this morning Feels well overall no more syncope, BP better controlled no other overnight events Review of Systems Review of Systems: Yes all other systems are reviewed and are negative Physical Exam Vital Signs: Vital Signs: Last Vital Signs Temp 96.8 F 11/22/22 07:42 Pulse 62 11/22/22 07:42 Resp 16 11/22/22 07:42 BP 158/82 H 11/22/22 07:42 Pulse Ox 98 11/22/22 07:42 O2 Del Method Room Air 11/22/22 07:42 BMI result Body Mass Index 20.4 Const: Other: Constitutional : Awake, interactive, not in distress Neck : Normal inspection, Supple Cardiovascular : RRR, no JVP, no lower extremity edema Respiratory : good bilateral air entry, no crackles, wheezes or rhonchi Gastrointestinal: soft, lax, Normal bowel sounds, Non tender Skin : Warm, Dry Neurological : Alert & oriented x3, right sided weakness Objective Data Active Medications Acetaminophen (Acetaminophen 325 Mg Tablet) 650 mg PO Q6H PRN PRN Reason: Pain, Mild (Pain Scale 1-3) Amlodipine Besylate (Amlodipine Besylate 10 Mg Tablet) 10 mg PO DAILY [facility]; Protocol Last Admin: 11/22/22 09:11 Dose: 10 mg Documented By: KAY Apixaban (Apixaban 5 Mg Tablet) 5 mg PO BID [facility] Last Admin: 11/22/22 09:11 Dose: 5 mg Documented By: KAY Atorvastatin Calcium (Atorvastatin Calcium 80 Mg Tablet) 80 mg PO BEDTIME [facility] Last Admin: 11/21/22 21:10 Dose: 80 mg Documented By: MANOHAR Docusate Sodium (Docusate Sodium 100 Mg Capsule) 100 mg PO DAILY PRN PRN Reason: Constipation Glucose (Glucose Gel 15 Gm Gel..Gram.) 15 gm PO Q15M PRN; Protocol PRN Reason: per Hypoglycemia Standing Ord. Hydrochlorothiazide (Hydrochlorothiazide 12.5 Mg Tablet) 12.5 mg PO DAILY [facility]; Protocol Last Admin: 11/22/22 09:11 Dose: 12.5 mg Documented By: KAY Dextrose (D10) 250 mls @ 750 mls/hr IV Q15M PRN; Protocol PRN Reason: per Hypoglycemia Standing Ord. Insulin Human Lispro (Insulin Lispro 100 Unit/Ml 3 Ml Vial) 0 unit SUBCUT QIDACHS [facility]; Protocol Last Admin: 11/22/22 08:02 Dose: Not Given Documented By: KAY Non-Admin Reason: No Insulin Coverage Lisinopril (Lisinopril 40 Mg Tablet) 40 mg PO DAILY [facility]; Protocol Last Admin: 11/22/22 09:12 Dose: 40 mg Documented By: KAY Comments: barcode torn Metformin HCl (Metformin Hcl 1,000 Mg Tablet) 1,000 mg PO BID [facility] Last Admin: 11/22/22 09:11 Dose: 1,000 mg Documented By: KAY Nicotine (Nicotine 7 Mg Patch.Td24) 7 mg TRANSDERMA DAILY [facility] Last Admin: 11/22/22 09:11 Dose: 7 mg Documented By: KAY Nicotine Polacrilex (Nicotine Polacrilex 2 Mg Gum) 2 mg BUCCAL Q2H PRN PRN Reason: tobcrav Last Admin: 11/18/22 08:48 Dose: 2 mg Documented By: BINH Ondansetron HCl (Ondansetron Hcl 4 Mg/2 Ml Vial) 4 mg IVPUSH Q8H PRN PRN Reason: Nausea and Vomiting Last Admin: 11/05/22 19:26 Dose: 4 mg Documented By: MARTHA Pharmacy Consult (Consult Rx Perform Med Rec) 1 each MISCELLANE ONCE PRN PRN Reason: Consult order Sodium Chloride (0.9 % Sodium Chloride Flush 3 Ml Syringe) 3 ml IVFLUSH QSHIFT [facility] Last Admin: 11/22/22 09:12 Dose: 3 ml Documented By: KAY Tamsulosin HCl (Tamsulosin Hcl 0.4 Mg Capsule) 0.4 mg PO DAILY [facility] Last Admin: 11/22/22 09:11 Dose: 0.4 mg Documented By: KAY Labs 11/02/22 08:24 11/21/22 06:10 Labs: Laboratory Results - last 24 hr 11/21/22 11/21/22 11/21/22 11:03 16:10 20:36 POC Glucose 138 H 103 119 H 11/22/22 07:32 POC Glucose 85 Assessment and Plan (1) Hypertensive urgency: Status: Acute (2) Paroxysmal atrial fibrillation: Status: Acute (3) Essential (primary) hypertension: Status: Acute Plan 77yo M with hx CVA, DM2, paroxysmal AF on apixaban, HTN, HLD, frequent falls admitted after witnessed syncope at [facility], where he was residing for [facility] but did not have a payor source # HTN urgency Increased amlodipine + lisinopril 11/16/22, Continue low dose HCT continue to monitor BP Recheck BMP # paroxysmal AF Noted to have bradycardia and junctional rhythm, therefore?metoprolol discontinued. Heart rate improved and remained stable. Seen by Cardiology and they will arrange for 30 day event monitor along with outpatient f/u. TTE 11/09/22: calculated ejection fraction is 63% w severely increased left ventricular wall thickness and regional wall motion abnormalities w moderate calcification of the aortic valve. ? ? Continue apixaban # incidental CBD dilation Patient denies abdominal pain; tolerating diet without N/V; LFTs normal; US showed variable size of CBD with no gallstones. No further w/u indicated # pulmonary nodule On CT: Emphysema.? 3 x 4 cm heterogeneous groundglass attenuation area in the left lower lobe with 6 x 8 mm solid component. Short-term follow-up chest CT in 2-3 months recommended to see if this is a persistent finding # syncope Perhaps related to intermittent bradycardia for which metoprolol discontinued. Ventricular rate? improved and syncope has not recurred. ? # lactic acidosis Resolved after IV fluids # hx CVA Continue statin + antihypertensives + apixaban # DM2 Continue metformin, maira-dose lispro # VTE ppx: apixaban # dispo: CM working financial barriers to SNF placement- pt owes a balance and has to pay it Time Spent With Patient Time: Total time managing care of this patient today ____ minutes. Quality Stroke Does the patient have a stroke diagnosis?: No VTE Prior VTE?: No VTE Risk Level:: Medical - moderate - high VTE Device Contraindication: Treatment Not Indicated VTE Drug Contraindication: N/A - Med Ordered
[2022-11-22 11:16] VITALS: BP 144/71; PULSE 69; RESP 18; TEMP 36.4; O2SAT 96
[2022-11-22 15:32] VITALS: BP 175/73; PULSE 98; RESP 18; TEMP 36.1; O2SAT 98
[2022-11-22 20:00] VITALS: BP 124/62; PULSE 77; RESP 18; TEMP 36.6; O2SAT 99
[2022-11-22] MEDS: Insulin Lispro 100 UNIT/ML 3 ML VIAL SUBCUT (21:05)
[2022-11-22] MEDS: Atorvastatin Calcium 80 MG TABLET PO (21:06)
[2022-11-23] VITALS (7 sets, daily range): BP systolic 111–148; BP diastolic 56–77; PULSE 71–77; RESP 16–20; TEMP 36.1–36.6; O2SAT 96–99
--- NOTE | 2022-11-23 06:20 | PM.EVENT ---
Event Note Date of Service: 11/23/22 Event Note: Patient heart rate dropping to 30-40s while sleeping. Asymptomatic Time Spent With Patient Time: Total time managing care of this patient today ____ minutes.
[2022-11-23] MEDS: Nicotine 7 MG PATCH.TD24 TRANSDERMA (08:28)
[2022-11-23] MEDS: amLODIPine Besylate 10 MG TABLET PO (08:29)
[2022-11-23] MEDS: Tamsulosin HCL 0.4 MG CAPSULE PO (08:29)
[2022-11-23] MEDS: Apixaban 5 MG TABLET PO ×2 (08:29→20:54)
[2022-11-23] MEDS: hydroCHLOROthiazide 12.5 MG TABLET PO (08:29)
[2022-11-23] MEDS: lisinopriL 40 MG TABLET PO (08:29)
[2022-11-23] MEDS: metFORMIN HCl 1,000 MG TABLET 1000 MG PO ×2 (08:29→20:54)
[2022-11-23] MEDS: 0.9 % Sodium Chloride Flush 3 ML SYRINGE IVFLUSH ×3 (08:29→20:54)
--- NOTE | 2022-11-23 12:14 | HO.PM.IMPN ---
Subjective Subjective Date of Service: 11/23/22 Interval History: Seen and evaluated this morning Feels well overall no more syncope, BP better controlled no other overnight events Review of Systems Review of Systems: Yes all other systems are reviewed and are negative Physical Exam Vital Signs: Vital Signs: Last Vital Signs Temp 97.1 F 11/23/22 07:38 Pulse 71 11/23/22 07:38 Resp 20 11/23/22 07:38 BP 148/72 H 11/23/22 07:38 Pulse Ox 96 11/23/22 07:38 O2 Del Method Room Air 11/23/22 07:38 BMI result Body Mass Index 20.4 Const: Other: Constitutional : Awake, interactive, not in distress Neck : Normal inspection, Supple Cardiovascular : RRR, no JVP, no lower extremity edema Respiratory : good bilateral air entry, no crackles, wheezes or rhonchi Gastrointestinal: soft, lax, Normal bowel sounds, Non tender Skin : Warm, Dry Neurological : Alert & oriented x3, right sided weakness Objective Data Active Medications Acetaminophen (Acetaminophen 325 Mg Tablet) 650 mg PO Q6H PRN PRN Reason: Pain, Mild (Pain Scale 1-3) Amlodipine Besylate (Amlodipine Besylate 10 Mg Tablet) 10 mg PO DAILY [facility]; Protocol Last Admin: 11/23/22 08:29 Dose: 10 mg Documented By: TAMMY Apixaban (Apixaban 5 Mg Tablet) 5 mg PO BID [facility] Last Admin: 11/23/22 08:29 Dose: 5 mg Documented By: TAMMY Atorvastatin Calcium (Atorvastatin Calcium 80 Mg Tablet) 80 mg PO BEDTIME [facility] Last Admin: 11/22/22 21:06 Dose: 80 mg Documented By: AYSHA Docusate Sodium (Docusate Sodium 100 Mg Capsule) 100 mg PO DAILY PRN PRN Reason: Constipation Glucose (Glucose Gel 15 Gm Gel..Gram.) 15 gm PO Q15M PRN; Protocol PRN Reason: per Hypoglycemia Standing Ord. Hydrochlorothiazide (Hydrochlorothiazide 12.5 Mg Tablet) 12.5 mg PO DAILY [facility]; Protocol Last Admin: 11/23/22 08:29 Dose: 12.5 mg Documented By: TAMMY Dextrose (D10) 250 mls @ 750 mls/hr IV Q15M PRN; Protocol PRN Reason: per Hypoglycemia Standing Ord. Insulin Human Lispro (Insulin Lispro 100 Unit/Ml 3 Ml Vial) 0 unit SUBCUT QIDACHS [facility]; Protocol Last Admin: 11/23/22 11:16 Dose: Not Given Documented By: TAMMY Non-Admin Reason: No Insulin Coverage Lisinopril (Lisinopril 40 Mg Tablet) 40 mg PO DAILY [facility]; Protocol Last Admin: 11/23/22 08:29 Dose: 40 mg Documented By: TAMMY Metformin HCl (Metformin Hcl 1,000 Mg Tablet) 1,000 mg PO BID [facility] Last Admin: 11/23/22 08:29 Dose: 1,000 mg Documented By: TAMMY Nicotine (Nicotine 7 Mg Patch.Td24) 7 mg TRANSDERMA DAILY [facility] Last Admin: 11/23/22 08:28 Dose: 7 mg Documented By: TAMMY Nicotine Polacrilex (Nicotine Polacrilex 2 Mg Gum) 2 mg BUCCAL Q2H PRN PRN Reason: tobcrav Last Admin: 11/18/22 08:48 Dose: 2 mg Documented By: BINH Ondansetron HCl (Ondansetron Hcl 4 Mg/2 Ml Vial) 4 mg IVPUSH Q8H PRN PRN Reason: Nausea and Vomiting Last Admin: 11/05/22 19:26 Dose: 4 mg Documented By: MARTHA Pharmacy Consult (Consult Rx Perform Med Rec) 1 each MISCELLANE ONCE PRN PRN Reason: Consult order Sodium Chloride (0.9 % Sodium Chloride Flush 3 Ml Syringe) 3 ml IVFLUSH QSHIFT [facility] Last Admin: 11/23/22 08:29 Dose: 3 ml Documented By: TAMMY Tamsulosin HCl (Tamsulosin Hcl 0.4 Mg Capsule) 0.4 mg PO DAILY [facility] Last Admin: 11/23/22 08:29 Dose: 0.4 mg Documented By: TAMMY Labs 11/02/22 08:24 11/21/22 06:10 Labs: Laboratory Results - last 24 hr 11/22/22 11/22/22 11/23/22 16:09 20:32 07:44 POC Glucose 90 198 H 96 11/23/22 11:03 POC Glucose 106 Assessment and Plan (1) Essential (primary) hypertension: Status: Acute Plan 77yo M with hx CVA, DM2, paroxysmal AF on apixaban, HTN, HLD, frequent falls admitted after witnessed syncope at [facility], where he was residing for [facility] but did not have a payor source # HTN urgency Increased amlodipine + lisinopril 11/16/22, Continue low dose HCT continue to monitor BP Recheck BMP # paroxysmal AF Noted to have bradycardia and junctional rhythm, therefore?metoprolol discontinued. Heart rate improved and remained stable. Seen by Cardiology and they will arrange for 30 day event monitor along with outpatient f/u. TTE 11/09/22: calculated ejection fraction is 63% w severely increased left ventricular wall thickness and regional wall motion abnormalities w moderate calcification of the aortic valve. ? ? Continue apixaban # incidental CBD dilation Patient denies abdominal pain; tolerating diet without N/V; LFTs normal; US showed variable size of CBD with no gallstones. No further w/u indicated # pulmonary nodule On CT: Emphysema.? 3 x 4 cm heterogeneous groundglass attenuation area in the left lower lobe with 6 x 8 mm solid component. Short-term follow-up chest CT in 2-3 months recommended to see if this is a persistent finding # syncope Perhaps related to intermittent bradycardia for which metoprolol discontinued. Ventricular rate? improved and syncope has not recurred. ? # lactic acidosis Resolved after IV fluids # hx CVA Continue statin + antihypertensives + apixaban # DM2 Continue metformin, maira-dose lispro # VTE ppx: apixaban # dispo: CM working financial barriers to SNF placement- pt owes a balance and has to pay it Time Spent With Patient Time: Total time managing care of this patient today ____ minutes. Quality Stroke Does the patient have a stroke diagnosis?: No VTE Prior VTE?: No VTE Risk Level:: Medical - moderate - high VTE Device Contraindication: Treatment Not Indicated VTE Drug Contraindication: N/A - Med Ordered
[2022-11-23] MEDS: Insulin Lispro 100 UNIT/ML 3 ML VIAL SUBCUT (20:54)
[2022-11-23] MEDS: Atorvastatin Calcium 80 MG TABLET PO (20:54)
[2022-11-24 03:45] VITALS: BP 150/70; PULSE 71; RESP 18; TEMP 36.1; O2SAT 99
[2022-11-24 07:29] VITALS: BP 175/70; PULSE 89; RESP 16; TEMP 36.1; O2SAT 98
[2022-11-24] MEDS: lisinopriL 40 MG TABLET PO (08:22)
[2022-11-24] MEDS: metFORMIN HCl 1,000 MG TABLET 1000 MG PO ×2 (08:23→20:27)
[2022-11-24] MEDS: Nicotine 7 MG PATCH.TD24 TRANSDERMA (08:23)
[2022-11-24] MEDS: Apixaban 5 MG TABLET PO ×2 (08:23→20:27)
[2022-11-24] MEDS: amLODIPine Besylate 10 MG TABLET PO (08:23)
[2022-11-24] MEDS: Tamsulosin HCL 0.4 MG CAPSULE PO (08:23)
[2022-11-24] MEDS: hydroCHLOROthiazide 25 MG TABLET PO (08:23)
[2022-11-24] MEDS: 0.9 % Sodium Chloride Flush 3 ML SYRINGE IVFLUSH ×3 (08:25→20:27)
[2022-11-24 12:00] VITALS: BP 115/56; PULSE 73; RESP 16; TEMP 36.4; O2SAT 98
--- NOTE | 2022-11-24 12:03 | HO.PM.IMPN ---
Subjective Subjective Date of Service: 11/24/22 Interval History: No new complaints Review of Systems Review of Systems: Yes all other systems are reviewed and are negative Physical Exam Vital Signs: Vital Signs: Last Vital Signs Temp 96.9 F 11/24/22 07:29 Pulse 89 11/24/22 07:29 Resp 16 11/24/22 07:29 BP 175/70 H 11/24/22 07:29 Pulse Ox 98 11/24/22 07:29 O2 Del Method Room Air 11/24/22 07:29 BMI result Body Mass Index 20.4 Gen: in no acute distress HEENT: sclera anicteric, moist mucus membranes Neck: supple Lungs: clear to auscultation bilaterally Heart: regular rate and rhythm, no murmurs Abd: soft, non-tender, non-distended Ext: no edema Skin: warm/well-perfused Neuro: alert and oriented x3, no focal findings Psych: appropriate affect Objective Data Active Medications Acetaminophen (Acetaminophen 325 Mg Tablet) 650 mg PO Q6H PRN PRN Reason: Pain, Mild (Pain Scale 1-3) Amlodipine Besylate (Amlodipine Besylate 10 Mg Tablet) 10 mg PO DAILY [facility]; Protocol Last Admin: 11/24/22 08:23 Dose: 10 mg Documented By: BRANDON Apixaban (Apixaban 5 Mg Tablet) 5 mg PO BID [facility] Last Admin: 11/24/22 08:23 Dose: 5 mg Documented By: BRANDON Atorvastatin Calcium (Atorvastatin Calcium 80 Mg Tablet) 80 mg PO BEDTIME [facility] Last Admin: 11/23/22 20:54 Dose: 80 mg Documented By: SHANTA Docusate Sodium (Docusate Sodium 100 Mg Capsule) 100 mg PO DAILY PRN PRN Reason: Constipation Glucose (Glucose Gel 15 Gm Gel..Gram.) 15 gm PO Q15M PRN; Protocol PRN Reason: per Hypoglycemia Standing Ord. Hydrochlorothiazide (Hydrochlorothiazide 25 Mg Tablet) 25 mg PO DAILY [facility]; Protocol Last Admin: 11/24/22 08:23 Dose: 25 mg Documented By: BRANDON Dextrose (D10) 250 mls @ 750 mls/hr IV Q15M PRN; Protocol PRN Reason: per Hypoglycemia Standing Ord. Insulin Human Lispro (Insulin Lispro 100 Unit/Ml 3 Ml Vial) 0 unit SUBCUT QIDACHS [facility]; Protocol Last Admin: 11/24/22 11:37 Dose: Not Given Documented By: BRANDON Non-Admin Reason: No Insulin Coverage Lisinopril (Lisinopril 40 Mg Tablet) 40 mg PO DAILY [facility]; Protocol Last Admin: 11/24/22 08:22 Dose: 40 mg Documented By: BRANDON Metformin HCl (Metformin Hcl 1,000 Mg Tablet) 1,000 mg PO BID [facility] Last Admin: 11/24/22 08:23 Dose: 1,000 mg Documented By: BRANDON Nicotine (Nicotine 7 Mg Patch.Td24) 7 mg TRANSDERMA DAILY [facility] Last Admin: 11/24/22 08:23 Dose: 7 mg Documented By: BRANDON Nicotine Polacrilex (Nicotine Polacrilex 2 Mg Gum) 2 mg BUCCAL Q2H PRN PRN Reason: tobcrav Last Admin: 11/18/22 08:48 Dose: 2 mg Documented By: HEENA-RIVCYNTHIA Ondansetron HCl (Ondansetron Hcl 4 Mg/2 Ml Vial) 4 mg IVPUSH Q8H PRN PRN Reason: Nausea and Vomiting Last Admin: 11/05/22 19:26 Dose: 4 mg Documented By: MARTHA Pharmacy Consult (Consult Rx Perform Med Rec) 1 each MISCELLANE ONCE PRN PRN Reason: Consult order Sodium Chloride (0.9 % Sodium Chloride Flush 3 Ml Syringe) 3 ml IVFLUSH QSHIFT [facility] Last Admin: 11/24/22 08:25 Dose: 3 ml Documented By: BRANDON Tamsulosin HCl (Tamsulosin Hcl 0.4 Mg Capsule) 0.4 mg PO DAILY [facility] Last Admin: 11/24/22 08:23 Dose: 0.4 mg Documented By: BRANDON Labs 11/02/22 08:24 11/21/22 06:10 Labs: Laboratory Results - last 24 hr 11/23/22 11/23/22 11/24/22 16:22 20:18 07:32 POC Glucose 125 H 175 H 86 11/24/22 11:09 POC Glucose 109 Assessment and Plan (1) Essential (primary) hypertension: Status: Acute Plan d#23 77yo M with hx CVA, DM2, paroxysmal AF on apixaban, HTN, HLD, frequent falls admitted after witnessed syncope at [facility], where he was residing for [facility] but did not have a payor source # HTN urgency - increased amlodipine + lisinopril - increase HCTZ today - continue to monitor BP # paroxysmal AF - Noted to have bradycardia and junctional rhythm, therefore?metoprolol discontinued. Heart rate improved and remained stable. Seen by Cardiology and they will arrange for 30 day event monitor along with outpatient f/u. - TTE 11/09/22: calculated ejection fraction is 63% w severely increased left ventricular wall thickness and regional wall motion abnormalities w moderate calcification of the aortic valve. ? ? - Continue apixaban # incidental CBD dilation - Patient denies abdominal pain; tolerating diet without N/V; LFTs normal; US showed variable size of CBD with no gallstones. - No further w/u indicated # pulmonary nodule - On CT: Emphysema.? 3 x 4 cm heterogeneous groundglass attenuation area in the left lower lobe with 6 x 8 mm solid component. - Short-term follow-up chest CT in 2-3 months recommended to see if this is a persistent finding # syncope - Perhaps related to intermittent bradycardia for which metoprolol discontinued. Ventricular rate? improved and syncope has not recurred. ? # lactic acidosis - Resolved after IV fluids # hx CVA - Continue statin + antihypertensives + apixaban # DM2 - Continue metformin, maira-dose lispro # VTE ppx: apixaban # dispo: CM working financial barriers to SNF placement- pt owes a balance and has to pay it Time Spent With Patient Time: Total time managing care of this patient today _30 ___ minutes. Quality Stroke Does the patient have a stroke diagnosis?: No VTE Prior VTE?: No VTE Risk Level:: Medical - moderate - high VTE Device Contraindication: Treatment Not Indicated VTE Drug Contraindication: N/A - Med Ordered
[2022-11-24 15:19] VITALS: BP 154/66; PULSE 79; RESP 18; TEMP 36.9; O2SAT 99
[2022-11-24 19:47] VITALS: BP 148/75; PULSE 76; RESP 20; TEMP 36.1; O2SAT 97
[2022-11-24] MEDS: Insulin Lispro 100 UNIT/ML 3 ML VIAL SUBCUT (20:27)
[2022-11-24] MEDS: Atorvastatin Calcium 80 MG TABLET PO (20:27)
[2022-11-25 03:57] VITALS: BP 152/70; PULSE 70; RESP 18; TEMP 36.3; O2SAT 98
[2022-11-25 07:10] VITALS: BP 152/83; PULSE 46; RESP 18; TEMP 36.6; O2SAT 96
[2022-11-25] MEDS: Apixaban 5 MG TABLET PO ×2 (08:04→20:31)
[2022-11-25] MEDS: Tamsulosin HCL 0.4 MG CAPSULE PO (08:04)
[2022-11-25] MEDS: metFORMIN HCl 1,000 MG TABLET 1000 MG PO ×2 (08:04→20:31)
[2022-11-25] MEDS: lisinopriL 40 MG TABLET PO (08:04)
[2022-11-25] MEDS: amLODIPine Besylate 10 MG TABLET PO (08:04)
[2022-11-25] MEDS: Nicotine 7 MG PATCH.TD24 TRANSDERMA (08:04)
[2022-11-25] MEDS: hydroCHLOROthiazide 25 MG TABLET PO (08:04)
[2022-11-25] MEDS: 0.9 % Sodium Chloride Flush 3 ML SYRINGE IVFLUSH (08:05)
--- NOTE | 2022-11-25 09:47 | HO.PM.IMPN ---
Subjective Subjective Date of Service: 11/25/22 Interval History: no chest pain no dyspnea Review of Systems Review of Systems: Yes all other systems are reviewed and are negative Physical Exam Vital Signs: Vital Signs: Last Vital Signs Temp 97.8 F 11/25/22 07:10 Pulse 46 L 11/25/22 07:10 Resp 18 11/25/22 07:10 BP 152/83 H 11/25/22 07:10 Pulse Ox 96 11/25/22 07:10 O2 Del Method Room Air 11/25/22 07:10 BMI result Body Mass Index 20.4 Gen: in no acute distress HEENT: sclera anicteric, moist mucus membranes Neck: supple Lungs: clear to auscultation bilaterally Heart: regular rate and rhythm, no murmurs Abd: soft, non-tender, non-distended Ext: no edema Skin: warm/well-perfused Neuro: alert and oriented x3, no focal findings Psych: appropriate affect Objective Data Active Medications Acetaminophen (Acetaminophen 325 Mg Tablet) 650 mg PO Q6H PRN PRN Reason: Pain, Mild (Pain Scale 1-3) Amlodipine Besylate (Amlodipine Besylate 10 Mg Tablet) 10 mg PO DAILY [facility]; Protocol Last Admin: 11/25/22 08:04 Dose: 10 mg Documented By: BRANDON Apixaban (Apixaban 5 Mg Tablet) 5 mg PO BID [facility] Last Admin: 11/25/22 08:04 Dose: 5 mg Documented By: BRANDON Atorvastatin Calcium (Atorvastatin Calcium 80 Mg Tablet) 80 mg PO BEDTIME [facility] Last Admin: 11/24/22 20:27 Dose: 80 mg Documented By: EVELIO Docusate Sodium (Docusate Sodium 100 Mg Capsule) 100 mg PO DAILY PRN PRN Reason: Constipation Glucose (Glucose Gel 15 Gm Gel..Gram.) 15 gm PO Q15M PRN; Protocol PRN Reason: per Hypoglycemia Standing Ord. Hydrochlorothiazide (Hydrochlorothiazide 25 Mg Tablet) 25 mg PO DAILY [facility]; Protocol Last Admin: 11/25/22 08:04 Dose: 25 mg Documented By: BRANDON Dextrose (D10) 250 mls @ 750 mls/hr IV Q15M PRN; Protocol PRN Reason: per Hypoglycemia Standing Ord. Insulin Human Lispro (Insulin Lispro 100 Unit/Ml 3 Ml Vial) 0 unit SUBCUT QIDACHS [facility]; Protocol Last Admin: 11/25/22 07:16 Dose: Not Given Documented By: BRANDON Non-Admin Reason: No Insulin Coverage Lisinopril (Lisinopril 40 Mg Tablet) 40 mg PO DAILY [facility]; Protocol Last Admin: 11/25/22 08:04 Dose: 40 mg Documented By: BRANDON Metformin HCl (Metformin Hcl 1,000 Mg Tablet) 1,000 mg PO BID [facility] Last Admin: 11/25/22 08:04 Dose: 1,000 mg Documented By: BRANDON Nicotine (Nicotine 7 Mg Patch.Td24) 7 mg TRANSDERMA DAILY [facility] Last Admin: 11/25/22 08:04 Dose: 7 mg Documented By: BRANDON Nicotine Polacrilex (Nicotine Polacrilex 2 Mg Gum) 2 mg BUCCAL Q2H PRN PRN Reason: tobcrav Last Admin: 11/18/22 08:48 Dose: 2 mg Documented By: HEENA-RIVCYNTHIA Ondansetron HCl (Ondansetron Hcl 4 Mg/2 Ml Vial) 4 mg IVPUSH Q8H PRN PRN Reason: Nausea and Vomiting Last Admin: 11/05/22 19:26 Dose: 4 mg Documented By: Smith Pharmacy Consult (Consult Rx Perform Med Rec) 1 each MISCELLANE ONCE PRN PRN Reason: Consult order Sodium Chloride (0.9 % Sodium Chloride Flush 3 Ml Syringe) 3 ml IVFLUSH QSHIFT [facility] Last Admin: 11/25/22 08:05 Dose: 3 ml Documented By: BRANDON Tamsulosin HCl (Tamsulosin Hcl 0.4 Mg Capsule) 0.4 mg PO DAILY [facility] Last Admin: 11/25/22 08:04 Dose: 0.4 mg Documented By: BRANDON Labs 11/02/22 08:24 11/21/22 06:10 Labs: Laboratory Results - last 24 hr 11/24/22 11/24/22 11/24/22 11:09 15:50 20:17 POC Glucose 109 141 H 157 H 11/25/22 07:12 POC Glucose 88 Assessment and Plan (1) Essential (primary) hypertension: Status: Acute Plan d#24 77yo M with hx CVA, DM2, paroxysmal AF on apixaban, HTN, HLD, frequent falls admitted after witnessed syncope at [facility], where he was residing for [facility] but did not have a payor source # HTN urgency - increased amlodipine + lisinopril + HCTZ - continue to monitor BP # paroxysmal AF - Noted to have bradycardia and junctional rhythm, therefore?metoprolol discontinued. Heart rate improved and remained stable. Seen by Cardiology and they will arrange for 30 day event monitor along with outpatient f/u. - TTE 11/09/22: calculated ejection fraction is 63% w severely increased left ventricular wall thickness and regional wall motion abnormalities w moderate calcification of the aortic valve. ? ? - Continue apixaban # incidental CBD dilation - Patient denies abdominal pain; tolerating diet without N/V; LFTs normal; US showed variable size of CBD with no gallstones. - No further w/u indicated # pulmonary nodule - On CT: Emphysema.? 3 x 4 cm heterogeneous groundglass attenuation area in the left lower lobe with 6 x 8 mm solid component. - Short-term follow-up chest CT in 2-3 months recommended to see if this is a persistent finding # syncope - Perhaps related to intermittent bradycardia for which metoprolol discontinued. Ventricular rate? improved and syncope has not recurred. ? # lactic acidosis - Resolved after IV fluids # hx CVA - Continue statin + antihypertensives + apixaban # DM2 - Continue metformin, maira-dose lispro # VTE ppx: apixaban # dispo: CM working financial barriers to SNF placement- pt owes a balance and has to pay it Time Spent With Patient Time: Total time managing care of this patient today ___25_ minutes. Quality Stroke Does the patient have a stroke diagnosis?: No VTE Prior VTE?: No VTE Risk Level:: Medical - moderate - high VTE Device Contraindication: Treatment Not Indicated VTE Drug Contraindication: N/A - Med Ordered
[2022-11-25 10:32] VITALS: BP 152/83; PULSE 46; O2SAT 96
--- NOTE | 2022-11-25 12:21 | MHC.CM.PN ---
STR continues to be the goal.
[2022-11-25 15:15] VITALS: BP 138/58; PULSE 65; RESP 18; TEMP 36.2; O2SAT 100
[2022-11-25 19:46] VITALS: BP 143/67; PULSE 74; RESP 16; TEMP 36.7; O2SAT 95
[2022-11-25] MEDS: Atorvastatin Calcium 80 MG TABLET PO (20:31)
[2022-11-26 04:00] VITALS: BP 130/55; PULSE 52; RESP 18; TEMP 36.1; O2SAT 95
[2022-11-26 07:43] VITALS: BP 139/67; PULSE 73; RESP 18; TEMP 36.1; O2SAT 96
[2022-11-26] MEDS: Nicotine 7 MG PATCH.TD24 TRANSDERMA (08:07)
[2022-11-26] MEDS: lisinopriL 40 MG TABLET PO (08:07)
[2022-11-26] MEDS: hydroCHLOROthiazide 25 MG TABLET PO (08:07)
[2022-11-26] MEDS: metFORMIN HCl 1,000 MG TABLET 1000 MG PO ×2 (08:07→20:41)
[2022-11-26] MEDS: Tamsulosin HCL 0.4 MG CAPSULE PO (08:07)
[2022-11-26] MEDS: amLODIPine Besylate 10 MG TABLET PO (08:07)
[2022-11-26] MEDS: Apixaban 5 MG TABLET PO ×2 (08:07→20:41)
--- NOTE | 2022-11-26 09:16 | HO.PM.IMPN ---
Subjective Subjective Date of Service: 11/26/22 Interval History: no complaints Review of Systems Review of Systems: Yes all other systems are reviewed and are negative Physical Exam Vital Signs: Vital Signs: Last Vital Signs Temp 97.0 F 11/26/22 07:43 Pulse 73 11/26/22 07:43 Resp 18 11/26/22 07:43 BP 139/67 11/26/22 07:43 Pulse Ox 96 11/26/22 07:43 O2 Del Method Room Air 11/26/22 07:43 BMI result Body Mass Index 20.4 Gen: in no acute distress HEENT: sclera anicteric, moist mucus membranes Neck: supple Lungs: clear to auscultation bilaterally Heart: regular rate and rhythm, no murmurs Abd: soft, non-tender, non-distended Ext: no edema Skin: warm/well-perfused Neuro: alert and oriented x3, no focal findings Psych: appropriate affect Objective Data Active Medications Acetaminophen (Acetaminophen 325 Mg Tablet) 650 mg PO Q6H PRN PRN Reason: Pain, Mild (Pain Scale 1-3) Amlodipine Besylate (Amlodipine Besylate 10 Mg Tablet) 10 mg PO DAILY [facility]; Protocol Last Admin: 11/26/22 08:07 Dose: 10 mg Documented By: BRANDON Apixaban (Apixaban 5 Mg Tablet) 5 mg PO BID [facility] Last Admin: 11/26/22 08:07 Dose: 5 mg Documented By: BRANDON Atorvastatin Calcium (Atorvastatin Calcium 80 Mg Tablet) 80 mg PO BEDTIME [facility] Last Admin: 11/25/22 20:31 Dose: 80 mg Documented By: EVELIO Docusate Sodium (Docusate Sodium 100 Mg Capsule) 100 mg PO DAILY PRN PRN Reason: Constipation Glucose (Glucose Gel 15 Gm Gel..Gram.) 15 gm PO Q15M PRN; Protocol PRN Reason: per Hypoglycemia Standing Ord. Hydrochlorothiazide (Hydrochlorothiazide 25 Mg Tablet) 25 mg PO DAILY [facility]; Protocol Last Admin: 11/26/22 08:07 Dose: 25 mg Documented By: BRANDON Dextrose (D10) 250 mls @ 750 mls/hr IV Q15M PRN; Protocol PRN Reason: per Hypoglycemia Standing Ord. Insulin Human Lispro (Insulin Lispro 100 Unit/Ml 3 Ml Vial) 0 unit SUBCUT QIDACHS [facility]; Protocol Last Admin: 11/26/22 07:35 Dose: Not Given Documented By: BRANDON Non-Admin Reason: No Insulin Coverage Lisinopril (Lisinopril 40 Mg Tablet) 40 mg PO DAILY [facility]; Protocol Last Admin: 11/26/22 08:07 Dose: 40 mg Documented By: BRANDON Metformin HCl (Metformin Hcl 1,000 Mg Tablet) 1,000 mg PO BID [facility] Last Admin: 11/26/22 08:07 Dose: 1,000 mg Documented By: BRANDON Nicotine (Nicotine 7 Mg Patch.Td24) 7 mg TRANSDERMA DAILY [facility] Last Admin: 11/26/22 08:07 Dose: 7 mg Documented By: BRANDON Nicotine Polacrilex (Nicotine Polacrilex 2 Mg Gum) 2 mg BUCCAL Q2H PRN PRN Reason: tobcrav Last Admin: 11/18/22 08:48 Dose: 2 mg Documented By: HEENA-RIVCYNTHIA Ondansetron HCl (Ondansetron Hcl 4 Mg/2 Ml Vial) 4 mg IVPUSH Q8H PRN PRN Reason: Nausea and Vomiting Last Admin: 11/05/22 19:26 Dose: 4 mg Documented By: MARTHA Pharmacy Consult (Consult Rx Perform Med Rec) 1 each MISCELLANE ONCE PRN PRN Reason: Consult order Sodium Chloride (0.9 % Sodium Chloride Flush 3 Ml Syringe) 3 ml IVFLUSH QSHIFT [facility] Last Admin: 11/26/22 08:08 Dose: Not Given Documented By: BRANDON Non-Admin Reason: No Access Tamsulosin HCl (Tamsulosin Hcl 0.4 Mg Capsule) 0.4 mg PO DAILY [facility] Last Admin: 11/26/22 08:07 Dose: 0.4 mg Documented By: BRANDON Labs 11/02/22 08:24 11/21/22 06:10 Labs: Laboratory Results - last 24 hr 11/25/22 11/25/22 11/25/22 11:31 16:12 19:44 POC Glucose 111 129 H 136 H 11/26/22 07:25 POC Glucose 99 Assessment and Plan (1) Essential (primary) hypertension: Status: Acute Plan d#25 77yo M with hx CVA, DM2, paroxysmal AF on apixaban, HTN, HLD, frequent falls admitted after witnessed syncope at [facility], where he was residing for [facility] but did not have a payor source # HTN urgency, resolved - increased amlodipine + lisinopril + HCTZ - BP improved # paroxysmal AF - Noted to have bradycardia and junctional rhythm, therefore?metoprolol discontinued. Heart rate improved and remained stable. Seen by Cardiology and they will arrange for 30 day event monitor along with outpatient f/u. - TTE 11/09/22: calculated ejection fraction is 63% w severely increased left ventricular wall thickness and regional wall motion abnormalities w moderate calcification of the aortic valve. ? ? - Continue apixaban # incidental CBD dilation - Patient denies abdominal pain; tolerating diet without N/V; LFTs normal; US showed variable size of CBD with no gallstones. - No further w/u indicated # pulmonary nodule - On CT: Emphysema.? 3 x 4 cm heterogeneous groundglass attenuation area in the left lower lobe with 6 x 8 mm solid component. - Short-term follow-up chest CT in 2-3 months recommended to see if this is a persistent finding # syncope - Perhaps related to intermittent bradycardia for which metoprolol discontinued. Ventricular rate? improved and syncope has not recurred. ? # lactic acidosis - Resolved after IV fluids # hx CVA - Continue statin + antihypertensives + apixaban # DM2 - Continue metformin, maira-dose lispro # VTE ppx: apixaban # dispo: CM working financial barriers to SNF placement- pt owes a balance and has to pay it Time Spent With Patient Time: Total time managing care of this patient today __25__ minutes. Quality Stroke Does the patient have a stroke diagnosis?: No VTE Prior VTE?: No VTE Risk Level:: Medical - moderate - high VTE Device Contraindication: Treatment Not Indicated VTE Drug Contraindication: N/A - Med Ordered
--- NOTE | 2022-11-26 10:51 | MHC.CM.PN ---
Addendum entered by Kristen Zhao 11/27/22 16:20: CORRECTION: PT WROTE A CHECK FOR $11,087.30 TO DBV Addendum entered by Kristen Zhao 11/26/22 16:06: BRADY CALLED PTS SISTER/POA, MEGHAN [phone] AND INFORMED HER OF THE PLAN FOR PT TO PAY DBV BACK OWED MONEYS SO THAT HE MAY GO TO A DIFFERENT SNF. SHE REPORTS BEING IN AGREEMENT AND SAYS SHE WILL CONTACT THE PTS SON/HCP, BAYLEE. BAYLEE CALLED AFTER SPEAKING TO MEGHAN, AND ALSO REPORTED BEING IN AGREEMENT WITH THE PLAN. BAYLEE STATES HE IS HOPEFUL THE PT CAN GO TO [facility] IN [place]. CM MET WITH PT WHO WROTE A CHECK TO DB FOR THE TOTAL AMOUNT OWED, $[id number]. CM [employer] WILL DELIVER CHECK TO SNF ON 11/27/22 Original Note: PT IS AWARE THERE HAVE BEEN BED OFFERS, HOWEVER NO ONE CAN ACCEPT HIM UNTIL DAY [facility] IS PAYED FOR HIS TIME THERE. HE IS AWARE THIS HAS BEEN CONVEYED TO HIS SON SEVERAL TIMES AND HE HAS FAILED TO COMPLETE THE PAYMENT PT REPORTS HE HAS HIS CHECK BOOK HERE AND CAN MAKE THE PAYMENT MESSAGE LEFT FOR DB REQUESTING DETAILS ON WHO THE CHECK SHOULD BE PAYABLE TO AND WHERE IT SHOULD BE SENT
[2022-11-26 10:58] VITALS: BP 139/67; PULSE 73; O2SAT 96
[2022-11-26 16:00] VITALS: BP 135/63; PULSE 72; RESP 20; TEMP 36.4; O2SAT 99
[2022-11-26 19:50] VITALS: BP 155/82; PULSE 74; RESP 20; TEMP 36.6; O2SAT 98
[2022-11-26] MEDS: Atorvastatin Calcium 80 MG TABLET PO (20:41)
[2022-11-27 04:00] VITALS: BP 135/63; PULSE 73; RESP 16; TEMP 36.1; O2SAT 95
[2022-11-27 07:29] VITALS: BP 160/73; PULSE 77; RESP 16; TEMP 36.1; O2SAT 96
[2022-11-27] MEDS: Tamsulosin HCL 0.4 MG CAPSULE PO (09:30)
[2022-11-27] MEDS: hydroCHLOROthiazide 25 MG TABLET PO (09:30)
[2022-11-27] MEDS: amLODIPine Besylate 10 MG TABLET PO (09:30)
[2022-11-27] MEDS: Apixaban 5 MG TABLET PO ×2 (09:30→20:49)
[2022-11-27] MEDS: Nicotine 7 MG PATCH.TD24 TRANSDERMA (09:30)
[2022-11-27] MEDS: lisinopriL 40 MG TABLET PO (09:30)
[2022-11-27] MEDS: metFORMIN HCl 1,000 MG TABLET 1000 MG PO ×2 (09:30→20:49)
--- NOTE | 2022-11-27 10:26 | HO.PM.IMPN ---
Subjective Subjective Date of Service: 11/27/22 Interval History: no complaints Review of Systems Review of Systems: Yes all other systems are reviewed and are negative Physical Exam Vital Signs: Vital Signs: Last Vital Signs Temp 96.9 F 11/27/22 07:29 Pulse 77 11/27/22 07:29 Resp 16 11/27/22 07:29 BP 160/73 H 11/27/22 07:29 Pulse Ox 96 11/27/22 07:29 O2 Del Method Room Air 11/27/22 07:29 BMI result Body Mass Index 20.4 Gen: in no acute distress HEENT: sclera anicteric, moist mucus membranes Neck: supple Lungs: clear to auscultation bilaterally Heart: regular rate and rhythm, no murmurs Abd: soft, non-tender, non-distended Ext: no edema Skin: warm/well-perfused Neuro: alert and oriented x3, no focal findings Psych: appropriate affect Objective Data Active Medications Acetaminophen (Acetaminophen 325 Mg Tablet) 650 mg PO Q6H PRN PRN Reason: Pain, Mild (Pain Scale 1-3) Amlodipine Besylate (Amlodipine Besylate 10 Mg Tablet) 10 mg PO DAILY [facility]; Protocol Last Admin: 11/27/22 09:30 Dose: 10 mg Documented By: SOLEDAD Apixaban (Apixaban 5 Mg Tablet) 5 mg PO BID [facility] Last Admin: 11/27/22 09:30 Dose: 5 mg Documented By: SOLEDAD Atorvastatin Calcium (Atorvastatin Calcium 80 Mg Tablet) 80 mg PO BEDTIME [facility] Last Admin: 11/26/22 20:41 Dose: 80 mg Documented By: EVELIO Docusate Sodium (Docusate Sodium 100 Mg Capsule) 100 mg PO DAILY PRN PRN Reason: Constipation Glucose (Glucose Gel 15 Gm Gel..Gram.) 15 gm PO Q15M PRN; Protocol PRN Reason: per Hypoglycemia Standing Ord. Hydrochlorothiazide (Hydrochlorothiazide 25 Mg Tablet) 25 mg PO DAILY [facility]; Protocol Last Admin: 11/27/22 09:30 Dose: 25 mg Documented By: SOLEDAD Dextrose (D10) 250 mls @ 750 mls/hr IV Q15M PRN; Protocol PRN Reason: per Hypoglycemia Standing Ord. Insulin Human Lispro (Insulin Lispro 100 Unit/Ml 3 Ml Vial) 0 unit SUBCUT QIDACHS [facility]; Protocol Last Admin: 11/27/22 07:53 Dose: Not Given Documented By: MCGCHRISTINENM Non-Admin Reason: No Insulin Coverage Lisinopril (Lisinopril 40 Mg Tablet) 40 mg PO DAILY [facility]; Protocol Last Admin: 11/27/22 09:30 Dose: 40 mg Documented By: SOLEDAD Metformin HCl (Metformin Hcl 1,000 Mg Tablet) 1,000 mg PO BID [facility] Last Admin: 11/27/22 09:30 Dose: 1,000 mg Documented By: SOLEDAD Nicotine (Nicotine 7 Mg Patch.Td24) 7 mg TRANSDERMA DAILY [facility] Last Admin: 11/27/22 09:30 Dose: 7 mg Documented By: SOLEDAD Nicotine Polacrilex (Nicotine Polacrilex 2 Mg Gum) 2 mg BUCCAL Q2H PRN PRN Reason: tobcrav Last Admin: 11/18/22 08:48 Dose: 2 mg Documented By: HEENA-BARBARA Ondansetron HCl (Ondansetron Hcl 4 Mg/2 Ml Vial) 4 mg IVPUSH Q8H PRN PRN Reason: Nausea and Vomiting Last Admin: 11/05/22 19:26 Dose: 4 mg Documented By: Simth Pharmacy Consult (Consult Rx Perform Med Rec) 1 each MISCELLANE ONCE PRN PRN Reason: Consult order Sodium Chloride (0.9 % Sodium Chloride Flush 3 Ml Syringe) 3 ml IVFLUSH QSHIFT [facility] Last Admin: 11/27/22 09:29 Dose: Not Given Documented By: SOLEDAD Non-Admin Reason: No Access Tamsulosin HCl (Tamsulosin Hcl 0.4 Mg Capsule) 0.4 mg PO DAILY [facility] Last Admin: 11/27/22 09:30 Dose: 0.4 mg Documented By: SOLEDAD Labs 11/02/22 08:24 11/21/22 06:10 Labs: Laboratory Results - last 24 hr 11/26/22 11/26/22 11/26/22 11:16 16:21 19:57 POC Glucose 132 H 114 115 11/27/22 07:33 POC Glucose 94 Assessment and Plan (1) Essential (primary) hypertension: Status: Acute Plan d#26 77yo M with hx CVA, DM2, paroxysmal AF on apixaban, HTN, HLD, frequent falls admitted after witnessed syncope at [facility], where he was residing for [facility] but did not have a payor source # HTN urgency, resolved - increased amlodipine + lisinopril + HCTZ - BP improved # paroxysmal AF - Noted to have bradycardia and junctional rhythm, therefore?metoprolol discontinued. Heart rate improved and remained stable. Seen by Cardiology and they will arrange for 30 day event monitor along with outpatient f/u. - TTE 11/09/22: calculated ejection fraction is 63% w severely increased left ventricular wall thickness and regional wall motion abnormalities w moderate calcification of the aortic valve. ? ? - Continue apixaban # incidental CBD dilation - Patient denies abdominal pain; tolerating diet without N/V; LFTs normal; US showed variable size of CBD with no gallstones. - No further w/u indicated # pulmonary nodule - On CT: Emphysema.? 3 x 4 cm heterogeneous groundglass attenuation area in the left lower lobe with 6 x 8 mm solid component. - Short-term follow-up chest CT in 2-3 months recommended to see if this is a persistent finding # syncope - Perhaps related to intermittent bradycardia for which metoprolol discontinued. Ventricular rate? improved and syncope has not recurred. ? # lactic acidosis - Resolved after IV fluids # hx CVA - Continue statin + antihypertensives + apixaban # DM2 - Continue metformin, maira-dose lispro # VTE ppx: apixaban # dispo: CM working financial barriers to SNF placement- pt owes a balance and has to pay it Time Spent With Patient Time: Total time managing care of this patient today 25____ minutes. Quality Stroke Does the patient have a stroke diagnosis?: No VTE Prior VTE?: No VTE Risk Level:: Medical - moderate - high VTE Device Contraindication: Treatment Not Indicated VTE Drug Contraindication: N/A - Med Ordered
[2022-11-27 13:14] VITALS: BP 160/73; PULSE 77; O2SAT 96
[2022-11-27 15:57] VITALS: BP 140/60; PULSE 75; RESP 18; TEMP 36.2; O2SAT 96
[2022-11-27 19:57] VITALS: BP 143/68; PULSE 80; RESP 20; TEMP 36.6; O2SAT 96
[2022-11-27] MEDS: Atorvastatin Calcium 80 MG TABLET PO (20:49)
[2022-11-28 03:44] VITALS: BP 151/76; PULSE 76; RESP 18; TEMP 36.4; O2SAT 96
[2022-11-28 07:52] VITALS: BP 145/64; PULSE 96; RESP 20; TEMP 37.2; O2SAT 99
[2022-11-28] MEDS: amLODIPine Besylate 10 MG TABLET PO (09:06)
[2022-11-28] MEDS: metFORMIN HCl 1,000 MG TABLET 1000 MG PO ×2 (09:07→20:38)
[2022-11-28] MEDS: hydroCHLOROthiazide 25 MG TABLET PO (09:07)
[2022-11-28] MEDS: Nicotine 7 MG PATCH.TD24 TRANSDERMA (09:07)
[2022-11-28] MEDS: lisinopriL 40 MG TABLET PO (09:07)
[2022-11-28] MEDS: Tamsulosin HCL 0.4 MG CAPSULE PO (09:07)
[2022-11-28] MEDS: Apixaban 5 MG TABLET PO ×2 (09:07→20:38)
--- NOTE | 2022-11-28 09:45 | HO.PM.IMPN ---
Subjective Subjective Date of Service: 11/28/22 Interval History: no new complaints Review of Systems Review of Systems: Yes all other systems are reviewed and are negative Physical Exam Vital Signs: Vital Signs: Last Vital Signs Temp 98.9 F 11/28/22 07:52 Pulse 96 11/28/22 07:52 Resp 20 11/28/22 07:52 BP 145/64 H 11/28/22 07:52 Pulse Ox 99 11/28/22 07:52 O2 Del Method Room Air 11/28/22 07:52 BMI result Body Mass Index 20.4 Gen: in no acute distress HEENT: sclera anicteric, moist mucus membranes Neck: supple Lungs: clear to auscultation bilaterally Heart: regular rate and rhythm, no murmurs Abd: soft, non-tender, non-distended Ext: no edema Skin: warm/well-perfused Neuro: alert and oriented x3, no focal findings Psych: appropriate affect Objective Data Active Medications Acetaminophen (Acetaminophen 325 Mg Tablet) 650 mg PO Q6H PRN PRN Reason: Pain, Mild (Pain Scale 1-3) Amlodipine Besylate (Amlodipine Besylate 10 Mg Tablet) 10 mg PO DAILY [facility]; Protocol Last Admin: 11/28/22 09:06 Dose: 10 mg Documented By: HUMBERTO Apixaban (Apixaban 5 Mg Tablet) 5 mg PO BID [facility] Last Admin: 11/28/22 09:07 Dose: 5 mg Documented By: HUMBERTO Atorvastatin Calcium (Atorvastatin Calcium 80 Mg Tablet) 80 mg PO BEDTIME [facility] Last Admin: 11/27/22 20:49 Dose: 80 mg Documented By: NOHELIA Docusate Sodium (Docusate Sodium 100 Mg Capsule) 100 mg PO DAILY PRN PRN Reason: Constipation Glucose (Glucose Gel 15 Gm Gel..Gram.) 15 gm PO Q15M PRN; Protocol PRN Reason: per Hypoglycemia Standing Ord. Hydrochlorothiazide (Hydrochlorothiazide 25 Mg Tablet) 25 mg PO DAILY [facility]; Protocol Last Admin: 11/28/22 09:07 Dose: 25 mg Documented By: HUMBERTO Dextrose (D10) 250 mls @ 750 mls/hr IV Q15M PRN; Protocol PRN Reason: per Hypoglycemia Standing Ord. Insulin Human Lispro (Insulin Lispro 100 Unit/Ml 3 Ml Vial) 0 unit SUBCUT QIDACHS [facility]; Protocol Last Admin: 11/28/22 08:09 Dose: Not Given Documented By: HUMBERTO Non-Admin Reason: No Insulin Coverage Lisinopril (Lisinopril 40 Mg Tablet) 40 mg PO DAILY [facility]; Protocol Last Admin: 11/28/22 09:07 Dose: 40 mg Documented By: HUMBERTO Metformin HCl (Metformin Hcl 1,000 Mg Tablet) 1,000 mg PO BID [facility] Last Admin: 11/28/22 09:07 Dose: 1,000 mg Documented By: HUMBERTO Nicotine (Nicotine 7 Mg Patch.Td24) 7 mg TRANSDERMA DAILY [facility] Last Admin: 11/28/22 09:07 Dose: 7 mg Documented By: HUMBERTO Nicotine Polacrilex (Nicotine Polacrilex 2 Mg Gum) 2 mg BUCCAL Q2H PRN PRN Reason: tobcrav Last Admin: 11/18/22 08:48 Dose: 2 mg Documented By: BINH Ondansetron HCl (Ondansetron Hcl 4 Mg/2 Ml Vial) 4 mg IVPUSH Q8H PRN PRN Reason: Nausea and Vomiting Last Admin: 11/05/22 19:26 Dose: 4 mg Documented By: MARTHA Pharmacy Consult (Consult Rx Perform Med Rec) 1 each MISCELLANE ONCE PRN PRN Reason: Consult order Sodium Chloride (0.9 % Sodium Chloride Flush 3 Ml Syringe) 3 ml IVFLUSH QSHIFT [facility] Last Admin: 11/28/22 09:10 Dose: Not Given Documented By: HUMBERTO Non-Admin Reason: No Access Tamsulosin HCl (Tamsulosin Hcl 0.4 Mg Capsule) 0.4 mg PO DAILY [facility] Last Admin: 11/28/22 09:07 Dose: 0.4 mg Documented By: HUMBERTO Labs 11/02/22 08:24 11/21/22 06:10 Labs: Laboratory Results - last 24 hr 11/27/22 11/27/22 11/27/22 11:30 16:08 20:20 POC Glucose 120 H 92 145 H 11/28/22 07:46 POC Glucose 95 Assessment and Plan (1) Essential (primary) hypertension: Status: Acute Plan d#27 77yo M with hx CVA, DM2, paroxysmal AF on apixaban, HTN, HLD, frequent falls admitted after witnessed syncope at [facility], where he was residing for [facility] but did not have a payor source # HTN urgency, resolved - increased amlodipine + lisinopril + HCTZ - BP improved # paroxysmal AF - Noted to have bradycardia and junctional rhythm, therefore?metoprolol discontinued. Heart rate improved and remained stable. Seen by Cardiology and they will arrange for 30 day event monitor along with outpatient f/u. - TTE 11/09/22: calculated ejection fraction is 63% w severely increased left ventricular wall thickness and regional wall motion abnormalities w moderate calcification of the aortic valve. ? ? - Continue apixaban # incidental CBD dilation - Patient denies abdominal pain; tolerating diet without N/V; LFTs normal; US showed variable size of CBD with no gallstones. - No further w/u indicated # pulmonary nodule - On CT: Emphysema.? 3 x 4 cm heterogeneous groundglass attenuation area in the left lower lobe with 6 x 8 mm solid component. - Short-term follow-up chest CT in 2-3 months recommended to see if this is a persistent finding # syncope - Perhaps related to intermittent bradycardia for which metoprolol discontinued. Ventricular rate? improved and syncope has not recurred. ? # lactic acidosis - Resolved after IV fluids # hx CVA - Continue statin + antihypertensives + apixaban # DM2 - Continue metformin, maira-dose lispro # VTE ppx: apixaban # dispo: CM working financial barriers to SNF placement- pt owes a balance and has to pay it Time Spent With Patient Time: Total time managing care of this patient today __25__ minutes. Quality Stroke Does the patient have a stroke diagnosis?: No VTE Prior VTE?: No VTE Risk Level:: Medical - moderate - high VTE Device Contraindication: Treatment Not Indicated VTE Drug Contraindication: N/A - Med Ordered
[2022-11-28 16:00] VITALS: BP 132/45; PULSE 89; RESP 20; TEMP 37.2; O2SAT 98
[2022-11-28 19:59] VITALS: BP 133/65; PULSE 74; RESP 18; TEMP 36.4; O2SAT 96
[2022-11-28] MEDS: Atorvastatin Calcium 80 MG TABLET PO (20:38)
[2022-11-28] MEDS: Insulin Lispro 100 UNIT/ML 3 ML VIAL SUBCUT (20:38)
[2022-11-28] MEDS: 0.9 % Sodium Chloride Flush 3 ML SYRINGE IVFLUSH (23:37)
[2022-11-29 04:00] VITALS: BP 142/64; PULSE 65; RESP 19; TEMP 36.4; O2SAT 96
[2022-11-29 06:29] LABS: Creatinine Clr Calc Pharmacy 48.6; Estimated Glomerular Filt Rate 54
[2022-11-29 07:40] VITALS: BP 175/81; PULSE 89; RESP 20; TEMP 36.6; O2SAT 96
[2022-11-29] MEDS: metFORMIN HCl 1,000 MG TABLET 1000 MG PO ×2 (08:57→20:45)
[2022-11-29] MEDS: amLODIPine Besylate 10 MG TABLET PO (08:57)
[2022-11-29] MEDS: Apixaban 5 MG TABLET PO ×2 (08:58→20:45)
[2022-11-29] MEDS: Tamsulosin HCL 0.4 MG CAPSULE PO (08:58)
[2022-11-29] MEDS: Nicotine 7 MG PATCH.TD24 TRANSDERMA (08:58)
[2022-11-29] MEDS: lisinopriL 40 MG TABLET PO (08:58)
[2022-11-29] MEDS: hydroCHLOROthiazide 25 MG TABLET PO (08:58)
--- NOTE | 2022-11-29 10:27 | HO.PM.IMPN ---
Subjective Subjective Date of Service: 11/29/22 Review of Systems Follow-up syncope, placement Good appetite, ambulating in room Physical Exam Vital Signs: Vital Signs: Last Vital Signs Temp 97.9 F 11/29/22 07:40 Pulse 89 11/29/22 07:40 Resp 20 11/29/22 07:40 BP 175/81 H 11/29/22 07:40 Pulse Ox 96 11/29/22 07:40 O2 Del Method Room Air 11/29/22 07:40 BMI result Body Mass Index 20.4 Appearing in no acute distress lung sounds are clear to auscultation heart regular rate rhythm, clear S1, S2 positive bowel sounds, abdomen is soft, nontender neuro patient is alert x3, no focal deficits Objective Data Active Medications Acetaminophen (Acetaminophen 325 Mg Tablet) 650 mg PO Q6H PRN PRN Reason: Pain, Mild (Pain Scale 1-3) Amlodipine Besylate (Amlodipine Besylate 10 Mg Tablet) 10 mg PO DAILY [facility]; Protocol Last Admin: 11/29/22 08:57 Dose: 10 mg Documented By: HUMBERTO Apixaban (Apixaban 5 Mg Tablet) 5 mg PO BID [facility] Last Admin: 11/29/22 08:58 Dose: 5 mg Documented By: HUMBERTO Atorvastatin Calcium (Atorvastatin Calcium 80 Mg Tablet) 80 mg PO BEDTIME [facility] Last Admin: 11/28/22 20:38 Dose: 80 mg Documented By: PAT Docusate Sodium (Docusate Sodium 100 Mg Capsule) 100 mg PO DAILY PRN PRN Reason: Constipation Glucose (Glucose Gel 15 Gm Gel..Gram.) 15 gm PO Q15M PRN; Protocol PRN Reason: per Hypoglycemia Standing Ord. Hydrochlorothiazide (Hydrochlorothiazide 25 Mg Tablet) 25 mg PO DAILY [facility]; Protocol Last Admin: 11/29/22 08:58 Dose: 25 mg Documented By: HUMBERTO Dextrose (D10) 250 mls @ 750 mls/hr IV Q15M PRN; Protocol PRN Reason: per Hypoglycemia Standing Ord. Insulin Human Lispro (Insulin Lispro 100 Unit/Ml 3 Ml Vial) 0 unit SUBCUT QIDACHS [facility]; Protocol Last Admin: 11/29/22 08:22 Dose: Not Given Documented By: HUMBERTO Non-Admin Reason: No Insulin Coverage Lisinopril (Lisinopril 40 Mg Tablet) 40 mg PO DAILY [facility]; Protocol Last Admin: 11/29/22 08:58 Dose: 40 mg Documented By: HUMBERTO Metformin HCl (Metformin Hcl 1,000 Mg Tablet) 1,000 mg PO BID [facility] Last Admin: 11/29/22 08:57 Dose: 1,000 mg Documented By: HUMBERTO Nicotine (Nicotine 7 Mg Patch.Td24) 7 mg TRANSDERMA DAILY [facility] Last Admin: 11/29/22 08:58 Dose: 7 mg Documented By: HUMBERTO Nicotine Polacrilex (Nicotine Polacrilex 2 Mg Gum) 2 mg BUCCAL Q2H PRN PRN Reason: tobcrav Last Admin: 11/18/22 08:48 Dose: 2 mg Documented By: HEENA-BARBARA Ondansetron HCl (Ondansetron Hcl 4 Mg/2 Ml Vial) 4 mg IVPUSH Q8H PRN PRN Reason: Nausea and Vomiting Last Admin: 11/05/22 19:26 Dose: 4 mg Documented By: MARTHA Pharmacy Consult (Consult Rx Perform Med Rec) 1 each MISCELLANE ONCE PRN PRN Reason: Consult order Sodium Chloride (0.9 % Sodium Chloride Flush 3 Ml Syringe) 3 ml IVFLUSH QSHIFT [facility] Last Admin: 11/29/22 07:26 Dose: Not Given Documented By: HUMBERTO Non-Admin Reason: No Access Tamsulosin HCl (Tamsulosin Hcl 0.4 Mg Capsule) 0.4 mg PO DAILY [facility] Last Admin: 11/29/22 08:58 Dose: 0.4 mg Documented By: HUMBERTO Labs 11/02/22 08:24 11/29/22 05:58 Labs: Laboratory Results - last 24 hr 11/28/22 11/28/22 11/28/22 10:44 16:17 20:33 Estim Creat Clear Calc Estimated GFR POC Glucose 102 82 157 H 11/29/22 11/29/22 05:58 07:20 Estim Creat Clear Calc 48.6 Estimated GFR 54 POC Glucose 97 Assessment and Plan (1) Hypertensive urgency: Status: Acute Plan 77yo M with hx CVA, DM2, paroxysmal AF on apixaban, HTN, HLD, frequent falls admitted after witnessed syncope at [facility], where he was residing for [facility] but did not have a payor source HTN urgency, resolved continue amlodipine + lisinopril + HCTZ BP improved paroxysmal AF Noted to have bradycardia and junctional rhythm, therefore?metoprolol discontinued.? Heart rate improved and remained stable.? Seen by Cardiology and they will arrange for 30 day event monitor along with outpatient f/u. TTE 11/09/22: calculated ejection fraction is 63% w severely increased left ventricular wall thickness and regional wall motion abnormalities w moderate calcification of the aortic valve. ? ? Continue apixaban incidental CBD dilation Patient denies abdominal pain; tolerating diet without N/V; LFTs normal; US showed variable size of CBD with no gallstones.? No further w/u indicated pulmonary nodule On CT:3 x 4 cm heterogeneous groundglass attenuation area in the left lower lobe with 6 x 8 mm solid component. Short-term follow-up chest CT in 2-3 months recommended to see if this is a persistent finding syncope Perhaps related to intermittent bradycardia for which metoprolol discontinued.? Ventricular rate? improved and syncope has not recurred. ? lactic acidosis Resolved after IV fluids hx CVA Continue statin + antihypertensives +? apixaban DM2 Continue metformin, maira-dose lispro VTE ppx: apixaban Attending Dr. Junior dispo: CM working financial barriers to SNF placement- pt owes a balance and has to pay it Time Spent With Patient Time: Total time managing care of this patient today ____ minutes. Quality Stroke Does the patient have a stroke diagnosis?: No VTE Prior VTE?: No VTE Risk Level:: Medical - moderate - high VTE Device Contraindication: Treatment Not Indicated VTE Drug Contraindication: N/A - Med Ordered
[2022-11-29 11:14] VITALS: BP 164/81; PULSE 86
[2022-11-29 15:46] VITALS: BP 146/64; PULSE 90; RESP 20; TEMP 37; O2SAT 99
[2022-11-29 19:37] VITALS: BP 140/64; PULSE 93; RESP 20; TEMP 36.8; O2SAT 96
[2022-11-29] MEDS: Atorvastatin Calcium 80 MG TABLET PO (20:45)
[2022-11-30 03:48] VITALS: BP 134/60; PULSE 63; RESP 18; TEMP 36.1; O2SAT 95
[2022-11-30 07:10] VITALS: BP 123/86; PULSE 69; RESP 18; TEMP 36.8; O2SAT 95
[2022-11-30] MEDS: amLODIPine Besylate 10 MG TABLET PO (07:36)
[2022-11-30] MEDS: Apixaban 5 MG TABLET PO ×2 (07:36→20:26)
[2022-11-30] MEDS: Tamsulosin HCL 0.4 MG CAPSULE PO (07:36)
[2022-11-30] MEDS: lisinopriL 40 MG TABLET PO (07:37)
[2022-11-30] MEDS: hydroCHLOROthiazide 25 MG TABLET PO (07:37)
[2022-11-30] MEDS: Nicotine 7 MG PATCH.TD24 TRANSDERMA (07:37)
[2022-11-30] MEDS: metFORMIN HCl 1,000 MG TABLET 1000 MG PO ×2 (07:37→20:26)
--- NOTE | 2022-11-30 10:19 | HO.PM.IMPN ---
Subjective Subjective Date of Service: 11/30/22 Interval History: no complaints Review of Systems Review of Systems: Yes all other systems are reviewed and are negative Physical Exam Vital Signs: Vital Signs: Last Vital Signs Temp 98.3 F 11/30/22 07:10 Pulse 69 11/30/22 07:10 Resp 18 11/30/22 07:10 BP 123/86 11/30/22 07:10 Pulse Ox 95 11/30/22 07:10 O2 Del Method Room Air 11/30/22 07:10 BMI result Body Mass Index 20.4 Gen: in no acute distress HEENT: sclera anicteric, moist mucus membranes Neck: supple Lungs: clear to auscultation bilaterally Heart: regular rate and rhythm, no murmurs Abd: soft, non-tender, non-distended Ext: no edema Skin: warm/well-perfused Neuro: alert and oriented x3, no focal findings Psych: appropriate affect Objective Data Active Medications Acetaminophen (Acetaminophen 325 Mg Tablet) 650 mg PO Q6H PRN PRN Reason: Pain, Mild (Pain Scale 1-3) Amlodipine Besylate (Amlodipine Besylate 10 Mg Tablet) 10 mg PO DAILY [facility]; Protocol Last Admin: 11/30/22 07:36 Dose: 10 mg Documented By: PIPO Apixaban (Apixaban 5 Mg Tablet) 5 mg PO BID [facility] Last Admin: 11/30/22 07:36 Dose: 5 mg Documented By: PIPO Atorvastatin Calcium (Atorvastatin Calcium 80 Mg Tablet) 80 mg PO BEDTIME [facility] Last Admin: 11/29/22 20:45 Dose: 80 mg Documented By: ADONIS Docusate Sodium (Docusate Sodium 100 Mg Capsule) 100 mg PO DAILY PRN PRN Reason: Constipation Glucose (Glucose Gel 15 Gm Gel..Gram.) 15 gm PO Q15M PRN; Protocol PRN Reason: per Hypoglycemia Standing Ord. Hydrochlorothiazide (Hydrochlorothiazide 25 Mg Tablet) 25 mg PO DAILY [facility]; Protocol Last Admin: 11/30/22 07:37 Dose: 25 mg Documented By: PIPO Dextrose (D10) 250 mls @ 750 mls/hr IV Q15M PRN; Protocol PRN Reason: per Hypoglycemia Standing Ord. Insulin Human Lispro (Insulin Lispro 100 Unit/Ml 3 Ml Vial) 0 unit SUBCUT QIDACHS [facility]; Protocol Last Admin: 11/30/22 07:28 Dose: Not Given Documented By: PIPO Non-Admin Reason: No Insulin Coverage Lisinopril (Lisinopril 40 Mg Tablet) 40 mg PO DAILY [facility]; Protocol Last Admin: 11/30/22 07:37 Dose: 40 mg Documented By: PIPO Metformin HCl (Metformin Hcl 1,000 Mg Tablet) 1,000 mg PO BID [facility] Last Admin: 11/30/22 07:37 Dose: 1,000 mg Documented By: PIPO Nicotine (Nicotine 7 Mg Patch.Td24) 7 mg TRANSDERMA DAILY [facility] Last Admin: 11/30/22 07:37 Dose: 7 mg Documented By: PIPO Nicotine Polacrilex (Nicotine Polacrilex 2 Mg Gum) 2 mg BUCCAL Q2H PRN PRN Reason: tobcrav Last Admin: 11/18/22 08:48 Dose: 2 mg Documented By: BINH Ondansetron HCl (Ondansetron Hcl 4 Mg/2 Ml Vial) 4 mg IVPUSH Q8H PRN PRN Reason: Nausea and Vomiting Last Admin: 11/05/22 19:26 Dose: 4 mg Documented By: MARTHA Pharmacy Consult (Consult Rx Perform Med Rec) 1 each MISCELLANE ONCE PRN PRN Reason: Consult order Sodium Chloride (0.9 % Sodium Chloride Flush 3 Ml Syringe) 3 ml IVFLUSH QSHIFT [facility] Last Admin: 11/30/22 07:37 Dose: Not Given Documented By: PIPO Non-Admin Reason: No Access Tamsulosin HCl (Tamsulosin Hcl 0.4 Mg Capsule) 0.4 mg PO DAILY [facility] Last Admin: 11/30/22 07:36 Dose: 0.4 mg Documented By: PIPO Labs 11/02/22 08:24 11/29/22 05:58 Labs: Laboratory Results - last 24 hr 11/29/22 11/29/22 11/29/22 11:26 16:23 20:56 POC Glucose 123 H 97 144 H 11/30/22 07:08 POC Glucose 90 Assessment and Plan (1) Hypertensive urgency: Status: Acute Plan d#29 77yo M with hx CVA, DM2, paroxysmal AF on apixaban, HTN, HLD, frequent falls admitted after witnessed syncope at [facility], where he was residing for [facility] but did not have a payor source HTN urgency, resolved continue amlodipine + lisinopril + HCTZ BP improved paroxysmal AF Noted to have bradycardia and junctional rhythm, therefore?metoprolol discontinued.? Heart rate improved and remained stable.? Seen by Cardiology and they will arrange for 30 day event monitor along with outpatient f/u. TTE 11/09/22: calculated ejection fraction is 63% w severely increased left ventricular wall thickness and regional wall motion abnormalities w moderate calcification of the aortic valve. ? ? Continue apixaban incidental CBD dilation Patient denies abdominal pain; tolerating diet without N/V; LFTs normal; US showed variable size of CBD with no gallstones.? No further w/u indicated pulmonary nodule On CT:3 x 4 cm heterogeneous groundglass attenuation area in the left lower lobe with 6 x 8 mm solid component. Short-term follow-up chest CT in 2-3 months recommended to see if this is a persistent finding syncope Perhaps related to intermittent bradycardia for which metoprolol discontinued.? Ventricular rate? improved and syncope has not recurred. ? lactic acidosis Resolved after IV fluids hx CVA Continue statin + antihypertensives +? apixaban DM2 Continue metformin, maira-dose lispro VTE ppx: apixaban dispo: CM working financial barriers to SNF placement- see CM notes for details Time Spent With Patient Time: Total time managing care of this patient today ___25_ minutes. Quality Stroke Does the patient have a stroke diagnosis?: No VTE Prior VTE?: No VTE Risk Level:: Medical - moderate - high VTE Device Contraindication: Treatment Not Indicated VTE Drug Contraindication: N/A - Med Ordered
[2022-11-30 12:12] VITALS: BP 123/86; PULSE 69; O2SAT 95
--- NOTE | 2022-11-30 13:51 | MHC.CM.PN ---
Addendum entered by Analisa Simon 11/30/22 14:11: [facility] is following. They do not have a bed available today. They anticipate offering a bed. Plan is to touch base with [facility] tomorrow am re bed [facility]. Original Note: [facility] confirmed that a check was delivered to the facility Wednesday11/27/22. They do not have a bed available to offer at this time.
[2022-11-30 15:33] VITALS: BP 141/69; PULSE 69; RESP 18; TEMP 36.2; O2SAT 100
[2022-11-30 19:42] VITALS: BP 137/65; PULSE 74; RESP 15; TEMP 36.1; O2SAT 99
[2022-11-30 20:08] LABS: Glucose, Whole Blood 160 mg/dL (60-115)
[2022-11-30] MEDS: Atorvastatin Calcium 80 MG TABLET PO (20:26)
[2022-11-30] MEDS: Insulin Lispro 100 UNIT/ML 3 ML VIAL SUBCUT (20:26)
[2022-12-01 03:39] VITALS: BP 143/67; PULSE 85; RESP 16; TEMP 36; O2SAT 97
[2022-12-01 07:17] VITALS: BP 150/61; PULSE 58; RESP 18; TEMP 35.5; O2SAT 95
[2022-12-01 07:28] LABS: Glucose, Whole Blood 85 mg/dL (60-115)
[2022-12-01] MEDS: Nicotine 7 MG PATCH.TD24 TRANSDERMA (09:05)
[2022-12-01] MEDS: Apixaban 5 MG TABLET PO ×2 (09:06→20:58)
[2022-12-01] MEDS: amLODIPine Besylate 10 MG TABLET PO (09:06)
[2022-12-01] MEDS: metFORMIN HCl 1,000 MG TABLET 1000 MG PO ×2 (09:06→20:58)
[2022-12-01] MEDS: lisinopriL 40 MG TABLET PO (09:06)
[2022-12-01] MEDS: Tamsulosin HCL 0.4 MG CAPSULE PO (09:06)
[2022-12-01] MEDS: hydroCHLOROthiazide 25 MG TABLET PO (09:06)
--- NOTE | 2022-12-01 09:49 | HO.PM.IMPN ---
Subjective Subjective Date of Service: 12/01/22 Interval History: no complaints Review of Systems Review of Systems: Yes all other systems are reviewed and are negative Physical Exam Vital Signs: Vital Signs: Last Vital Signs Temp 96 F L 12/01/22 07:17 Pulse 58 12/01/22 07:17 Resp 18 12/01/22 07:17 BP 150/61 H 12/01/22 07:17 Pulse Ox 95 12/01/22 07:17 O2 Del Method Room Air 12/01/22 07:17 BMI result Body Mass Index 20.4 Gen: in no acute distress Psych: appropriate affect Objective Data Active Medications Acetaminophen (Acetaminophen 325 Mg Tablet) 650 mg PO Q6H PRN PRN Reason: Pain, Mild (Pain Scale 1-3) Amlodipine Besylate (Amlodipine Besylate 10 Mg Tablet) 10 mg PO DAILY [facility]; Protocol Last Admin: 12/01/22 09:06 Dose: 10 mg Documented By: KAY Apixaban (Apixaban 5 Mg Tablet) 5 mg PO BID [facility] Last Admin: 12/01/22 09:06 Dose: 5 mg Documented By: KAY Atorvastatin Calcium (Atorvastatin Calcium 80 Mg Tablet) 80 mg PO BEDTIME [facility] Last Admin: 11/30/22 20:26 Dose: 80 mg Documented By: ADONIS Docusate Sodium (Docusate Sodium 100 Mg Capsule) 100 mg PO DAILY PRN PRN Reason: Constipation Glucose (Glucose Gel 15 Gm Gel..Gram.) 15 gm PO Q15M PRN; Protocol PRN Reason: per Hypoglycemia Standing Ord. Hydrochlorothiazide (Hydrochlorothiazide 25 Mg Tablet) 25 mg PO DAILY [facility]; Protocol Last Admin: 12/01/22 09:06 Dose: 25 mg Documented By: KAY Dextrose (D10) 250 mls @ 750 mls/hr IV Q15M PRN; Protocol PRN Reason: per Hypoglycemia Standing Ord. Insulin Human Lispro (Insulin Lispro 100 Unit/Ml 3 Ml Vial) 0 unit SUBCUT QIDACHS [facility]; Protocol Last Admin: 12/01/22 07:58 Dose: Not Given Documented By: KAY Non-Admin Reason: No Insulin Coverage Lisinopril (Lisinopril 40 Mg Tablet) 40 mg PO DAILY [facility]; Protocol Last Admin: 12/01/22 09:06 Dose: 40 mg Documented By: KAY Metformin HCl (Metformin Hcl 1,000 Mg Tablet) 1,000 mg PO BID [facility] Last Admin: 12/01/22 09:06 Dose: 1,000 mg Documented By: KAY Nicotine (Nicotine 7 Mg Patch.Td24) 7 mg TRANSDERMA DAILY [facility] Last Admin: 12/01/22 09:05 Dose: 7 mg Documented By: KAY Nicotine Polacrilex (Nicotine Polacrilex 2 Mg Gum) 2 mg BUCCAL Q2H PRN PRN Reason: tobcrav Last Admin: 11/18/22 08:48 Dose: 2 mg Documented By: BINH Ondansetron HCl (Ondansetron Hcl 4 Mg/2 Ml Vial) 4 mg IVPUSH Q8H PRN PRN Reason: Nausea and Vomiting Last Admin: 11/05/22 19:26 Dose: 4 mg Documented By: MARTHA Pharmacy Consult (Consult Rx Perform Med Rec) 1 each MISCELLANE ONCE PRN PRN Reason: Consult order Sodium Chloride (0.9 % Sodium Chloride Flush 3 Ml Syringe) 3 ml IVFLUSH QSHIFT [facility] Last Admin: 12/01/22 09:04 Dose: Not Given Documented By: KAY Non-Admin Reason: No Access Tamsulosin HCl (Tamsulosin Hcl 0.4 Mg Capsule) 0.4 mg PO DAILY [facility] Last Admin: 12/01/22 09:06 Dose: 0.4 mg Documented By: KAY Labs 11/02/22 08:24 11/29/22 05:58 Labs: Laboratory Results - last 24 hr 11/30/22 11/30/22 11/30/22 11:12 16:13 19:30 POC Glucose 106 137 H 160 H 12/01/22 07:25 POC Glucose 85 Assessment and Plan (1) Hypertensive urgency: Status: Acute Plan d30 77yo M with hx CVA, DM2, paroxysmal AF on apixaban, HTN, HLD, frequent falls admitted after witnessed syncope at [facility], where he was residing for [facility] but did not have a payor source HTN urgency, resolved - continue amlodipine + lisinopril + HCTZ - BP improved paroxysmal AF - Noted to have bradycardia and junctional rhythm, therefore?metoprolol discontinued.? - Heart rate improved and remained stable.? - Seen by Cardiology and they will arrange for 30 day event monitor along with outpatient f/u. - TTE 11/09/22: calculated ejection fraction is 63% w severely increased left ventricular wall thickness and regional wall motion abnormalities w moderate calcification of the aortic valve. ? ? - Continue apixaban incidental CBD dilation - Patient denies abdominal pain; tolerating diet without N/V; LFTs normal; US showed variable size of CBD with no gallstones.? - No further w/u indicated pulmonary nodule - On CT:3 x 4 cm heterogeneous groundglass attenuation area in the left lower lobe with 6 x 8 mm solid component. - Short-term follow-up chest CT in 2-3 months recommended to see if this is a persistent finding syncope - Perhaps related to intermittent bradycardia for which metoprolol discontinued.? Ventricular rate? improved and syncope has not recurred. ? lactic acidosis - Resolved after IV fluids hx CVA - Continue statin + antihypertensives +? apixaban DM2 - Continue metformin, maira-dose lispro VTE ppx: apixaban dispo: awaiting bed at SNF; oustanding bill has been paid off Time Spent With Patient Time: Total time managing care of this patient today ___25_ minutes. Quality Stroke Does the patient have a stroke diagnosis?: No VTE Prior VTE?: No VTE Risk Level:: Medical - moderate - high VTE Device Contraindication: Treatment Not Indicated VTE Drug Contraindication: N/A - Med Ordered
[2022-12-01 11:17] LABS: Glucose, Whole Blood 112 mg/dL (60-115)
--- NOTE | 2022-12-01 11:46 | MHC.CM.PN ---
Followed up with [facility] re admission date. T/W spoke with [facility] from [facility]. She states that the plan is to accept the patient tomorrow, 12/02/22. She instructed to follow up tomorrow for DP.
[2022-12-01 14:02] VITALS: BP 150/61; PULSE 58; O2SAT 95
[2022-12-01 15:41] VITALS: BP 130/74; PULSE 72; RESP 18; TEMP 36.4; O2SAT 98
[2022-12-01 15:58] LABS: Glucose, Whole Blood 94 mg/dL (60-115)
[2022-12-01 18:49] VITALS: BP 124/70; PULSE 69; RESP 18; TEMP 36.4; O2SAT 98
[2022-12-01 19:25] LABS: Glucose, Whole Blood 175 mg/dL (60-115)
[2022-12-01] MEDS: Insulin Lispro 100 UNIT/ML 3 ML VIAL SUBCUT (20:58)
[2022-12-01] MEDS: Atorvastatin Calcium 80 MG TABLET PO (20:58)
[2022-12-02 04:00] VITALS: BP 174/79; PULSE 53; RESP 18; TEMP 36.4; O2SAT 97
[2022-12-02 06:54] VITALS: BP 141/80; PULSE 73; RESP 18; TEMP 36.6; O2SAT 98
[2022-12-02 07:08] LABS: Glucose, Whole Blood 96 mg/dL (60-115)
[2022-12-02] MEDS: metFORMIN HCl 1,000 MG TABLET 1000 MG PO (08:10)
[2022-12-02] MEDS: lisinopriL 40 MG TABLET PO (08:10)
[2022-12-02] MEDS: Tamsulosin HCL 0.4 MG CAPSULE PO (08:10)
[2022-12-02] MEDS: Nicotine 7 MG PATCH.TD24 TRANSDERMA (08:10)
[2022-12-02] MEDS: hydroCHLOROthiazide 25 MG TABLET PO (08:10)
[2022-12-02] MEDS: Apixaban 5 MG TABLET PO (08:10)
[2022-12-02] MEDS: amLODIPine Besylate 10 MG TABLET PO (08:10)
--- NOTE | 2022-12-02 09:55 | HO.PM.IMPN ---
Subjective Subjective Date of Service: 12/02/22 Interval History: No new issues, just awaiting SNF bed Physical Exam Vital Signs: Vital Signs: Last Vital Signs Temp 98 F 12/02/22 06:54 Pulse 73 12/02/22 06:54 Resp 18 12/02/22 06:54 BP 141/80 H 12/02/22 06:54 Pulse Ox 98 12/02/22 06:54 O2 Del Method Room Air 12/02/22 06:54 BMI result Body Mass Index 20.4 Const: Other: alert, no distress, seem approietae CV RRR, lungs CTA, neuro NF Objective Data Active Medications Acetaminophen (Acetaminophen 325 Mg Tablet) 650 mg PO Q6H PRN PRN Reason: Pain, Mild (Pain Scale 1-3) Amlodipine Besylate (Amlodipine Besylate 10 Mg Tablet) 10 mg PO DAILY [facility]; Protocol Last Admin: 12/02/22 08:10 Dose: 10 mg Documented By: PIPO Apixaban (Apixaban 5 Mg Tablet) 5 mg PO BID [facility] Last Admin: 12/02/22 08:10 Dose: 5 mg Documented By: PIPO Atorvastatin Calcium (Atorvastatin Calcium 80 Mg Tablet) 80 mg PO BEDTIME [facility] Last Admin: 12/01/22 20:58 Dose: 80 mg Documented By: EDIN Docusate Sodium (Docusate Sodium 100 Mg Capsule) 100 mg PO DAILY PRN PRN Reason: Constipation Glucose (Glucose Gel 15 Gm Gel..Gram.) 15 gm PO Q15M PRN; Protocol PRN Reason: per Hypoglycemia Standing Ord. Hydrochlorothiazide (Hydrochlorothiazide 25 Mg Tablet) 25 mg PO DAILY [facility]; Protocol Last Admin: 12/02/22 08:10 Dose: 25 mg Documented By: PIPO Dextrose (D10) 250 mls @ 750 mls/hr IV Q15M PRN; Protocol PRN Reason: per Hypoglycemia Standing Ord. Insulin Human Lispro (Insulin Lispro 100 Unit/Ml 3 Ml Vial) 0 unit SUBCUT QIDACHS [facility]; Protocol Last Admin: 12/02/22 07:24 Dose: Not Given Documented By: PIPO Non-Admin Reason: No Insulin Coverage Lisinopril (Lisinopril 40 Mg Tablet) 40 mg PO DAILY [facility]; Protocol Last Admin: 12/02/22 08:10 Dose: 40 mg Documented By: PIPO Metformin HCl (Metformin Hcl 1,000 Mg Tablet) 1,000 mg PO BID [facility] Last Admin: 12/02/22 08:10 Dose: 1,000 mg Documented By: PIPO Nicotine (Nicotine 7 Mg Patch.Td24) 7 mg TRANSDERMA DAILY [facility] Last Admin: 12/02/22 08:10 Dose: 7 mg Documented By: PIPO Nicotine Polacrilex (Nicotine Polacrilex 2 Mg Gum) 2 mg BUCCAL Q2H PRN PRN Reason: tobcrav Last Admin: 11/18/22 08:48 Dose: 2 mg Documented By: HEENA-RIVCYNTHIA Ondansetron HCl (Ondansetron Hcl 4 Mg/2 Ml Vial) 4 mg IVPUSH Q8H PRN PRN Reason: Nausea and Vomiting Last Admin: 11/05/22 19:26 Dose: 4 mg Documented By: MARTHA Pharmacy Consult (Consult Rx Perform Med Rec) 1 each MISCELLANE ONCE PRN PRN Reason: Consult order Sodium Chloride (0.9 % Sodium Chloride Flush 3 Ml Syringe) 3 ml IVFLUSH QSHIFT [facility] Last Admin: 12/02/22 08:03 Dose: Not Given Documented By: PIPO Non-Admin Reason: No Access Tamsulosin HCl (Tamsulosin Hcl 0.4 Mg Capsule) 0.4 mg PO DAILY [facility] Last Admin: 12/02/22 08:10 Dose: 0.4 mg Documented By: PIPO Labs 11/02/22 08:24 11/29/22 05:58 Labs: Laboratory Results - last 24 hr 12/01/22 12/01/22 12/01/22 11:09 15:46 19:03 POC Glucose 112 94 175 H 12/02/22 07:05 POC Glucose 96 Assessment and Plan (1) Hypertensive urgency: Status: Acute Plan 77yo M with hx CVA, DM2, paroxysmal AF on apixaban, HTN, HLD, frequent falls admitted after witnessed syncope at [facility], where he was residing for [facility] but did not have a payor source HTN urgency, resolved - continue amlodipine + lisinopril + HCTZ - BP improved paroxysmal AF - Noted to have bradycardia and junctional rhythm, therefore?metoprolol discontinued.? - Heart rate improved and remained stable.? - Seen by Cardiology and they will arrange for 30 day event monitor along with outpatient f/u. - TTE 11/09/22: calculated ejection fraction is 63% w severely increased left ventricular wall thickness and regional wall motion abnormalities w moderate calcification of the aortic valve. ? ? - Continue apixaban incidental CBD dilation - Patient denies abdominal pain; tolerating diet without N/V; LFTs normal; US showed variable size of CBD with no gallstones.? - No further w/u indicated pulmonary nodule - On CT:3 x 4 cm heterogeneous groundglass attenuation area in the left lower lobe with 6 x 8 mm solid component. - Short-term follow-up chest CT in 2-3 months recommended to see if this is a persistent finding syncope - Perhaps related to intermittent bradycardia for which metoprolol discontinued.? Ventricular rate? improved and syncope has not recurred. ? lactic acidosis - Resolved after IV fluids hx CVA - Continue statin + antihypertensives +? apixaban DM2 - Continue metformin, maira-dose lispro VTE ppx: apixaban dispo: awaiting bed at SNF; oustanding bill has been paid off Time Spent With Patient Time: Total time managing care of this patient today ____ minutes. Quality Stroke Does the patient have a stroke diagnosis?: No VTE Prior VTE?: No VTE Risk Level:: Medical - moderate - high VTE Device Contraindication: Treatment Not Indicated VTE Drug Contraindication: N/A - Med Ordered
[2022-12-02 11:05] LABS: Glucose, Whole Blood 139 mg/dL (60-115)
--- NOTE | 2022-12-02 13:58 | P.DS_ITS ---
DS: Providers Provider Date of Service: 12/02/22 Date of admission: 11/02/22 14:55 Primary care physician: None Physician Consults: 11/07/22 13:27 Consult to Cardiology Routine Consulting Provider: Mark Crawley Reason for consultation: bradycardia /junctional rythm on metoprolol Has provider been notified: No 11/11/22 13:58 Consult to Psychiatry Routine Consulting Provider: Psych Covering Reason for consultation: competency Has provider been notified: No DS: Diagnosis Discharge Diagnosis (1) Hypertensive urgency: Status: Acute DS: Summary Hospital Course Hospital Course: Admission hpi Chief Complaint: Syncopal episode Pt is a 77-year-old male with a PMH significant for?hx of CVA, [id number] diabetes, paroxysmal AFib on Eliquis, HTN, HLD, and hx of frequent falls who presents to the ED for evaluation after a witnessed syncopal episode. Pt resides at a rehab rehab facilty and is wheelchair bound at baseline. Pt was wheeling himself back into the facility after smoking his normal two cigarettes after lunch when other residents witnesses him becoming unresponsive for a few seconds . Pt denies fall. He himself was unaware of passing out and has no sense of any time lapse or memory loss. No prodromal symptoms: no lightheadedness, dizziness.? Denies any postictal phase or focal deficits:? No one-sided weakness, dysarthria, confusion, problems word-finding.? Currently patient has no acute complaints.? Denies chest pain/pressure, palpitations.? No shortness of breath, cough.? Denies fever, chills, nausea, vomiting, diarrhea.? In the ED patient was afebrile but hypertensive at 163/88. Labs were significant for leukocytosis of 16.9, stable H&H of 13.1/40.5, potassium of 5.2, lactic acid 3.9.? Renal function baseline.? Hepatic function baseline. UA pending.? CXR showed possible area infiltrate in the right mid to lower lung zone. CT?of head negative for acute findings. EKG demonstrated sinus rhythm with PACs. Pt was treated with IVF, ceftriaxone, and doxy. Pt will be admitted to the hospital under observation on telemetry for evaluation and further workup for syncopal episode. hospital course: Essentially the patient presented from [facility] for a syncopal episode and could not not return there because he had no paid his bill.. Syncope work up revealed episodes of bradycardia as possible of syncope, other issues during hospitalization included HTN urgency, PAF, CBD dilaation , pulmonary nodule. Patient hospitalization has been very prolonged due to him paying the prior SNF bills before another SNFf would consider, he has since completed paying back bills and has been accpeted by another facility. # HTN urgency--resolved with adjustment of medication. BP is now good with Amlodipine 10 daily, Lisinopril increased from 2.5 to 40 mg daily, and HCTZ 25 mg daily. Metoprolol stopped due to bradycardia # paroxysmal AFm - Noted to have bradycardia and junctional rhythm, therefore?metoprolol discontinued.? Heart rate improved and remained stable.? Seen by Cardiology and they will arrange for 30 day event monitor along with outpatient f/u. - TTE 11/09/22: calculated ejection fraction is 63% w severely increased left ventricular wall thickness and regional wall motion abnormalities w moderate calcification of the aortic valve. ? ? - Continue apixaban # incidental CBD dilation - Patient denies abdominal pain; tolerating diet without N/V; LFTs normal; US showed variable size of CBD with no gallstones.? - No further w/u indicated # pulmonary nodule - On CT: Emphysema.? 3 x 4 cm heterogeneous groundglass attenuation area in the left lower lobe with 6 x 8 mm solid component. - Short-term follow-up chest CT in 2-3 months recommended to see if this is a persistent finding # syncope - Perhaps related to intermittent bradycardia for which metoprolol discontinued.? Ventricular rate? improved and syncope has not recurred. ? # lactic acidosis - Resolved after IV fluids # hx CVA - Continue statin + antihypertensives +? apixaban # DM2 - Continue metformin, correctional -dose lispro To [facility]dc care. Time Spent with Patient Time attestation: Total time managing care of this patient today ____ minutes. Discharge coordination time: Greater than 30 minutes Quality: Safe Use of Opioids Does Pt have an Active Cancer Diagnosis on the Problem List?: No Quality: Stroke Does the patient have a stroke diagnosis?: No Physical Exam Vital Signs: Vital Signs: Last Vital Signs Temp 98 F 12/02/22 06:54 Pulse 73 07/12/23 06:54 Resp 18 12/02/22 06:54 BP 141/80 H 12/02/22 06:54 Pulse Ox 98 12/02/22 06:54 O2 Del Method Room Air 12/02/22 06:54 BMI result Body Mass Index 20.4 DS: Data Data Completed and Pending Labs on day of discharge: Laboratory Results - last 24 hr 12/01/22 12/01/22 12/02/22 15:46 19:03 07:05 POC Glucose 94 175 H 96 12/02/22 11:01 POC Glucose 139 H Discharge Plan Discharge Anticipated Discharge Date/Time: 12/02/22 16:23 Patient Disposition: Xfer SNF Discharge Diagnosis: Syncope, HTN urgency Referrals: [facility] [Outside] - 1 Week [facility] [Outside] - 1 Week Ernie Cadena PA-C [Physician Marketing Clerk] - 01/12/23 10:45 am (New Patient appointment scheduled. If you need to reschedule call office. ) Discharge Medications: New lisinopril 40 mg Tablet 40 mg PO DAILY Qty: 30 0RF Protocol: Hold for SBP< HOLD for SBP < : 90 insulin lispro [Humalog U-100 Insulin] 100 unit/mL Solution See Protocol subcut QIDACHS Qty: 10 0RF Protocol: Insulin Correction Scale Less than or equal to 110 ---- Give (units): 0 111 to 150 Give (units): 0 151 to 200 Give (units): 2 201 to 250 Give (units): 4 251 to 300 Give (units): 6 301 to 350 Give (units): 8 Greater than 350 Give (units): 10 Call MD if Blood Glucose > : 350 amlodipine 10 mg Tablet 10 mg PO DAILY Qty: 30 0RF Protocol: Hold for SBP< HOLD for SBP < : 90 hydrochlorothiazide 25 mg Tablet 25 mg PO DAILY Qty: 30 0RF Protocol: Hold for SBP< HOLD for SBP < : 90 nicotine 7 mg/24 hr Patch 24 Hour 7 mg transdermal DAILY Qty: 14 0RF Continued metformin 500 mg tablet 1,000 mg PO BID atorvastatin 80 mg tablet 80 mg PO BEDTIME tamsulosin 0.4 mg capsule 0.4 mg PO DAILY Eliquis 5 mg tablet 5 mg PO BID acetaminophen [Tylenol] 325 mg Tablet 650 mg PO Q6H PRN (Reason: Fever Or Pain) Rx Instructions: DO NOT EXCEED 3G / 24 HRS magnesium hydroxide [Milk of Magnesia] 400 mg/5 mL Suspension 30 ml PO DAILY PRN (Reason: Constipation) bisacodyl 10 mg Suppository 10 mg MD DAILY PRN (Reason: Constipation) Fleet Enema 19-7 gram/118 mL Enema 118 ml MD DAILY PRN (Reason: Constipation) Discontinued metoprolol tartrate 50 mg tablet 25 mg PO DAILY lisinopril 2.5 mg tablet 2.5 mg PO DAILY Discharge Orders: Discharge Order (Routine); Ordered 12/02/22 Ordered By: Timmy Junior Diet: Advance to usual diet Activity on Discharge: As tolerated Stand Alone Forms: Patient Portal Discharge page Care Plan Goals: Full recovery from syncopen and Hypertension urgency Health Concerns: Hypertension syncope Bradycardia Plan of Treatment: Take all medication as recommended, stop taking metoprolol. Lsinopril dose has been increased to 40 mg daily Assessment: as above
--- NOTE | 2022-12-02 14:23 | MHC.CM.PN ---
IMM 12/02/22 Patient has received a bed offer from his 1st choice, [facility]. 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
[2022-12-02 15:56] VITALS: BP 130/72; PULSE 62; RESP 18; TEMP 36.3; O2SAT 98
[2022-12-02 16:20] LABS: Glucose, Whole Blood 106 mg/dL (60-115)
== END 2022-12-02 18:16 | disposition skilled nursing facility (03) | DRG 304 ==
LOC: HO.ED 15:44 → HO.EDOVER 17:30 → HO.IMC 17:47 → HO.S3 11-21 11:02
PROVIDERS: Family Medicine; Hospitalist; Student in an Organized Health Care Education/Training Program; Admitting Provider Student in an Organized Health Care Education/Training Program; Emergency Provider Student in an Organized Health Care Education/Training Program; Visit Provider Internal Medicine
DX: I16.0 Hypertensive urgency (principal); J18.9 Pneumonia, unspecified organism; E87.21 Acute metabolic acidosis; I69.351 Hemiplegia and hemiparesis following cerebral infarction affecting right dominant side; I48.0 Paroxysmal atrial fibrillation; T44.7X5A Adverse effect of beta-adrenoreceptor antagonists, initial encounter; J43.9 Emphysema, unspecified; N40.0 Benign prostatic hyperplasia without lower urinary tract symptoms; E86.0 Dehydration; K83.8 Other specified diseases of biliary tract; R55 Syncope and collapse; I10 Essential (primary) hypertension; R00.1 Bradycardia, unspecified; E78.5 Hyperlipidemia, unspecified; F17.210 Nicotine dependence, cigarettes, uncomplicated; Z71.6 Tobacco abuse counseling; Z79.4 Long term (current) use of insulin; Z79.01 Long term (current) use of anticoagulants; Z79.84 Long term (current) use of oral hypoglycemic drugs; Z79.899 Other long term (current) drug therapy; Z20.822 Contact with and (suspected) exposure to COVID-19
CPT/HCPCS: 36415; 70450; 71046; 71250; 76705; 80048; 80076; 82565; 82947; 83605; 83690; 83735; 84145; 84443; 84484; 85025; 85027; 87040; 87635; 93005; 93306; 97110; 97116; 97162; 97530; 99222; 99285; J0696; J2405

== ENCOUNTER → 2022-10-29 17:20 | Outpatient (BNV) | payer MEDICARE, SELFPAY | PROVIDERS: Admitting Provider Student in an Organized Health Care Education/Training Program; Emergency Provider Student in an Organized Health Care Education/Training Program; Visit Provider Student in an Organized Health Care Education/Training Program | DX: I16.0 Hypertensive urgency (principal) | CPT/HCPCS: 99222; 99231; 99232; 99233; 99239; 99429; 99499 ==

== ENCOUNTER 2022-12-21 12:28 | Emergency (ER) | payer MEDICARE, SELFPAY ==
--- NOTE | ~2022-12-21 | CT_ITS ---
EXAMINATION: CT HEAD WITHOUT CONTRAST CLINICAL INFORMATION: Fall on chronic anticoagulation COMPARISON: 10/29/2022. TECHNIQUE: Contiguous axial imaging was performed from the skull base to vertex without intravenous administration of contrast. This CT examination was performed using dose optimization techniques as appropriate, variously including the following: *Automated exposure control *Adjustment of mA and/or kV according to patient size (this includes techniques or standardized protocols for targeted exams where dose is matched to indication/reason for exam; i.e. extremities or head) *Use of iterative reconstruction technique DLP: 729 mGy-cm FINDINGS: No new brain parenchymal hemorrhage or mass effect. Castillo/white matter differentiation is maintained. Cisterns unremarkable. Atrophy again seen. Asymmetric atrophy versus arachnoid cyst of anterior left temporal lobe not appreciably changed. Bilateral small basal ganglia infarcts again observed, not appearing significantly changed. Hypodense changes of subcortical and periventricular white matter are again observed consistent with chronic small vessel ischemic disease. No new extra-axial collections. Prominent cisterna magna again seen. The mastoids are well aerated. Skull base appears unremarkable. There is bilateral cerumen in the external auditory canals. Calvarium appears intact. CT/CT head/brain wo IV con IMPRESSION: No new hemorrhage or mass effect. Atrophy with change of chronic small vessel ischemic disease. Bilateral small basal ganglia infarcts, appearing stable.
--- NOTE | ~2022-12-21 | XR_ITS ---
EXAMINATION: XR CHEST CLINICAL INFORMATION: Cough COMPARISON: 10/29/2022. TECHNIQUE: Frontal view of the chest was obtained. 2:20 PM FINDINGS: Emphysematous change noted. No pneumothorax. Pulmonary vascularity appears to be stable. No new dominant consolidation or effusion. Nipple shadows again noted. Thoracic spondylitic change seen. XR/XR chest 1V IMPRESSION: Emphysematous change again observed. No evidence for acute process.
--- NOTE | ~2022-12-21 | CT_ITS ---
EXAMINATION: CT ABDOMEN AND PELVIS WITH CONTRAST CLINICAL INFORMATION: Left-sided abdominal pain COMPARISON: 11/02/[address] scan TECHNIQUE: Multidetector volumetric imaging was performed from the superior aspect of the liver through the pubic symphysis following administration of 85 mL Omnipaque 300 intravenous contrast. Sagittal and coronal reformatted images were obtained on the technologist workstation.. This CT examination was performed using dose optimization techniques as appropriate, variously including the following: *Automated exposure control *Adjustment of mA and/or kV according to patient size (this includes techniques or standardized protocols for targeted exams where dose is matched to indication/reason for exam; i.e. extremities or head) *Use of iterative reconstruction technique DLP: 375 mGy-cm FINDINGS: LUNG BASES: Stable 8 mm pulmonary nodule in the posterior right lower lobe. LIVER, GALLBLADDER, AND BILIARY TREE: The liver is normal in size, shape, and attenuation. Tiny low-attenuation probable cyst in segment 6 of the liver. No suspicious focal hepatic lesion or biliary ductal dilatation is present. The gallbladder is unremarkable with no evidence of radiopaque gallstones, gallbladder wall thickening, or obvious pericholecystic inflammatory changes. PANCREAS: Unremarkable. SPLEEN: Unremarkable. ADRENAL GLANDS: Low-attenuation fullness to both adrenal glands similar to the prior study likely representing bilateral leg rich adrenal adenomas. KIDNEYS AND URETERS: The kidneys are normal in size, shape, and attenuation. No hydronephrosis, hydroureter, or perinephric stranding. Bilateral tiny calcifications likely vascular in nature. Small low-attenuation posterior midpole right renal cyst. No obstructive changes seen. BLADDER: There is asymmetric focal bladder wall thickening along the posterior left bladder measuring approximately 3 cm in maximal diameter but difficult to define further. Plaque like bladder lesion could have this appearance. Clinical correlation recommended. Correlation with cystoscopy may be needed. GASTROINTESTINAL TRACT: Large volume of stool in the rectum and distal colon. Colon is redundant. I do not appreciate any colonic wall thickening or pericolonic inflammatory change to suggest diverticulitis. Visualized small bowel unremarkable ABDOMINAL WALL: No significant hernia is appreciated. LYMPHOVASCULAR STRUCTURES: Extensive vascular calcification and atherosclerotic disease within the aorta iliac system. Incidental retroaortic left renal vein PELVIC VISCERA: Unremarkable. OSSEOUS STRUCTURES: Extensive multilevel degenerative changes in the spine with degenerative changes in both hips CT/CT abdomen pelvis w IV con IMPRESSION: 1. There is asymmetric bladder wall thickening along the posterior left bladder wall difficult to define further however plaque-like bladder lesion could have this appearance. Correlation with cystoscopy may be needed. 2. Chronic appearing changes otherwise as described above. This critical result was discussed with Dr. Sorenson at 12/21/2022 10:00 PM and it was ascertained that the content and urgency of the report was understood at the time of direct communication.
[2022-12-21 12:40] VITALS: BP 121/49; BP 139/50; PULSE 60; PULSE 78; RESP 16; TEMP 36.6; O2SAT 100; O2SAT 99; BMI 17.7
[2022-12-21 12:46] VITALS: BP 121/49; PULSE 60; RESP 16; TEMP 36.6; O2SAT 99
--- NOTE | 2022-12-21 12:48 | ECG_ITS ---
Test Reason : syncope Blood Pressure : / mmHG Vent. Rate : 059 BPM Atrial Rate : 059 BPM P-R Int : 176 ms QRS Dur : 120 ms QT Int : 426 ms P-R-T Axes : 082 -85 -64 degrees QTc Int : 421 ms Sinus bradycardia Premature atrial complexes Right bundle branch block Left anterior fascicular block Bifascicular block Possible Anterior infarct (cited on or before 02-JUL-2016) Abnormal ECG When compared with ECG of 01-NOV-2022 01:19, Questionable change in initial forces of Anterior leads Non-specific change in ST segment in Inferior leads T wave inversion now evident in Inferior leads T wave inversion now evident in Lateral leads Referred By: Generic ED Physician Electronically Signed By:PARISA PARKS
--- NOTE | 2022-12-21 13:18 | ED_ITS ---
HPI - General Adult General Chief complaint: Syncope Stated complaint: SYNCOPAL EPISODE @SNF,SEEN RECENTLY PER EMS Time Seen by Provider: 12/21/22 13:04 Source: patient Mode of arrival: EMS History of Present Illness HPI narrative: 77-year-old male with recurrent episodes of syncope, frequent falls, weakness is brought in by the ambulance after he sustained a fall earlier today after he fainted while he was sitting in the wheelchair, as per the triage note this occurred while he was smoking a cigarette. Patient denies any headache, dizziness, neck pain, shortness of breath, sore throat/cough, chest pain/palpitations and denies any GI or symptoms. Patient has no acute complaints at this time. Related Data Home Medications Medication Instructions Recorded Confirmed apixaban 5 mg tablet (Eliquis) 5 mg PO BID 09/18/22 12/21/22 atorvastatin 80 mg tablet 80 mg PO BEDTIME 09/18/22 12/21/22 metformin 500 mg tablet 1,000 mg PO BID 09/18/22 12/21/22 tamsulosin 0.4 mg capsule 0.4 mg PO DAILY 09/18/22 12/21/22 acetaminophen 325 mg tablet 650 mg PO Q6H PRN Fever Or Pain 10/29/22 12/21/22 (Tylenol) bisacodyl 10 mg rectal suppository 10 mg TX DAILY PRN Constipation 10/29/22 12/21/22 magnesium hydroxide 400 mg/5 mL 30 ml PO DAILY PRN Constipation 10/29/22 12/21/22 oral suspension (Milk of Magnesia) sodium phosphates 19 gram-7 118 ml TX DAILY PRN Constipation 10/29/22 12/21/22 gram/118 mL enema (Fleet Enema) amlodipine 2.5 mg tablet 2.5 mg PO DAILY 12/21/22 12/21/22 Previous Rx's Medication Instructions Recorded hydrochlorothiazide 25 mg tablet 25 mg PO DAILY #30 tabs 12/02/22 insulin lispro 100 unit/mL See Protocol subcut QIDACHS #10 mL 12/02/22 subcutaneous solution (Humalog U-100 Insulin) lisinopril 40 mg tablet 40 mg PO DAILY #30 tabs 12/02/22 Allergies Allergy/AdvReac Type Severity Reaction Status Date / Time No Known Allergies Allergy Verified 09/18/22 13:13 [No Known Allergies*] Review of Systems Review of Systems: Pertinent positives and negatives as stated in HPI [facility] Past Medical History Source: nursing notes reviewed Medical History CVA (cerebral vascular accident) Diabetes type 2, controlled Essential (primary) hypertension Hemiplegia and hemiparesis following cerebral infarction affecting right dominant side Hyperlipidemia Paroxysmal atrial fibrillation Repeated falls Social History Social History Alcohol intake: never Patient Tobacco Use Status: Current everyday Tobacco user Tobacco use type: Cigarette Cigarette Packs Per Day: 0.3 Cigarettes Per Day: 6.0 Smoked in Last 30 Days: Yes Use of substances other than those prescribed or required for medical reasons: No Advance Directives: Yes Advance Directives on File: Yes Advance Directives Date on File: 09/18/22 service: Yes Current occupational status: retired Physical Exam ED Vital Signs: Vital Signs - 24 hr 12/21/22 12:40 12/21/22 12:46 12/21/22 17:34 Temperature 97.8 F 97.8 F Pulse Rate 60 60 Respiratory Rate 16 16 Blood Pressure 121/49 L 121/49 L Pulse Oximetry 99 99 96 Oxygen Delivery Method Room Air Room Air Room Air 12/21/22 20:00 12/21/22 22:00 Temperature 98.3 F 98.4 F Pulse Rate 86 80 Respiratory Rate 16 16 Blood Pressure 199/93 H 176/77 H Pulse Oximetry 98 98 Oxygen Delivery Method Room Air Room Air BMI result Body Mass Index 17.7 VITAL SIGNS: Reviewed. GENERAL: Elderly, frail, chronically ill, in no acute distress. HEAD: Normocephalic/atraumatic EYES: PERRLA, EOMI EARS: Ext canals without abnormality NOSE: Nares patent bilateral OROPHARYNX: no oral lesions noted, posterior pharynx clear NECK: Supple, no adenopathy LUNGS: Normal breath sounds. No adventitious sounds or accessory muscle use. SpO2<99> CARDIOVASCULAR: Regular rate and rhythm without noted murmurs, no JVD or lower extremity edema. ABDOMEN: Soft, non-tender, non-distended with bowel sounds. MUSCULOSKELETAL: No tenderness, deformities, or effusions noted on gross inspection. EXTREMITIES: No cyanosis, clubbing or edema; LEFT ELBOW: There is a small skin tear which will be repaired with Dermabond. SKIN: Inspection of the skin reveals no rashes NEUROLOGIC: Alert and oriented x 3. Strength and sensation to light touch were g rossly intact x 4. Medications Administered Discontinued Medications Generic Name Dose Route Start Last Admin Trade Name Kaycee PRN Reason Stop Dose Admin Sodium Chloride 500 mls @ 999 mls/hr 12/21/22 14:30 12/21/22 15:40 Ns IV 12/21/22 15:00 Infused .Q31M LEA Infusion Calcium Gluconate 2 gm in 100 mls @ 400 mls/hr 12/21/22 14:21 12/21/22 15:42 Calcium Gluconate IV 12/21/22 14:35 Infused ONCE ONE Infusion Sodium Chloride 1,821 mls @ 1,821 mls/hr 12/21/22 15:39 12/21/22 18:48 Ns 30 ml/kg infuse over 1 hr (1821 ml) 12/21/22 16:38 Infused IV Infusion .Q1H STA Ceftriaxone Sodium 1 gm/ 50 mls @ 100 mls/hr 12/21/22 15:45 12/21/22 18:47 Sodium Chloride IV 12/21/22 16:14 Infused ONCE ONE Infusion Sodium Zirconium Cyclosilicate 10 gm 12/21/22 14:19 12/21/22 15:14 Sodium Zirconium Cyclosilicate 10 Gm Powd.Pack PO 12/21/22 14:20 10 gm ONCE ONE Administration Medical Decision Making Medical Decision Making [facility] Narrative: 1315: 77-year-old male with history and clinical presentation of recurrent syncopal episodes, I have reviewed his chart and he did have an echocardiogram in October of this year, however I do note that patient has never undergone a Holter monitor for further evaluation repeated syncopal episodes with weakness and fatigue. DDX: Infection, anemia, electrolyte abnormalities, arrhythmia. Diagnosis: BACILIO, hyperkalemia, leukocytosis INTERVENTIONS: 500 cc normal saline, calcium gluconate 2 g, 10 mg Lokelma, lactic acid/blood cultures, Dermabond 1544: Called by the lab and informed that lactic acid-6.3 and ED sepsis fluids were ordered. 2234: There is been a significant period of delay in this patient as he had removed his IV and not received the entire course of fluids but he was amenable to having the IV replaced and undergoing CT scan of abdomen pelvis with IV contrast given the fact that he showing large amounts of blood with WBC and greater than [address]/CT abdomen pelvis w IV con IMPRESSION: 1.? There is asymmetric bladder wall thickening along the posterior left bladder wall difficult to define further however plaque-like bladder lesion could have this appearance. Correlation with cystoscopy may be needed. 2.? Chronic appearing changes otherwise as described above. Leukocytosis is in part reactive in nature given that patient remains afebrile. There has been complete resolution of the BACILIO and with continued hydration it is reasonable to expect of potassium will continue to normalize. Lactic acidosis has also significantly improved My interpretation is that patient has had several syncopal episodes the he should be evaluated with a Holter monitor to identify the possible arrhythmogenic etiology, there is the possibility that patient's BACILIO and lactic acidosis are due in part to underlying malignancy as described above. I will send referral to both Urology and Cardiology respectively for patient's further outpatient workup. I do not feel that he needs to be admitted at this time for this workup and evaluation. Will empirically put him on antibiotics as there may be a component of infectious etiology with the urinalysis. Patient has also strongly endorsed he has no intention of staying in the hospital overnight. Differential Diagnosis Differential Diagnoses: The differential diagnosis associated with the presentation includes Please see the discussion above Admission/Observation Consideration of admission/observation: Escalation of care including admission/observation considered Please see the discussion above Lab Data MDM Lab Attestation statement: I reviewed the patient's lab results. Please see the discussion above 12/21/22 13:34 12/21/22 13:34 Labs: Lab Results 12/21/22 12/21/22 12/21/22 Range/Units 13:33 13:34 13:34 WBC 14.1 H (4.8-10.8) X10*3/uL RBC 3.69 L (4.60-5.80) X10*6/uL Hgb 11.1 L (14.0-18.0) g/dl Hct 34.4 L (42.0-52.0) % MCV 93.2 (80.0-98.0) fL MCH 30.1 (27.0-33.0) pg MCHC 32.3 (31.0-36.0) g/dl RDW 13.9 (11.0-16.0) % Plt Count 374 (160-400) X10*3/uL MPV 10.5 (9.4-12.4) fL Immature Gran % (Auto) 2.1 H (0.0-0.4) % Neut % (Auto) 81.2 H (45-73) % Lymph % (Auto) 9.2 L (20-40) % [place] % (Auto) 5.6 (2-11) % Eos % (Auto) 1.5 (0-4) % Baso % (Auto) 0.4 (0-2) % Lymph # (Auto) 1.3 (1.2-4.9) X10*3/uL [place] # (Auto) 0.8 (0.1-1.2) X10*3/uL Eos # (Auto) 0.2 (0.0-0.4) X10*3/uL Baso # (Auto) 0.1 (0.0-0.2) X10*3/uL Abs Immat Gran (auto) 0.29 H (0.00-0.03) X10*3/uL Absolute Neuts (auto) 11.5 H (2.0-8.3) x10*3/uL Absolute Nucleated RBC 0.000 (0.0-0.012) X10*3/uL Nucleated RBC % (auto) 0.0 (0.0-0.2) /100WBC PT 16.6 H (11.1-13.3) SEC INR 1.4 H (0.9-1.1) Sodium (135-145) mmol/L Potassium (3.3-5.1) mmol/L Chloride (96-108) mmol/L Carbon Dioxide (22-29) mmol/L Anion Gap (12-20) BUN (9-16) mg/dL Creatinine (0.5-1.4) mg/dL Estim Creat Clear Calc Estimated GFR POC Glucose 157 H (60-115) mg/dL Random Glucose (60-115) mg/dL Lactic Acid (0.5-2.0) mmol/L Lactic Acid F/U @ 2Hr (0.5-2.0) mmol/L Lactic Acid F/U @ 4Hr (0.5-2.0) mmol/L Calcium (8.4-10.2) mg/dL Total Bilirubin (0.0-1.0) mg/dL AST (5-37) U/L ALT (0-40) U/L Alkaline Phosphatase (39-117) U/L Total Creatine Kinase (38-174) U/L Total Protein (6.5-8.0) g/dL Albumin (3.5-5.0) g/dL Urine Color Urine Appearance Urine pH (5.0-9.0) Ur Specific [place] (1.005-1.025) Urine Protein (Neg-Trace) mg/dL Urine Glucose (UA) (Negative) mg/dL Urine Ketones (Negative) mg/dL Urine Blood (Negative) Urine Nitrite (Negative) Ur Leukocyte Esterase (Negative) Urine RBC (0-2) /HPF Urine WBC (0-5) /HPF Ur Squamous Epith Cells (0-2) /HPF Urine Bacteria (None Seen) Hyaline Casts (0-2) /LPF 12/21/22 12/21/22 12/21/22 Range/Units 13:34 15:00 17:37 WBC (4.8-10.8) X10*3/uL RBC (4.60-5.80) X10*6/uL Hgb (14.0-18.0) g/dl Hct (42.0-52.0) % MCV (80.0-98.0) fL MCH (27.0-33.0) pg MCHC (31.0-36.0) g/dl RDW (11.0-16.0) % Plt Count (160-400) X10*3/uL MPV (9.4-12.4) fL Immature Gran % (Auto) (0.0-0.4) % Neut % (Auto) (45-73) % Lymph % (Auto) (20-40) % [place] % (Auto) (2-11) % Eos % (Auto) (0-4) % Baso % (Auto) (0-2) % Lymph # (Auto) (1.2-4.9) X10*3/uL [place] # (Auto) (0.1-1.2) X10*3/uL Eos # (Auto) (0.0-0.4) X10*3/uL Baso # (Auto) (0.0-0.2) X10*3/uL Abs Immat Gran (auto) (0.00-0.03) X10*3/uL Absolute Neuts (auto) (2.0-8.3) x10*3/uL Absolute Nucleated RBC (0.0-0.012) X10*3/uL Nucleated RBC % (auto) (0.0-0.2) /100WBC PT (11.1-13.3) SEC INR (0.9-1.1) Sodium 143 (135-145) mmol/L Potassium 5.5 H (3.3-5.1) mmol/L Chloride 105 (96-108) mmol/L Carbon Dioxide 21 L (22-29) mmol/L Anion Gap 23 H (12-20) BUN 31 H (9-16) mg/dL Creatinine 1.43 H (0.5-1.4) mg/dL Estim Creat Clear Calc 38.3 Estimated GFR 48 POC Glucose (60-115) mg/dL Random Glucose 161 H (60-115) mg/dL Lactic Acid 6.3 H* (0.5-2.0) mmol/L Lactic Acid F/U @ 2Hr (0.5-2.0) mmol/L Lactic Acid F/U @ 4Hr (0.5-2.0) mmol/L Calcium 10.1 (8.4-10.2) mg/dL Total Bilirubin 0.4 (0.0-1.0) mg/dL AST 14 (5-37) U/L ALT 12 (0-40) U/L Alkaline Phosphatase 74 (39-117) U/L Total Creatine Kinase (38-174) U/L Total Protein 6.7 (6.5-8.0) g/dL Albumin 3.9 (3.5-5.0) g/dL Urine Color BROWN Urine Appearance Hazy Urine pH 6.5 (5.0-9.0) Ur Specific [place] 1.020 (1.005-1.025) Urine Protein 30 (1+) H (Neg-Trace) mg/dL Urine Glucose (UA) Negative (Negative) mg/dL Urine Ketones Negative (Negative) mg/dL Urine Blood Large (3+) H (Negative) Urine Nitrite Negative (Negative) Ur Leukocyte Esterase Negative (Negative) Urine RBC >20 H (0-2) /HPF Urine WBC 11-20 H (0-5) /HPF Ur Squamous Epith Cells 6-10 (0-2) /HPF Urine Bacteria None Seen (None Seen) Hyaline Casts 6-10 (0-2) /LPF 12/21/22 12/21/22 12/21/22 Range/Units 18:22 18:22 21:12 WBC (4.8-10.8) X10*3/uL RBC (4.60-5.80) X10*6/uL Hgb (14.0-18.0) g/dl Hct (42.0-52.0) % MCV (80.0-98.0) fL MCH (27.0-33.0) pg MCHC (31.0-36.0) g/dl RDW (11.0-16.0) % Plt Count (160-400) X10*3/uL MPV (9.4-12.4) fL Immature Gran % (Auto) (0.0-0.4) % Neut % (Auto) (45-73) % Lymph % (Auto) (20-40) % [place] % (Auto) (2-11) % Eos % (Auto) (0-4) % Baso % (Auto) (0-2) % Lymph # (Auto) (1.2-4.9) X10*3/uL [place] # (Auto) (0.1-1.2) X10*3/uL Eos # (Auto) (0.0-0.4) X10*3/uL Baso # (Auto) (0.0-0.2) X10*3/uL Abs Immat Gran (auto) (0.00-0.03) X10*3/uL Absolute Neuts (auto) (2.0-8.3) x10*3/uL Absolute Nucleated RBC (0.0-0.012) X10*3/uL Nucleated RBC % (auto) (0.0-0.2) /100WBC PT (11.1-13.3) SEC INR (0.9-1.1) Sodium 143 (135-145) mmol/L Potassium 5.2 H (3.3-5.1) mmol/L Chloride 110 H (96-108) mmol/L Carbon Dioxide 19 L (22-29) mmol/L Anion Gap 19 (12-20) BUN 28 H (9-16) mg/dL Creatinine 1.25 (0.5-1.4) mg/dL Estim Creat Clear Calc 43.8 Estimated GFR 56 POC Glucose (60-115) mg/dL Random Glucose 129 H (60-115) mg/dL Lactic Acid (0.5-2.0) mmol/L Lactic Acid F/U @ 2Hr 5.2 H* (0.5-2.0) mmol/L Lactic Acid F/U @ 4Hr 2.9 H* (0.5-2.0) mmol/L Calcium 9.9 (8.4-10.2) mg/dL Total Bilirubin (0.0-1.0) mg/dL AST (5-37) U/L ALT (0-40) U/L Alkaline Phosphatase (39-117) U/L Total Creatine Kinase 43 (38-174) U/L Total Protein (6.5-8.0) g/dL Albumin (3.5-5.0) g/dL Urine Color Urine Appearance Urine pH (5.0-9.0) Ur Specific [place] (1.005-1.025) Urine Protein (Neg-Trace) mg/dL Urine Glucose (UA) (Negative) mg/dL Urine Ketones (Negative) mg/dL Urine Blood (Negative) Urine Nitrite (Negative) Ur Leukocyte Esterase (Negative) Urine RBC (0-2) /HPF Urine WBC (0-5) /HPF Ur Squamous Epith Cells (0-2) /HPF Urine Bacteria (None Seen) Hyaline Casts (0-2) /LPF Independent Interpretation I performed an independent interpretation of an: EKG Interpretation: Sinus bradycardia, HR-59, no STEMI, TX/QTC are within normal limits, RBBB at baseline Critical Care Time Critical Care Time Critical Care Time: Yes Total Critical Care Time: 45 Attestation: I personally attest to this time spent taking care of the patient. Discharge Plan Discharge Clinical Impression: Syncope, BACILIO (acute kidney injury), Hyperkalemia, Skin tear of left elbow without complication, Bladder mass, Hematuria Patient Disposition: Home, Self-Care Instructions: Acute Kidney Injury (DC), Potassium Content of Foods List (ED), Syncope (ED), Hyperkalemia (ED), Hematuria (ED) Additional Instructions: 1. Resume all home medications as prescribed. 2. You have been given a referral to follow-up with cardiology for your recurrent syncopal episodes and would likely benefit from Holter monitoring. 3. There is a possibility that you have a bladder mass and I have provided a referral for you to follow-up with urology. 4. Please follow-up with your primary care provider by calling the office 1st thing in the morning to set up an appointment for re-evaluation. Return to the ER for any worsening symptoms. Prescriptions: No Action metformin 500 mg tablet 1,000 mg PO BID atorvastatin 80 mg tablet 80 mg PO BEDTIME tamsulosin 0.4 mg capsule 0.4 mg PO DAILY Eliquis 5 mg tablet 5 mg PO BID acetaminophen [Tylenol] 325 mg Tablet 650 mg PO Q6H PRN (Reason: Fever Or Pain) Rx Instructions: DO NOT EXCEED 3G / 24 HRS magnesium hydroxide [Milk of Magnesia] 400 mg/5 mL Suspension 30 ml PO DAILY PRN (Reason: Constipation) bisacodyl 10 mg Suppository 10 mg TX DAILY PRN (Reason: Constipation) Fleet Enema 19-7 gram/118 mL Enema 118 ml TX DAILY PRN (Reason: Constipation) lisinopril 40 mg Tablet 40 mg PO DAILY Qty: 30 0RF Protocol: Hold for SBP< HOLD for SBP < : 90 insulin lispro [Humalog U-100 Insulin] 100 unit/mL Solution See Protocol subcut QIDACHS Qty: 10 0RF Protocol: Insulin Correction Scale Less than or equal to 110 ---- Give (units): 0 111 to 150 Give (units): 0 151 to 200 Give (units): 2 201 to 250 Give (units): 4 251 to 300 Give (units): 6 301 to 350 Give (units): 8 Greater than 350 Give (units): 10 Call MD if Blood Glucose > : 350 hydrochlorothiazide 25 mg Tablet 25 mg PO DAILY Qty: 30 0RF Protocol: Hold for SBP< HOLD for SBP < : 90 amlodipine 2.5 mg Tablet 2.5 mg PO DAILY Referrals: Jian Najera MD [Physician] - (? Bladder Mass in 77M) Darell Bazan MD [Physician] - (Recurrent syncope, on Eliquis, patient may benefit from Holter monitoring)
--- NOTE | 2022-12-21 13:26 | PC.NURSE ---
pt a&o x4, pleasant, calm, and cooperative. pt changed over to hospital attire, EKG obtained, labs drawn, placed on bedside monitor. currently resting quietly on stretcher in no apparent distress. thom. erin
[2022-12-21 13:39] LABS: Glucose, Whole Blood 157 mg/dL (60-115)
[2022-12-21 13:40] LABS: MANUAL DIFF FLAG NO
[2022-12-21 13:41] LABS: Basophils Absolute Auto 0.1 X10*3/uL (0.0-0.2); Basophils Percent Auto 0.4 % (0-2); Eosinophils Absolute Auto 0.2 X10*3/uL (0.0-0.4); Eosinophils Percent Auto 1.5 % (0-4); Hematocrit 34.4 % (42.0-52.0); Hemoglobin 11.1 g/dl (14.0-18.0); Imm Gran Abs Auto 0.29 X10*3/uL (0.00-0.03); Imm Gran Pct Auto 2.1 % (0.0-0.4); Lymphocytes Absolute Auto 1.3 X10*3/uL (1.2-4.9); Lymphocytes Percent Auto 9.2 % (20-40); Mean Corpuscular HGB Conc 32.3 g/dl (31.0-36.0); Mean Corpuscular Hemoglobin 30.1 pg (27.0-33.0); Mean Corpuscular Volume 93.2 fL (80.0-98.0); Mean Platelet Volume 10.5 fL (9.4-12.4); Monocytes Absolute Auto 0.8 X10*3/uL (0.1-1.2); Monocytes Percent Auto 5.6 % (2-11); Neutrophils Absolute Auto 11.5 x10*3/uL (2.0-8.3); Neutrophils Percent Auto 81.2 % (45-73); Platelet Count 374 X10*3/uL (160-400); Red Blood Count 3.69 X10*6/uL (4.60-5.80); Red Cell Distribution Width 13.9 % (11.0-16.0); White Blood Count 14.1 X10*3/uL (4.8-10.8)
[2022-12-21 13:46] LABS: INTERNATIONAL NORM RATIO 1.4 (0.9-1.1); Prothrombin Time 16.6 SEC (11.1-13.3)
[2022-12-21 13:58] LABS: Alanine Aminotransferase 12 U/L (0-40); Albumin Level 3.9 g/dL (3.5-5.0); Alkaline Phosphatase 74 U/L (39-117); Anion Gap 23 (12-20); Aspartate Amino Transferase 14 U/L (5-37); Bilirubin Total 0.4 mg/dL (0.0-1.0); Blood Urea Nitrogen 31 mg/dL (9-16); Calcium 10.1 mg/dL (8.4-10.2); Carbon Dioxide 21 mmol/L (22-29); Chloride 105 mmol/L (96-108); Creatinine Clr Calc Pharmacy 38.3; Estimated Glomerular Filt Rate 48; Glucose Random 161 mg/dL (60-115); Potassium 5.5 mmol/L (3.3-5.1); Sodium 143 mmol/L (135-145); Total Protein 6.7 g/dL (6.5-8.0)
[2022-12-21] MEDS: 0.9 % Sodium Chloride 500 ML 999 ML IV (15:09)
[2022-12-21] MEDS: Sodium Zirconium Cyclosilicate 10 GM POWD.PACK PO (15:14)
[2022-12-21] MEDS: Calcium Gluconate/NaCl,Iso-Osm 2 GM/100 ML PLAST..BAG IV (15:17)
[2022-12-21 15:39] LABS: Lactic Acid 6.3 mmol/L (0.5-2.0)
--- NOTE | 2022-12-21 15:54 | PHA.MEDREC ---
Pharmacy Consult ? Medication Reconciliation Pharmacy has completed the medication reconciliation. Patient came from [facility] with med list. Jessica Hollins, KylieD
[2022-12-21] MEDS: cefTRIAXone sodium 1 GM in 0.9 % Sodium Chloride 50 ML IV (16:07)
[2022-12-21] MEDS: 0.9 % Sodium Chloride 1,821 ML 1821 ML IV (16:08)
[2022-12-21 17:07] LABS: Reflex Lactate? Lactic Acid Added
[2022-12-21 17:34] VITALS: O2SAT 96
--- NOTE | 2022-12-21 17:48 | PC.NURSE ---
found pt with IV ripped out with fluids still infusing, making puddle on the floor. pt bleeding from IV site, on floor and hospital gown. pt sts he ripped it out because it was still going . pt then proceeded to state that he wanted to leave. this RN told the pt he was admitted and very sick. pt proceeded to get agitated, and stated he was not sick and wanted to go back to the place he was before. pt could not tell me where the place he was before. pt cleaned up and changed into new hospital gown. pt resting quietly on stretcher awaiting ED provider. MD aware of event
[2022-12-21 17:49] LABS: Appearance Urine Hazy; Color Urine BROWN; Glucose Urine UA Negative (Negative); Leukocyte Esterase Urine Negative (Negative); Nitrite Urine Negative (Negative); PH 6.5 (5.0-9.0); UMIC TRIGGER UACC YES; Urine Blood Large (3+) (Negative); Urine Ketones Negative (Negative); Urine Protein 30 (1+) mg/dL (Neg-Trace)
[2022-12-21 18:40] LABS: Anion Gap 19 (12-20); Blood Urea Nitrogen 28 mg/dL (9-16); Calcium 9.9 mg/dL (8.4-10.2); Carbon Dioxide 19 mmol/L (22-29); Chloride 110 mmol/L (96-108); Creatinine Clr Calc Pharmacy 43.8; Estimated Glomerular Filt Rate 56; Glucose Random 129 mg/dL (60-115); Potassium 5.2 mmol/L (3.3-5.1); Sodium 143 mmol/L (135-145)
[2022-12-21 18:41] LABS: ~Lactic Acid-LAB USE ONLY 5.2 mmol/L (0.5-2.0)
[2022-12-21 18:42] LABS: Bacteria Urine None Seen (None Seen); RBC Urine >20 /HPF (0-2); UACC Culture Trigger YES
--- NOTE | 2022-12-21 19:57 | PC.NURSE ---
new 22G IV placed to pt's R wrist. wrapped for pt safety and comfort. pt cooperative and resting quietly on stretcher. rr even/unlabored
[2022-12-21 20:00] VITALS: BP 199/93; PULSE 86; RESP 16; TEMP 36.8; O2SAT 98
--- NOTE | 2022-12-21 20:08 | MHC.EDTECH ---
this pct assumed care of patient at 1900 ,vitals sign taken ,pt was hooked up to integrative medicine physician ,rn sampson is aware of patient high bp ,patient was incontinent of large amount of bowel movement care given and bedding change ,warm blanket given ,pt is comfortable and is resting quietly in bed .
[2022-12-21 20:25] LABS: Reflex Lactate? 2 Y
[2022-12-21 21:31] LABS: ~Lactic Acid-LAB USE ONLY 2.9 mmol/L (0.5-2.0)
[2022-12-21 22:00] VITALS: BP 176/77; PULSE 80; RESP 16; TEMP 36.9; O2SAT 98
--- NOTE | 2022-12-21 22:48 | PC.NURSE ---
litigation legal secretary aware that pt needs ambulance transfer back to facility
[2022-12-21 23:03] VITALS: BP 193/83; PULSE 53; RESP 16; TEMP 36.8; O2SAT 98
--- NOTE | 2022-12-21 23:04 | MHC.EDTECH ---
patient was inconient of large amount of loose stool care given and bedding change ,vitals sign taken ,rn sampson is aware of pt high bp .
--- NOTE | 2022-12-21 23:32 | MHC.EDTECH ---
call out to [facility] at 1131 to book transport for pt back to rehab, estimated eta given was [phone]
--- NOTE | 2022-12-22 00:02 | PC.NURSE ---
pt alert speaking clear full sentences at time of discharge, blood pressures high, MD aware, likely d/t the fact that patient is due for night time medications including BP medications. [facility] [place] [facility] and notified that pt is returning back to facility. staff member informed of all findings in ER and instructed to have pt follow up outpatient with urology. ambulance transfer back to facility now @00:05
== END 2022-12-22 00:05 | disposition home or self-care (01) ==
PROVIDERS: Emergency Provider Student in an Organized Health Care Education/Training Program
DX: R55 Syncope and collapse (principal); N17.9 Acute kidney failure, unspecified; E87.5 Hyperkalemia; S51.012A Laceration without foreign body of left elbow, initial encounter; W05.0XXA Fall from non-moving wheelchair, initial encounter; E11.9 Type 2 diabetes mellitus without complications; I10 Essential (primary) hypertension; E78.5 Hyperlipidemia, unspecified; I48.0 Paroxysmal atrial fibrillation; F17.210 Nicotine dependence, cigarettes, uncomplicated; R29.6 Repeated falls; Z91.81 History of falling; Z86.73 Personal history of transient ischemic attack (TIA), and cerebral infarction without residual deficits; Z79.01 Long term (current) use of anticoagulants; Z79.4 Long term (current) use of insulin; Z79.899 Other long term (current) drug therapy; Y93.9 Activity, unspecified; Y92.129 Unspecified place in nursing home as the place of occurrence of the external cause; Y99.9 Unspecified external cause status
CPT/HCPCS: 36415; 51701; 70450; 71045; 74177; 80048; 80053; 81001; 82550; 82947; 83605; 85025; 85610; 87040; 87086; 87088; 87186; 93005; 96361; 96365; 96366; 99285; J0613; J0696

== ENCOUNTER → 2022-12-21 12:48 | Outpatient (BNV) | payer MEDICARE, SELFPAY | PROVIDERS: Emergency Provider Student in an Organized Health Care Education/Training Program; Visit Provider Internal Medicine | DX: I45.2 Bifascicular block (principal); R94.31 Abnormal electrocardiogram [ECG] [EKG] | CPT/HCPCS: 93010 ==

== ENCOUNTER 2023-06-01 14:10 | Emergency (ER) | payer MEDICARE, SELFPAY ==
--- NOTE | ~2023-06-01 | CT_ITS ---
EXAMINATION: CT HEAD WITHOUT CONTRAST CLINICAL INFORMATION: DLP. Fall. Patient on Eliquis. COMPARISON: CT head from 12/21/2022. TECHNIQUE: Contiguous axial imaging was performed from the skull base to vertex without intravenous administration of contrast. This CT examination was performed using dose optimization techniques as appropriate, variously including the following: *Automated exposure control. *Adjustment of mA and/or kV according to patient size (this includes techniques or standardized protocols for targeted exams where dose is matched to indication/reason for exam; i.e. extremities or head). *Use of iterative reconstruction technique. DLP: 680 mGy-cm FINDINGS: There is no evidence of acute intracranial hemorrhage or edematous territorial infarction. Multiple chronic lacunar infarcts of the bilateral caudate/lentiform nuclei and thalami. No new loss of forbes-white matter differentiation. Scattered and partially confluent hypoattenuation in the periventricular and deep white matter are consistent with moderate microangiopathy. Proportional prominence of the ventricles and sulcal spaces without evidence of obstructive hydrocephalus. Stable arachnoid cyst in the anterior aspect of the left middle cranial fossa, measuring up to 4.1 x 2 cm. Prominence of the CSF space posterior to the cerebellum. No additional abnormal mass effect or midline shift. No extra-axial fluid collections. Calcific atherosclerotic disease of the intracranial internal carotid and vertebral arteries. No hyperdense vessel sign. No acute soft tissue or osseous abnormalities. The mastoid air cells and visualized paranasal sinuses are clear. CT/CT head/brain wo IV con IMPRESSION: 1. No evidence of acute intracranial hemorrhage or edematous territorial infarction. 2. Moderate underlying microangiopathy and generalized cerebral volume loss. Chronic lacunar infarcts of the deep nuclei.
--- NOTE | 2023-06-01 14:52 | ECG_ITS ---
Test Reason : SYNCOPY Blood Pressure : / mmHG Vent. Rate : 058 BPM Atrial Rate : 000 BPM P-R Int : 000 ms QRS Dur : 120 ms QT Int : 452 ms P-R-T Axes : 000 -86 085 degrees QTc Int : 443 ms Normal sinus rhythm with Premature atrial complexes Right bundle branch block Left anterior fascicular block Bifascicular block Cannot rule out Anteroseptal infarct (cited on or before 02-JUL-2016) Abnormal ECG When compared with ECG of 21-DEC-2022 13:02, T wave inversion no longer evident in Inferior leads T wave inversion no longer evident in Lateral leads Referred By: Joan Cody Electronically Signed By:SUZANNE MERINO MD
[2023-06-01 15:15] VITALS: BP 130/76; BP 131/57; PULSE 50; PULSE 59; RESP 14; TEMP 36.4; O2SAT 98; O2SAT 99; BMI 18.1
--- NOTE | 2023-06-01 15:24 | ED_ITS ---
HPI - Syncope General Chief Complaint: Syncope Stated Complaint: SYNCOPE Time Seen by Provider: 06/01/23 14:52 Source: patient Mode of arrival: EMS History of Present Illness HPI narrative: 78-year-old male who is brought in by EMS after he was smoking outside and passed out . it was witnessed, patient is not on blood thinners and he denies any visual changes/shortness of breath/ cool clammy skin/sweating or palpitations prior to the event. He did experience vomiting afterwards. Related Data Home Medications Medication Instructions Recorded Confirmed apixaban 5 mg tablet (Eliquis) 5 mg PO BID 09/18/22 12/21/22 atorvastatin 80 mg tablet 80 mg PO BEDTIME 09/18/22 12/21/22 metformin 500 mg tablet 1,000 mg PO BID 09/18/22 12/21/22 tamsulosin 0.4 mg capsule 0.4 mg PO DAILY 09/18/22 12/21/22 acetaminophen 325 mg tablet 650 mg PO Q6H PRN Fever Or Pain 10/29/22 12/21/22 (Tylenol) bisacodyl 10 mg rectal suppository 10 mg NC DAILY PRN Constipation 10/29/22 12/21/22 magnesium hydroxide 400 mg/5 mL 30 ml PO DAILY PRN Constipation 10/29/22 12/21/22 oral suspension (Milk of Magnesia) sodium phosphates 19 gram-7 118 ml NC DAILY PRN Constipation 10/29/22 12/21/22 gram/118 mL enema (Fleet Enema) amlodipine 2.5 mg tablet 2.5 mg PO DAILY 12/21/22 12/21/22 Previous Rx's Medication Instructions Recorded hydrochlorothiazide 25 mg tablet 25 mg PO DAILY #30 tabs 12/02/22 insulin lispro 100 unit/mL See Protocol subcut QIDACHS #10 mL 12/02/22 subcutaneous solution (Humalog U-100 Insulin) lisinopril 40 mg tablet 40 mg PO DAILY #30 tabs 12/02/22 Allergies Allergy/AdvReac Type Severity Reaction Status Date / Time No Known Allergies Allergy Verified 09/18/22 13:13 [No Known Allergies*] Review of Systems 2 Review of Systems: Pertinent positives and negatives as stated in the HPI [facility] Past Medical History Source: nursing notes reviewed Onset Date is defined in the Problem List Problems that require an onset date and time if occurred within 24 hrs of arrival to the ED Aortic Dissection and Rupture; Neurologic impairment; Cardiopulmonary Arrest; Endotracheal Intubation; Insertion or Replacement of Mechanical Circulatory Assist Device Medical History Paroxysmal atrial fibrillation Hemiplegia and hemiparesis following cerebral infarction affecting right dominant side Essential (primary) hypertension Hyperlipidemia Diabetes type 2, controlled Repeated falls CVA (cerebral vascular accident) Social History Social History Alcohol intake: never Patient Tobacco Use Status: Current everyday Tobacco user Tobacco use type: Cigarette Cigarette Packs Per Day: 0.3 Cigarettes Per Day: 6.0 Smoked in Last 30 Days: Yes Use of substances other than those prescribed or required for medical reasons: No Advance Directives: Yes Advance Directives on File: Yes Advance Directives Date on File: 09/18/22 service: Yes Current occupational status: retired Physical Exam 2 Vital Signs: Vital Signs: Last Vital Signs Temp 97.5 F 06/01/23 15:15 Pulse 68 06/01/23 17:42 Resp 14 06/01/23 15:15 BP 130/61 06/01/23 17:42 Pulse Ox 98 06/01/23 15:15 O2 Del Method Room Air 06/01/23 15:15 BMI result Body Mass Index 18.1 VITAL SIGNS: Reviewed. GENERAL: Well developed, well nourished, in no acute distress. HEAD: Normocephalic/atraumatic EYES: PERRLA, EOMI EARS: Ext canals without abnormality NOSE: Nares patent bilateral OROPHARYNX: no oral lesions noted, posterior pharynx clear NECK: Supple, no adenopathy LUNGS: Normal breath sounds. No adventitious sounds or accessory muscle use. SpO2<98> CARDIOVASCULAR: Regular rate and rhythm without noted murmurs, no JVD or lower extremity edema. ABDOMEN: Soft, non-tender, non-distended with bowel sounds. MUSCULOSKELETAL: No tenderness, deformities, or effusions noted on gross inspection. EXTREMITIES: No cyanosis, clubbing or edema. SKIN: Inspection of the skin reveals no rashes NEUROLOGIC: Alert and oriented x 4. Right-sided deficits at baseline from prior CVA. Medical Decision Making Medical Decision Making MDM Narrative: 78-year-old male with history and clinical presentation of being on chronic anticoagulation and there is report of a syncopal episode, DDX: suspect vasovagal, will obtain CT of the head to rule out intracranial hemorrhage, glucose appears to be within normal limits though no suspicion for hypoglycemic episode. Patient has apparent history of syncopal episodes as well as history of bladder CA. I reviewed all investigations and hematologic indices significant for leukocytosis as well as left shift but this appears to be present on review of prior lab work. There is a chronically stable normocytic anemia. Elevation of coagulation studies consistent with chronic use of blood thinners. chemistry indices do not demonstrate an BACILIO there is a chronically stable bump in the potassium likely associated with poor hydration, liver enzymes are within normal limits and high sensitivity troponin is chronically detectable, there are no acute changes noted on the EKG. Patient is not febrile and denies any cough. CT scan of the head negative for acute findings, no evidence of intracranial hemorrhage or mass effect. Patient has no complaints of urinary retention and I do not suspect underlying urinary tract infection as he has no endorsed urinary symptoms. My interpretation is that patient has experienced acute on recurrent syncopal episodes better vasovagal in nature. He is safe for discharge in follow-up although he has been worked up previously for similar. Differential Diagnosis Differential Diagnoses: The differential diagnosis associated with the presentation includes please see the discussion above Admission/Observation Consideration of admission/observation: Escalation of care including admission/observation considered please see the discussion above Lab Data MDM Lab Attestation statement: I reviewed the patient's lab results. Please see the discussion above 06/01/23 15:32 06/01/23 15:32 Labs: Lab Results 06/01/23 Range/Units 15:32 WBC 12.9 H (4.8-10.8) X10*3/uL RBC 3.68 L (4.60-5.80) X10*6/uL Hgb 11.3 L (14.0-18.0) g/dl Hct 34.9 L (42.0-52.0) % MCV 94.8 (80.0-98.0) fL MCH 30.7 (27.0-33.0) pg MCHC 32.4 (31.0-36.0) g/dl RDW 14.4 (11.0-16.0) % Plt Count 424 H (160-400) X10*3/uL MPV 10.5 (9.4-12.4) fL Immature Gran % (Auto) 2.3 H (0.0-0.4) % Neut % (Auto) 74.9 H (45-73) % Lymph % (Auto) 12.2 L (20-40) % Upson % (Auto) 7.5 (2-11) % Eos % (Auto) 2.6 (0-4) % Baso % (Auto) 0.5 (0-2) % Lymph # (Auto) 1.6 (1.2-4.9) X10*3/uL Upson # (Auto) 1.0 (0.1-1.2) X10*3/uL Eos # (Auto) 0.3 (0.0-0.4) X10*3/uL Baso # (Auto) 0.1 (0.0-0.2) X10*3/uL Abs Immat Gran (auto) 0.29 H (0.00-0.03) X10*3/uL Absolute Neuts (auto) 9.7 H (2.0-8.3) x10*3/uL Absolute Nucleated RBC 0.000 (0.0-0.012) X10*3/uL Nucleated RBC % (auto) 0.0 (0.0-0.2) /100WBC PT 14.0 H (11.1-13.3) SEC INR 1.2 H (0.9-1.1) Sodium 142 (135-145) mmol/L Potassium 5.2 H (3.3-5.1) mmol/L Chloride 107 (96-108) mmol/L Carbon Dioxide 23 (22-29) mmol/L Anion Gap 17 (12-20) BUN 28 H (9-16) mg/dL Creatinine 1.23 (0.5-1.4) mg/dL Estim Creat Clear Calc 41.4 Estimated GFR 57 Random Glucose 140 H (60-115) mg/dL Calcium 10.2 (8.4-10.2) mg/dL Magnesium 1.9 (1.6-2.6) mg/dL Total Bilirubin 0.3 (0.0-1.0) mg/dL AST 15 (5-37) U/L ALT 10 (0-40) U/L Alkaline Phosphatase 92 (39-117) U/L Troponin I High Sens 9.6 D (<3.5-35.0) ng/L Total Protein 6.8 (6.5-8.0) g/dL Albumin 3.9 (3.5-5.0) g/dL Influenza Type A (PCR) NEGATIVE (Negative) Influenza Type B (PCR) NEGATIVE (Negative) RSV RNA Qual (PCR) NEGATIVE (Negative) SARS-CoV-2 RNA (RT-PCR) NEGATIVE (Negative) Independent Interpretation I performed an independent interpretation of an: EKG Interpretation: normal sinus rhythm with PACs, P waves noted in lead to as well as V5, no STEMI, HR-58 Radiology Impression Discussion of test interpretation with radiology: I have reviewed the radiologist's reading. Radiologist Impression: please see the discussion above External Record Review External record reviewed: Outpatient record, Prior outpatient labs and Prior outpatient radiology Chronic Conditions Patient?s care impacted by: Diabetes and Hypertension chronic anticoagulation Critical Care Time Critical Care Time Critical Care Time: Yes Total Critical Care Time: 45 Attestation: I personally attest to this time spent taking care of the patient. Discharge Plan Discharge Clinical Impression: Vasovagal syncope Patient Disposition: Xfer Other Instructions: Syncope (ED) Additional Instructions: 1. Resume all home medications as prescribed. 2. Follow-up with primary care doctor in the next 1-2 days for re-evaluation. Return to the ER for any worsening symptoms. Prescriptions: No Action metformin 500 mg tablet 1,000 mg PO BID atorvastatin 80 mg tablet 80 mg PO BEDTIME tamsulosin 0.4 mg capsule 0.4 mg PO DAILY Eliquis 5 mg tablet 5 mg PO BID acetaminophen [Tylenol] 325 mg Tablet 650 mg PO Q6H PRN (Reason: Fever Or Pain) Rx Instructions: DO NOT EXCEED 3G / 24 HRS magnesium hydroxide [Milk of Magnesia] 400 mg/5 mL Suspension 30 ml PO DAILY PRN (Reason: Constipation) bisacodyl 10 mg Suppository 10 mg NC DAILY PRN (Reason: Constipation) Fleet Enema 19-7 gram/118 mL Enema 118 ml NC DAILY PRN (Reason: Constipation) lisinopril 40 mg Tablet 40 mg PO DAILY Qty: 30 0RF Protocol: Hold for SBP< HOLD for SBP < : 90 insulin lispro [Humalog U-100 Insulin] 100 unit/mL Solution See Protocol subcut QIDAS Qty: 10 0RF Protocol: Insulin Correction Scale Less than or equal to 110 ---- Give (units): 0 111 to 150 Give (units): 0 151 to 200 Give (units): 2 201 to 250 Give (units): 4 251 to 300 Give (units): 6 301 to 350 Give (units): 8 Greater than 350 Give (units): 10 Call MD if Blood Glucose > : 350 hydrochlorothiazide 25 mg Tablet 25 mg PO DAILY Qty: 30 0RF Protocol: Hold for SBP< HOLD for SBP < : 90 amlodipine 2.5 mg Tablet 2.5 mg PO DAILY
[2023-06-01 15:38] LABS: MANUAL DIFF FLAG NO
[2023-06-01 15:40] LABS: Basophils Absolute Auto 0.1 X10*3/uL (0.0-0.2); Basophils Percent Auto 0.5 % (0-2); Eosinophils Absolute Auto 0.3 X10*3/uL (0.0-0.4); Eosinophils Percent Auto 2.6 % (0-4); Hematocrit 34.9 % (42.0-52.0); Hemoglobin 11.3 g/dl (14.0-18.0); Imm Gran Abs Auto 0.29 X10*3/uL (0.00-0.03); Imm Gran Pct Auto 2.3 % (0.0-0.4); Lymphocytes Absolute Auto 1.6 X10*3/uL (1.2-4.9); Lymphocytes Percent Auto 12.2 % (20-40); Mean Corpuscular HGB Conc 32.4 g/dl (31.0-36.0); Mean Corpuscular Hemoglobin 30.7 pg (27.0-33.0); Mean Corpuscular Volume 94.8 fL (80.0-98.0); Mean Platelet Volume 10.5 fL (9.4-12.4); Monocytes Percent Auto 7.5 % (2-11); Neutrophils Absolute Auto 9.7 x10*3/uL (2.0-8.3); Neutrophils Percent Auto 74.9 % (45-73); Platelet Count 424 X10*3/uL (160-400); Red Blood Count 3.68 X10*6/uL (4.60-5.80); Red Cell Distribution Width 14.4 % (11.0-16.0); White Blood Count 12.9 X10*3/uL (4.8-10.8)
[2023-06-01 15:46] LABS: INTERNATIONAL NORM RATIO 1.2 (0.9-1.1)
[2023-06-01 15:58] LABS: Alanine Aminotransferase 10 U/L (0-40); Albumin Level 3.9 g/dL (3.5-5.0); Alkaline Phosphatase 92 U/L (39-117); Anion Gap 17 (12-20); Aspartate Amino Transferase 15 U/L (5-37); Bilirubin Total 0.3 mg/dL (0.0-1.0); Blood Urea Nitrogen 28 mg/dL (9-16); Calcium 10.2 mg/dL (8.4-10.2); Carbon Dioxide 23 mmol/L (22-29); Chloride 107 mmol/L (96-108); Creatinine Clr Calc Pharmacy 41.4; Estimated Glomerular Filt Rate 57; Glucose Random 140 mg/dL (60-115); Magnesium 1.9 mg/dL (1.6-2.6); Potassium 5.2 mmol/L (3.3-5.1); Sodium 142 mmol/L (135-145); Total Protein 6.8 g/dL (6.5-8.0)
[2023-06-01 16:02] LABS: Troponin-I High Sensitivity 9.6 ng/L (<3.5-35.0)
[2023-06-01 16:16] LABS: Influenza A PCR NEGATIVE (Negative); Influenza B PCR NEGATIVE (Negative); Resp Syncy Virus RNA Qual PCR NEGATIVE (Negative); SARS COV2 PCR INHOUSE NEGATIVE (Negative)
[2023-06-01 17:36] VITALS: BP 175/77; PULSE 58
[2023-06-01 17:38] VITALS: BP 141/73; PULSE 87
[2023-06-01 17:42] VITALS: BP 130/61; PULSE 68
--- NOTE | 2023-06-01 17:46 | PC.NURSE ---
patient a&ox3, lungs diminished/clear, shelter monitor applied, ekg performed, labs drawn, orthostats performed, pt sinus ash on shelter monitor intact, call henderson within reach, will continue to monitor
--- NOTE | 2023-06-01 19:54 | PC.NURSE ---
pt instructed for urine sample at this time.
[2023-06-01 19:56] VITALS: BP 177/63; PULSE 64; RESP 16; O2SAT 98
[2023-06-01 20:09] LABS: Appearance Urine Clear; Color Urine Yellow; Glucose Urine UA Negative (Negative); Leukocyte Esterase Urine Trace (Negative); Nitrite Urine Negative (Negative); Specific Gravity - Urine 1.015 (1.005-1.025); UMIC TRIGGER UACC YES; Urine Blood Large (3+) (Negative); Urine Ketones Negative (Negative); Urine Protein 30 (1+) mg/dL (Neg-Trace)
--- NOTE | 2023-06-01 20:10 | PC.NURSE ---
urine sample obtained and sent to lab at this time.
[2023-06-01 20:12] LABS: Bacteria Urine None Seen (None Seen); Hyaline Casts Urine 0-2 /LPF (0-2); RBC Urine >20 /HPF (0-2); Squamous Epithelial Cell Urine 0-2 /HPF (0-2); WBC Urine 0-5 /HPF (0-5)
--- NOTE | 2023-06-01 21:01 | PC.NURSE ---
[facility], no answer.
--- NOTE | 2023-06-01 22:40 | PC.NURSE ---
ems at bedside, report given.
== END 2023-06-01 22:42 | disposition other institution (70) ==
PROVIDERS: Emergency Provider Student in an Organized Health Care Education/Training Program
DX: R55 Syncope and collapse (principal); I45.10 Unspecified right bundle-branch block; Z79.899 Other long term (current) drug therapy; Z20.822 Contact with and (suspected) exposure to COVID-19; Z20.828 Contact with and (suspected) exposure to other viral communicable diseases; Z79.01 Long term (current) use of anticoagulants
CPT/HCPCS: 0241U; 36415; 70450; 80053; 81001; 83735; 84484; 85025; 85610; 93005; 99284; 99285

== ENCOUNTER → 2023-06-01 14:52 | Outpatient (BNV) | payer MEDICARE, SELFPAY | PROVIDERS: Emergency Provider Student in an Organized Health Care Education/Training Program; Visit Provider Internal Medicine Cardiovascular Disease | DX: I45.2 Bifascicular block (principal); R94.31 Abnormal electrocardiogram [ECG] [EKG] | CPT/HCPCS: 93010 ==

== ENCOUNTER 2023-07-06 10:39 | Emergency (ER) | payer MEDICARE, SELFPAY ==
--- NOTE | ~2023-07-06 | CT_ITS ---
EXAMINATION: CT ABDOMEN AND PELVIS WITHOUT CONTRAST CLINICAL INFORMATION: Hematuria COMPARISON: CT of the abdomen and pelvis 12/21/2022 TECHNIQUE: Multidetector volumetric imaging was performed from the superior aspect of the liver through the pubic symphysis. Sagittal and coronal reformatted images were obtained on the technologist's workstation. This CT examination was performed using dose optimization techniques as appropriate, variously including the following: *Automated exposure control *Adjustment of mA and/or kV according to patient size (this includes techniques or standardized protocols for targeted exams where dose is matched to indication/reason for exam; i.e. extremities or head) *Use of iterative reconstruction technique DLP: 186 mGy-cm FINDINGS: LUNG BASES: 0.8 cm nodule in the lingula (series 6, image 1) and 0.8 cm nodule in the posterior right lower lobe (series 6, image 1), similar to the prior study LIVER, GALLBLADDER, AND BILIARY TREE: The liver is normal in size, shape, and attenuation. There are a few scattered punctate calcific densities throughout the liver, likely business services sales representative of prior granulomatous disease. No intrahepatic biliary ductal dilatation. The gallbladder is unremarkable with no evidence of radiopaque gallstones, gallbladder wall thickening, or obvious pericholecystic inflammatory changes. PANCREAS: There are scattered calcific densities throughout the pancreatic parenchyma, that may represent sequela from prior pancreatitis versus prior granulomatous disease. The parenchyma is otherwise unremarkable. SPLEEN: A few minimal punctate calcifications likely business services sales representative of prior granulomatous disease. ADRENAL GLANDS: Redemonstration of low-attenuation fullness of both adrenal glands, similar to the prior study that may represent adrenal adenomas. KIDNEYS AND URETERS: Redemonstration of are bilateral renal calcifications following the contour of the renal vasculature. No definite renal parenchymal calcifications. No hydronephrosis. Simple appearing cyst in the posterior mid polar region measuring up to 1.3 cm, similar to the prior study. BLADDER: Redemonstration of focal bladder wall thickening along the posterior left aspect of the bladder (series 3, image 73) no bladder calculi are demonstrated.. GASTROINTESTINAL TRACT: The stomach and small bowel are not distended. No evidence for bowel obstruction. There is a large amount of stool throughout the colon. No focal wall thickening. Normal appendix. ABDOMINAL WALL: No significant hernia is appreciated. LYMPH NODES: Normal. VASCULAR: Extensive atherosclerotic disease throughout the aorta and its branches with calcifications. Unchanged mild dilatation of the infrarenal abdominal aorta which measures up to 3 cm in diameter. Retroaortic left renal vein is again demonstrated. PELVIC VISCERA: There are scattered calcifications in the prostate gland. Multilevel degenerative changes in the spine and bilateral hips, similar to the prior study OSSEOUS STRUCTURES: Multilevel degenerative changes in the spine and bilateral hips, similar to the prior study CT/CT abdomen pelvis wo IV con IMPRESSION: Redemonstration of asymmetric bladder wall thickening along the posterior left bladder wall. Consider correlation with cystoscopy. Multiple vascular calcifications throughout the bilateral kidneys. No definite renal parenchymal calcifications. No hydronephrosis. Additional chronic changes as above described.
[2023-07-06 11:04] LABS: Glucose, Whole Blood 146 mg/dL (60-115)
[2023-07-06 11:17] VITALS: BP 148/71; BP 160/80; PULSE 69; PULSE 70; RESP 14; TEMP 36.6; O2SAT 100; O2SAT 98; BMI 17.7
--- NOTE | 2023-07-06 11:33 | ECG_ITS ---
Test Reason : BIGEMENY/SINUS ARRHYMIA Blood Pressure : / mmHG Vent. Rate : 070 BPM Atrial Rate : 070 BPM P-R Int : 202 ms QRS Dur : 124 ms QT Int : 418 ms P-R-T Axes : 083 -86 056 degrees QTc Int : 451 ms Normal sinus rhythm with sinus arrhythmia Right bundle branch block Left anterior fascicular block Bifascicular block Cannot rule out Anteroseptal infarct (cited on or before 02-JUL-2016) Abnormal ECG When compared with ECG of 01-JUN-2023 15:09, Premature atrial complexes are no longer Present Serial changes of Anteroseptal infarct Present Referred By: Generic ED Physician Electronically Signed By:Rivas Nicolas
--- NOTE | 2023-07-06 11:40 | ED.GENADULT ---
HPI - General Adult General Chief complaint: General Medical Stated complaint: FROM SNF, HEMATURIA FOR WEEKS - WORSE TODAY Time Seen by Provider: 07/06/23 11:22 Source: patient, EMS, RN notes reviewed and old records reviewed Mode of arrival: EMS History of Present Illness HPI narrative: 78-year-old male with a past medical history AFib on Eliquis, hemiplegia and hemiparesis s/p CVA, HTN, HLD, diabetes, recurrent falls, presenting to the ED via EMS from [facility] with hematuria/dark urine noted x months per patient. Denies fever, chills, abdominal pain, flank pain, lightheadedness/dizziness Related Data Home Medications Medication Instructions Recorded Confirmed apixaban 5 mg tablet (Eliquis) 5 mg PO BID 09/18/22 07/06/23 atorvastatin 80 mg tablet 80 mg PO BEDTIME 09/18/22 07/06/23 metformin 500 mg tablet 1,000 mg PO BID 09/18/22 07/06/23 tamsulosin 0.4 mg capsule 0.4 mg PO DAILY 09/18/22 07/06/23 acetaminophen 325 mg tablet 650 mg PO Q6H PRN Fever Or Pain 10/29/22 07/06/23 (Tylenol) bisacodyl 10 mg rectal suppository 10 mg MO DAILY PRN Constipation 10/29/22 07/06/23 magnesium hydroxide 400 mg/5 mL 30 ml PO DAILY PRN Constipation 10/29/22 07/06/23 oral suspension (Milk of Magnesia) sodium phosphates 19 gram-7 118 ml MO DAILY PRN Constipation 10/29/22 07/06/23 gram/118 mL enema (Fleet Enema) amlodipine 2.5 mg tablet 2.5 mg PO DAILY 12/21/22 07/06/23 ferrous sulfate 325 mg (65 mg 325 mg PO DAILY 07/06/23 07/06/23 iron) tablet insulin lispro 100 unit/mL 2 - 10 sliding scale dose subcut 07/06/23 07/06/23 subcutaneous solution (Humalog USEASDIRECTD U-100 Insulin) Previous Rx's Medication Instructions Recorded hydrochlorothiazide 25 mg tablet 25 mg PO DAILY #30 tabs 12/02/22 lisinopril 40 mg tablet 40 mg PO DAILY #30 tabs 12/02/22 Allergies Allergy/AdvReac Type Severity Reaction Status Date / Time No Known Allergies Allergy Verified 09/18/22 13:13 [No Known Allergies*] Review of Systems Review of Systems: Constitutional: No Fever, No Chills ENT/Mouth: No Ear Pain, No Nasal Congestion, No sore throat, No Rhinorrhea, No Swallowing Difficulty Cardiovascular: No Chest Pain, No SOB Respiratory: No Cough, No Sputum, No Wheezing Gastrointestinal: No Nausea, No Vomiting, No Diarrhea, No Constipation, No Abdominal pain Genitourinary: No Dysuria, No Urinary Frequency, +Hematuria, No Urinary Incontinence/retention, No Urgency, No Flank Pain Musculoskeletal: No joint pain, No Myalgias Skin: No Skin Lesions, No rash Neuro: No Weakness Yes all other systems are reviewed and are negative Constitutional: Constitutional: Reports as per [facility] Past Medical History Attestation statement: The following information was validated with the patient. Source: old records reviewed Medical History Paroxysmal atrial fibrillation Hemiplegia and hemiparesis following cerebral infarction affecting right dominant side Essential (primary) hypertension Hyperlipidemia Diabetes type 2, controlled Repeated falls CVA (cerebral vascular accident) Social History Social History Alcohol intake: never Patient Tobacco Use Status: Current everyday Tobacco user Tobacco use type: Cigarette Cigarette Packs Per Day: 0.3 Cigarettes Per Day: 6.0 Smoked in Last 30 Days: Yes Use of substances other than those prescribed or required for medical reasons: No Advance Directives: Yes Advance Directives on File: Yes Advance Directives Date on File: 09/18/22 service: Yes Current occupational status: retired Physical Exam ED Vital Signs: Vital Signs - 24 hr 07/06/23 11:17 Temperature 97.9 F Pulse Rate 69 Respiratory Rate 14 Blood Pressure 148/71 H Pulse Oximetry 100 Oxygen Delivery Method Room Air BMI result Body Mass Index 17.7 Const General: cooperative, healthy appearing and no acute distress Orientation/consciousness: patient oriented x3 Limitations: no limitations HENMT Head: Yes normal to inspection and Yes atraumatic Ears: hearing grossly normal bilaterally General nose exam: Normal external nose present Face and sinus: Yes normal facial exam Eyes General: appearance normal, both eyes and all related structures EOM: EOMs intact bilaterally Neck Neck: Yes normal visual inspection and Yes no meningeal signs Resp Effort & Inspection: normal respiratory effort and no respiratory distress Auscultation: clear to auscultation bilaterally Cardio Rate: regular rate Heart sounds: S1 normal heart sound present and S2 normal heart sound present GI Inspection: Yes normal to inspection Palpation (GI): Soft to palpation, nontender, no guarding and not rigid General: Yes no CVA tenderness Back/Spine/Pelvis Back: no CVA tenderness Skin Rashes: no rashes Wounds: no wounds Neuro General: patient oriented x3, tone normal and no meningeal signs Cranial nerves: Yes CN's II-XII intact bilaterally Gait exam (Neuro): Normal gait present Extrem General: Yes normal to inspection Course Course Course Narrative: -1409--no leukocytosis. H/H with slight drop, 9.8/30.2 (baseline ) -initial troponin 38.7 > will obtain 3 hour repeat -1411--patient finally able to give urine sample, very dark > [employer] colored. CPK added. CT abdomen pelvis wo IV con IMPRESSION: Redemonstration of asymmetric bladder wall thickening along the posterior left bladder wall. Consider correlation with cystoscopy. Multiple vascular calcifications throughout the bilateral kidneys. No definite renal parenchymal calcifications. No hydronephrosis. Additional chronic changes as above described. -UA with RBCs and large blood. Will perform CBI. CPK WNL -1630--ED care transferred to [facility] pending CBI/urine clearance and repeat CBC/troponin Medical Decision Making Medical Decision Making [facility] Narrative: 78-year-old male with a past medical history AFib on Eliquis, hemiplegia and hemiparesis s/p CVA, HTN, HLD, diabetes, recurrent falls, presenting to the ED via EMS from [facility] with hematuria/dark urine noted x months per patient. On exam vital signs stable, NAD, nontoxic appearing, abdomen soft/nontender, no CVAT. Concern for gross hematuria vs UTI vs renal stone/pyelo. Rule out obstruction/mass including BACILIO. Plan: Labs, UA, CT AP, re-evaluate Please refer to course for remaining clinical decision making, interpretation of labs/imaging results, and discussions with consultants and/or family members. Differential Diagnosis Differential Diagnoses: The differential diagnosis associated with the presentation includes As above Admission/Observation Consideration of admission/observation: Escalation of care including admission/observation considered Lab Data MDM Lab Attestation statement: I reviewed the patient's lab results. 07/06/23 12:57 07/06/23 12:57 Labs: Lab Results 07/06/23 07/06/23 07/06/23 Range/Units 11:01 12:57 14:28 WBC 10.0 (4.8-10.8) X10*3/uL RBC 3.19 L (4.60-5.80) X10*6/uL Hgb 9.8 L (14.0-18.0) g/dl Hct 30.2 L (42.0-52.0) % MCV 94.7 (80.0-98.0) fL MCH 30.7 (27.0-33.0) pg MCHC 32.5 (31.0-36.0) g/dl RDW 14.7 (11.0-16.0) % Plt Count 402 H (160-400) X10*3/uL MPV 10.5 (9.4-12.4) fL Immature Gran % (Auto) 3.1 H (0.0-0.4) % Neut % (Auto) 58.4 (45-73) % Lymph % (Auto) 23.2 (20-40) % [place] % (Auto) 10.2 (2-11) % Eos % (Auto) 4.6 H (0-4) % Baso % (Auto) 0.5 (0-2) % Lymph # (Auto) 2.3 (1.2-4.9) X10*3/uL [place] # (Auto) 1.0 (0.1-1.2) X10*3/uL Eos # (Auto) 0.5 H (0.0-0.4) X10*3/uL Baso # (Auto) 0.1 (0.0-0.2) X10*3/uL Abs Immat Gran (auto) 0.31 H (0.00-0.03) X10*3/uL Absolute Neuts (auto) 5.8 (2.0-8.3) x10*3/uL Absolute Nucleated RBC 0.000 (0.0-0.012) X10*3/uL Nucleated RBC % (auto) 0.0 (0.0-0.2) /100WBC PT 15.0 H (11.1-13.3) SEC INR 1.2 H (0.9-1.1) APTT 40.7 H (26.0-36.8) SEC Sodium 141 (135-145) mmol/L Potassium 5.1 (3.3-5.1) mmol/L Chloride 108 (96-108) mmol/L Carbon Dioxide 25 (22-29) mmol/L Anion Gap 13 (12-20) BUN 30 H (9-16) mg/dL Creatinine 1.17 (0.5-1.4) mg/dL Estim Creat Clear Calc 46.3 Estimated GFR > 60 POC Glucose 146 H (60-115) mg/dL Random Glucose 79 (60-115) mg/dL Calcium 9.5 D (8.4-10.2) mg/dL Magnesium 2.1 (1.6-2.6) mg/dL Total Bilirubin 0.2 (0.0-1.0) mg/dL Direct Bilirubin < 0.2 (0.0-0.5) mg/dL AST 13 (5-37) U/L ALT 9 (0-40) U/L Alkaline Phosphatase 94 (39-117) U/L Total Creatine Kinase 46 (38-174) U/L Troponin I High Sens 38.7 H D (<3.5-35.0) ng/L Total Protein 6.5 (6.5-8.0) g/dL Albumin 3.7 (3.5-5.0) g/dL Urine Color BROWN Urine Appearance Cloudy Urine pH 5.5 (5.0-9.0) Ur Specific [place] 1.025 (1.005-1.025) Urine Protein 100 (2+) H (Neg-Trace) mg/dL Urine Glucose (UA) Negative (Negative) mg/dL Urine Ketones Trace (Negative) mg/dL Urine Blood Large (3+) H (Negative) Urine Nitrite Negative (Negative) Ur Leukocyte Esterase Negative (Negative) Urine RBC >20 H (0-2) /HPF Urine WBC 0-5 (0-5) /HPF Ur Squamous Epith Cells 0-2 (0-2) /HPF Urine Bacteria None Seen (None Seen) Hyaline Casts 0-2 (0-2) /LPF Independent Interpretation I performed an independent interpretation of an: CT Scan Radiology Impression Discussion of test interpretation with radiology: I have reviewed the radiologist's reading. Independent Historian Clinical information obtained from an independent historian. History obtained from or confirmed by: EMS External Record Review External record reviewed: Inpatient record, Office record, Outpatient record, Prior outpatient labs, Prior outpatient radiology, Primary care record and Outside ED record Tests considered The following testing was considered but not selected: As above Prescription Management I considered prescription management with: Antibiotic Chronic Conditions Patient?s care impacted by: Other (A.FIB) Critical Care Time Critical Care Time Critical Care Time: Yes Total Critical Care Time: 40 Attestation: I have personally provided critical care time exclusive of time spent on separately billable procedures. Time includes review of lab data, radiology results, discussion with consultants, and monitoring for potential decompensation. Intervention performed as documented. Discharge Plan Discharge Clinical Impression: Hematuria, Anemia Patient Disposition: Still a Patient Prescriptions: No Action ferrous sulfate 325 mg (65 mg iron) Tablet 325 mg PO DAILY insulin lispro [Humalog U-100 Insulin] 100 unit/mL Solution 2 - 10 sliding scale dose SUBCUT USEASDIRECTD metformin 500 mg tablet 1,000 mg PO BID atorvastatin 80 mg tablet 80 mg PO BEDTIME tamsulosin 0.4 mg capsule 0.4 mg PO DAILY Eliquis 5 mg tablet 5 mg PO BID acetaminophen [Tylenol] 325 mg Tablet 650 mg PO Q6H PRN (Reason: Fever Or Pain) Rx Instructions: DO NOT EXCEED 3G / 24 HRS magnesium hydroxide [Milk of Magnesia] 400 mg/5 mL Suspension 30 ml PO DAILY PRN (Reason: Constipation) bisacodyl 10 mg Suppository 10 mg MO DAILY PRN (Reason: Constipation) Fleet Enema 19-7 gram/118 mL Enema 118 ml MO DAILY PRN (Reason: Constipation) lisinopril 40 mg Tablet 40 mg PO DAILY Qty: 30 0RF Protocol: Hold for SBP< HOLD for SBP < : 90 hydrochlorothiazide 25 mg Tablet 25 mg PO DAILY Qty: 30 0RF Protocol: Hold for SBP< HOLD for SBP < : 90 amlodipine 2.5 mg Tablet 2.5 mg PO DAILY
--- NOTE | 2023-07-06 12:05 | PHA.MEDREC ---
Pharmacy Consult ? Medication Reconciliation Pharmacy has completed the medication reconciliation. Used list from [facility]
[2023-07-06 13:04] LABS: MANUAL DIFF FLAG NO
[2023-07-06 13:10] LABS: Basophils Absolute Auto 0.1 X10*3/uL (0.0-0.2); Basophils Percent Auto 0.5 % (0-2); Eosinophils Absolute Auto 0.5 X10*3/uL (0.0-0.4); Eosinophils Percent Auto 4.6 % (0-4); Hematocrit 30.2 % (42.0-52.0); Hemoglobin 9.8 g/dl (14.0-18.0); Imm Gran Abs Auto 0.31 X10*3/uL (0.00-0.03); Imm Gran Pct Auto 3.1 % (0.0-0.4); Lymphocytes Absolute Auto 2.3 X10*3/uL (1.2-4.9); Lymphocytes Percent Auto 23.2 % (20-40); Mean Corpuscular HGB Conc 32.5 g/dl (31.0-36.0); Mean Corpuscular Hemoglobin 30.7 pg (27.0-33.0); Mean Corpuscular Volume 94.7 fL (80.0-98.0); Mean Platelet Volume 10.5 fL (9.4-12.4); Monocytes Percent Auto 10.2 % (2-11); Neutrophils Absolute Auto 5.8 x10*3/uL (2.0-8.3); Neutrophils Percent Auto 58.4 % (45-73); Platelet Count 402 X10*3/uL (160-400); Red Blood Count 3.19 X10*6/uL (4.60-5.80); Red Cell Distribution Width 14.7 % (11.0-16.0)
[2023-07-06 13:12] LABS: INTERNATIONAL NORM RATIO 1.2 (0.9-1.1)
[2023-07-06 13:15] LABS: Partial Thromboplastin Time 40.7 SEC (26.0-36.8)
[2023-07-06 13:23] LABS: Alanine Aminotransferase 9 U/L (0-40); Albumin Level 3.7 g/dL (3.5-5.0); Alkaline Phosphatase 94 U/L (39-117); Anion Gap 13 (12-20); Aspartate Amino Transferase 13 U/L (5-37); Bilirubin Direct < 0.2 mg/dL (0.0-0.5); Bilirubin Total 0.2 mg/dL (0.0-1.0); Blood Urea Nitrogen 30 mg/dL (9-16); Calcium 9.5 mg/dL (8.4-10.2); Carbon Dioxide 25 mmol/L (22-29); Chloride 108 mmol/L (96-108); Creatinine Clr Calc Pharmacy 46.3; Estimated Glomerular Filt Rate > 60; Glucose Random 79 mg/dL (60-115); Magnesium 2.1 mg/dL (1.6-2.6); Potassium 5.1 mmol/L (3.3-5.1); Sodium 141 mmol/L (135-145); Total Protein 6.5 g/dL (6.5-8.0)
[2023-07-06 13:30] LABS: Troponin-I High Sensitivity 38.7 ng/L (<3.5-35.0)
[2023-07-06 14:40] LABS: Appearance Urine Cloudy; Color Urine BROWN; Glucose Urine UA Negative (Negative); Leukocyte Esterase Urine Negative (Negative); Nitrite Urine Negative (Negative); PH 5.5 (5.0-9.0); Specific Gravity - Urine 1.025 (1.005-1.025); UMIC TRIGGER UACC YES; Urine Blood Large (3+) (Negative); Urine Ketones Trace mg/dL (Negative); Urine Protein 100 (2+) mg/dL (Neg-Trace)
[2023-07-06 14:55] LABS: Bacteria Urine None Seen (None Seen); Hyaline Casts Urine 0-2 /LPF (0-2); RBC Urine >20 /HPF (0-2); Squamous Epithelial Cell Urine 0-2 /HPF (0-2); WBC Urine 0-5 /HPF (0-5)
[2023-07-06 16:30] LABS: MANUAL DIFF FLAG NO
--- NOTE | 2023-07-06 16:31 | PC.NURSE ---
CBI started without any complications, dark red urine noted in tubing and in the bag.
[2023-07-06 16:36] LABS: Basophils Absolute Auto 0.1 X10*3/uL (0.0-0.2); Basophils Percent Auto 0.5 % (0-2); Eosinophils Absolute Auto 0.5 X10*3/uL (0.0-0.4); Eosinophils Percent Auto 4.7 % (0-4); Hematocrit 31.7 % (42.0-52.0); Hemoglobin 10.2 g/dl (14.0-18.0); Imm Gran Abs Auto 0.27 X10*3/uL (0.00-0.03); Imm Gran Pct Auto 2.4 % (0.0-0.4); Lymphocytes Absolute Auto 2.8 X10*3/uL (1.2-4.9); Lymphocytes Percent Auto 25.6 % (20-40); Mean Corpuscular HGB Conc 32.2 g/dl (31.0-36.0); Mean Corpuscular Hemoglobin 30.4 pg (27.0-33.0); Mean Corpuscular Volume 94.3 fL (80.0-98.0); Mean Platelet Volume 10.5 fL (9.4-12.4); Monocytes Absolute Auto 1.1 X10*3/uL (0.1-1.2); Monocytes Percent Auto 9.6 % (2-11); Neutrophils Absolute Auto 6.3 x10*3/uL (2.0-8.3); Neutrophils Percent Auto 57.2 % (45-73); Platelet Count 399 X10*3/uL (160-400); Red Blood Count 3.36 X10*6/uL (4.60-5.80); Red Cell Distribution Width 14.7 % (11.0-16.0)
[2023-07-06 16:51] LABS: Troponin-I High Sensitivity 38.3 ng/L (<3.5-35.0)
[2023-07-06 17:45] VITALS: BP 162/61; PULSE 60; RESP 20; TEMP 36.8; O2SAT 98
--- NOTE | 2023-07-06 19:57 | PC.NURSE ---
2 full bags of saline 3000cc irrigated through eaton catheter - [facility] ASSISTANT MANAGER QUALITY MANAGEMENT aware. urine very light pink in color almost clear. 3rd saline bag 3000cc started at Daphne request while she follows up on the case. Pt wondering the plan at this time. pt informed ASSISTANT MANAGER QUALITY MANAGEMENT following up on whether pt needs admission or send home. plan of care ongoing. pt offers no current complaints.
--- NOTE | 2023-07-06 22:19 | PC.NURSE ---
pt ready for discharge, requiring ambulance transport back to nursing facility. medical secretary and patient made aware.
--- NOTE | 2023-07-06 23:26 | MHC.EDTECH ---
asssumed care of patient at 2300. Patient swearing about catheter. When this principal technical writer went to see patient he was pulling at catheter and there was a small amount of bloody drainage. Nurse Sun notified. Patient cleaned and catheter reattached to right thigh
[2023-07-07 00:06] VITALS: PULSE 72; RESP 16; TEMP 37.1; O2SAT 98
== END 2023-07-07 00:22 | disposition skilled nursing facility (03) ==
PROVIDERS: Physician Assistant; Emergency Provider Emergency Medicine Emergency Medical Services; PCP Internal Medicine
DX: R31.9 Hematuria, unspecified (principal); I48.91 Unspecified atrial fibrillation; D64.9 Anemia, unspecified; R10.2 Pelvic and perineal pain; Z79.01 Long term (current) use of anticoagulants; Z79.899 Other long term (current) drug therapy
CPT/HCPCS: 36415; 74176; 80048; 80076; 81001; 82550; 82947; 83735; 84484; 85025; 85610; 85730; 93005; 99285

== ENCOUNTER → 2023-07-06 11:33 | Outpatient (BNV) | payer MEDICARE, SELFPAY | PROVIDERS: Emergency Provider Emergency Medicine Emergency Medical Services; PCP Internal Medicine; Visit Provider Internal Medicine Cardiovascular Disease | DX: I45.2 Bifascicular block (principal); R94.31 Abnormal electrocardiogram [ECG] [EKG] | CPT/HCPCS: 93010 ==

== ENCOUNTER 2024-02-22 14:24 | Emergency (ER) | payer MEDICARE, SELFPAY ==
--- NOTE | ~2024-02-22 | XR_ITS ---
EXAMINATION: XR CHEST CLINICAL INFORMATION: Syncope COMPARISON: Chest x-ray 12/21/2022 CT chest 11/02/2022 TECHNIQUE: Frontal view of the chest was obtained. FINDINGS: No significant abnormality is noted involving the heart, lungs, mediastinum, bony thorax or soft tissues. Emphysematous changes which are present on prior CT studies not that well appreciated on plain film radiography XR/XR chest 1V IMPRESSION: Unremarkable examination. Electronically signed by: Aditya Sommers MD 02/22/2024 04:01 PM EDT
--- NOTE | ~2024-02-22 | CT_ITS ---
EXAMINATION: CT HEAD WITHOUT CONTRAST CLINICAL INFORMATION: Headaches COMPARISON: 06/01/2023 TECHNIQUE: Contiguous axial imaging was performed from the skull base to vertex without intravenous administration of contrast. This CT examination was performed using dose optimization techniques as appropriate, variously including the following: *Automated exposure control *Adjustment of mA and/or kV according to patient size (this includes techniques or standardized protocols for targeted exams where dose is matched to indication/reason for exam; i.e. extremities or head) *Use of iterative reconstruction technique DLP: 675 mGy-cm FINDINGS: There is prominence to the sulci and ventricles. Cerebellar atrophy noted. There is an old left basal ganglial lacune with slight distention of the frontal horn of the left lateral ventricle but this is all unchanged. Mild deep white matter gliosis is unchanged. No intra or extra-axial fluid collection, hemorrhage, mass, or mass effect. Calvarium intact. CT/CT head/brain wo IV con IMPRESSION: Stable chronic change. No acute intracranial pathology. Electronically signed by: Vidal Dubose MD 02/22/2024 04:21 PM EDT
--- NOTE | 2024-02-22 14:34 | ECG_ITS ---
Test Reason : ABNORMAL EMS EKG Blood Pressure : / mmHG Vent. Rate : 074 BPM Atrial Rate : 074 BPM P-R Int : 192 ms QRS Dur : 128 ms QT Int : 420 ms P-R-T Axes : 084 -84 068 degrees QTc Int : 466 ms Sinus rhythm with marked sinus arrhythmia Right bundle branch block Left anterior fascicular block Bifascicular block Septal infarct (cited on or before 02-JUL-2016) Abnormal ECG When compared with ECG of 06-JUL-2023 12:33, Questionable change in initial forces of Anteroseptal leads Referred By: Ran Ratliff Electronically Signed By:RAFA YEN
[2024-02-22 14:36] VITALS: BP 130/64; PULSE 73; RESP 16; TEMP 36.5; O2SAT 97; BMI 20.3
--- NOTE | 2024-02-22 14:42 | ED.GENADULT ---
HPI - General Adult General Chief complaint: Syncope Stated complaint: ?STROKE,SYNC WHEN SMOKING,211/88,LKWT 30MINS,-THIN Time Seen by Provider: 02/22/24 14:31 History of Present Illness ED Provider: Gaudencio BUTTERFIELD narrative: The patient is a 78-year-old male who lives at a fpc. Apparently he had gone outside to smoke a cigarette. Apparently he passed out outside. Staff at the facility then brought him inside and about 10 minutes later he had a 2nd episode of passing out. He vomited at around the time of the 2nd episode of passing out. It was after the 2nd episode of passing out that 911 was called. Paramedics state that the staff said the patient had recovered from the 2nd episode of passing out but they say they found the patient quite dazed and not very responsive. Initially there was a blood pressure of 211/88 with a heart rate of 97. They had a vague sense that there might be some right facial weakness but there was no other lateralizing finding. In route to the hospital the patient became more alert and seems to have achieved a normal mental status at this point. He remembers being outside smoking a cigarette but does not remember much else. Apparently the staff did not call an ambulance after the 1st episode of passing out outside because this has happened before when the patient goes out to smoke a cigarette. Related Data Home Medications ?Medication ?Instructions ?Recorded ?Confirmed apixaban 5 mg tablet (Eliquis) 5 mg PO BID 09/18/22 07/06/23 atorvastatin 80 mg tablet 80 mg PO BEDTIME 09/18/22 07/06/23 metformin 500 mg tablet 1,000 mg PO BID 09/18/22 07/06/23 tamsulosin 0.4 mg capsule 0.4 mg PO DAILY 09/18/22 07/06/23 acetaminophen 325 mg tablet 650 mg PO Q6H PRN Fever Or Pain 10/29/22 07/06/23 (Tylenol) bisacodyl 10 mg rectal suppository 10 mg PA DAILY PRN Constipation 10/29/22 07/06/23 magnesium hydroxide 400 mg/5 mL 30 ml PO DAILY PRN Constipation 10/29/22 07/06/23 oral suspension (Milk of Magnesia) sodium phosphates 19 gram-7 118 ml [place] DAILY PRN Constipation 10/29/22 07/06/23 gram/118 mL enema (Fleet Enema) amlodipine 2.5 mg tablet 2.5 mg PO DAILY 12/21/22 07/06/23 ferrous sulfate 325 mg (65 mg 325 mg PO DAILY 07/06/23 07/06/23 iron) tablet insulin lispro 100 unit/mL 2 - 10 sliding scale dose subcut 07/06/23 07/06/23 subcutaneous solution (Humalog USEASDIRECTD U-100 Insulin) Previous Rx's ?Medication ?Instructions ?Recorded hydrochlorothiazide 25 mg tablet 25 mg PO DAILY #30 tabs 12/02/22 lisinopril 40 mg tablet 40 mg PO DAILY #30 tabs 12/02/22 Allergies Allergy/AdvReac Type Severity Reaction Status Date / Time No Known Allergies Allergy Verified 02/22/24 14:39 [No Known Allergies*] Review of Systems Review of Systems: Yes all other systems are reviewed and are negative [facility] Past Medical History Medical History Paroxysmal atrial fibrillation Hemiplegia and hemiparesis following cerebral infarction affecting right dominant side Essential (primary) hypertension Hyperlipidemia Diabetes type 2, controlled Repeated falls CVA (cerebral vascular accident) Social History Social History Alcohol intake: never Patient Tobacco Use Status: Current everyday Tobacco user Tobacco use type: Cigarette Cigarette Packs Per Day: 0.3 Cigarettes Per Day: 6.0 Smoked in Last 30 Days: Yes Advance Directives: Yes Advance Directives on File: Yes Advance Directives Date on File: 09/18/22 Do you have a plan to hurt others: No Plan service: Yes Current occupational status: retired Physical Exam ED Vital Signs: Vital Signs - 24 hr 02/22/24 14:36 02/22/24 14:57 02/22/24 16:24 Temperature 97.7 F 98.3 F Pulse Rate 73 53 Respiratory Rate 16 16 Blood Pressure 130/64 147/60 H Pulse Oximetry 97 97 96 Oxygen Delivery Method Room Air Room Air Room Air BMI result Body Mass Index 20.3 Const Other: The patient is a chronically ill-appearing, mildly cachectic 78-year-old who was awake and alert. He has a pleasant demeanor and seems cheerful. No obvious neurological deficit. HENMT Other: No appreciable facial asymmetry. Tongue is midline. No tongue injury. Eyes Other: Pupils are round equal, conjunctivae are clear, extraocular movements intact Neck Neck: Yes full ROM and Yes no JVD Resp Effort & Inspection: normal respiratory effort Auscultation: clear to auscultation bilaterally Cardio Rate: regular rate Rhythm: regular rhythm Heart sounds: S1 normal heart sound present and S2 normal heart sound present GI Other: Abdomen is soft and nontender Skin Other: Skin is dry and unremarkable Neuro Other: The patient is awake and alert. Eye movements are intact. No appreciable facial weakness. Speech is clear. Strength is symmetrical with no pronator drift. Extrem Other: No peripheral edema Medications Administered Discontinued Medications Generic Name Dose Route Start Last Admin Trade Name Freq PRN Reason Stop Dose Admin Lactated Ringer's 1,000 mls @ 999 mls/hr 02/22/24 15:30 02/22/24 16:43 Lr IV 02/22/24 16:30 Infused .Q1H1M LEA Infusion Medical Decision Making Medical Decision Making [facility] Narrative: The patient is a 78-year-old male who lives at a fpc. He has multiple chronic medical problems. He is chronically debilitated and walks with a walker. He still smokes. Apparently he has a history of occasional episodes of passing out. Today he was outside for a smoke and passed out. Apparently staff at the fpc were not initially very concerned because it did not seem all that unusual. However he had a subsequent 2nd episode of passing out associated with vomiting and at that point they called 911. Paramedics called the patient in as a possible code stroke. However on arrival I did not feel that there was anything in the patient's physical exam suggesting a stroke and it would be unusual for a stroke to present with transient loss of consciousness. Therefore the patient had a standard medical workup. This shows a noncontrast head CT without acute changes. His labs were significant for some worsening renal function probably consistent with dehydration. His EKG shows a right bundle branch block. He does not describe any anginal symptoms. Interestingly the patient's presentation today is fairly similar to a presentation when he was hospitalized at this hospital last year. On that occasion the patient had also presented following a syncopal episode after going out for cigarette at his fpc. The patient was given a L of IV fluids. He was observed. His vital signs in his respiratory status were stable. He looked well and was feeling better. He does not have any recollection of the episodes of passing out and vomiting at the fpc. It is possible he could have a seizure disorder and the patient seemed to think that he might have been told at some point that he has had seizures in the past. The patient was offered hospitalization for further investigation but he would prefer to return to his fpc. I do not think this is unreasonable. He can have additional workup as an outpatient. He will be discharged back to his fpc with advice to increase his fluid intake and to try to make a follow up appointment for an EEG. Lab Data 02/22/24 14:52 02/22/24 14:52 Labs: Lab Results 02/22/24 02/22/24 Range/Units 14:52 14:56 WBC 13.4 H (4.8-10.8) X10*3/uL RBC 3.53 L (4.60-5.80) X10*6/uL Hgb 10.8 L (14.0-18.0) g/dl Hct 34.3 L (42.0-52.0) % MCV 97.2 (80.0-98.0) fL MCH 30.6 (27.0-33.0) pg MCHC 31.5 (31.0-36.0) g/dl RDW 14.2 (11.0-16.0) % Plt Count 373 (160-400) X10*3/uL MPV 10.8 (9.4-12.4) fL Immature Gran % (Auto) 2.2 H (0.0-0.4) % Neut % (Auto) 65.6 (45-73) % Lymph % (Auto) 18.5 L (20-40) % Alger % (Auto) 10.3 (2-11) % Eos % (Auto) 3.0 (0-4) % Baso % (Auto) 0.4 (0-2) % Lymph # (Auto) 2.5 (1.2-4.9) X10*3/uL [place] # (Auto) 1.4 H (0.1-1.2) X10*3/uL Eos # (Auto) 0.4 (0.0-0.4) X10*3/uL Baso # (Auto) 0.1 (0.0-0.2) X10*3/uL Abs Immat Gran (auto) 0.29 H (0.00-0.03) X10*3/uL Absolute Neuts (auto) 8.8 H (2.0-8.3) x10*3/uL Absolute Nucleated RBC 0.000 (0.0-0.012) X10*3/uL Nucleated RBC % (auto) 0.0 (0.0-0.2) /100WBC VBG pH 7.33 (7.32-7.43) VBG pCO2 35 mmHg VBG pO2 41 mmHg VBG HCO3 19 L (22-26) mmol/L VBG O2 Saturation 61.0 % VBG Base Excess -6.0 mmol/L Sodium 146 H (135-145) mmol/L Potassium 4.9 (3.3-5.1) mmol/L Chloride 111 H (96-108) mmol/L Carbon Dioxide 21 L (22-29) mmol/L Anion Gap 19 (12-20) BUN 43 H (9-16) mg/dL Creatinine 1.62 H (0.5-1.4) mg/dL Estim Creat Clear Calc 38.2 Estimated GFR 42 Random Glucose 147 H (60-115) mg/dL Calcium 9.7 (8.4-10.2) mg/dL Magnesium 2.2 (1.6-2.6) mg/dL Total Bilirubin 0.2 (0.0-1.0) mg/dL Direct Bilirubin < 0.2 (0.0-0.5) mg/dL AST 11 (5-37) U/L ALT 9 (0-40) U/L Alkaline Phosphatase 100 (39-117) U/L Troponin I High Sens 7.8 D (<3.5-35.0) ng/L C-Reactive Protein < 0.10 (< or = 0.50) mg/dL B-Natriuretic Peptide 377 H (<100) pg/mL Total Protein 7.1 (6.5-8.0) g/dL Albumin 3.9 (3.5-5.0) g/dL Ethyl Alcohol < 10 mg/dL Influenza Type A (PCR) NEGATIVE (Negative) Influenza Type B (PCR) NEGATIVE (Negative) RSV RNA Qual (PCR) NEGATIVE (Negative) SARS-CoV-2 RNA (RT-PCR) NEGATIVE (Negative) Independent Interpretation I performed an independent interpretation of an: EKG Interpretation: EKG at 14:31 shows sinus rhythm with a sinus arrhythmia at 74 beats per minute. There is an old right bundle branch block. No definite acute ischemic changes. Discharge Plan Discharge Clinical Impression: Syncope, Dehydration Patient Disposition: [facility] Additional Instructions: Please continue your regular medications. Your testing today showed that you were somewhat dehydrated. Please try to increase fluid intake. Please try to decrease smoking. It is possible that your episodes today could be related to seizures. Please contact the neurology office (Dr. Delgadillo's office) for an outpatient appointment to discuss this further and possibly have an EEG. If you have a customer care agent please also plan on making a follow up appointment with your customer care agent. Otherwise continue your regular medications. Return to the emergency room if significantly worse. Prescriptions: No Action ferrous sulfate 325 mg (65 mg iron) Tablet 325 mg PO DAILY insulin lispro [Humalog U-100 Insulin] 100 unit/mL Solution 2 - 10 sliding scale dose SUBCUT USEASDIRECTD metformin 500 mg tablet 1,000 mg PO BID atorvastatin 80 mg tablet 80 mg PO BEDTIME tamsulosin 0.4 mg capsule 0.4 mg PO DAILY Eliquis 5 mg tablet 5 mg PO BID acetaminophen [Tylenol] 325 mg Tablet 650 mg PO Q6H PRN (Reason: Fever Or Pain) Rx Instructions: DO NOT EXCEED 3G / 24 HRS magnesium hydroxide [Milk of Magnesia] 400 mg/5 mL Suspension 30 ml PO DAILY PRN (Reason: Constipation) bisacodyl 10 mg Suppository 10 mg PA DAILY PRN (Reason: Constipation) Fleet Enema 19-7 gram/118 mL Enema 118 ml PA DAILY PRN (Reason: Constipation) lisinopril 40 mg Tablet 40 mg PO DAILY Qty: 30 0RF Protocol: Hold for SBP< HOLD for SBP < : 90 hydrochlorothiazide 25 mg Tablet 25 mg PO DAILY Qty: 30 0RF Protocol: Hold for SBP< HOLD for SBP < : 90 amlodipine 2.5 mg Tablet 2.5 mg PO DAILY Referrals: Leesa Delacruz MD [Primary Care Provider] - Dimple Delgadillo MD [Physician] - (Possible seizure episode) Print Language: Thai
[2024-02-22 14:57] VITALS: O2SAT 97
[2024-02-22 14:57] LABS: MANUAL DIFF FLAG NO; Venous Blood Gas Refer to POC result
[2024-02-22 14:59] LABS: Basophils Absolute Auto 0.1 X10*3/uL (0.0-0.2); Basophils Percent Auto 0.4 % (0-2); Eosinophils Absolute Auto 0.4 X10*3/uL (0.0-0.4); Hematocrit 34.3 % (42.0-52.0); Hemoglobin 10.8 g/dl (14.0-18.0); Imm Gran Abs Auto 0.29 X10*3/uL (0.00-0.03); Imm Gran Pct Auto 2.2 % (0.0-0.4); Lymphocytes Absolute Auto 2.5 X10*3/uL (1.2-4.9); Lymphocytes Percent Auto 18.5 % (20-40); Mean Corpuscular HGB Conc 31.5 g/dl (31.0-36.0); Mean Corpuscular Hemoglobin 30.6 pg (27.0-33.0); Mean Corpuscular Volume 97.2 fL (80.0-98.0); Mean Platelet Volume 10.8 fL (9.4-12.4); Monocytes Absolute Auto 1.4 X10*3/uL (0.1-1.2); Monocytes Percent Auto 10.3 % (2-11); Neutrophils Absolute Auto 8.8 x10*3/uL (2.0-8.3); Neutrophils Percent Auto 65.6 % (45-73); Platelet Count 373 X10*3/uL (160-400); Red Blood Count 3.53 X10*6/uL (4.60-5.80); Red Cell Distribution Width 14.2 % (11.0-16.0); White Blood Count 13.4 X10*3/uL (4.8-10.8)
[2024-02-22 15:01] LABS: VBG HCO3 19 mmol/L (22-26); VBG pCO2 35 mmHg; VBG pH 7.33 (7.32-7.43); VBG pO2 41 mmHg
[2024-02-22 15:19] LABS: Alanine Aminotransferase 9 U/L (0-40); Albumin Level 3.9 g/dL (3.5-5.0); Alkaline Phosphatase 100 U/L (39-117); Anion Gap 19 (12-20); Aspartate Amino Transferase 11 U/L (5-37); Bilirubin Direct < 0.2 mg/dL (0.0-0.5); Bilirubin Total 0.2 mg/dL (0.0-1.0); Blood Urea Nitrogen 43 mg/dL (9-16); C Reactive Protein < 0.10 mg/dL (< or = 0.50); Calcium 9.7 mg/dL (8.4-10.2); Carbon Dioxide 21 mmol/L (22-29); Chloride 111 mmol/L (96-108); Creatinine Clr Calc Pharmacy 38.2; Estimated Glomerular Filt Rate 42; Ethanol < 10 mg/dL; Glucose Random 147 mg/dL (60-115); Magnesium 2.2 mg/dL (1.6-2.6); Potassium 4.9 mmol/L (3.3-5.1); Sodium 146 mmol/L (135-145); Total Protein 7.1 g/dL (6.5-8.0)
[2024-02-22 15:21] LABS: B Type Natriuretic Peptide 377 pg/mL (<100)
[2024-02-22 15:24] LABS: Troponin-I High Sensitivity 7.8 ng/L (<3.5-35.0)
[2024-02-22] MEDS: Lactated Ringers 1,000 ML 999 ML IV (15:34)
[2024-02-22 16:21] LABS: Influenza A PCR NEGATIVE (Negative); Influenza B PCR NEGATIVE (Negative); Resp Syncy Virus RNA Qual PCR NEGATIVE (Negative); SARS COV2 PCR INHOUSE NEGATIVE (Negative)
[2024-02-22 16:24] VITALS: BP 147/60; PULSE 53; RESP 16; TEMP 36.8; O2SAT 96
[2024-02-22 19:27] VITALS: BP 147/60; PULSE 53; RESP 16; TEMP 36.8; O2SAT 96
== END 2024-02-22 19:00 | disposition skilled nursing facility (03) ==
PROVIDERS: Emergency Provider Emergency Medicine; PCP Internal Medicine
DX: R55 Syncope and collapse (principal); E86.0 Dehydration; R51.9 Headache, unspecified; I45.10 Unspecified right bundle-branch block; Z03.818 Encounter for observation for suspected exposure to other biological agents ruled out; E11.9 Type 2 diabetes mellitus without complications; I10 Essential (primary) hypertension; E78.5 Hyperlipidemia, unspecified; I48.0 Paroxysmal atrial fibrillation; F17.210 Nicotine dependence, cigarettes, uncomplicated; Z86.73 Personal history of transient ischemic attack (TIA), and cerebral infarction without residual deficits; Z79.899 Other long term (current) drug therapy
CPT/HCPCS: 0241U; 70450; 71045; 80048; 80076; 80307; 82803; 83735; 83880; 84484; 85025; 86140; 93005; 96360; 99284; 99285; J7120

== ENCOUNTER 2024-12-18 15:13 | Outpatient (AMB) | payer MEDICARE, SELFPAY ==
--- NOTE | 2024-12-18 15:15 | MHC.OFFVIS ---
Vital Signs 12/18/24 15:20 Height 6 ft 1 in Weight 153 lb BMI 20.2 BP 128/64 Blood Pressure Location Lt brachial Position Sitting Pulse 97 Pulse Source Pulse Oximeter Pulse Oximetry (%) 99 Oxygen Delivery Method Room Air Intake Visit Reasons: Follow up for Surgery Intake Note: follow up for clearance for Surgery, per HCP, pt is scheduled for thyroid Bx and endoscopy Nuisance Animal Damage Control Agent Required: No Accompanied by: Brother Allergies No Known Allergies (No Known Allergies*) Allergy (Verified 12/18/24 15:22) Medication List - Last Reconciled 12/18/24 by DAVID Meredith acetaminophen (Tylenol) 650 mg PO Q6H PRN apixaban (Eliquis) 5 mg PO BID atorvastatin 80 mg PO BEDTIME bisacodyl 10 mg [place] DAILY PRN ferrous sulfate 325 mg PO DAILY hydrochlorothiazide 25 mg See Protocol PO DAILY insulin lispro (Humalog U-100 Insulin) 2 - 10 sliding scale doses subcut USEASDIRECTD insulin lispro (Humalog KwikPen (U-100) Insulin) 1 sliding scale dose subcut USEASDIRECTD lisinopril 5 mg PO DAILY magnesium hydroxide (Milk of Magnesia) 30 mL PO DAILY PRN metformin 1,000 mg PO BID sodium phosphates 19-7 gram/118 mL (Fleet Enema) 118 mL [place] DAILY PRN tamsulosin 0.4 mg PO DAILY HPI HPI Follow up for Surgery: Details: Everardo is a 79-year-old male with past medical history of smoking, hypertension, hyperlipidemia, diabetes, CVA, sinus bradycardia, paroxysmal atrial fibrillation who presents for follow-up. He was seen by Dr. Craw[place] in [facility] [place]. He has not been seen in our office. At that time outpatient cardiac monitoring has been ordered however not completed. Today he presents for cardiology clearance for upcoming procedures. According to his brother he is having a thyroid biopsy and endoscopy. Everardo reports that he generally feels well with no concerning symptoms. He denies getting chest discomfort at rest or during activity. He will get short of breath with exertion. He continues to smoke just under a pack of cigarettes per day. He has an intermittent productive cough. No PND, orthopnea or edema. No lightheadedness, presyncope, syncope, recent falls. He has history of CVA and is not ambulatory. He pivots into a wheelchair with 1 assist. He resides at a long-term care facility. He has no known bleeding issues. Dr. Brewer from the [place] requested clearance for his procedures. [facility] Medical History (Updated 12/18/24 @ 17:15 by Demi Hargrove NP-C) Paroxysmal atrial fibrillation Essential (primary) hypertension Hemiplegia and hemiparesis following cerebral infarction affecting right dominant side Hyperlipidemia Diabetes type 2, controlled Repeated falls CVA (cerebral vascular accident) Social History Alcohol intake: never Patient Tobacco Use Status: Current everyday Tobacco user Tobacco use type: Cigarette Cigarette Packs Per Day: 0.3 Cigarettes Per Day: 6.0 Advance Directives Date on File: 09/18/22 service: Yes Current occupational status: retired Review of Systems Const Denies chills, Denies fever(s), Denies frequent falls, Denies weight gain and Denies weight loss ENT Denies dizziness Card Denies chest pain, Denies chest pain at rest, Denies chest pain with activity, Denies rapid heart rate, Denies leg edema, Denies lightheadedness, Denies palpitations, Denies orthopnea and Denies other (loss of consciousness) GI Denies hematochezia and Denies change in stool character Musc Details: Does not ambulate, uses wheelchair Reports abnormal gait, Denies radiating pain into limb and Denies tingling Neuro Reports abnormal gait, Denies dizziness, Denies frequent falls and Denies tingling Endo Denies palpitations Physical Exam Vital Signs: Last Vital Signs Pulse 97 12/18/24 15:20 BP 128/64 12/18/24 15:20 Pulse Ox 99 12/18/24 15:20 Oxygen Delivery Method Room Air 12/18/24 15:20 BMI result Body Mass Index 20.2 Const Other: Nonambulatory, in wheelchair. General: cooperative, comfortable and no acute distress Orientation/consciousness: patient oriented x3 Neck Neck: Yes normal visual inspection and Yes no JVD Resp Effort & Inspection: normal respiratory effort Auscultation: clear to auscultation bilaterally, no rales, no rhonchi and no wheezes Cardio Rate: regular rate Rhythm: regular rhythm Heart sounds: S1 normal heart sound present, S2 normal heart sound present, no gallops, no murmurs and no rubs Neuro General: patient oriented x3 Extrem General: Yes normal to inspection Psych Appearance: grossly normal Mental Status: mental status grossly normal Speech and movement: Normal speech and movement present Office Procedures EKG Details: Today, read by me, sinus rhythm with frequent PACs, right bundle branch block, left anterior fascicular block, bifascicular block, can not exclude prior anterior septal infarct, rate 94, QTC 450 milliseconds [id number], Complete Assessment & Plan Assessment & Plan (1) Bifascicular block: Code(s): I45.2 - Bifascicular block Category: Medical Plan: Prior note indicates bradycardia with junctional escape beats when previously evaluated 10/2022. He is not on any rate slowing medications for this reason. EKG done today shows sinus rhythm with PACs, bifascicular block, rate 94. Bifascicular block is not new and was seen on prior EKGs in 2022. Last echo 11/09/2022 showed EF 63%, severe increase in the LV wall thickness, no regional wall motion abnormalities. Will check Holter monitor to assess for heart rates and arrhythmia. Will update echocardiogram due to upcoming procedure. (2) Bradycardia: Code(s): R00.1 - Bradycardia, unspecified Category: Medical Plan: As above (3) Paroxysmal atrial fibrillation: Code(s): I48.0 - Paroxysmal atrial fibrillation Category: Medical Plan: History of paroxysmal atrial fibrillation. Not on rate slowing medications. He is on Eliquis for anticoagulation. No bleeding issues reported. Checking Holter as above. (4) PAC (premature atrial contraction): Code(s): I49.1 - Atrial premature depolarization Category: Medical Plan: Frequent PACs noted on EKG from today. (5) LVH (left ventricular hypertrophy): Code(s): I51.7 - Cardiomegaly Category: Medical Plan: Severe increase in the LV wall thickness noted on last echocardiogram. Will be updating echo. (6) CVA (cerebral vascular accident): Code(s): I63.9 - Cerebral infarction, unspecified Category: Medical Plan: History of CVA. Has leg weakness and uses wheelchair. On anticoagulation. (7) Essential (primary) hypertension: Code(s): I10 - Essential (primary) hypertension Category: Medical Plan: Blood pressure goal less than 130/80. Controlled at this time. Continue hydrochlorothiazide. (8) Preop cardiovascular exam: Code(s): Z01.810 - Encounter for preprocedural cardiovascular examination Category: Medical Plan: Preop for thyroid biopsy and upper endoscopy. For thyroid biopsy, may proceed without any further cardiac testing. For endoscopy will check echocardiogram and Holter monitor prior to completion of full clearance. Plan Time spent on chart review, documentation, interview, assessment Orders: Orders ECG 3 day holter monitor Today I48.0 - Paroxysmal atrial fibrillation, I49.1 - Atrial premature depolarization CA echo transthoracic complete Today I10 - Essential (primary) hypertension, I49.1 - Atrial premature depolarization, I51.7 - Cardiomegaly Coding Level of Care Code Est Pt Level 4 (28539) Complex EM visit Add On G2211 Diagnoses Bifascicular block I45.2 Bradycardia R00.1 Paroxysmal atrial fibrillation I48.0 PAC (premature atrial contraction) I49.1 LVH (left ventricular hypertrophy) I51.7 CVA (cerebral vascular accident) I63.9 Essential (primary) hypertension I10 Preop cardiovascular exam Z01.810 CPT Codes EKG - CPT: 44761-[id number], Complete ([id number]) Time Spent (min) 28
[2024-12-18 15:20] VITALS: BP 128/64; PULSE 97; O2SAT 99; BMI 20.2
--- OUTSIDE RECORDS SUMMARY | 2024-12-18 15:38 | XMS_ITS | Clinical Summary ---
Author Organization [facility] Address [address] [place] [phone] Phone Care Team Providers Care Carpenter Repair Name Role Phone Rd Brewer MD Primary Care Provider + Encounters Date Type Department Care Team Description 10/12/2024 11:53 AM EDT - 10/12/2024 11:59 PM EDT Hospital Encounter [facility], Pet/Ct - [address] [address] [address] Brewer MD Discharge Disposition: Home or Self Care 10/11/2024 Transcribe Orders Virtual Department [address] [place] [id number] [address] Brew[address] MD Solitary pulmonary nodule (Primary Dx) from Last 3 Months Social History Tobacco Use Types Packs/Day Years Used Date Smoking Tobacco: Never Assessed Education Answer Date Recorded Are you interested in more education? Not on eugenie e 10/11/2024 Are you concerned about learning? Not on file 10/11/2024 No 10/11/2024 No 10/11/2024 Digital Access Answer Date Recorded No 10/11/2024 No 10/11/2024 Reliable internet access at home? Not on file 10/11/2024 Device with a working camera? Not on file Sex and Gender Information Value Date Recorded Sex Assigned at Not on file Legal Sex Male 8:29 AM EDT Gender Identity Not on file Sexual Orientation Not on file Plan of Treatment Not on file Medical Devices Not on file Procedures Procedure Name Priority Date/Time Associated Diagnosis Comments NM PET CT SKULL BASE TO MID THIGHS Routine 10/12/2024 2:22 PM EDT Solitary pulmonary nodule from Last 3 Months Results * NM PET CT Skull Base to Mid Thighs (10/12/2024 2:22 PM EDT) Anatomical Region Laterality Modality Positron Emissio n Tomography (PET) Narrative 10/12/2024 12:04 PM EDT [facility] Brewer MD IMG NM PET Final Re sult from Last 3 Months Care Teams Carpenter Repair Relationship Specialty Start Date End Date Rd Brewer MD [address] [place] [id number] PCP - General Internal Medicine 10/11/24 Additional Source Comments The information contained in this document represents components of the legal health record. It is not the complete legal health record.[facility]
== END 2024-12-18 16:28 | disposition home or self-care (01) ==
PROVIDERS: PCP Internal Medicine; Visit Provider Nurse Practitioner Family
DX: I45.2 Bifascicular block (principal); R00.1 Bradycardia, unspecified; I48.0 Paroxysmal atrial fibrillation; I49.1 Atrial premature depolarization; I51.7 Cardiomegaly; I63.9 Cerebral infarction, unspecified; I10 Essential (primary) hypertension; Z01.810 Encounter for preprocedural cardiovascular examination
CPT/HCPCS: 93010; 99214; G2211

== ENCOUNTER → 2024-12-18 15:13 | Outpatient (BNVA) | payer MEDICARE, SELFPAY | PROVIDERS: PCP Internal Medicine; Visit Provider Nurse Practitioner Family | DX: Z01.810 Encounter for preprocedural cardiovascular examination (principal); I45.2 Bifascicular block; R00.1 Bradycardia, unspecified; I48.0 Paroxysmal atrial fibrillation; I49.1 Atrial premature depolarization; I51.7 Cardiomegaly; I69.349 Monoplegia of lower limb following cerebral infarction affecting unspecified side; I10 Essential (primary) hypertension; Z79.01 Long term (current) use of anticoagulants; Z79.4 Long term (current) use of insulin; Z79.84 Long term (current) use of oral hypoglycemic drugs; Z79.899 Other long term (current) drug therapy | CPT/HCPCS: 93005; 99212 ==

== ENCOUNTER → 2025-01-30 09:57 | Outpatient (REF) | payer MEDICARE, SELFPAY ==
--- NOTE | 2025-01-30 10:14 | CA_ITS ---
Transthoracic Echocardiogram Patient (Last, First, Middle): Everardo Bennett, Gender: Male Date of : 1945 Age: 79 Procedure Date: 01/30/2025 Procedure Type: Transthoracic Echocardiogram Location: OP Height: 185.42 cm Weight: 63.5 kg BSA: 1.85 m2 Heart Rate: bpm BP: 128 / 64 mmHg Roll Or Tape Edge Machine Operator: DYLAN Referring MD: Demi Hargrove NP-Faby Board Certified Family Physician: Mark Crawley MD Symptoms: I10 - Essential (primary) hypertension Study Quality: Adequate ECG Rhythm: Sinus with extra beats Conclusions: - 1. Low normal LV ejection fraction 50-55% with impaired relaxation filling pattern with severe asymmetric septal hypertrophy 2. Mild aortic stenosis 3. Moderate mitral annular calcification with mild mitral regurgitation 4. Normal RV systolic pressure 5. No gross pericardial effusion Findings Left Ventricle Normal left ventricular cavity size. There is normal left ventricular wall thickness. The left ventricular systolic function is low normal. The visually estimated ejection fraction is between 50-55%. Spectral Doppler is indicative of an impaired relaxation filling pattern. E/E prime ratio is between 8 and 15 consistent with indeterminate filling pressures. There is severe septal asymmetric hypertrophy. Wall Motion Rest Echo Findings The basal inferior and basal inferolateral segments are hypokinetic. All other scored wall segments showed normal motion. Right Ventricle Normal right ventricular cavity size and systolic function. Atria The left atrium is normal in size. There is no evidence of interatrial shunt. The right atrium is normal in size. Aortic Valve There is moderate calcification of the aortic valve. There is mild aortic valve stenosis. The peak aortic gradient is 11 mmHg.The mean gradient is 6 mmHg. The aortic valve area is 2.19 cm2. There is no aortic valve regurgitation. Mitral Valve There is mild anterior and moderate posterior mitral leaflet thickening. There is moderate mitral annular calcification. There is mild mitral valve regurgitation. There is no mitral valve stenosis. Pulmonic Valve The pulmonic valve was not well visualized. Tricuspid Valve Likely normal tricuspid valve structure and function. There is trace tricuspid valve regurgitation. The right ventricular systolic pressure is normal. The right ventricular systolic pressure is 28 mmHg. Normal right atrial pressure. There is no evidence of pulmonary hypertension. Great Vessels The pulmonary artery was not well visualized. There is no dilatation of the ascending aorta measuring 3.50 cm. Small plaque is seen in the sino tubular ridge. Venous The inferior vena cava is normal in size and collapses greater than 50% with inspiration. Pericardium/Pleural There is no evidence of pericardial effusion. Prior Study Comparison Changes noted compared to prior study dated: 11/09/2022. LV ejection fraction has marginally reduced. There is severe asymmetric septal hypertrophy. Mild aortic stenosis and mild mitral regurgitation is noted Measurements 2D Linear Measurements IVSd: 1.79 0.6-0.9/0.6-1.0 cm LVIDd: 4.85 3.9-5.3/4.2-5.9 cm LVIDd Index: 2.62 2.4-3.2/2.2-3.1 cm/m2 LVIDs: 3.52 2.0-3.6 cm LVPWd: 0.87 0.7-1.1 cm LA Diam: 3.60 2.7-3.8/3.0-4.0 cm LAIDs Index: 1.95 1.5-2.3 cm/m2 LV Mass: 321.16 67-162/88-224 g LV Mass Index: 173.60 43-95/49-115 g/m2 LVOT Diam: 2.10 3.0+(-)1.3 cm 2D Systolic Function EF 4C: 44.30 >55% EF 2C: 65.30 >55% EF BiP: 53.00 >55% Mitral Valve MV Pk E: 0.66 MV PK A: 0.96 MV Decel Time: 145.00 E/A: 0.70 E'Lateral: 4.46 E'Medial: 4.57 E/E' Med: 14.50 E/E' Lat: 14.90 PHT: 42.00 MVA PHT: 5.24 Decel [place]: 4.59 Aortic Valve AoV Pk Malick: 1.65 AoV Mn Malick: 1.15 AoV VTI: 0.35 AoV Pk Grad: 11.00 Aov Mn Grad: 6.00 DORINDA Cont.VTI: 2.19 LVOT LVOT Pk Malick: 0.83 LVOT Mn Malick: 0.68 LVOT VTI: 0.22 LVOT Pk Grad: 3.00 LVOT Mn Grad: 2.00 LVOT Diam: 2.10 LVOT Area: 3.46 Diastolic Function MV Pk E: 0.66 MV Pk A: 0.96 E/A: 0.70 E'Medial: 4.57 E/E' Med: 14.50 E' Laterial: 4.46 E/E' Lat: 14.90 Right Ventricle TAPSE (mm): 20.00 TVS' Malick: 14.20 Tricuspid Valve TR Pk Malick: 2.22 TR Pk Grad: 20.00 RA Press: 8.00 RVSP: 28.00 Great Vessels Aorta Sinus of Valsalva: 3.40 2.0-3.5 cm Ao Asc: 3.50 2.1-3.4 cm Pulmonary Valve PV Pk Malick: 0.93 Peak PV Grad: 3.00 Updated in Other Vendor System with Status of Final Mark Crawley MD electronically signed on 01/31/2025 12:34:10 PM with status of Final
--- OUTSIDE RECORDS SUMMARY | 2025-01-30 11:46 | XMS_ITS | Clinical Summary ---
Author Organization [facility] Address [address] [place] [phone] Phone Care Team Providers Care Demand Generation Manager Name Role Phone Rd Brewer MD Primary Care Provider + Social History Tobacco Use Types Packs/Day Years [...] on file Medical Devices Not on file Care Teams Demand Generation Manager Relationship Specialty Start Date End Date Rd Brewer MD [address] [place] [phone] PCP - General Internal Medicine 10/11/24 Additional Source Comments The information contained in this document represents components of the legal health record. It is not the complete legal health record.[facility]
== END ==
LOC: HO.CARD 09:57
PROVIDERS: PCP Internal Medicine; Visit Provider Nurse Practitioner Family
DX: I49.1 Atrial premature depolarization (principal); I48.0 Paroxysmal atrial fibrillation; I10 Essential (primary) hypertension
CPT/HCPCS: 93242; 93306

== ENCOUNTER → 2025-01-30 10:14 | Outpatient (BNV) | payer MEDICARE, SELFPAY | PROVIDERS: PCP Internal Medicine; Visit Provider Internal Medicine Cardiovascular Disease | DX: I42.2 Other hypertrophic cardiomyopathy (principal); I34.0 Nonrheumatic mitral (valve) insufficiency; I35.0 Nonrheumatic aortic (valve) stenosis; I34.81 Nonrheumatic mitral (valve) annulus calcification | CPT/HCPCS: 93306 ==

== ENCOUNTER 2025-02-27 13:50 | Outpatient (AMB) | payer MEDICARE, SELFPAY ==
--- NOTE | 2025-02-27 13:58 | A.OFFVIS_ITS ---
Vital Signs 02/27/25 13:59 Height 6 ft 1 in BMI Reason not done Patient refused/unable BP 128/60 Blood Pressure Location Lt brachial Position Sitting Pulse 83 Pulse Source Pulse Oximeter Intake Visit Reasons: 6wk s/p echo/holter French Weaver Required: No Accompanied by: Other Relationship Allergies No Known Allergies (No Known Allergies*) Allergy (Verified 12/18/24 15:22) Medication List - Last Reconciled 02/27/25 by LAYA MeredithC acetaminophen (Tylenol) 650 mg PO Q6H PRN apixaban (Eliquis) 5 mg PO BID atorvastatin 80 mg PO BEDTIME bisacodyl 10 mg UT DAILY PRN ferrous sulfate 325 mg PO DAILY hydrochlorothiazide 25 mg See Protocol PO DAILY insulin lispro (Humalog U-100 Insulin) 2 - 10 sliding scale doses subcut USEASDIRECTD insulin lispro (Humalog KwikPen (U-100) Insulin) 1 sliding scale dose subcut USEASDIRECTD lisinopril 5 mg PO DAILY magnesium hydroxide (Milk of Magnesia) 30 mL PO DAILY PRN metformin 1,000 mg PO BID sodium phosphates 19-7 gram/118 mL (Fleet Enema) 118 mL UT DAILY PRN tamsulosin 0.4 mg PO DAILY HPI HPI 6wk s/p echo/holter: Details: Everardo is a 79-year-old male with past medical history of smoking, hypertension, hyperlipidemia, diabetes, CVA, sinus bradycardia, paroxysmal atrial fibrillation who presents for follow-up after recent echocardiogram and Holter monitor. Today he reports that he has not been scheduled for his endoscopy yet. He is undergoing the thyroid biopsy next week. He does not recall having any symptoms when he wore the Holter monitor. He does not get heart palpitations. No lightheadedness, presyncope, syncope. No chest discomfort, concerning shortness of breath, edema. He continues to smoke just under a pack of cigarettes per day. He has an intermittent productive cough. He has history of CVA and is not ambulatory. He pivots into a wheelchair with 1 assist. He resides at a long- term care facility. He has no known bleeding issues. PCP Dr. Brewer from the [place] Medical History Paroxysmal atrial fibrillation Essential (primary) hypertension Hemiplegia and hemiparesis following cerebral infarction affecting right dominant side Hyperlipidemia Diabetes type 2, controlled Repeated falls CVA (cerebral vascular accident) Social History Alcohol intake: never Patient Tobacco Use Status: Current everyday Tobacco user Tobacco use type: Cigarette Cigarette Packs Per Day: 0.3 Cigarettes Per Day: 6.0 Advance Directives Date on File: 09/18/22 service: Yes Current occupational status: retired Review of Systems Const All systems reviewed & are unremarkable except as noted in HPI and below Denies daytime sleepiness, Denies difficulty sleeping, Denies snoring, Denies stops breathing during sleep and Denies weakness Card Denies chest pain, Denies rapid heart rate, Denies irregular heart rhythm, Denies claudication, Denies leg edema, Denies lightheadedness, Denies palpitations, Denies dyspnea, Denies dyspnea on exertion, Denies orthopnea, Denies paroxysmal nocturnal dyspnea and Denies slow heart rate Resp Denies cough, Denies dyspnea, Denies dyspnea on exertion and Denies snoring GI Reports no additional complaints, Denies hematochezia, Denies change in stool character and Denies dyspepsia Musc Reports abnormal gait (nonambulatory), Denies muscle weakness and Denies numbness Neuro Reports abnormal gait (nonambulatory), Denies numbness and Denies weakness Endo Denies palpitations Physical Exam Const Other: Nonambulatory, in wheelchair. General: cooperative, comfortable and no acute distress Orientation/consciousness: patient oriented x3 Neck Neck: Yes normal visual inspection and Yes no JVD Resp Effort & Inspection: normal respiratory effort Auscultation: clear to auscultation bilaterally, no rales, no rhonchi and no wheezes Cardio Rate: regular rate Rhythm: regular rhythm Heart sounds: S1 normal heart sound present, S2 normal heart sound present, no gallops, no murmurs and no rubs Neuro General: patient oriented x3 Extrem General: Yes normal to inspection Psych Appearance: grossly normal Mental Status: mental status grossly normal Speech and movement: Normal speech and movement present Results Reviewed Results Reviewed: Holter 01/30/25 * Total monitoring time 3 days. * Underlying rhythm is atrial fibrillation. * Average ventricular rate 81/Min. * Rare ventricular ectopy. Few couplets. * No significant pauses or high-grade AV blocks. * No patient markers or diary events Echo 01/30 Conclusions: - 1. Low normal LV ejection fraction 50-55% with impaired relaxation filling pattern with severe asymmetric septal hypertrophy 2. Mild aortic stenosis 3. Moderate mitral annular calcification with mild mitral regurgitation 4. Normal RV systolic pressure 5. No gross pericardial effusion Assessment & Plan Assessment & Plan (1) Paroxysmal atrial fibrillation: Code(s): I48.0 - Paroxysmal atrial fibrillation Category: Medical Plan: History of paroxysmal atrial fibrillation. EKG on last visit showed sinus rhythm. Holter monitor done 01/30/2025 for 3 days shows atrial fibrillation with average heart rate 81 beats per minute, rare ventricular ectopy. AFib was asymp tomatic. Not on rate slowing medications. Continue Eliquis for anticoagulation. Cardiology follow-up 6 months, sooner if needed. (2) Bifascicular block: Code(s): I45.2 - Bifascicular block Category: Medical Plan: Prior note indicates bradycardia with junctional escape beats when previously evaluated 10/2022. He is not on any rate slowing medications for this reason. EKG done last visit shows sinus rhythm with PACs, bifascicular block, rate 94. Bifascicular block is not new and was seen on prior EKGs in 2022. Echocardiogram 01/30/2025 showing EF 50-55%, severe asymmetric septal hypertrophy, mild , mild MR, basal inferior hypokinetic which is not new. No stress test in our system. No reports of lightheadedness, no anginal symptoms., CAD not excluded, continue atorvastatin, antihypertensives. Not on aspirin as he is on Eliquis. (3) Bradycardia: Code(s): R00.1 - Bradycardia, unspecified Category: Medical Plan: As above (4) LVH (left ventricular hypertrophy): Code(s): I51.7 - Cardiomegaly Category: Medical Plan: Severe increase in the LV wall thickness noted on last echocardiogram 2022. Recent echo with severe asymmetric septal hypertrophy. Blood pressure well controlled. (5) CVA (cerebral vascular accident): Code(s): I63.9 - Cerebral infarction, unspecified Category: Medical Plan: History of CVA. Has leg weakness and uses wheelchair. On anticoagulation. (6) Essential (primary) hypertension: Code(s): I10 - Essential (primary) hypertension Category: Medical Plan: Blood pressure goal less than 130/80. Controlled at this time. Continue hydrochlorothiazide, lisinopril. (7) Preop cardiovascular exam: Code(s): Z01.810 - Encounter for preprocedural cardiovascular examination Category: Medical Plan: Preop for thyroid biopsy and upper endoscopy. For thyroid biopsy, may proceed without any further cardiac testing. For endoscopy he did undergo the echoca rdiogram and Holter monitor, as above. He can proceed with his procedure with intermediate cardiac risk. -see addendum on last note. Plan Time spent on chart review, documentation, interview, assessment Coding Level of Care Code Est Pt Level 4 (94089) Complex EM visit Add On G2211 Diagnoses Paroxysmal atrial fibrillation I48.0 Bifascicular block I45.2 Bradycardia R00.1 LVH (left ventricular hypertrophy) I51.7 CVA (cerebral vascular accident) I63.9 Essential (primary) hypertension I10 Preop cardiovascular exam Z01.810 Time Spent (min) 28
[2025-02-27 13:59] VITALS: BP 128/60; PULSE 83
--- OUTSIDE RECORDS SUMMARY | 2025-02-27 17:05 | XMS_ITS | Clinical Summary ---
Author Organization [facility] Address [address] [place] [phone] Phone Care Team Providers Care Parts Identification Technician Name Role Phone Rd Brewer MD Primary [...] Medical Devices Not on file Care Teams Parts Identification Technician Relationship Specialty Start Date End Date Rd Brewer MD [address] [place] [phone] PCP - General Internal Medicine 10/11/24 Additional Source Comments The information contained in this document represents components of the legal health record. It is not the complete legal health record.[facility]
== END 2025-02-27 14:27 | disposition home or self-care (01) ==
LOC: HO.HCS 13:51
PROVIDERS: PCP Internal Medicine; Visit Provider Nurse Practitioner Family
DX: I48.0 Paroxysmal atrial fibrillation (principal); I45.2 Bifascicular block; R00.1 Bradycardia, unspecified; I51.7 Cardiomegaly; I63.9 Cerebral infarction, unspecified; I10 Essential (primary) hypertension; Z01.810 Encounter for preprocedural cardiovascular examination
CPT/HCPCS: 99214; G2211

== ENCOUNTER → 2025-02-27 13:50 | Outpatient (BNVA) | payer MEDICARE, SELFPAY | PROVIDERS: PCP Internal Medicine; Visit Provider Nurse Practitioner Family | DX: I48.0 Paroxysmal atrial fibrillation (principal); I45.2 Bifascicular block; R00.1 Bradycardia, unspecified; Z72.0 Tobacco use; I63.9 Cerebral infarction, unspecified; Z01.810 Encounter for preprocedural cardiovascular examination; E78.5 Hyperlipidemia, unspecified; E11.9 Type 2 diabetes mellitus without complications; Z79.4 Long term (current) use of insulin; I11.9 Hypertensive heart disease without heart failure | CPT/HCPCS: 99212 ==